=== PATIENT | female | born 1955 | race Caucasian/White ===

== ENCOUNTER 2022-10-04 09:54 | Outpatient (OUT) | payer MEDICARE, OTHER, SELFPAY ==
--- NOTE | 2022-10-04 10:06 | XR_ITS ---
The [address] [address] Patient Name: EVANGELIST SCRUGGS MRN: [id number] date: 1955 Sex: F Assigned Patient Location: US Current Patient Location: US Accession/Order Number: [id number] Exam Date: 10/04/2022 10:15 Report Date: 10/04/2022 11:41 At the request of: LAZARO CHARLES Procedure: XR knee RT 4V EXAM: XR knee RT 4V HISTORY: Pain In Right Knee M25.561 COMPARISON: None. TECHNIQUE: 4 views FINDINGS: No acute fracture or dislocation. No significant degenerative changes. Unremarkable soft tissues. XR/XR knee RT 4V IMPRESSION: Unremarkable exam. Electronically authenticated by: ELIZ HUTCHINS Date: 10/04/2022 11:41
--- NOTE | 2022-10-04 10:06 | US_ITS ---
The [address] [address] Patient Name: EVANGELIST SCRUGGS MRN: [id number] date: 1955 Sex: F Assigned Patient Location: US Current Patient Location: US Accession/Order Number: [id number] Exam Date: 10/04/2022 10:15 Report Date: 10/04/2022 12:46 At the request of: LAZARO CHARLES Procedure: US venous doppler LE RT EXAMINATION: US venous doppler LE RT HISTORY: Soft Tissue Disorder M79.89 ; right knee pain COMPARISON: No relevant comparison available. FINDINGS: REGION: Right lower extremity THROMBI: None. COMPRESSIBILITY: Normal compressibility. FLOW: Normal waveform and antegrade flow between 5 and 20 cm/s. OTHER: None. US/US venous doppler LE RT IMPRESSION: 1. No deep vein thrombus within the right lower extremity. Electronically authenticated by: IGGY NUNES Date: 10/04/2022 12:46
== END 2022-10-04 09:55 | disposition home or self-care (01) ==
LOC: US 09:57
PROVIDERS: PCP Family Medicine; Visit Provider Family Medicine
DX: M25.561 Pain in right knee (principal); M79.89 Other specified soft tissue disorders
CPT/HCPCS: 73564; 93971

== ENCOUNTER 2023-02-05 10:08 | Outpatient (OUT) | payer MEDICARE, OTHER, SELFPAY ==
[2023-02-05 10:33] LABS: Basophils Percent Auto 0.6 % (0.2-2.0); Eosinophils Absolute Auto 0.1 10^3/uL (0.0-0.7); Hematocrit 39.3 % (36.0-48.0); Hemoglobin 12.8 g/dL (12.0-16.0); Immature Granulocytes Abs Auto 0.01 10^3/uL (0.00-0.03); Immature Granulocytes Pct Auto 0.2 % (0.0-0.5); Lymphocytes Percent Auto 58.6 % (20.5-60.0); Mean Corpuscular HGB Conc 32.6 g/dL (29.9-35.2); Mean Corpuscular Hemoglobin 29.7 pg (26.7-34.0); Mean Corpuscular Volume 91.2 fL (81.0-99.0); Mean Platelet Volume 9.9 fL (9.5-13.5); Monocytes Absolute Auto 0.5 10^3/uL (0.3-0.8); Monocytes Percent Auto 9.7 % (1.7-12.0); Neutrophils Absolute Auto 1.6 10^3/uL (1.4-6.5); Neutrophils Percent Auto 29.9 % (43.0-75.0); Platelet Count 351 10^3/uL (150-450); Red Blood Count 4.31 10^6/uL (4.20-5.40); Red Cell Distribution Width 13.1 % (11.0-15.0); White Blood Count 5.2 10^3/uL (4.0-11.0)
[2023-02-05 12:06] LABS: Alanine Aminotransferase 29 U/L (14-59); Albumin Globulin Ratio 1.1; Albumin Level 3.6 g/dL (3.4-5.0); Alkaline Phosphatase 80 U/L (46-116); Anion Gap 11.9; Aspartate Amino Transferase 20 U/L (15-37); BUN Creatinine Ratio 19.5; Bilirubin Total 0.6 mg/dL (0.2-1.0); Calcium 8.9 mg/dL (8.5-10.1); Carbon Dioxide 28.4 mmol/L (21.0-32.0); Chloride 105 mmol/L (98-107); Estimated GFR (African America >60 (>=60); Estimated GFR (Non-African Ame >60 (>=60); Globulin 3.2 g/dL; Glucose 101 mg/dL (74-106); Potassium 4.3 mmol/L (3.5-5.1); Sodium 141 mmol/L (136-145); Thyroid Stimulating Hormone 1.028 uIU/mL (0.358-3.740); Total Protein 6.8 g/dL (6.4-8.2)
== END 2023-02-05 10:09 | disposition home or self-care (01) ==
LOC: LAB 10:13
PROVIDERS: PCP Family Medicine; Visit Provider Family Medicine
DX: R41.89 Other symptoms and signs involving cognitive functions and awareness (principal); N95.1 Menopausal and female climacteric states; R19.7 Diarrhea, unspecified
CPT/HCPCS: 36415; 80053; 84443; 85025

== ENCOUNTER 2023-02-27 08:51 | Outpatient (OUT) | payer MEDICARE, OTHER, SELFPAY ==
--- OUTSIDE RECORDS SUMMARY | 2023-02-27 08:56 | XMS_ITS | CCD ---
Author Name Unknown Address [address] [place] [address] Organization [facility] Care Team Providers Care Laborer/Grade Check Name Role Phone Marguerite Santiago Unavailable JACK, DR MARGUERITE De Souza Attending Unavailable SANTIAGO, DR MARGUERITE De Souza Admitting Unavailable SANTIAGO, DR MARGUERITE De Souza Primary Care Unavailable MANJU, DR ALEX Epstein Consulting Unavailable SANTIAGO, DR MARGUERITE De Souza Consulting Unavailable SANTIAGO, DR MARGUERITE De Souza Attending Unavailable SANTIAGO, DR MARGUERITE De Souza Admitting Unavailable MANJU, DR ALEX Epstein Consulting Unavailable SANTIAGO, DR MARGUERITE De Souza Primary Care Unavailable SANTIAGO, DR MARGUERITE De Souza Consulting Unavailable SANTIAGO, DR MARGUERITE De Souza Primary Care Unavailable SANTIAGO, DR MARGUERITE De Souza Referring Unavailable MISC, DR RANKIN Admitting Unavailable MISC, DR RANKIN Consulting Unavailable MISC, DR RANKIN Attending Unavailable Allergies Allergy Classification Reported Allergen(s) Allergy Type Date of Onset Reaction(s) Facility (11 sources) NITROFURANTOIN, MACROCRYSTALS / Nitrofurantoin, Monohydrate Drug Allergy delusions [facility] Other (11 sources) Sulfamethoxazole / Trimethoprim Drug Allergy stomach upset [facility] Other (1 source) Nitrofurantoin Drug Allergy [facility] (1 source) Sulfonamides (Antibiotic) Drug allergy (disorder) [facility] Medications Current Medications Medication Drug Class(es) Dates Sig (Normalized) Sig (Original) atropine sulfate 0.025 mg / diphenoxylate hydrochloride 2.5 mg oral tablet (2 sources) Anticholinergic, Cholinergic Muscarinic Antagonist, Antidiarrheal Start: 02-20-2023 take 1 tablet by mouth three times daily as needed Lomotil 2.5-0.025 MG 1 tablet as needed Orally tid prn for 10 days Jan, Active cyclobenzaprine hydrochloride 5 mg oral tablet (4 sources) Muscle Relaxant Start: 02-05-2023 take 1 tablet by mouth every twenty-four hours Cyclobenzaprine HCl 5 MG 1 tablet at bedtime as needed Orally Once a day for 30 day(s) Jan, Active 24 hr oxybutynin chloride 10 mg extended release oral tablet (6 sources) Cholinergic Muscarinic Antagonist Start: 11-08-2022 take 1 tablet by mouth once daily oxyBUTYnin Chloride ER 10 MG 1 tablet Orally Once a day for 30 day(s) Oct, Active Start: 10-11-2022 take 1 tablet by mouth once da sedrick Ditropan XL 5 MG 1 tablet Orally Once a day for 30 days Sep, Active Start: 10-11-2022 take 1 tablet by filomena th every twenty-four hours Ditropan XL 5 MG 1 tablet Orally Once a day for 30 days Sep, Active predniSONE 20 mg oral tablet (2 sources) Start: 07-04-2022 take 2 tablets by mouth every twenty-four hours predniSONE 20 MG 2 tablets Orally Once a day for 5 days June, Active Probiotic (7 sources) Probiotic Orally Active rifAXIMin 550 mg oral tablet (2 sources) Rifamycin Antibacterial take 1 tablet by mouth every twelve hours Xifaxan 550 MG 1 tablet Orally Twice a day for 10 days Active 24 hr tolterodine tartrate 2 mg extended release oral capsule (1 source) Cholinergic Muscarinic Antagonist Start: 10-04-2022 take 1 capsule by mouth every twenty-four hours Detrol LA 2 MG 1 capsule Orally Once a day for 30 day(s) Sep, Active veozah 45 mg tablet (4 sources) take 1 tablet by mouth every twenty-four hours Veozah 45 MG 1 tablet Orally Once a day for 30 days Active zolpidem tartrate 5 mg oral tablet (5 sources) gamma-Aminobutyric Acid-ergic Agonist Start: 10-04-2022 take 1 tablet by mouth every twenty-four hours Zolpidem Tartrate 5 MG 1 tablet at bedtime as needed Orally Once a day for 30 days Sep, Active Completed/Discontinued Medications Medication Drug Class(es) Dates Sig (Normalized) Sig (Original) Ketorolac (11 sources) Nonsteroidal Anti-inflammatory Drug, Cyclooxygenase Inhibitor Start: 12-04-2016 Toradol per 15 mg Nov, 60 mg methylPREDNISolone (11 sources) Corticosteroid Start: 12-04-2016 Depo-Medrol 40 mg Nov, 1 mL Multivitamin preparation (2 sources) Multivitamin Orally Not-Taking omeprazole 20 mg delayed release oral capsule (2 sources) Proton Pump Inhibitor take 1 capsule by mouth once daily PriLOSEC 20 MG 1 capsule Orally Once a day Not-Taking Problems Problem Classification Problem Date Documented Da te Episodic/Chronic Abdominal pain (3 sources) Abdominal pain; Translations: [Unspecified abdominal pain] Episodic Esophageal disorders (3 sources) Gastroesophageal reflux disease without esophagitis; Translations: [Gastro-esophageal reflux disease without esophagitis] Chronic Inflammatory diseases of female pelvic organs (3 sources) Acute vaginitis; Translations: [Acute vaginitis] Episodic Intestinal infection (3 sources) Viral infection of the digestive tract; Translations: [Viral intestinal infection, unspecified] Episodic Menopausal disorders (5 sources) Menopausal flushing; Translations: [Menopausal and female climacteric states] Chronic Miscellaneous mental health disorders (9 sources) Primary insomnia; Translations: [Primary insomnia] Chronic Mycoses (7 sources) Tinea unguium; Translations: [Onychomycosis due to dermatophyte ] Onset: 2 Episodic Other circulatory disease (3 sources) Elevated blood-pressure reading without diagnosis of hypertension; Translations: [Elevated blood-pressure reading, without diagnosis of hypertension] Episodic Other connective tissue disease (1 source) Other muscle spasm Episodic Other diseases of bladder and urethra (9 sources) Overactive bladder; Translations: [Overactive bladder] Chronic Other diseases of bladder and urethra (2 sources) Overactive bladder Chronic Other gastrointestinal disorders (2 sources) Diarrhea, unspecified Episodic Other injuries and conditions due to external causes (3 sources) Motion sickness; Translations: [Motion sickness, initial encounter] Episodic Other nervous system disorders (1 source) Other symptoms and signs involving cognitive functions and awareness Episodic Other non-epithelial cancer of skin (3 sources) History of malignant neoplasm of skin; Translations: [Personal history of other malignant neoplasm of skin] Episodic Other non-traumatic joint disorders (5 sources) Pain in left knee; Translations: [PAIN IN LEFT KNEE] Onset: 3 Episodic Other nutritional; endocrine; and metabolic disorders (3 sources) Body mass index 30+ - obesity; Translations: [Body mass index (BMI) 30.0-30.9, adult] Chronic Other nutritional; endocrine; and metabolic disorders (3 sources) Body mass index 25-29 - overweight; Translations: [Body mass index (BMI) 29.0-29.9, adult] Episodic Other screening for suspected conditions (not mental disorders or infectious disease) (4 sources) Encounter for screening mammogram for malignant neoplasm of breast; Translations: [ENC SCR MAMMO MALIG NEOPLASM BREAST] Onset: 3 Episodic Spondylosis; intervertebral disc disorders; other back problems (6 sources) Neck pain; Translations: [Cervicalgia] Episodic Results Test Name Value Interpretation Reference Range Facil ity MG MAMM SCREEN 3D BLUE CADon 07-18-2022 MG MAMM SCREEN 3D BLUE CAD Patient: EVANGELIST SCRUGGS Exam Date: 07/18/2022 : 1955 Gender:F Ordering : DR MARGUERITE SANTIAGO M.D. Admission #: [id number] Family : Order #: [id number] CLICK HERE TO VIEW EXAM RADIOLOGY REPORT PROCEDURE: MAMMOGRAM SCREENING 3D BILATERAL CAD COMPARISON: MG MAMM SCREEN 3D BLUE CAD, 07/12/2021. MG MAMM SCREEN 3D BLUE CAD, 07/06/2020. MG MAMM SCREEN BLUE W CAD, 10/09/2016. DIGITIZED_MAMMO, 08/10/2008. INDICATIONS: Screening mammography Calculator Name NCI Breast Cancer Risk Assessment Tool 5 Year Breast Cancer Risk 1.90% Lifetime Breast Cancer Risk 6.70% Personal Breast Cancer No Personal Ovarian Cancer No Treatments None Family Cancers None LOCATION: [facility] BREAST COMPOSITION: Heterogeneously dense,which may obscure small masses. FINDINGS: DIAGNOSTIC CATEGORY 2--BENIGN FINDING: RIGHT BREAST: No significant suspicious finding. No significant change has occurred. LEFT BREAST: No significant suspicious finding. Stable, chronic mass or asymmetric fibroglandular tissue within posterior lower-outer quadrant. No significant change has occurred. RECOMMENDATIONS: ROUTINE MAMMOGRAM AND CLINICAL EVALUATION IN 12 MONTHS. PLEASE NOTE: A NORMAL MAMMOGRAM DOES NOT EXCLUDE THE POSSIBILITY OF BREAST CANCER. A CLINICALLY SUSPICIOUS PALPABLE LUMP SHOULD BE BIOPSIED. Dictated by: Alex Durand M.D. on 07/19/2022 at 11:06 Approved by: Alex Durand M.D. on 07/19/2022 at 11:12 Normal [facility] CREATININEon 08-22-2021 Creatinine [Mass/Vol] 0.86 mg/dL Normal 0.55-1.02 [facility] Comment on above: Performed By: #### A ST, ALT, CREA #### [facility] [address] [place] [address] Dr. Uma Kennedy EGFR-AF INDONESIAN >=60 Normal >=[address] [facility] Comment on above: Performed By: #### A ST, ALT, CREA #### [facility] [address] [address] [address] Uma Kennedy EGFR-NON AF INDONESIAN >=60 Normal >=[address] [facility] Comment on above: Performed By: #### A ST, ALT, CREA #### [facility] [address] [place] [address] Dr. Uma Kennedy SGOTon 08-22-2021 AST [Catalytic activity/Vol] 13 U/L Critically low 15-37 [facility] Comment on above: Performed By: #### A ST, ALT, CREA #### [facility] [address] [place] [address] Dr. Uma Kennedy SGPTon 08-22-2021 ALT [Catalytic activity/Vol] 28 U/L Normal 14-59 [facility] Comment on above: Performed By: #### A ST, ALT, CREA #### [facility] [address] [place] [address] Dr. Uma Kennedy Vital Signs Date Time Vital Sign Value Performing Clinician Facility 02-05-2023 09:30-0500 Body height 157.48 cm Marguerite Santiago Other [facility] Other 02-05-2023 09:30-0500 Body mass index (BMI) [Ratio] 26.41 kg/m2 Marguerite Santiago Other [facility] Other 02-05-2023 09:30-0500 Body weight 65.5 kg Marguerite Santiago Other [facility] Other 02-05-2023 09:30-0500 Diastolic blood pressure 72 mm[Hg] Marguerite Santiago Other [facility] Other 02-05-2023 09:30-0500 SaO2% (BldA) [Mass fraction] 97 % Marguerite Santiago Other [facility] Other 02-05-2023 09:30-0500 Systolic blood pressure 128 mm[Hg] Marguerite Santiago Other [facility] Other 11-08-2022 09:45-0400 Body height 157.48 cm Marguerite Santiago Other [facility] Other 11-08-2022 09:45-0400 Body mass index (BMI) [Ratio] 27.83 kg/m2 Marguerite Santiago Other [facility] Other 11-08-2022 09:45-0400 Body weight 69.04 kg Marguerite Santiago Other [facility] Other 11-08-2022 09:45-0400 Diastolic blood pressure 85 mm[Hg] Marguerite Santiago Other [facility] Other 11-08-2022 09:45-0400 Respiratory rate 12 /min Marguerite Santiago Other [facility] Other 11-08-2022 09:45-0400 Systolic blood pressure 151 mm[Hg] Marguerite Santiago Other [facility] Other 07-04-2022 10:00-0400 Body height 157.48 cm Marguerite Santiago Other [facility] Other 07-04-2022 10:00-0400 Body mass index (BMI) [Ratio] 29.63 kg/m2 Marguerite Santiago Other [facility] Other 07-04-2022 10:00-0400 Body weight 73.48 kg Marguerite Jack Other [facility] Other 07-04-2022 10:00-0400 Diastolic blood pressure 80 mm[Hg] Margueriteterrell Santiago Other [facility] Other 07-04-2022 10:00-0400 SaO2% (BldA) [Mass fraction] 97 % Margueriteterrell Santiago Other [facility] Other 07-04-2022 10:00-0400 Systolic blood pressure 142 mm[Hg] Marguerite Jack Other [facility] Other Encounters Encounter Date Encounter Type Care Provider Facility Start: 02-20-2023 End: 02-20-2023 ambulatory Marguerite Santiago Other [facility] Other Start: 02-20-2023 Telephone encounter Marguerite Santiago [facility] Start: 02-13-2023 End: 02-13-2023 ambulatory Marguerite Santiago Other [facility] Other Start: 02-13-2023 Telephone encounter Marguerite Santiago [facility] Start: 2023 End: 2023 ambulatory Marguerite Santiago Other [facility] Other Start: 2023 Telephone encounter Marguerite Santiago [facility] Start: 02-05-2023 End: 02-05-2023 ambulatory Marguerite Santiago Other [facility] Other Start: 02-05-2023 Office outpatient vi sit 25 minutes Marguerite Santiago [facility] Start: 11-27-2022 End: 11-27-2022 ambulatory Marguerite Santiago Other [facility] Other Start: 11-27-2022 Telephone encounter Marguerite Santiago [facility] Start: 11-08-2022 End: 11-08-2022 ambulatory Marguerite Santiago Other [facility] Other Start: 11-08-2022 Office outpatient vi sit 15 minutes Marguerite Santiago [facility] Start: 10-19-2022 End: 10-19-2022 ambulatory Marguerite Santiago Other [facility] Other Start: 10-19-2022 Telephone encounter Mraguerite Santiago [facility] Start: 10-11-2022 End: 10-11-2022 ambulatory Marguerite Santiago Other [facility] Other Start: 10-11-2022 Telephone encounter Marguerite Santiago [facility] Start: 10-05-2022 End: 10-05-2022 ambulatory Marguerite Santiago Other [facility] Other Start: 10-05-2022 Telephone encounter Marguerite Santiago [facility] Start: 07-18-2022 End: 07-19-[address] MARGUERITE SANTIAGO Facility:[facility] Start: 07-07-2022 End: 07-07-2022 ambulatory Marguerite Santiago Other [facility] Other Start: 07-07-2022 Telephone encounter Marguerite Santiago [facility] Start: 07-04-2022 Office outpatient vi sit 15 minutes Marguerite Santiago [facility] Start: 07-04-2022 End: 07-05-[address] MARGUERITE SANTIAGO [employer] Other Start: 08-22-2021 End: 08-23-[address] MARGUERITE SANTIAGO Facility:[facility] Procedures Date Procedure Procedure Detail Performing Clinician Screening for malign ant neoplasm of cervix Marguerite Santiago Other Payers Date Payer Category Payer Medicare [id number] 2.1 [id number] 1958 Unknown [id number] 1955 Unknown [id number] [id number] 1955 Unknown [id number] [id number] [id number] 1955 Unknown [id number] [id number] [id number] Social History Date Type Detail Facility Unknown if ever smoked [facility] Other Sex Assigned At Sex Assigned At Bir th [facility] Other Evaluation note 02-20-2023 Note Date & Type Note Facility 02-20-2023 Evaluation note Encounter Date Diagnosis Assessment Notes Jan, Acute diarrhea (ICD-10 - R19.7) [facility] Other Evaluation note 02-05-2023 Note Date & Type Note Facility 02-05-2023 Evaluation note Encounter Date Diagnosis Assessment Notes Jan, Brain fog (ICD-10 - R41.89) Pt agrees to Neurology referral if labs are wnl. Jan, Hot flashes due to menopause (ICD-10 - N95.1) check lab first then trial of veozah Jan, Acute diarrhea (ICD-10 - R19.7) Consider GI referral, trial of med first Jan, Muscle spasm (ICD-10 - M62.838) Pt requests refill. [facility] Other History general Narrative - Reported 12-27-2022 Note Date & Type Note Facility 12-27-2022 History general N arrative - Reported Type Medical History Acid reflux Medical History OAB (overactive bladder) Medical History Primary insomnia Surgical History cervical fusion 2006 Surgical History Right knee surgery 12/27/2022 Hospitalization History see above surgical histo ry [facility] Other Evaluation note 11-08-2022 Note Date & Type Note Facility 11-08-2022 Evaluation note Encounter Date Diagnosis Assessment Notes Oct, OAB (overact yung bladder) (ICD-10 - N32.81) Will increase dose. Pt will notify us if medication is not helpful. Consider urology referral if not successful, but presently waiting for orthopedics for her R knee. [facility] Other Evaluation note 10-11-2022 Note Date & Type Note Facility 10-11-2022 Evaluation note Encounter Date Diagnosis Assessment Notes Sep, OAB (overact yung bladder) (ICD-10 - N32.81) [facility] Other Evaluation note 07-04-2022 Note Date & Type Note Facility 07-04-2022 Evaluation note Encounter Date Diagnosis Assessment Notes June, Left medial knee pain (ICD-10 - M25.562) Samples of Voltaren given. Order for XR printed. If PT Or Ortho indicated, would go toward [facility]. [facility] Other Clinical Note 07-04-2022 Note Date & Type Note Facility 07-04-2022 Note PROCEDURE: XR KNEE L T 4V or > HISTORY: Pain of left knee joint ; medial knee pain for 2 weeks which increases with activity COMPARISON: None. FINDINGS: BONES:No fracture, acute abnormality, or significant arthropathy. SOFT TISSUES:No visible soft tissue swelling. EFFUSION:None visible. OTHER: Negative. IMPRESSION: 1. No acute bone abnormality. 2. Minimal degenerative changes. Electronically authenticated by: ALEX DURAND Date: 2022-07-04 10:[address] [facility] Evaluation note Note Date & Type Note Facility Evaluation note No Information [facility] Other History general Narrative - Reported Note Date & Type Note Facility History general Narrative - Reported Type Medical History Acid reflux Surgical History cervical fusion 2006 Hospitalization History see above surgical [email or web address] Other History general Narrative - Reported Note Date & Type Note Facility History general Narrative - Reported Type Medical History Acid reflux Medical History OAB (overactive bladder) Medical History Primary insomnia Surgical History cervical fusion 2006 Hospitalization History see above surgical histo [email or web address] Other Summary Purpose Family History No Family History Records Found Advance Directives No Advanced Directives Records Found Reason for Referral Reason [facility] Office - br ain fog Diagnosis 1 Brain fog (R41.89) Referral Organization [facility]annan Referring Provider First Name Marguerite Referring Provider Last Name Jack Referring Provider Specialty Family Medi cine Referred Organization [facility] Referred Provider Jorge L Sears Referred Address [address] [place], [place],[address] Referred Provider Specialty Neurology Referral Priority Routine Additional Source Comments REASON FOR VISIT (unrecogniz ed section and content) Kneeknee xraytestsmessageref erralbladder medication not workingmessagemessagemultiple issuesmessagemedication INFORMATION SOURCE (unrecogn ized section and content) DATE CREATED AUTHOR 08/04/2022 [facility] pital FOR RECORDS PERTAINING TO PATIENTS WHO ARE OR HAVE BEEN ENROLLED IN A CHEMICAL DEPENDENCY/SUBSTANCEABUSE PROGRAM, SOME INFORMATION MAY BE OMITTED. This clinical summary was aggregated from multiple sources. Caution should be exercised in using it in the provision of clinical care. This summary normalizes information from multiple sources, and as a consequence, information in this document may materially change the coding, format and clinical context of patient data. In addition, data may be omitted in some cases. CLINICAL DECISIONS SHOULD BE BASED ON THE PRIMARY CLINICAL RECORDS. [facility] [employer] provides no warranty or guarantee of the accuracy or completeness of information in this document.
--- NOTE | 2023-02-27 09:07 | MR_ITS ---
The [address] [address] Patient Name: EVANGELIST SCRUGGS MRN: [id number] date: 1955 Sex: F Assigned Patient Location: MRI Current Patient Location: MRI Accession/Order Number: [id number] Exam Date: 02/27/2023 09:25 Report Date: 02/27/2023 10:16 At the request of: IGGY GAVIN Procedure: MR head/brain wo con EXAM: MR head/brain wo con HISTORY: Brain fog F48.8, Hyper-reflexia R29.2 COMPARISON: None. TECHNIQUE: Multiplanar multisequence MR imaging of the brain was performed without intravenous contrast. FINDINGS: Calvarium/skull base: No focal marrow replacing lesion suggestive of neoplasm. Orbits: Grossly unremarkable. Paranasal sinuses: Mild diffuse mucosal thickening of paranasal sinuses. Large inferior left maxillary sinus mucosal retention cyst versus polyp. No air-fluid level. Brain: No restricted diffusion. Minimal supratentorial white matter change which is considered within normal limits for patient's age and most commonly relates to sequela small vessel disease. Parenchymal volume is grossly appropriate. No mass effect, hemorrhage, or hydrocephalus. Grossly normal flow-related signal in the major intracranial arteries and dural sinuses. MR/MR head/brain wo con IMPRESSION: No acute intracranial process. Electronically authenticated by: MIN GALVEZ Date: 02/27/2023 10:16
[2023-03-02 17:10] LABS: Methylmalonic Acid, Serum 63 nmol/L (0-378)
== END 2023-02-27 08:52 | disposition home or self-care (01) ==
LOC: MRI 08:51
PROVIDERS: PCP Family Medicine; Visit Provider Psychiatry & Neurology Neurology
DX: F48.8 Other specified nonpsychotic mental disorders (principal); R29.2 Abnormal reflex
CPT/HCPCS: 36415; 70551; 82607; 82746; 83921

== ENCOUNTER 2023-03-27 11:17 | Outpatient (OUT) | payer MEDICARE, OTHER, SELFPAY ==
--- OUTSIDE RECORDS SUMMARY | 2023-03-27 11:22 | XMS_ITS | CCD ---
Author Name Unknown Address [address] [place] [address] Organization [facility] Care Team Providers Care Kettle Worker Name Role Phone Marguerite Santiago Unavailable JACK, [...] MACROCRYSTALS / Nitrofurantoin, Monohydrate Drug Allergy delusions [facility] [employer] Other (11 sources) Sulfamethoxazole / Trimethoprim Drug Allergy stomach upset [facility] [employer] Other (1 source) Nitrofurantoin Drug Allergy [facility] (1 source) Sulfonamides (Antibiotic) Drug allergy (disorder) [facility] Medications Current Medications Medication Drug [...] : DR MARGUERITE SANTIAGO M.D. Admission #: [id number] Family : Order #: [id number] CLICK HERE TO VIEW EXAM RADIOLOGY REPORT [...] No Treatments None Family Cancers None LOCATION: [facility] BREAST COMPOSITION: Heterogeneously dense,which may obscure small [...] Durand M.D. on 07/19/2022 at 11:12 Normal [facility] CREATININEon 08-22-2021 Creatinine [Mass/Vol] 0.86 mg/dL Normal 0.55-1.02 [facility] Comment on above: Performed By: #### A ST, ALT, CREA #### [facility] [address] [place] [address] Dr. Uma Kennedy EGFR-AF BURUNDIAN >=60 Normal >=60 [facility] Comment on above: Performed By: #### A ST, ALT, CREA #### [facility] [address] [address] [address] Uma Kennedy EGFR-NON AF BURUNDIAN >=60 Normal >=60 [facility] Comment on above: Performed By: #### A ST, ALT, CREA #### [facility] [address] [place] [address] Dr. Uma Kennedy SGOTon 08-22-2021 AST [Catalytic activity/Vol] 13 U/L Critically low 15-37 [facility] Comment on above: Performed By: #### A ST, ALT, CREA #### [facility] [address] [place] [address] Dr. Uma Kennedy SGPTon 08-22-2021 ALT [Catalytic activity/Vol] 28 U/L Normal 14-59 [facility] Comment on above: Performed By: #### A ST, ALT, CREA #### [facility] [address] [place] [address] Dr. Uma Kennedy Vital Signs Date Time Vital Sign Value Performing Clinician Facility 02-05-2023 09:30-0500 Body height 157.48 cm Marguerite Santiago Other [facility] Other 02-05-2023 09:30-0500 Body mass index (BMI) [Ratio] 26.41 kg/m2 Marguerite Santiago Other [facility] Other 02-05-2023 09:30-0500 Body weight 65.5 kg Marguerite Santiago Other [facility] Other 02-05-2023 09:30-0500 Diastolic blood pressure 72 mm[Hg] Marguerite Santiago Other [facility] Other 02-05-2023 09:30-0500 SaO2% (BldA) [Mass fraction] 97 % Marguerite Santiago Other [facility] Other 02-05-2023 09:30-0500 Systolic blood pressure 128 mm[Hg] Marguerite Santiago Other [facility] Other 11-08-2022 09:45-0400 Body height 157.48 cm Marguerite Santiago Other [facility] Other 11-08-2022 09:45-0400 Body mass index (BMI) [Ratio] 27.83 kg/m2 Marguerite Santiago Other [facility] Other 11-08-2022 09:45-0400 Body weight 69.04 kg Marguerite Santiago Other [facility] Other 11-08-2022 09:45-0400 Diastolic blood pressure 85 mm[Hg] Marguerite Santiago Other [facility] Other 11-08-2022 09:45-0400 Respiratory rate 12 /min Marguerite Santiago Other [facility] Other 11-08-2022 09:45-0400 Systolic blood pressure 151 mm[Hg] Marguerite Santiago Other [facility] Other 07-04-2022 10:00-0400 Body height 157.48 cm Marguerite Santiago Other [facility] Other 07-04-2022 10:00-0400 Body mass index (BMI) [Ratio] 29.63 kg/m2 Marguerite Santiago Other [facility] Other 07-04-2022 10:00-0400 Body weight 73.48 kg Marguerite Jack Other [facility] Other 07-04-2022 10:00-0400 Diastolic blood pressure 80 mm[Hg] Margueriteterrell Santiago Other [facility] Other 07-04-2022 10:00-0400 SaO2% (BldA) [Mass fraction] 97 % Margueriteterrell Santiago Other [facility] Other 07-04-2022 10:00-0400 Systolic blood pressure 142 mm[Hg] Marguerite Jack Other [facility] Other Encounters Encounter Date Encounter Type Care Provider Facility Start: 02-20-2023 End: 02-20-2023 ambulatory Marguerite Santiago Other [facility] Other Start: 02-20-2023 Telephone encounter Marguerite Santiago [facility] Start: 02-13-2023 End: 02-13-2023 ambulatory Marguerite Santiago Other [facility] Other Start: 02-13-2023 Telephone encounter Marguerite Santiago [facility] Start: 2023 End: 2023 ambulatory Marguerite Santiago Other [facility] Other Start: 2023 Telephone encounter Marguerite Santiago [facility] Start: 02-05-2023 End: 02-05-2023 ambulatory Marguerite Santiago Other [facility] Other Start: 02-05-2023 Office outpatient vi sit 25 minutes Marguerite Santiago [facility] Start: 11-27-2022 End: 11-27-2022 ambulatory Marguerite Santiago Other [facility] Other Start: 11-27-2022 Telephone encounter Marguerite Santiago [facility] Start: 11-08-2022 End: 11-08-2022 ambulatory Marguerite Santiago Other [facility] Other Start: 11-08-2022 Office outpatient vi sit 15 minutes Marguerite Santiago [facility] Start: 10-19-2022 End: 10-19-2022 ambulatory Marguerite Santiago Other [facility] Other Start: 10-19-2022 Telephone encounter Marguerite Santiago [facility] Start: 10-11-2022 End: 10-11-2022 ambulatory Marguerite Santiago Other [facility] Other Start: 10-11-2022 Telephone encounter Marguerite Santiago [facility] Start: 10-05-2022 End: 10-05-2022 ambulatory Marguerite Santiago Other [facility] Other Start: 10-05-2022 Telephone encounter Marguerite Santiago [facility] Start: 07-18-2022 End: 07-19-[address] MARGUERITE SANTIAGO Facility:[facility] Start: 07-07-2022 End: 07-07-2022 ambulatory Marguerite Santiago Other [facility] Other Start: 07-07-2022 Telephone encounter Marguerite Santiago [facility] Start: 07-04-2022 Office outpatient vi sit 15 minutes Marguerite Santiago [facility] Start: 07-04-2022 End: 07-05-[address] MARGUERITE SANTIAGO [place] [employer] Other Start: 08-22-2021 End: 08-23-[address] MARGUERITE SANTIAOG Facility:[facility] Procedures Date Procedure Procedure Detail Performing Clinician Screening for malign ant neoplasm of cervix Marguerite Santiago Other Payers Date Payer Category Payer Medicare [id number] 2.1 [id number] 1958 Unknown [id number] 2. [id number] 1955 Unknown [id number] 1955 Unknown [id number] [id number] [id number] 1955 Unknown [id number] Social History Date Type Detail Facility Unknown if ever smoked [facility] Other Sex Assigned At Sex Assigned At Bir th [facility] Other Evaluation note 02-20-2023 Note Date & Type Note Facility 02-20-2023 Evaluation note Encounter Date Diagnosis Assessment Notes Jan, Acute diarrhea (ICD-10 - R19.7) [facility] Other Evaluation note 02-05-2023 Note Date & [...] spasm (ICD-10 - M62.838) Pt requests refill. [facility] Other History general Narrative - Reported 12-27-2022 Note Date & Type Note Facility 12-27-2022 History general N arrative - Reported Type Medical History Acid reflux Medical History OAB (overactive bladder) Medical History Primary insomnia Surgical History cervical fusion 2006 Surgical History Right knee surgery 12/27/2022 Hospitalization History see above surgical histo ry [facility] Other Evaluation note 11-08-2022 Note Date & Type Note Facility 11-08-2022 Evaluation note Encounter Date Diagnosis Assessment Notes Oct, OAB (overact yung bladder) (ICD-10 - N32.81) Will increase dose. Pt will notify us if medication is not helpful. Consider urology referral if not successful, but presently waiting for orthopedics for her R knee. [facility] Other Evaluation note 10-11-2022 Note Date & Type Note Facility 10-11-2022 Evaluation note Encounter Date Diagnosis Assessment Notes Sep, OAB (overact yung bladder) (ICD-10 - N32.81) [facility] Other Evaluation note 07-04-2022 Note Date & Type Note Facility 07-04-2022 Evaluation note Encounter Date Diagnosis Assessment Notes June, Left medial knee pain (ICD-10 - M25.562) Samples of Voltaren given. Order for XR printed. If PT Or Ortho indicated, would go toward [facility]. [facility] Other Clinical Note 07-04-2022 Note Date & [...] by: ALEX DURAND Date: 2022-07-04 10:35 [facility] Evaluation note Note Date & Type Note Facility Evaluation note No Information [employer] Other History general Narrative - Reported Note Date & Type Note Facility History general Narrative - Reported Type Medical History Acid reflux Surgical History cervical fusion 2006 Hospitalization History see above surgical [place] [place] [employer] [facility] Other History general Narrative - Reported Note Date & Type Note Facility History general Narrative - Reported Type Medical History Acid reflux Medical History OAB (overactive bladder) Medical History Primary insomnia Surgical History cervical fusion 2006 Hospitalization History see above surgical histo [facility] Other Summary Purpose Family History No Family History Records Found Advance Directives No Advanced Directives Records Found Reason for Referral Reason [facility] Office - br ain fog Diagnosis 1 Brain fog (R41.89) Referral Organization [facility]annan Referring Provider First Name Marguerite Referring Provider Last Name Jack Referring Provider Specialty Family Medi cine Referred Organization [facility] Referred Provider Jorge L Sears Referred Address [address] [place], [place],[address] Referred Provider Specialty Neurology Referral Priority Routine Additional Source Comments REASON FOR VISIT (unrecogniz ed section and content) Kneeknee xraytestsmessageref erralbladder medication not workingmessagemessagemultiple issuesmessagemedication INFORMATION SOURCE (unrecogn ized section and content) DATE CREATED AUTHOR 08/04/2022 The [facility] pital FOR RECORDS PERTAINING TO PATIENTS WHO [...] BE BASED ON THE PRIMARY CLINICAL RECORDS. [facility] [employer] provides no warranty or guarantee of the accuracy or completeness of information in this document.
--- NOTE | 2023-03-27 11:24 | XR_ITS ---
The [address] [address] Patient Name: EVANGELIST SCRUGGS MRN: [id number] date: 1955 Sex: F Assigned Patient Location: LAB Current Patient Location: LAB Accession/Order Number: [id number] Exam Date: 03/27/2023 11:30 Report Date: 03/27/2023 12:06 At the request of: LAZARO CHARLES Procedure: XR lumbar spine 2-3V EXAMINATION: XR lumbar spine 2-3V HISTORY: Low Back Pain COMPARISON: No relevant comparison available. FINDINGS: BONES: Dextrocurvature centered at L2-L3. Anterior wedge compression fracture T10, T11 and T12 vertebral bodies, endplate sclerosis suggests chronic change. 4 mm anterolisthesis of L3 on L4. Mild spondylosis. Moderate facet osteoarthropathy DISC SPACES: Normal. No significant disc height narrowing, subluxation, or endplate abnormality. PARASPINOUS: Negative. No paraspinous abnormality is seen. OTHER: Negative. XR/XR lumbar spine 2-3V IMPRESSION: 4 mm anterolisthesis of L3 on L4 Electronically authenticated by: ABRAHAN KENNEDY Date: 03/27/2023 12:06
== END 2023-03-27 11:18 | disposition home or self-care (01) ==
LOC: LAB 11:20
PROVIDERS: PCP Family Medicine; Visit Provider Family Medicine
DX: M54.50 Low back pain, unspecified (principal)
CPT/HCPCS: 72100

== ENCOUNTER 2023-05-14 09:39 | Outpatient (OUT) | payer MEDICARE, OTHER, SELFPAY ==
--- NOTE | 2023-05-14 09:41 | MR_ITS ---
[address] [address] Patient Name: EVANGELIST SCRUGGS MRN: [facility]:[id number] date: 1955 Sex: F Assigned Patient Location: MRI Current Patient Location: MRI Accession/Order Number: [id number] Exam Date: 05/14/2023 09:50 Report Date: 05/14/2023 11:28 At the request of: DENNY LAYTON Procedure: MR cervical spine wo con EXAMINATION: MR cervical spine wo con HISTORY: Hyper reflexia R29.2 COMPARISON: No relevant comparison available. TECHNIQUE: A variety of imaging planes and parameters were utilized for visualization of suspected pathology. FINDINGS: CRANIOCERVICAL AREA: Normal foramen magnum with no Chiari malformation. PARASPINAL AREA: Normal with no visible mass. BONES: 3 mm retrolisthesis of C4 on C5. Signal dropout consistent with anterior fusion C5-C6. 3 mm anterolisthesis of C7 on T1 Moderate degenerative spondylosis. CORD: Normal caliber, contour, and signal intensity. CERVICAL DISC LEVELS: C2-C3: Early degenerative disc disease is present without focal protrusion or neural impingement. C3-C4: Early degenerative disc disease is present without focal protrusion or neural impingement. C4-C5: Disc collapse. 3 mm retrolisthesis of C4 on C5. Moderate diffuse disc/osteophyte complex narrowing the central canal to 7.3 mm in AP dimension. Mild to moderate bilateral foraminal stenosis C5-C6: Anterior fusion. No central or foraminal stenosis C6-C7: Severe disc space narrowing. Mild diffuse disc/osteophyte complex. No central or foraminal stenosis C7-T1: 3 mm anterolisthesis of C7 on T1. No disc bulge or herniation. Degenerative facet osteoarthropathy with bilateral foraminal stenosis. No central canal stenosis. MR/MR cervical spine wo con IMPRESSION: Degenerative changes Central and lateral foraminal stenosis C4-C5 Bilateral foraminal stenosis C7-T1 Electronically authenticated by: ABRAHAN KENNEDY Date: 05/14/2023 11:28
--- OUTSIDE RECORDS SUMMARY | 2023-05-14 09:49 | XMS_ITS | CCD ---
Author Name Unknown Address [address] [facility] [address] [place] [address] Organization [facility] Care Team Providers Care Combination Welder Name Role Phone Marguerite Santiago Unavailable MELVIN, DR MARGUERITE De Souza Attending Unavailable SANTIAGO, DR MARGUERITE De Souza Admitting Unavailable SANTIAGO, DR MARGUERITE De Souza Primary Care Unavailable ZIEBER, DR ALEX Epstein Consulting Unavailable SANTIAGO, DR MARGUERITE De Souza Consulting Unavailable SANTIAGO, DR MARGUERITE De Souza Attending Unavailable SANTIAGO, DR MARGUERITE De Souza Admitting Unavailable ZIEBER, DR ALEX Epstein Consulting Unavailable SANTIAGO, DR MARGUERITE De Souza Primary Care Unavailable SANTIAGO, DR MARGUERITE De Souza Consulting Unavailable SANTIAGO, DR MARGUERITE De Souza Primary Care Unavailable SANTIAGO, DR MARGUERITE De Souza Referring Unavailable MISC, DR RANKIN Admitting Unavailable MISC, DR RANKIN Consulting Unavailable MISC, DR RANKIN Attending Unavailable Isle WATCH TRAIN ASSEMBLER-FERTILIZER LOADER, Alba Fan Attending U navailable Provider, None Primary Care Unavailable Isle, Alba Nesbitt Attending Unavailable Isle, Alba Nesbitt Admitting Unavailable Isle, Alba Nesbitt Attending Unavailable Isle, Alba Nesbitt Admitting Unavailable Provider, None Primary Care Unavailable Allergies Allergy Classification Reported Allergen(s) Allergy Type Date of Onset Reaction(s) Facility (15 sources) NITROFURANTOIN, MACROCRYSTALS / Nitrofurantoin, Monohydrate Drug Allergy [facility] Other (15 sources) Sulfamethoxazole / Trimethoprim Drug Allergy stomach upset [facility] Other (1 source) Nitrofurantoin Drug Allergy [facility] (1 source) Sulfonamides (Antibiotic) Drug allergy (disorder) [facility] (1 source) Nitrofurantoin Drug Allergy 04-17-19 [facility] (1 source) Sulfamethoxazole Drug Allergy 02-20-20 24 stomach upset [facility] (1 source) Trimethoprim Drug Allergy 04-17-19 24 stomach upset [facility] Medications Current Medications Medication Drug Class(es) Dates Sig (Normalized) Sig (Original) atropine sulfate 0.025 mg / diphenoxylate hydrochloride 2.5 mg oral tablet (2 sources) Anticholinergic, Cholinergic Muscarinic Antagonist, Antidiarrheal Start: 02-20-2023 take 1 tablet by mouth three times daily as needed Lomotil 2.5-0.025 MG 1 tablet as needed Orally tid prn for 10 days Jan, Active cyclobenzaprine hydrochloride 5 mg oral tablet (9 sources) Muscle Relaxant Start: 04-16-2023 take 1 tablet by mouth once daily at bedtime Cyclobenzaprine Active 1 TAB PO Daily at bedtime April 16, 2023 12:00am [employer] tablet at bedtime as needed Orally Once a day; Note: Source Status: Refill; Provider: Melvin De Souza Start: 02-05-2023 take 1 tablet by filomena th every twenty-four hours Cyclobenzaprine HCl 5 MG 1 tablet at bedtime as needed Orally Once a day for 30 day(s) Jan, Active estrogens, conjugated (long term) 0.3 mg / medroxyPROGESTERone acetate 1.5 mg oral tablet (5 sources) Progestin, Estrogen Start: 04-16-2023 take 1 tablet by mouth once daily Conj Estrog-Medroxyprogest Cosme Active 1 TAB PO Daily April 16, 2023 12:00am [employer] tablet Orally Once a day; Note: Source Status: Start; Provider: Melvin De Souza Start: 03-27-2023 take 1 tablet by filomena th every twenty-four hours Prempro 0.3-1.5 MG 1 tablet Orally Once a day for 30 day(s) Feb, Active ibuprofen 800 mg oral tablet (1 source) Nonsteroidal Anti-inflammatory Drug Start: 04-04-2023 take 1 tablet by mouth three times daily as needed Ibuprofen 800 MG 1 tablet Orally Three times a day, as needed for 90 days Mar, Active 24 hr oxybutynin chloride 10 mg [...] Class(es) Dates Sig (Normalized) Sig (Original) Ketorolac (15 sources) Nonsteroidal Anti-inflammatory Drug, Cyclooxygenase Inhibitor Start: 12-04-2016 Toradol per 15 mg Nov, 60 mg methylPREDNISolone (15 sources) Corticosteroid Start: 12-04-2016 Depo-Medrol 40 mg Nov, 1 mL Multivitamin preparation (2 sources) Multivitamin Orally Not-Taking omeprazole 20 mg delayed release oral capsule (2 sources) Proton Pump Inhibitor take 1 capsule by mouth once daily PriLOSEC 20 MG 1 capsule Orally Once a day Not-Taking Problems Active Problems Problem Classification Problem Date Documented Da [...] [Viral intestinal infection, unspecified] Episodic Menopausal disorders (10 sources) Menopausal flushing; Translations: [Menopausal and female climacteric states] Chronic Miscellaneous mental health disorders (13 sources) Primary insomnia; Translations: [Primary insomnia] Chronic Mycoses (7 sources) Tinea unguium; Translations: [Onychomycosis due to dermatophyte ] Onset: 2 Episodic Other circulatory disease (3 sources) Elevated blood-pressure reading without diagnosis of hypertension; Translations: [Elevated blood-pressure reading, without diagnosis of hypertension] Episodic Other connective tissue disease (1 source) Other muscle spasm Episodic Other diseases of bladder and urethra (13 sources) Overactive bladder; Translations: [Overactive bladder] Chronic Other diseases of bladder and urethra (2 sources) Overactive bladder Chronic Other fractures (1 source) Wedge compression fracture of T11-T12 vertebra, sequela Episodic Other gastrointestinal disorders (2 sources) Diarrhea, unspecified [...] Spondylosis; intervertebral disc disorders; other back problems (4 sources) Arthropathy of lumbar facet joint; Translations: [Spondylosis without myelopathy or radiculopathy, lumbar region] Chronic Spondylosis; intervertebral disc disorders; other back problems (6 sources) Neck pain; Translations: [Cervicalgia] Episodic Thyroid disorders (5 sources) Subclinical hyperthyroidism; Translations: [Thyrotoxicosis, unspecified without thyrotoxic crisis or storm] Chronic Past or Other Problems Problem Classification Problem Date Documented Da te Episodic/Chronic Unclassified (1 source) Lumbar pain M54.50 Results Test Name Value Interpretation Reference Range Facil ity Coding Summaryon 04-12-2023 Coding Summary HTMLBase 64 WbsfbpiwKXl6rGi+PGhlYW Q+CG3DUZYkC74hnNPqnC3s P3FDCIeTHxpaZQNSUQmCWu LtbfIjYQ9diMWzCXRi IC8+ZL5hUZYzTuolhILqj3 Y9zSX1Q30wle5tDTtdpDX1 CTFrFoXgxxuht9vquWj8PZ cuNmluOyBt UJBkyW87ADJ9kY39Ut67xI VdvYOtt9tgyJe3UpSfNVKl AEW5lDxnPBcpa5PmNGUnQ1 0bvTRif5Z7 WPJmxJzbkJBwArMelQM6gZ 9lLTyeskumy9znmiveOoz1 qk03nVZcz4U5lWD2B7Zkcr S6IGKklEGh TdhpyBDEpC3wtgfpr3ffaa omXmLyPIXfBSj8MZv4DIUx aHqjJmYrYT61VIT3BIVhyz ApU1UrWGIp wNxjZpI3e5Q8Jx5XM6ICAt dbL7PHBSGIMLhmoAT+PC90 vl50A7PqOhwfHck6PKRmVA V9mSC5jZ8x YBMkBNrjt0W4pRA3Y4Wlly Htgy6yw7wsKYFjZIukO07n tCBxb8S9TBOssWP8LTXspJ nsSaBstN77 Oyc+EOHyiBgln5ApRdpdn7 dec1bkpBk9WxwpPPRwkfGs rVibYXW7a6LyVz9jSZTpwN M1yFB9kU8x GnNqUzH1SLrzY281RzUjxY XkRdulN62dX7WcbCM+PHRy Ctj3JVScjTgpRX8vT2DsAF RpbmctbGVm eQlgOF2yONJlzxsmNRVhcJ 3cRGDwG4s7XlAaUtP5XEro F7DhRUGsefgpQb58tQ0sUy RgWuX5IDjf S1TuoqR9FTEypDDgAElbYW C6P84rw2Q3MMCrQHAtSNQ4 mIN3kW8hpQntrkazcKDgkW sgdmVydGlj HEheIQwwH034ZWUxeMnpJt NvZGluZyBEYXRlOiAgMDIv MTUvMjAyNDwvdGQ+PHRkIH O6oCabUZNj iVLmTKxwBa0iiTytaDrsQO 1uSGAnpgjsLQTifT1bQJIu iLMobZboZO0fNVXhokdhc3 38AgBsHFB1 ZHCnlETkB1YlfF1wTlNrGH YdLJWbC4JqtYOcLNzaL287 ITrlLeS6BNKxnlFoL5WaRN FsaWduOiB0 n4D9Fy0Uu9NwdypsK9GxkI SgNxWxEizpAJz4X1IgIoat dHI+DX96GFQiTC80FXt5EK N1tHbfFYwk NNQlE0GsaS1oHhLpORHwKK RkOyc+PHRhYmxlIHdpZHRo VAuwPYWsEnWabBeiZD5wXu 9yZGVyLWNv xAairBWfOlRtk3rgUVGpZC txRN4fhSfbM2NfuAN4IKEu m2e3Mv29O54zM4ZpdZK+PG JwfIX7pXO0 pA2zEbCpBeV9YBftL231Ll WotPEsPevay2lum0nghBf4 KgE2AWOraaEhoPgjLGR9q8 DfLq75H84h IHdpZHRoPSIxNSUiIHZhbG cjho2xzN4hQq5+PGNvbCB3 eIL7yC3wNtHzXqZ3SLhjO9 49InRvcCIv Slsdw3zdw0uhzPu1XdRyUG OekvAwiHdmBZC0r3LdHq10 R9RowWvek2OkZrp7ta24bA Hjw5Q5bTV3 Z5CwXBVhxehjsLXxsRfqCC 5vXYVgahsmPFGudU7uYUSt Z8c0KmJzWpV2UCwfZ9Bdwa R3BTTioTDf WCJpuUCUcK2usflhy4stax weHzDrCPSzQXi6GMu6TPOq hJssJhJySBP7IsP8CMO5qT HabG1efGnu zltbzA9xOuf+DZQ6bYHdwG OHRX8wXpgshCY+PHRkIHN0 qCpvPSkwDDUreD8yYXRfW5 m3OmQxAlH8 APhcC1BzhtM3JTVibTLjBI CdhAAKcP5jhblxw3sgjnxo BlGaIORuNYe9NYc3UPKtfE duOiBsZWZ0 GfK2BJS1sAEcsW9cjEwsag zeqA1jNkt+QmlydGggRGF0 AJl6L0QqDld4XIBniCdjWT 0ncGFkZGlu Nn4krXpcaMryZI2gWEChgx rdf656OcSyt5ftPQYcnGWj HAuvPBI1K26tc2H2UNSuIS IiCDY8dQF5 aW1gbXbhgfgayEBmrRydom JhtQzzYMmcXXzxP459HDHt bSjjXcPjZCj4B4IeTwn8ZU TicYycNX7g nALsIHzbLr5gzYrbfHkhFG 7iPRAfbpyuw861TsExy5jq RHJtbYJyUWyeNZB1X50hn7 X9OLRyHUYh RVT0tLG4cP5qpZalbkzdmC VmdDsgdmVydGljYWwtYWxp G757YDXoiOksAiOdrUb6O4 SpNla1JFEx aUzeXW9xgIFpNJznGv5idY xqoWdbAX0uMSQcdgpdo733 AhNmq3djAJLvsJZtAZdsYI T4C32as9T4 TMTyYQHmTJC7eXB7mO2nzR lnbjogbGVmdDsgdmVydGlj XIdzRItlU304QTOwrGjbYf BhdGllbnQg DDcaDAj9H7QbHnvljHT+PC 31PUAyDD74nIEghAXcg5tf iPh0PaLjVUYiJWE4pNzgJW hic4DbZHWo F60hoVXtn8K1LRNumJtwcU OoZyAftGP2dE2jBBnftapu b0elgxfqJnejj3ffiv31vP 27Q07tRIga ZHRoPSIzMCUiIHZhbGlnbj 7uqC7oPw1+ZRWxwCB7aBR3 hB9pZVAjNbZ1XAyiC244Zj RvcCIvPjxj y6uys3cfmVq4LaE7SVWxsg AyyPxfSTK3e1WzKk93C21v IHdpZHRoPSIyMCUiIHZhbG cczw9ynD4p Ii8+ICGebPU1tSX8lY2yMw UlKfD3BJurZ570YcLpxLUp MqfyJ59eM7TuoTY+PHRyPj r7ZZKvwOub TF1ukESeXTyqHp5sKBU6Qu MvRsPhARceM7YrXRKzdyjo kqfapMH4CADpUBYrtV67Bq 9udDogMTBw nSCWzN9fkvhwj2dvxkmtYg QqCQUyIDk1IFf8RLOtlVqg YkKxLJR8BpZ7FCQ7aVVaiK 1hbGlnbjog sY8pF7QoGPEbnnspEl45pR 4rCpJkZuU0ZJvjSyt+Uk9T RN6iXNlRNqmABM88FY79mF Fiz1P3tCX7 V1VcKNQqcthveidgwXS1IN LpEVGujT13xCLsQEdnDu9m u6L0p142GGJlYEOxiT64Jc 9udDogMTBw tIGHgI1xawpbw0dpugtqTl PzGZDgPBt7NAk0SCSraMrs RyLhNEI6NgH2RYU9gYAcuH 1hbGlnbjog lI6pHjq+YRQyVFYeQSj2Yc wvdGQ+UIKtWCJ8zRzeJJoo EPQemY7bIVLhL6p4VnLtXe M6YKdnU8Bk ROQqqekwRg98bQ3hEySbNu K1QFpyZ9OhigI1LUMsvBVk XVkhONY2G81hf1E6HEIqUO DgHER2fAI2 pF2fxXohndsinKGplNpqpn DnnSjaNCkkPAvwK868VLRq wLviOpK0VItiGNOxYL53PE 96dCZue7K8 yEM9T7KaSVGjqapbjhkjrW F2ACHzGQUzhY79zPEuHBrr Wl3mj7L7k055WATbBTBaxL 66Oi2wxJcq KJIunXPTvZ9rkdgew4lixy ccDfKjIEAmULp7RYw8FVIq dPsuYeSdGJZ6VcI2KKT9rL VusG1xrYwg tllcwO8qYyu+RkVNQUxFPC 33PH41hKAsm2Q4pDC3S8Vb ECFaxyezhtgtbHR6JDXdDR SwvS05iBBh VJfmMt6vq8R6u335FLUiKU VqzQ21Dd0kzUvuOFLovHHQ yV3jiyxfb1lccqvcGnFcET FbMUk3PWt6 ZJHnjDppVfGuRAD0KqZ9UY Y7jTBoiX3puMezqlakhC2j Oyc+H6L2D1KrSiwmlDH+PC 20VKYlVI25 mNQstZEkc4unyQi9CjUiNV MfJTQ3eHeqGRpsm2DjTFCm S70coVFsi6T7VOSpwRgssT NlOyBlbXB0 cI9gEEqsdqicw5kaurqrDn zwp2wrxl03lE55X90qKHul ZHRoPSIzMCUiIHZhbGlnbj 8haU7nJu5+ XOXvpOJ2hSN0iX1sNmEuFg W7MTpiM259IwOqpOHyXpmf u1qvb5iklBx1TnZbPNYmdh FsaWduPSJ0 p8AfVv54K82uSZguBZNkBS BhVWEzQLUieYansx5tbL7d Ii8+DS3jq7wvzi76gG61vU I+PHRkIHN0 cEbxGLosYNJysP0hIMbqKr V1FJZdGyLtwQ98oDQrUHeb Gx9ozAkecSwvKR6dNETkjd gbc305NuSx f0bnGGBczAVuPZyePIT0W4 6sk2Y3ZZFzGQFxVXC6rVJ3 oV7ykUazmkafgBHrtDytgm VydGljYWwt IWpuV166EQLhgCwzDcUzoX BhF2ybjvVIOG7eNbabcSM+ KBRdCOK5uHexCFcwPOBfaJ 5gFZClD4k0 QzQcKyO2KDqlP9RrdhW9VH TipLMxUJTifRDWtC8aydmw e4kogjkcArStNSPuOCm5PU d4GQNhiCor CfLxYMA8UnQ1RAD4hKQdvW 6gnUmrzkjtyN7hMfm+RklO OjwvdGQ+UAXxKOU1fQdrOE rxUIGddB4x AMJxV0i8SpMyAcV0HXouP3 MqbfT3ZUOjgHSwFMQgmDQA rO4dioedb3abveueIeTnBK PeRIz0ISz1 ORJihPobFaYnBMF1NqN6RT R1jOGahK2llZdlzrfbkU1u Oyc+TVJOOjwvdGQ+PHRkIH F6nNgqTIqi ABJqyP3dBLOgN5k3OoCpMs J2RWcwD9GgdqP1DFZjkXCp VOAztSDJdL6chnmsw6gniz ogIzAwMDAw SBv1QIe7TRIdyNfbAnHaQK D7HnC6WVA7zFCazW8bpUod dqjghW9jIyk+WCM9PSY6RL 56ES44F7Uc PjwvdGFibGU+PHRhYmxlIH dpZHRoPScxMDAlJyBzdHls QK0vIs1uNSCbTBQlgOlriT LsBsVsg6ut YXB (more content not included)... [facility] Consent Formson 04-09-2023 Consent Forms [id number]#[address] [place] [address] Controlled Substances Agreem entson 04-09-2023 Controlled Substances Agreements [id number]#1.[address] [place] [address] Progress Note - Provideron 0 04-09-2023 Progress Note - Provider [id number]#1.[address] [place] [address] MAMM SCREEN 3D BLUE CADon 07-18-2022 MG MAMM SCREEN 3D BLUE CAD Patient: KANWAL SCRUGGS Exam Date: 07/18/2022 : 1955 Gender:F Ordering : DR MARGUERITE SANTIAGO M.D. Admission #: [id number] Family : Order #: [id number] CLICK HERE TO VIEW EXAM RADIOLOGY REPORT [...] No Treatments None Family Cancers None LOCATION: [facility] BREAST COMPOSITION: Heterogeneously dense,which may obscure [...] Durand M.D. on 07/19/2022 at 11:12 Normal [facility] CREATININEon 08-22-2021 Creatinine [Mass/Vol] 0.86 mg/dL Normal 0.55-1.02 [facility] Comment on above: Performed By: #### A ST, ALT, CREA #### [facility] [address] [place] [address] Dr. Uma Kennedy EGFR-AF LEBANESE >=60 Normal >=60 [facility] Comment on above: Performed By: #### A ST, ALT, CREA #### [facility] [address] [address] [address] Uma Kennedy EGFR-NON AF LEBANESE >=60 Normal >=60 [facility] Comment on above: Performed By: #### A ST, ALT, CREA #### [facility] [address] [address] [address] Uma Kennedy SGOTon 08-22-2021 AST [Catalytic activity/Vol] 13 U/L Critically low 15-37 [facility] Comment on above: Performed By: #### A ST, ALT, CREA #### [facility] [address], [place] [address] Dr. Uma Kennedy [facility] 08-22-2021 ALT [Catalytic activity/Vol] 28 U/L Normal 14-59 [facility] Comment on above: Performed By: #### A ST, ALT, CREA #### [facility] [address] [place], [place] [address] Dr. Uma Kennedy Vital Signs Date Time Vital Sign Value Performing Clinician Facility 04-17-2023 10:51-0500 Body height 157.48 cm [facility] 04-17-2023 10:51-0500 Body mass index (BMI) [Ratio] 25.2 kg/m2 [facility] 04-17-2023 10:51-0500 Body weight 62.59 kg [facility] 04-17-2023 10:51-0500 Diastolic blood pressure 93 mm[Hg] [facility] 04-17-2023 10:51-0500 Heart rate 85 /min [facility] 04-17-2023 10:51-0500 Systolic blood pressure 163 mm[Hg] [facility] 03-27-2023 10:00-0500 Body height 157.48 cm Marguerite Santiago Other [facility] 03-27-2023 10:00-0500 Body mass index (BMI) [Ratio] 25.38 kg/m2 Marguerite Santiago Other [facility] Other 03-27-2023 10:00-0500 Body weight 62.96 kg Marguerite Santiago Other [facility] Other 03-27-2023 10:00-0500 Body weight 62.95 kg [facility] 03-27-2023 10:00-0500 Diastolic blood pressure 88 mm[Hg] Marguerite Santiago Other [facility] 03-27-2023 10:00-0500 Systolic blood pressure 144 mm[Hg] Marguerite Santiago Other [facility] 02-05-2023 09:30-0500 Body height 157.48 cm Marguerite Santiago Other [facility] 02-05-2023 09:30-0500 Body mass index (BMI) [Ratio] 26.41 kg/m2 Marguerite Santiago Other [facility] Other 02-05-2023 09:30-0500 Body weight 65.5 kg Marguerite Santiago Other [facility] Other 02-05-2023 09:30-0500 Body weight 65.49 kg [facility] 02-05-2023 09:30-0500 Diastolic blood pressure 72 mm[Hg] Marguerite Santiago Other [facility] 02-05-2023 09:30-0500 SaO2% (BldA) [Mass fraction] 97 % Marguerite Santiago Other [facility] Other 02-05-2023 09:30-0500 Systolic blood pressure 128 mm[Hg] Marguerite Santiago Other [facility] 11-08-2022 09:45-0400 Body height 157.48 cm Marguerite Santiago Other [facility] Other 11-08-2022 09:45-0400 Body mass index (BMI) [Ratio] 27.83 kg/m2 Marguerite Santiago Other [facility] Other 11-08-2022 09:45-0400 Body weight 69.04 kg Marguerite Santiago Other [facility] Other 11-08-2022 09:45-0400 Diastolic blood pressure 85 mm[Hg] Marguerite Santiago Other [facility] Other 11-08-2022 09:45-0400 Respiratory rate 12 /min Marguerite Santiago Other [facility] Other 11-08-2022 09:45-0400 Systolic blood pressure 151 mm[Hg] Marguerite Santiago Other [facility] Other 07-04-2022 10:00-0400 Body height 157.48 cm Marguerite Santiago Other [facility] Other 07-04-2022 10:00-0400 Body mass index (BMI) [Ratio] 29.63 kg/m2 Marguerite Santiago Other [facility] Other 07-04-2022 10:00-0400 Body weight 73.48 kg Marguerite Santiago Other [facility] Other 07-04-2022 10:00-0400 Diastolic blood pressure 80 mm[Hg] Marguerite Santiago Other [facility] Other 07-04-2022 10:00-0400 SaO2% (BldA) [Mass fraction] 97 % Marguerite Santiago Other [facility] Other 07-04-2022 10:00-0400 Systolic blood pressure 142 mm[Hg] Marguerite Santiago Other [facility] Other Encounters Encounter Date Encounter Type Care Provider Facility Start: 04-17-2023 End: 04-17-2023 ambulatory [facility] Work Phone: Start: 04-17-2023 End: 04-17-2023 Patient encounter procedure [facility] Work Phone: Start: 04-06-2023 ambulatory None Provider Facility: [facility] Start: 04-05-2023 End: 04-06-2023 ambulatory Alba Sharpe APRN-[facility] Facility:[facility] Start: 04-04-2023 End: 04-04-2023 ambulatory Marguerite Santiago Other [facility] Other Start: 04-04-2023 Telephone encounter Marguerite Santiago [facility] [place] [facility] Start: 03-28-2023 End: 03-28-2023 ambulatory Marguerite Santiago Other [facility] Other Start: 03-28-2023 Telephone encounter Marguerite Santiago [facility] [place] [facility] Start: 03-27-2023 End: 03-27-2023 ambulatory Marguerite Santiago Other [facility] Other Start: 03-27-2023 Office outpatient vi sit 15 minutes Marguerite Santiago [facility] [place] [facility] Start: 03-27-2023 End: 03-27-2023 Patient encounter procedure [facility]- Start: 03-05-2023 End: 03-05-2023 ambulatory Marguerite Santiago Other [facility] Other Start: 03-05-2023 Telephone encounter Marguerite Santiago [facility] [place] [facility] Start: 02-20-2023 End: 02-20-2023 ambulatory Marguerite Santiago Other [facility] Other Start: 02-20-2023 Telephone encounter Marguerite Santiago [facility] [place] [facility] Start: 02-13-2023 End: 02-13-2023 ambulatory Marguerite Santiago Other [facility] Other Start: 02-13-2023 Telephone encounter Marguerite Santiago [facility] [place] [facility] Start: 2023 End: 2023 ambulatory Marguerite Santiago Other [facility] Other Start: 2023 Telephone encounter Marguerite Santiago [facility] [place] [facility] Start: 02-05-2023 End: 02-05-2023 ambulatory Marguerite Santiago Other [facility] Other Start: 02-05-2023 Office outpatient vi sit 25 minutes Marguerite Santiago [facility] [place] [facility] Start: 02-05-2023 End: 02-05-2023 Patient encounter procedure [facility] [place] [facility] Work Phone: Start: 11-27-2022 End: 11-27-2022 ambulatory Marguerite Santiago Other [facility] Other Start: 11-27-2022 Telephone encounter Marguerite Santiago [facility] [place] [facility] Start: 11-08-2022 End: 11-08-2022 ambulatory Marguerite Santiago Other [facility] Other Start: 11-08-2022 Office outpatient vi sit 15 minutes Marguerite Santiago [facility] [place] [facility] Start: 10-19-2022 End: 10-19-2022 ambulatory Marguerite Santiago Other [facility] Other Start: 10-19-2022 Telephone encounter Marguerite Santiago [facility] [place] [facility] Start: 10-11-2022 End: 10-11-2022 ambulatory Marguerite Santiago Other [facility] Other Start: 10-11-2022 Telephone encounter Marguerite Santiago [facility] [place] [facility] Start: 10-05-2022 End: 10-05-2022 ambulatory Marguerite Santiago Other [facility] Other Start: 10-05-2022 Telephone encounter Marguerite Santiago [facility] [place] [facility] Start: 07-18-2022 End: 07-19-[address] MARGUERITE SANTIAGO Facility: Start: 07-07-2022 End: 07-07-2022 ambulatory Marguerite Santiago Other [facility] Other Start: 07-07-2022 Telephone encounter Marguerite Santiago [facility] [place] [facility] Start: 07-04-2022 Office outpatient vi sit 15 minutes Marguerite Santiago [facility] [place] [facility] Start: 07-04-2022 End: 07-05-[address] MARGUERITE SANTIAGO [facility] Other Start: 08-22-2021 End: 08-23-[address] MARGUERITE SANTIAGO Facility:[facility] Procedures Date Procedure Procedure Detail Performing Clinician Screening for malign ant neoplasm of cervix Marguerite Santiago Other Payers Date Payer Category Payer Medicare 1958 Medicare [id number] 2.1 [id number] 1958 Unknown [id number] 2. [id number] 1955 Unknown [id number] 2.16.84 [id number] 1955 Unknown [id number] 2.16.84 [id number] 1955 Unknown [id number] 2.16.84 [id number] 1955 Unknown [id number] 2.16. [id number] 1955 Unknown [id number] 2.16.8 [id number] 1955 Unknown [id number] 2.16.8 [id number] Unknown [facility] [id number] Social History Date Type Detail Facility Unknown if ever smoked [facility] Other Sex Assigned At Sex Assigned At Bir th [facility] Start: 04-11-2023 Tobacco smoking status NHIS Never smoked tobacco (finding) [facility] Start: 1955 Sex Assigned At Female F [facility] Clinical Notes 07-04-2022 to 03-28-2023 Note Date & Type Note Facility 03-28-2023 Evaluation note Encounter Date Diagnosis Assessment Notes Feb, Compression fracture of T12 vertebra, sequela (ICD-10 - S22.080S) Feb, Lumbar facet arthropathy (ICD-10 - M47.816) [facility] Other 01-30-2024 Evaluation note* Encounter Date Diagnosis Assessment Notes Treatment Notes Treatment Clinical Notes Feb, Lumbar pain (ICD-10 - M54.50) Assess xray. Agrees to continue flexeril prn Feb, Subclinical hyperthyroidism (ICD-10 - E05.90) Pt requests referral to Dr Rodgers Feb, Menopausal symptoms (ICD-10 - N95.1) as above. HRT started at lowest dose. [facility] Other 12-26-2023 Evaluation note* Encounter Date Diagnosis Assessment Notes Treatment Notes Treatment Clinical Notes Jan, Acute diarrhea (ICD-10 - R19.7) [facility] Other 12-11-2023 Evaluation note* Encounter Date Diagnosis Assessment Notes Treatment Notes Treatment Clinical Notes Jan, Brain fog (ICD-10 - R41.89) Pt agrees to Neurology referral if labs are wnl. Jan, Hot flashes due to menopause (ICD-10 - N95.1) check lab first then trial of [facility] Jan, Acute diarrhea (ICD-10 - R19.7) Consider GI referral, trial of med first Jan, Muscle spasm (ICD-10 - M62.838) Pt requests refill. [facility] Other 11-01-2023 History general Narrative - Reported* Type Description Date Medical History Acid reflux Medical History OAB (overactive bladder) Medical History Primary insomnia Surgical History cervical fusion 2006 Surgical History Right knee surgery 12/27/2022 Hospitalization History see above surgical histo ry [facility] Other 09-13-2023 Evaluation note* Encounter Date Diagnosis Assessment Notes Treatment Notes Treatment Clinical Notes Oct, OAB (overactive bladder) (ICD-10 - N32.81) Will increase dose. Pt will notify us if medication is not helpful. Consider urology referral if not successful, but presently waiting for orthopedics for her R knee. [facility] Other 08-16-2023 Evaluation note* Encounter Date Diagnosis Assessment Notes Treatment Notes Treatment Clinical Notes Sep, OAB (overactive bladder) (ICD-10 - N32.81) [facility] Other 05-09-2023 Evaluation note* Encounter Date Diagnosis Assessment Notes Treatment Notes Treatment Clinical Notes June, Left medial knee pain (ICD-10 - M25.562) Samples of Voltaren given. Order for XR printed. If PT Or Ortho indicated, would go toward [facility]. [facility] Other 05-09-2023 NotePROCEDURE: XR KNEE LT 4V or > HISTORY: Pain of left knee joint ; medial knee pain for 2 weeks which increases with activity COMPARISON: None. FINDINGS: BONES:No fracture, acute abnormality, or significant arthropathy. SOFT TISSUES:No visible soft tissue swelling. EFFUSION:None visible. OTHER: Negative. IMPRESSION: 1. No acute bone abnormality. 2. Minimal degenerative changes. Electronically authenticated by: ALEX DURAND Date: 2022-07-04 10:35[facility] Hospital[facility] noteNo InformationNort Conferensum Other Evaluation noteNo assessment information available [facility] Work Phone: Hisxknq general Narrative - Reported* Type Description Date Medical History Acid reflux Surgical History cervical fusion 2006 Hospitalization History see above surgical histo Verafin Other History general Narrative - Reported* Type Description Date Medical History Acid reflux Medical History OAB (overactive bladder) Medical History Primary insomnia Surgical History cervical fusion 2006 Hospitalization History see above surgical histo Verafin Other Summary Purpose Family History Relationship Condition Age at Onset Recorded Date/T ji daughter Rheumatoid arthritis Unknown father Unknown Advance Directives Advance Directive Response Recorded Date/ Time Advance Directives No March 11:05am Reason for Referral Reason *FU 04/09 Last OV note and xray from last week. Diagnosis 1 Compression fracture of T12 vertebra, sequela (S22.080S) Referral Organization [facility] Candie campbell Referring Provider First Name Marguerite Referring Provider Last Name Melvin Referring Provider Specialty Family Medi cine Referred Organization [facility] Referred Address [address],[place], [place],[address] Referred Provider Specialty Pain Medicin e Referral Priority Routine General Notes Richa Reina 08:44:36 AM >received today, notes locked, attachments made, referral faxed Richa Reina 04/03/2023 04:29:40 PM >this was sent to [facility] and then forwarded to since its closer for patient Clinical Notes f: [id number] Reason *FU 04/06 Symptoms of hyperthyroidism, menopausal hot flashes and insomnia Diagnosis 1 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) Referral Organization [facility] [employer]annan Referring Provider First Name Marguerite Referring Provider Last Name Melvin Referring Provider Specialty [facility] [employer] Referred Organization [facility] Referred Provider Edith Rodgers Referred Address ,[place], [place],[address] Referred Provider Specialty Family Medic ine Referral Priority Routine General Notes Richa Reina 09:55:33 AM >received today, notes locked, ins attached, referral faxed Reason [place] [facility] - br ain fog Diagnosis 1 Brain fog (R41.89) Referral Organization [facility] [employer]annan Referring Provider First Name Marguerite Referring Provider Last Name Melvin Referring Provider Specialty [facility] [employer] Referred Organization [facility] Referred Provider Jorge L Sears Referred Address [address],[place], [place],[address] Referred Provider Specialty Neurology Referral Priority Routine Chief Complaint and Reason for Visit Chief Complaint Multiple Issues Check Up medication issues Additional Source Comments REASON FOR VISIT (unrecogniz ed section and content) [place] xraytestsmessageref erralbladder medication not workingmessagemessagemultiple issuesmessagemedicationmessageCheck Upmessagerefill INFORMATION SOURCE (unrecogn ized section and content) DATE CREATED AUTHOR 08/04/2022 [facility] DATE CREATED AUTHOR AUTHOR'S ORGANIZ ATION 04/10/2023 [facility] DATE CREATED AUTHOR AUTHOR'S ORGANIZ ATION 04/14/2023 [facility] Care Teams (unrecognized sec tion and content) Team Status: Active Member Role Status Dates Marguerite Santiago MD Primary Care Provider Active Team Status: Inactive Member Role Status Dates Marguerite Santiago MD Attending Provider Active St art: February 05, 2023 End: February 05, 2023 Team Status: Inactive Member Role Status Dates Marguerite Santiago MD Attending Provider Active St art: March 27, 2023 End: March 27, 2023 Team Status: Inactive Member Role Status Dates Marguerite Santiago MD Primary Care Provide r, Attending Provider Active Start: April 17, 2023 End: April 17, 2023 Goals (unrecognized section and content) Goals may be documented in a n alternate section FOR RECORDS PERTAINING TO PATIENTS WHO ARE [...] BE BASED ON THE PRIMARY CLINICAL RECORDS. [facility] [employer] provides no warranty or guarantee of the accuracy or completeness of information in this document.
== END 2023-05-14 09:40 | disposition home or self-care (01) ==
LOC: MRI 09:39
PROVIDERS: Visit Provider Physician Assistant Medical
DX: R29.2 Abnormal reflex (principal); M50.30 Other cervical disc degeneration, unspecified cervical region; M50.33 Other cervical disc degeneration, cervicothoracic region; M48.03 Spinal stenosis, cervicothoracic region
CPT/HCPCS: 72141

== ENCOUNTER 2023-07-24 10:34 | Outpatient (OUT) | payer MEDICARE, OTHER, SELFPAY ==
--- NOTE | 2023-07-24 10:36 | MM_ITS ---
Patient Name: EVANGELIST SCRUGGS MR#: [id number] : 1955 Exam Date: 07/24/2023 Ordering Doctor: DR Marguerite Santiago M.D. RADIOLOGY REPORT PROCEDURE: MM TOMOSYNTHESIS SCREENING BI COMPARISON: MG MAMM SCREEN 3D BLUE CAD, 07/18/2022. MG MAMM SCREEN 3D BLUE CAD, 07/12/2021. MG MAMM SCREEN 3D BLUE CAD, 07/06/2020. MG MAMM BLUE SCRN W CAD DIG, 09/16/2012. INDICATIONS: Screening Calculator Name NCI Breast Cancer Risk Assessment Tool 5 Year Breast Cancer Risk 1.90% Lifetime Breast Cancer Risk 6.40% Personal Breast Cancer No Personal Ovarian Cancer No Treatments None Family Cancers None LOCATION: [facility] BREAST COMPOSITION: The breasts are heterogeneously dense,which may obscure small masses. FINDINGS: DIAGNOSTIC CATEGORY 2--BENIGN FINDING: RIGHT BREAST: No significant suspicious finding. No significant change has occurred. LEFT BREAST: No significant suspicious finding. Stable, chronic mass versus asymmetric fibroglandular tissue within the posterior lower-outer quadrant. No significant change has occurred. RECOMMENDATIONS: ROUTINE MAMMOGRAM AND CLINICAL EVALUATION IN 12 MONTHS. PLEASE NOTE: A NORMAL MAMMOGRAM DOES NOT EXCLUDE THE POSSIBILITY OF BREAST CANCER. A CLINICALLY SUSPICIOUS PALPABLE LUMP SHOULD BE BIOPSIED. Dictated by: Alex Durand M.D. on 07/24/2023 at 12:14 Approved by: Alex Durand M.D. on 07/24/2023 at 12:18
== END 2023-07-24 10:35 | disposition home or self-care (01) ==
LOC: MAMMO 10:34
PROVIDERS: PCP Family Medicine; Visit Provider Family Medicine
DX: Z12.31 Encounter for screening mammogram for malignant neoplasm of breast (principal)
CPT/HCPCS: 77063; 77067

== ENCOUNTER 2023-08-07 09:22 | Outpatient (OUT) | payer MEDICARE, OTHER, SELFPAY ==
--- NOTE | 2023-08-07 09:25 | XR_ITS ---
[address] [address] Patient Name: EVANGELIST SCRUGGS MRN: [id number] date: 1955 Sex: F Assigned Patient Location: [facility] Current Patient Location: [facility] Accession/Order Number: [id number] Exam Date: 08/07/2023 09:36 Report Date: 08/07/2023 10:48 At the request of: DANA BAKER Procedure: XR DEXA axial skeleton EXAMINATION: XR DEXA axial skeleton, 08/07/2023 9:36 AM EDT HISTORY: Osteoporosis M81.0 COMPARISON: None. TECHNIQUE: Dual-energy X-ray absorptiometry (DEXA) bone density study performed for the axial skeleton. HISTORY: Osteoporosis M81.0 FINDINGS: Bone mineral density AP spine L1-L4 measures 1.052 g/sq cm. T score -1.1. WHO classification: Osteopenia. Lowest bone mineral density right femoral neck measuring 0.788 g/sq cm. T score -1.8. WHO classification: Osteopenia XR/XR DEXA axial skeleton IMPRESSION: Osteopenia. Moderate fracture risk Electronically authenticated by: ABRAHAN KENNEDY Date: 08/07/2023 10:48
--- OUTSIDE RECORDS SUMMARY | 2023-08-07 09:37 | XMS_ITS | CCD ---
Author Organization [facility] Care Team Providers Care Payroll Assistant Name Role Phone Marguerite Charles Unavailable MELVIN, DR MARGUERITE De Souza Attending Unavailable CHARLES, DR MARGUERITE De Souza Admitting Unavailable CHARLES, DR MARGUERITE De Souza Primary Care Unavailable ZIEBER, DR ALEX Epstein Consulting Unavailable CHARLES, DR MARGUERITE De Souza Consulting Unavailable CHARLES, DR MARGUERITE De Souza Attending Unavailable CHARLES, DR MARGUERITE De Souza Admitting Unavailable ZIEBER, DR ALEX Epstein Consulting Unavailable CHARLES, DR MARGUERITE De Souza Primary Care Unavailable CHARLES, DR MARGUERITE De Souza Consulting Unavailable CHARLES, DR MARGUERITE De Souza Primary Care Unavailable CHARLES, DR MARGUERITE De Souza Referring Unavailable MISC, DR RANKIN Admitting Unavailable MISC, DR RANKIN Consulting Unavailable MISC, DR RANKIN Attending Unavailable [place] LENS INSPECTOR-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Alba Attending U DANA Joe Attending Unavailable DANA BAKER Attending Unavailable DANA BAKER Referring Unavailable OmahaAlba Attending Unavailable Provider, None Primary Care Unavailable Alba Sharpe Admitting Unavailable [place], Alba Nesbitt Admitting Unavailable OmahaAlba hyde Attending Unavailable Provider, None Primary Care Unavailable Allergies Allergy Classification Reported Allergen(s) Allergy Type Date of Onset Reaction(s) Facility (15 sources) NITROFURANTOIN, MACROCRYSTALS / Nitrofurantoin, Monohydrate Drug Allergy [facility] Other (15 sources) Sulfamethoxazole / Trimethoprim Drug Allergy stomach upset [facility] Other (1 source) Nitrofurantoin Drug Allergy [facility] (1 source) Sulfonamides (Antibiotic) Drug allergy (disorder) [facility] (2 sources) Nitrofurantoin Drug Allergy 04-17-[address] [facility] (2 sources) Sulfamethoxazole Drug Allergy 04-17-19 24 stomach upset [facility] (1 source) Trimethoprim Drug Allergy 04-17-19 24 stomach upset [facility] Medications Current Medications Medication Drug Class(es) Dates Sig (Normalized) Sig (Original) atropine sulfate 0.025 mg / diphenoxylate hydrochloride 2.5 mg oral tablet (2 sources) Anticholinergic, Cholinergic Muscarinic Antagonist, Antidiarrheal Start: 02-20-2023 take 1 tablet by mouth three times daily as needed Lomotil 2.5-0.025 MG 1 tablet as needed Orally tid prn for 10 days Jan, Active diclofenac sodium 75 mg delayed release oral tablet (1 source) Nonsteroidal Anti-inflammatory Drug Start: 05-07-2023 take 75 mg by mouth twice daily Diclofenac Sodium Active 75 MG PO Twice daily 60 May 07, 2023 12:00am ibuprofen 800 mg oral tablet (2 sources) Nonsteroidal Anti-inflammatory Drug Start: 05-07-2023 take 800 mg by mouth every eight hours Ibuprofen Active 800 MG PO Every 8 hours May 07, 2023 12:00am Start: 04-04-2023 take 1 tablet by filomena th three times daily as needed Ibuprofen 800 MG 1 tablet Orally Three times a day, as needed for 90 days Mar, Active lidocaine 0.05 mg/mg medicated patch (3 sources) Antiarrhythmic, Amide Local Anesthetic Start: 04-17-2023 End: 04-19-2023 apply 1 dose topically once daily Lidocaine Active 1 PATCH TOPICAL Daily April 19, 2023 9:49am leave on most painful area for up to 12 hrs 24 hr oxybutynin chloride 10 mg extended [...] Drug Class(es) Dates Sig (Normalized) Sig (Original) cyclobenzaprine hydrochloride 5 mg oral tablet (10 sources) Muscle Relaxant Start: 04-16-2023 End: 05-07-2023 take 1 tablet by mouth once daily at bedtime Cyclobenzaprine Discontinued 1 TAB PO Daily at bedtime April 16, 2023 1:00am May 07, 2023 8:52am [facility] tablet at bedtime as needed Orally Once a day; Note: Source Status: Refill; Provider: Melvin De Souza Start: 02-05-2023 take 1 tablet by filomena th every twenty-four hours Cyclobenzaprine HCl 5 MG 1 tablet at bedtime as needed Orally Once a day for 30 day(s) Jan, Active estrogens, conjugated (longterm) 0.3 mg / medroxyPROGESTERone acetate 1.5 mg oral tablet (6 sources) Progestin, Estrogen Start: 04-16-2023 End: 04-17-2023 take 1 tablet by mouth once daily Conj Estrog-Medroxyprogest Cosme Discontinued 1 TAB PO Daily April 16, 2023 1:00am April 17, 2023 5:41pm [employer] tablet Orally Once a day; Note: Source Status: Start; Provider: Melvin De Souza Start: 03-27-2023 take 1 tablet by filomena th every twenty-four hours Prempro 0.3-1.5 MG 1 tablet Orally Once a day for 30 day(s) Feb, Active Ketorolac (15 sources) Nonsteroidal Anti-inflammatory Drug, Cyclooxygenase [...] [Viral intestinal infection, unspecified] Episodic Menopausal disorders (12 sources) Menopausal flushing; Translations: [Menopausal and female [...] fracture of T11-T12 vertebra, sequela Episodic Other fractures (1 source) Compression fracture of thoracic spine; Translations: [Wedge compression fracture of T11-T12 vertebra, initial encounter for closed fracture] 04-17-2023 Episodic Other fractures (3 sources) Wedge compression fracture of T11-T12 vertebra, initial encounter for closed fracture; Translations: [Closed fracture of dorsal [thoracic] vertebra without mention of spinal cord injury] 04-17-2023 Episodic Other gastrointestinal disorders (2 sources) Diarrhea, unspecified Episodic Other injuries and conditions due to external causes (3 sources) Motion sickness; Translations: [Motion sickness, initial encounter] Episodic Other nervous system disorders (1 source) Chronic pain; Translations: [Other chronic pain] 05-07-2023 Chronic Other nervous system disorders (2 sources) Other chronic pain; Translations: [Other chronic pain] 05-07-2023 Chronic Other nervous system disorders (1 source) Other [...] Spondylosis; intervertebral disc disorders; other back problems (7 sources) Arthropathy of lumbar facet joint; Translations: [Spondylosis without myelopathy or radiculopathy, lumbar region] Chronic Spondylosis; intervertebral disc disorders; other back problems (11 sources) Neck pain; Translations: [Cervicalgia] 04-17-2023 Episodic Thyroid disorders (5 sources) Subclinical hyperthyroidism; Translations: [Thyrotoxicosis, unspecified without thyrotoxic crisis or storm] Chronic Past or Other Problems Problem Classification Problem Date Documented Da te Episodic/Chronic Unclassified (1 source) Lumbar pain M54.50 Results Test Name Value Interpretation Reference Range Facil ity US RENAL COMPLETEon 06-29-19 US RENAL COMPLETE FINDINGS: Right Kidney 10.6 x 5.6 x 4.2 cm Left Kidney 11.5 x 4.6 x 4.6 cm Full bladder volume: 367 Post-void bladder volume: Normal renal size, cortical volume and echotexture is present for this age. No collecting system dilatation. Subcentimeter right renal simple peripelvic cyst. Mildly echogenic foci bilaterally, no significant shadowing stone aggregate. No echogenic foci or suspicious mass lesions, or wall thickening is present within the bladder. Bilateral ureteral jets are identified. IMPRESSION: 1. No significant shadowing stone formation or evidence of obstruction. 2. No bladder stone. TRANSCRIBED BY: ELECTRONICALLY SIGNED BY: Álvaro Smith MD Normal Not Available Glucose mean value [Mass/vol ume] in Blood Estimated from glycated hemoglobinon 04-17-2023 Average glucose Estimated from glycated hemoglobin (Bld) [Mass/Vol] 120 mg/dL [facility] - Hematology and Cell countson 04-17-2023 HbA1c (Bld) [Mass fraction] 5.8 % 4.5-6.2 [facility] Comment on above: ADA RECOMMENDED LIMI T 4.0 - 6.0ADA THERAPEUTIC TARGET < 7.0ACTION SUGGESTED> 7.0 Coding Summaryon 04-12-2023 Coding Summary [employer]Base 64 KtzmhbffHZx7pVi+PGhlY WQ+JY3ASMDxN11gtZBxeR 1wL1NQBPdIMdiwSSBUSHq UFrYmtrEtZG6nwJKpBIMm IC8+LH6zPHXkCfrebPQvt 7Q0pPV7C09ecd9rEBtsqJ D5ITDvSgSliavpo7jspAa 6IDcuNmluOyBt NAVadR81VZW7wA62Ti62m PUfqGIvh3efxQh2YdEbEP CtCNT8cJtyDNgtc1CwREG uZ61soLNjk3T0 IWLtnKfyqMHbUsOhjAO2c B6cNOorxpwdi5laribbMg t1yl24rJOhn6C0uSP7W6N fzxX1VHRxnNMt SlbvaCCKfK2dbhpbq0fmo sosRvKiKBTxRWs4WCt8RH ZhmZltMpFjRP55KNK0DXG hedRnT5GkZYBh oCicMcF7l5C7Gw6WV5KYT iugQ8ZGNRMWEQitwKM+PC 80rb78E6BpLtduDnk3BRC uXQE9nCT3fT6q SLGjPXqhj0Z9cAH7L3Few oNaxm1gk9wrMKNfRDgcJ7 1qdEEhk4P4FJQjjLT4UEL skEidKaAguK41 Oyc+MKEmfStvc3XtHclxy 6ykr6tkyGt3KvkqQJOpfo DvpAwhMIF3d3CgNm7zLUS idNR6jJS2sL3z UhDrCpX9ZWfbG544VcEim EEnUbffI89sK9HpnHD+PH VvEdw3PCAiiSqmGK2mV3M hZGRpbmctbGVm rZohNG0nEYFokxlqMNAyo V9hDWFoO2k6QdHpFhD7XF tsH4CuCAUvtrgwQj43aZ4 vVyJeIuG8MLhl B1WetqY5CBGysCFkZBulC AT9Z00pu2S9QSIqCNOiFY O3qYH1nN3ooLaiomvkcPO mdDsgdmVydGlj LYvkIQgsV394YBFugDxcA kNvZGluZyBEYXRlOiAgMD IvMTUvMjAyNDwvdGQ+PHR kOCE6oSxkUHUu aTXoQEjbNh4srWxhiTcgC O2kPCLdgyyyYCFczY6zRU EyzZHagOvbRW1qSFQlrnw kv266OeGlDSR4 AKXskMOuR4KdgA9eAfZfA LScWGOaI6MmkZVtOJccY1 08WCyqWwT8ZGCrruVmR8A sLWFsaWduOiB0 x1E8Tf9Cx9NealdxX8Onq AEoOuJbWoheONq0A7VrVa wvdHI+AM70DFUcSU47SNc 4HBK8fLscSKjf TZEvS3SpgT3mQeBwPIBwH GRkOyc+PHRhYmxlIHdpZH RoPScxMDAlJyBzdHlsZT0 fOq8mWOGrGMKl cUhitRPaQlIdq6wiUKArB IrhQH5ngRrmG2BecFW0BH Qlw5z0At36P57oP6FkeWF +VHFuyBM7mBR3 oQ4qEfLtQdL3LIhzK720E tRzkNMdAampi4jgv5svgO e3BmT3YSUswuEnfVxyRFP 0l9JkFq89S89w IHdpZHRoPSIxNSUiIHZhb Kfsit6npB5wFn9+PGNvbC F2rPI7xT6lMfYuAwZ5YNj oP360UjDslCSh Taibj7hna9auaVh4WpYeH DXzrlThcEjeVNL0v9MgLv 87D1XalHtqw5SzQgw3kj4 4oIUcn3B4gSO0 O8CqTRHwwzegwVNjqNtnV M6iKKLzmjxgUIPtkY2dXQ MaU6f4KwOtXdJ7VDfyP0E eemQ5VVKyfBTj DHVtfHUXtQ7mutfff2rgy hnzCcZoTVCnGHz5HAw3LI DovKlfQuFhSOV5DhT6KZG 4rBJqlT9kqKsq xmmwgF5cKmi+WYJ7nSUts FGVEO6kZybzlRF+PHRkIH H3kSsxPMsbPFPtsR6xXOU bP4b6CnSjNkJ2 TGavW4LwocW1JUWktPUfG AYopUXYgP7fcaaez0qgqa kuPrUtSZDlUFy9DXw8WZD saWduOiBsZWZ0 QaI4NXW5mKJcwG3jfQnpi tviaF2rYrc+QmlydGggRG K2TNo4R2UrNok2MOGwqBc xRL7bfNAnQBgo Ks9kpRlahTolBV4fDJXlo ywgx233DnKlk3zsNOKfdD XvRLssNZO5S52np8V4SQY jYEXrMDP5zDU4 cV2flRpnqmwpcYGavGnuf nIduKarSEtsMXekS360SU WxqDdwYpMjORv4Y5ZqQqy 1VKFkhJwbTC9a gATjMJrkIc9ukHykhMaoF Z5oZRDjukxre913BkPid3 oqNCNybLRaTAicASV0Q58 au4Y6RPSgDRCz PQF8jLD5wQ5khBovvcmzp GVmdDsgdmVydGljYWwtYW okE326FCAedZryJrRwkCe 6S5YsXvh3QGRt jZliDO0qeVSbDQkzYr9kv PrggMdiSF3nOXBkamijm0 37XwVff2hcCOHbeIUfOXc oNBD8P24mf1L5 CKOwWCAvXOO1hIY3lA9qj GlnbjogbGVmdDsgdmVydG okEZffKGsnQ278LDKviKp nPlBhdGllbnQg DJinJMj9V4KfNrmiiNA+P J54XVLcXN73bVZacHIgu6 gzvIy1CsFwDVVkZCB1zDx sQLfyr1WcTNVr D15yeXBkg4K5YVVweYwjf EQlSbCdeHW8qV0nNDpifd gey2mqyjmkDfpyz1puas3 3gQ10T30zBBsl ZHRoPSIzMCUiIHZhbGlnb v4kkZ2fAb8+LWXxpIB9vA B2jA5wAQDhJrB7MTqdQ64 9InRvcCIvPjxj f3fzk8fzjGi1AgR7PYQhu oAedXkkSPI8d3YeNs27Q5 9sIHdpZHRoPSIyMCUiIHZ fnQxshn2ucE2f Ii8+SNJgaNJ6lNK6jS6kH bSqRdN2EKslL372UvVvjV FhIgsvP07nR9SngQT+PHR rUke4SBMjnCha CG4ioSGxQJlvFh4bVLV6A fTmQlFiPZteE7SrPKFktm qwaednwEY0FRYfBWIcpQ3 9Jk0gkQrxEXUb xJXGvO2qytmlt8kserljG oYlTVEkHPh7CQv1VXKufR pyJeXbDLX5PcX7WVF1hED paH5xkBwptmpo mE5zY0VpSIEdztlsYx69d N1eEmGwQdZ4USuwMzf+Uk 3KCQ9bEUiZIdwPAM22GZ0 1dZSpr3D4xCB4 A4IvVWVzulzxssudbND9X WQbHLJgvX81jOYfDBbqDe 0ty0I5n243FUBaYKEkcT5 3Go2lxStoMBNx bYBFlG7fhvwyg3xsxzwoM lNtKKFnPVb6LWe5VPYyqJ weAbWhQXE0QnW4ATY6rBA uyT1grXuiemjw yK0vMyg+YLXeZRPnMJi1Y jwvdGQ+KBJoIMX7lRpeCP gmQMPunN1qAJLpO1i2EgZ gMhC5MRvrB9He IMNhicyrOv87cI5wDmOlU cT9IPgdA6VpghT1PVBrhE FcJMmgZZB3B29by5G4TXO xOVCbLVI5gLH1 mH4jnWqiwdbsiOGtnMank kEadVjvBZutPGjkX772KJ CtxZgkFiA5VQvfSAOpQW7 6UA50dRWsa4C2 gBW7F6VtHCIcmpbkunovj NB0RVNqMDScvF05iDGsAS nmTc3ys4C0r985ZQLpDFJ ppF33Gg6mhLed TSHisBBQdG2dstfhg1aoi txwEcFaWGAwJWl2YWp9MM WitDdcIlKpCJZ8VrO6BEI 4dBCybZ8gwGly ofuptD6sYwt+RkVNQUxFP Z35IH38sEAqc2X8uVN7D8 LyWYWwqcshekfyuNW5MXD uENOegW45hOYr VOwjSf1rd1D0t967LPPqZ SXdcQ05En5fgDqgATLroR XGuF2kveqgw4wbzkwwQxQ gHIIaXMt4WDy5 WFLlzIhyVrGsDPB5QxH4S ZP6lBNpnC1gxUfyzkmofU 9wOyc+N3Q3M2TzSyqneEW +IG86CRFrSZ26 iBNgjIWnm2qauFe5CcGyA ZEgKVU1mQaiIJxor5YiEO VlM23qnFVzm4C5ODMbnXi hcHNlOyBlbXB0 fF5jRDjxpzjsi7fdecafU jirg7opim81nF27V72eNU dpZHRoPSIzMCUiIHZhbGl anq3ntY4fZk5+ XOMxeYC0oLS7rD6wNsXcK mM0INklW664SzMdgUMeMq tqr7ene8ujqDs7EaUcHUK gdmFsaWduPSJ0 t3CsWk74T35dTWngBVTcX EQwKRQsANCujMsxgn7miE 9wIi8+LH1zw8vyvg21oJ8 8dHI+PHRkIHN0 lEvxAVswFLCwxY0yWAxvI oP8SMEdZpEfrK41cIWjTL zbOj3hyJljaImaCY6uBAA kiuyeo421RvSm k1xhXSTpgYWtDMkwTJU9R 18nq9L0JGOtLADoZQS3mL O4eY1ooVmkwbndoMBxeOg gdmVydGljYWwt XIkiT448KUVyxOuuDwDsy CAoG5ermnQWGI6gOiwddH Q+GVUkLWV9gVnxIPxfWUE coO0uKWReC0j9 HiLzItW4ROhiK5LqnfH7K AFyfWZiSPAdrZFXtN6vfo fnj6iemdmtIlUyNYVcCZt 4TIg7AYQznUyf AfQjIRW4DnZ1WHC9vIWwv W0suUtawwfgkW4yYza+Rk lOOjwvdGQ+UWAgAOG5fHy xOAazUDOifB7a OPRcV4u4ScKeEqY9JUqyK 3XyrzY0UPYpbZWlSBLwjQ XOuH3umjjzh2pfnbilDfM wFMHdWUg0NBu7 BDNibGcpVnBiBZY6SpY3C MV8rREynR1pwBggdzzweJ 9wOyc+TVJOOjwvdGQ+PHR oFVA5wMnuVNlg RTFisG9qJIVzD5w9KjOaS vG6DBvaU2IccyI3UHOodF GaSJGnpGTDxV4xlxwnl9j vcjogIzAwMDAw WRd6NKb6NZFbeNutSuZoM NV6YeH0WLL4mUFuvB5jqX clunzugA9qEka+IVB9HQT 0PN80EN39A1Dk PjwvdGFibGU+PHRhYmxlI HdpZHRoPScxMDAlJyBzdH gmZP8wYo6iIHWjJSAhwHj zfKJxPiSzn8if YXB (more content not included)... [facility] Consent Formson 04-09-2023 Consent Forms [id number] .00OTGTIFF [facility] Controlled Substances Agreem entson 04-09-2023 Controlled Substances Agreements [id number] .00OTGTIFF [facility] Progress Note - Provideron 0 04-09-2023 Progress Note - Provider [id number]#1 .00OTGTIFF Normal [facility] MG MAMM SCREEN 3D BLUE CADon 07-18-2022 MG MAMM SCREEN 3D BLUE CAD Patient: EVANGELIST SCRUGGS Exam Date: 07/18/2022 : 1955 Gender:F Ordering : DR MARGUERITE CHARLES M.D. Admission #: [id number] Family : Order #: [id number] CLICK HERE TO VIEW EXAM RADIOLOGY REPORT [...] Treatments None Family Cancers None LOCATION: [facility] BREAST COMPOSITION: Heterogeneously dense,which may obscure small [...] M.D. on 07/19/2022 at 11:12 Normal [facility] CREATININEon 08-22-2021 Creatinine [Mass/Vol] 0.86 mg/dL Normal 0.55-1.02 [facility] Comment on above: Performed By: #### A ANDERS JARAMILLO CREA #### [facility] [address] [address] [address] Uma Kennedy EGFR-AF PARAGUAYAN >=60 Normal >=60 [facility] Comment on above: Performed By: #### A ST, ALT, CREA #### [facility] [address] [place], [place] [address] Dr. Uma Kennedy EGFR-NON AF PARAGUAYAN >=60 Normal >=60 [facility] Comment on above: Performed By: #### A ST, ALT, CREA #### [facility] [address] [place], [place] [address] Dr. Uma Kennedy SGOTon 08-22-2021 AST [Catalytic activity/Vol] 13 U/L Critically low 15-37 [facility] Comment on above: Performed By: #### A ST, ALT, CREA #### [facility] [address] [address] [address] Uma Kennedy [facility] 08-22-2021 ALT [Catalytic activity/Vol] 28 U/L Normal 14-59 [facility] Comment on above: Performed By: #### A ST, ALT, CREA #### [facility] [address] [address] [address] Uma Kennedy Vital Signs Date Time Vital Sign Value Performing Clinician Facility 06-20-2023 09:29-0400 Body height 157.48 cm [facility] 06-20-2023 09:29-0400 Body mass index (BMI) [Ratio] 26.2 kg/m2 [facility] 06-20-2023 09:29-0400 Body weight 64.86 kg [facility] 04-17-2023 10:51-0500 Body height 157.48 cm [facility] 04-17-2023 10:51-0500 Body mass index (BMI) [Ratio] 25.2 kg/m2 [facility] 04-17-2023 10:51-0500 Body weight 62.59 kg [facility] 04-17-2023 10:51-0500 Diastolic blood pressure 93 mm[Hg] [facility] 04-17-2023 10:51-0500 Heart rate 85 /min [facility] 04-17-2023 10:51-0500 Systolic blood pressure 163 mm[Hg] [facility] 03-27-2023 10:00-0500 Body height 157.48 cm Marguerite Charles Other [facility] 03-27-2023 10:00-0500 Body mass index (BMI) [Ratio] 25.38 kg/m2 Marguerite Charles Other [facility] Other 03-27-2023 10:00-0500 Body weight 62.96 kg Marguerite Charles Other [facility] Other 03-27-2023 10:00-0500 Body weight 62.95 kg [facility] 03-27-2023 10:00-0500 Diastolic blood pressure 88 mm[Hg] Marguerite Charles Other [facility] 03-27-2023 10:00-0500 Systolic blood pressure 144 mm[Hg] Marguerite Charles Other [facility] 02-05-2023 09:30-0500 Body height 157.48 cm Marguerite Charles Other [facility] 02-05-2023 09:30-0500 Body mass index (BMI) [Ratio] 26.41 kg/m2 Marguerite Charles Other [facility] Other 02-05-2023 09:30-0500 Body weight 65.5 kg Marguerite Charles Other [facility] Other 02-05-2023 09:30-0500 Body weight 65.49 kg [facility] 02-05-2023 09:30-0500 Diastolic blood pressure 72 mm[Hg] Marguerite Charles Other [facility] 02-05-2023 09:30-0500 SaO2% (BldA) [Mass fraction] 97 % Marguerite Charles Other [facility] Other 02-05-2023 09:30-0500 Systolic blood pressure 128 mm[Hg] Marguerite Charles Other [facility] 11-08-2022 09:45-0400 Body height 157.48 cm Marguerite Charles Other [facility] Other 11-08-2022 09:45-0400 Body mass index (BMI) [Ratio] 27.83 kg/m2 Marguerite Charles Other [facility] Other 11-08-2022 09:45-0400 Body weight 69.04 kg Marguerite Charles Other [facility] Other 11-08-2022 09:45-0400 Diastolic blood pressure 85 mm[Hg] Marguerite Charles Other [facility] Other 11-08-2022 09:45-0400 Respiratory rate 12 /min Marguerite Charles Other [facility] Other 11-08-2022 09:45-0400 Systolic blood pressure 151 mm[Hg] Marguerite Charles Other [facility] Other 07-04-2022 10:00-0400 Body height 157.48 cm Marguerite Charles Other [facility] Other 07-04-2022 10:00-0400 Body mass index (BMI) [Ratio] 29.63 kg/m2 Marguerite Charles Other [facility] Other 07-04-2022 10:00-0400 Body weight 73.48 kg Marguerite Charles Other [facility] Other 07-04-2022 10:00-0400 Diastolic blood pressure 80 mm[Hg] Marugerite Charles Other [facility] Other 07-04-2022 10:00-0400 SaO2% (BldA) [Mass fraction] 97 % Marguerite Charles Other [facility] Other 07-04-2022 10:00-0400 Systolic blood pressure 142 mm[Hg] Marguerite Charles Other [facility] Other Encounters Encounter Date Encounter Type Care Provider Facility Start: 07-06-2023 End: 07-06-2023 ambulatory Alba M [place] Facility:[facility] Start: 06-29-2023 End: 06-30-2023 ambulatory PENOLA P BAKER Not Available Start: 06-26-2023 End: 06-26-2023 ambulatory PENOLA P BAKER Not Available Start: 06-20-2023 End: 06-20-2023 ambulatory [facility] Work Phone: Start: 06-20-2023 End: 06-20-2023 Patient encounter procedure [facility] Physician [facility] Work Phone: Start: 06-05-2023 End: 06-05-2023 ambulatory PENOLA P BAKER Not Available Start: 05-07-2023 End: 05-07-2023 Patient encounter procedure [facility] Physician [facility] Work Phone: Start: 04-17-2023 End: 04-17-2023 ambulatory [facility] Work Phone: Start: 04-17-2023 End: 04-17-2023 Patient encounter procedure [facility] Physician [facility] Work Phone: Start: 04-05-2023 End: 04-06-2023 ambulatory Alba Sharpe LENS INSPECTOR-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 Facility:[facility] Start: 04-04-2023 End: 04-04-2023 ambulatory Marguerite Charles Other [facility] Other Start: 04-04-2023 Telephone encounter Marguerite Charles [facility] Start: 03-28-2023 End: 03-28-2023 ambulatory Marguerite Charles Other [facility] Other Start: 03-28-2023 Telephone encounter Marguerite Charles [facility] Start: 03-27-2023 End: 03-27-2023 ambulatory Marguerite Melvin Other [facility] Other Start: 03-27-2023 Office outpatient vi sit 15 minutes Marguerite Charles [facility] Start: 03-27-2023 End: 03-27-2023 Patient encounter procedure [facility]- Start: 03-05-2023 End: 03-05-2023 ambulatory Marguerite Charles Other [facility] Other Start: 03-05-2023 Telephone encounter Marguerite Charles [facility] Start: 02-20-2023 End: 02-20-2023 ambulatory Marguerite Charles Other [facility] Other Start: 02-20-2023 Telephone encounter Marguerite Charles [facility] Start: 02-13-2023 End: 02-13-2023 ambulatory Marguerite Charles Other [facility] Other Start: 02-13-2023 Telephone encounter Marguerite Charles [facility] Start: 2023 End: 2023 ambulatory Marguerite Charles Other [facility] Other Start: 2023 Telephone encounter Marguerite Charles [facility] Start: 02-05-2023 End: 02-05-2023 ambulatory Marguerite Charles Other [facility] Other Start: 02-05-2023 Office outpatient vi sit 25 minutes Marguerite Charles [facility] Start: 02-05-2023 End: 02-05-2023 Patient encounter procedure [facility] Physician [facility] Work Phone: Start: 11-27-2022 End: 11-27-2022 ambulatory Marguerite Charles Other [facility] Other Start: 11-27-2022 Telephone encounter Marguerite Charles [facility] Start: 11-08-2022 End: 11-08-2022 ambulatory Marguerite Charles Other [employer] Other Start: 11-08-2022 Office outpatient vi sit 15 minutes Marguerite Charles [facility] Start: 10-19-2022 End: 10-19-2022 ambulatory Marguerite Charles Other [employer] Other Start: 10-19-2022 Telephone encounter Marguerite Charles [facility] Start: 10-11-2022 End: 10-11-2022 ambulatory Marguerite Charles Other [employer] Other Start: 10-11-2022 Telephone encounter Marguerite Charles [facility] Start: 10-05-2022 End: 10-05-2022 ambulatory Marguerite Charles Other [employer] Other Start: 10-05-2022 Telephone encounter Marguerite Charles [facility] Start: 07-18-2022 End: 07-19-[address] MARGUERITE CHARLES Facility:[facility] Start: 07-07-2022 End: 07-07-2022 ambulatory Marguerite Charles Other [employer] Other Start: 07-07-2022 Telephone encounter Marguerite Charles [facility] Start: 07-04-2022 Office outpatient vi sit 15 minutes Marguerite Charles [facility] Start: 07-04-2022 End: 07-05-[address] MARGUERITE CHARLES [facility] [employer] Other Start: 08-22-2021 End: 08-23-[address] MARGUERITE CHARLES Facility:[facility] Procedures Date Procedure Procedure Detail Performing Clinician Screening for malign ant neoplasm of cervix Marguerite Charles Other Payers Date Payer Category Payer Medicare 1958 Medicare [id number] 2.1 [id number] 1958 Unknown [id number] 2. [id number] 1956 Unknown [id number] 2.16.84 0.1.142874.3.579.2.593 1955 Unknown [id number] 2.16.84 0.1.390590.3.579.2.593 1956 Unknown [id number] 2.16.84 0.1.637911.3.579.2.593 1956 Unknown [id number] 2.16. 840.1.417622.3.579.2.196 1956 Unknown [id number] 2.16.84 0.1.494818.3.579.2.1259 1956 Unknown [id number] 2.16.84 0.1.661446.3.579.2.1259 1956 Unknown [id number] 2.16.84 0.1.556751.3.579.2.1259 1956 Unknown [id number] 2.16.84 0.1.160796.3.579.2.1259 1956 Unknown [id number] 2.16.8 40.1.727117.3.579.2.718 1956 Unknown [id number] 2.16.8 40.1.377338.3.579.2.718 Unknown [facility] [id number] Social History Date Type Detail Facility Unknown if ever smoked [employer] Other Sex Assigned At Sex Assigned At Bir th [employer] Other Start: 04-11-2023 End: 04-11-2023 Tobacco smoking status NHIS Never smoked tobacco (finding) [facility] Start: 1955 Sex Assigned At Female F [facility] Clinical Notes 07-04-2022 to 03-28-2023 Note Date & Type Note Facility 03-28-2023 Evaluation note Encounter Date Diagnosis Assessment Notes Feb, Compression fracture of T12 vertebra, sequela (ICD-10 - S22.080S) Feb, Lumbar facet arthropathy (ICD-10 - M47.816) [employer] [facility] [employer] Other 01-30-2024 Evaluation note* Encounter Date Diagnosis Assessment Notes Treatment Notes Treatment Clinical Notes Feb, Lumbar pain (ICD-10 - M54.50) Assess xray. Agrees to continue flexeril prn Feb, Subclinical hyperthyroidism (ICD-10 - E05.90) Pt requests referral to Dr Rodgers Feb, Menopausal symptoms (ICD-10 - N95.1) as above. HRT started at lowest dose. [facility] Other 12-26-2023 Evaluation note* Encounter Date Diagnosis Assessment Notes Treatment Notes Treatment Clinical Notes Jan, Acute diarrhea (ICD-10 - R19.7) [facility] Other 12-11-2023 Evaluation note* Encounter Date Diagnosis [...] spasm (ICD-10 - M62.838) Pt requests refill. [facility] Other 11-01-2023 History general Narrative - Reported* Type Description Date Medical History Acid reflux Medical History OAB (overactive bladder) Medical History Primary insomnia Surgical History cervical fusion 2006 Surgical History Right knee surgery 12/27/2022 Hospitalization History see above surgical histo ry [facility] Other 09-13-2023 Evaluation note* Encounter Date Diagnosis Assessment Notes Treatment Notes Treatment Clinical Notes Oct, OAB (overactive bladder) (ICD-10 - N32.81) Will increase dose. Pt will notify us if medication is not helpful. Consider urology referral if not successful, but presently waiting for orthopedics for her R knee. [facility] Other 08-16-2023 Evaluation note* Encounter Date Diagnosis Assessment Notes Treatment Notes Treatment Clinical Notes Sep, OAB (overactive bladder) (ICD-10 - N32.81) [facility] Other 05-09-2023 Evaluation note* Encounter Date Diagnosis Assessment Notes Treatment Notes Treatment Clinical Notes June, Left medial knee pain (ICD-10 - M25.562) Samples of Voltaren given. Order for XR printed. If PT Or Ortho indicated, would go toward [facility]. [facility] Other 05-09-2023 NotePROCEDURE: XR KNEE LT 4V or > HISTORY: Pain of left knee joint ; medial knee pain for 2 weeks which increases with activity COMPARISON: None. FINDINGS: BONES:No fracture, acute abnormality, or significant arthropathy. SOFT TISSUES:No visible soft tissue swelling. EFFUSION:None visible. OTHER: Negative. IMPRESSION: 1. No acute bone abnormality. 2. Minimal degenerative changes. Electronically authenticated by: ALEX DURAND Date: 2022-07-04 10:35[facility] note[facility] InformationNort [employer] Other Evaluation noteNo assessment information available [facility] Work Phone: Evaluation note* Diagnosis Onset Date Resolution Status Chronic thoracic back pain a cute Compression fracture of T11 vertebra acute Hot flash, menopausal acute Chronic pain acute Compression fracture of T11 vertebra acute Spondylosis without myelopat hy or radiculopathy, thoracic region acute Thoracic back pain acute Chronic pain acute Compression fracture of T11 vertebra acute Spondylosis without myelopat hy or radiculopathy, thoracic region acute Thoracic back pain acute [facility] Work Phone: History general Narrative - Reported* Type Description Date Medical History Acid reflux Surgical History cervical fusion 2006 Hospitalization History see above surgical histo ry [facility] Other History general Narrative - Reported* Type Description Date Medical History Acid reflux Medical History OAB (overactive bladder) Medical History Primary insomnia Surgical History cervical fusion 2006 Hospitalization History see above surgical histo ry [facility] Other Summary Purpose Family History No Family History Records Found Relationship Condition Age at Onset Recorded Date/T ji daughter Rheumatoid arthritis Unknown father Unknown Advance Directives No Advanced Directives Records Found Advance Directive Response Recorded Date/ Time Advance Directives No March 11:05am Advance Directive Response Recorded Date/ Time Advance Directives No March 12:05pm Reason for Referral Reason *04/09 Last OV note and xray from last week. Diagnosis 1 Compression fracture of T12 vertebra, sequela (S22.080S) Referral Organization [facility] [employer] [facility] Referring Provider First Name Marguerite Referring Provider Last Name Melvin Referring Provider Specialty [facility] [employer] Referred Organization [facility] Referred Address [address], [place],[address] Referred Provider Specialty Pain Medicin e Referral Priority Routine General Notes Richa Reina 08:44:36 AM >received today, notes locked, attachments made, referral faxed Richa Reina 04/03/2023 04:29:40 PM >this was sent to [facility] and then forwarded to since its closer for patient Clinical Notes f: [id number] Reason *04/06 Symptoms of hyperthyroidism, menopausal hot flashes and insomnia Diagnosis 1 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) Referral Organization [facility] [employer] [facility] Referring Provider First Name Marguerite Referring Provider Last Name Melvin Referring Provider Specialty [facility] [employer] Referred Organization [facility] Referred Provider Edith Rodgers Referred Address ,[place], [place],[address] Referred Provider Specialty Family Medic ine Referral Priority Routine General Notes Richa Reina 09:55:33 AM >received today, notes locked, ins attached, referral faxed Reason [facility] [place] fog Diagnosis 1 Brain fog (R41.89) Referral Organization [facility] [employer] Referring Provider First Name Marguerite Referring Provider Last Name Melvin Referring Provider Specialty [facility] Referred Organization [facility] Referred Provider Jorge L Sears Referred Address [address], [place],[address] Referred Provider Specialty Neurology Referral Priority Routine Chief Complaint and Reason for Visit Chief Complaint Multiple Issues Check Up medication issues Chief Complaint Check Up medication issues REFF BY MARGUERITE CHARLES 6 WEEKS Reason for Visit Chronic thoracic salina k pain Compression fracture of T11 vertebra Hot flash, menopausal Chronic pain Compression fracture of T11 vertebra Spondylosis without myelopathy or radiculopathy, thoracic region Thoracic back pain Chronic pain Compression fracture of T11 vertebra Spondylosis without myelopathy or radiculopathy, thoracic region Thoracic back pain Additional Source Comments REASON FOR VISIT (unrecogniz ed section and content) Kneeknee xraytestsmessageref erralbladder medication not workingmessagemessagemultiple issuesmessagemedicationmessageCheck Upmessagerefill INFORMATION SOURCE (unrecogn ized section and content) DATE CREATED AUTHOR 08/04/2022 [facility] DATE CREATED AUTHOR AUTHOR'S ORGANIZ ATION 04/10/2023 [facility] DATE CREATED AUTHOR AUTHOR'S ORGANIZ ATION 07/04/2023 [facility] DATE CREATED AUTHOR AUTHOR'S ORGANIZ ATION 07/06/2023 [facility] Teams (unrecognized sec tion and content) Team Status: Active Member Role Status Dates Marguerite Charles MD Primary Care Provider Active Team Status: Inactive Member Role Status Dates Marguerite Charles MD Attending Provider Active St art: February 05, 2023 End: February 05, 2023 Team Status: Inactive Member Role Status Dates Marguerite Charles MD Attending Provider Active St art: March 27, 2023 End: March 27, 2023 Team Status: Inactive Member Role Status Dates Marguerite Charles MD Primary Care Provide r, Attending Provider Active Start: April 17, 2023 End: April 17, 2023 Team Status: Inactive Member Role Status Dates Marguerite Charles MD Primary Care Provide r, Referring Provider Active Start: May 07, 2023 End: May 07, 2023 Chase Echavarria MD Attending Provider Active Sta rt: May 07, 2023 End: May 07, 2023 Team Status: Inactive Member Role Status Dates Marguerite Charles MD Primary Care Provider Active Start: June 20, 2023 End: June 20, 2023 Chase Echavarria MD Attending Provider Active Sta rt: June 20, 2023 End: June 20, 2023 Goals (unrecognized section and content) Goals [...] BE BASED ON THE PRIMARY CLINICAL RECORDS. [facility] [employer] [facility] provides no warranty or guarantee of the accuracy or completeness of information in this document.
== END 2023-08-07 09:23 | disposition home or self-care (01) ==
LOC: RAD 09:22
PROVIDERS: PCP Family Medicine; Visit Provider Specialist
DX: M81.0 Age-related osteoporosis without current pathological fracture (principal); M85.80 Other specified disorders of bone density and structure, unspecified site
CPT/HCPCS: 77080

== ENCOUNTER 2024-07-24 09:16 | Outpatient (OUT) | payer MEDICARE, OTHER, SELFPAY ==
--- NOTE | 2024-07-24 09:19 | MM_ITS ---
Patient Name: EVANGELIST SCRUGGS MR#: [id number] : 1955 Exam Date: 07/24/2024 Ordering Doctor: DR LAZARO CHARLES M.D. RADIOLOGY REPORT PROCEDURE: MM TOMOSYNTHESIS SCREENING BI COMPARISON: MM TOMOSYNTHESIS SCREENING BI, 07/24/2023. MG MAMM SCREEN 3D BLUE CAD, 07/18/2022. MG MAMM SCREEN 3D BLUE CAD, 07/12/2021. MG MAMM BLUE SCRN W CAD DIG, 09/16/2012. INDICATIONS: Screening Calculator Name NCI Breast Cancer Risk Assessment Tool 5 Year Breast Cancer Risk 1.90% Lifetime Breast Cancer Risk 6.20% Personal Breast Cancer No Personal Ovarian Cancer No Treatments None Family Cancers None LOCATION: [facility] BREAST COMPOSITION: The breasts are heterogeneously dense,which may obscure small masses. FINDINGS: RIGHT BREAST: No significant suspicious finding. LEFT BREAST: No significant suspicious finding. DIAGNOSTIC CATEGORY 1--NEGATIVE. RECOMMENDATIONS: ROUTINE MAMMOGRAM AND CLINICAL EVALUATION IN 12 MONTHS. PLEASE NOTE: A NORMAL MAMMOGRAM DOES NOT EXCLUDE THE POSSIBILITY OF BREAST CANCER. A CLINICALLY SUSPICIOUS PALPABLE LUMP SHOULD BE BIOPSIED. Dictated by: Alexandre Lopez DO on 07/24/2024 at 10:35 Approved by: Alexandre Lopez DO on 07/24/2024 at 10:44
--- OUTSIDE RECORDS SUMMARY | 2024-07-24 09:29 | XMS_ITS | CCD ---
Author Organization [facility] Care Team Providers Care Energy Conservation Representative Name Role Phone Lazaro Charles Unavailable MELVIN, DR LAZARO De Souza Attending Unavailable CHARLES, DR LAZARO De Souza Admitting Unavailable CHARLES, DR LAZARO De Souza Primary Care Unavailable ZIEBER, DR IGGY Epstein Consulting Unavailable CHARLES, DR LAZARO De Souza Consulting Unavailable CHARLES, DR LAZARO De Souza Attending Unavailable CHARLES, DR LAZARO De Souza Admitting Unavailable ZIEBER, DR IGGY Epstein Consulting Unavailable CHARLES, DR LAZARO De Souza Primary Care Unavailable CHARLES, DR LAZARO De Souza Consulting Unavailable CHARLES, DR LAZARO De Souza Primary Care Unavailable CHARLES, DR LAZARO De Souza Referring Unavailable MISC, DR RANKIN Admitting Unavailable MISC, DR RANKIN Consulting Unavailable MISC, DR RANKIN Attending Unavailable Rio DellAlba Attending Unavailable Provider, None Primary Care Unavailable Rio DellAlba hyde Admitting Unavailable Rio Dell, Alba Nesbitt Admitting Unavailable Rio DellAbla Attending Unavailable Provider, None Primary Care Unavailable Rio Dell RETAIL ADVISOR-Alba EDMOND Attending U Lazaro Craft MD Primary Care Provider Iggy Dangelo MD Unavailable Lazaro Charles MD Primary Care Provider LAZARO CHARLES Primary Care Physician Camden العراقي Referring Unavailable Camden العراقي Attending Unavailable Melanie, Camden Avila Admitting Unavailable Lazaro Charles MD Primary Care Provider Pippa Baker MD Attending Provider Camden العراقي Referring Unavailable العراقي, Camden T Admitting Unavailable العراقي, Camden T Attending Unavailable Melanie, Camden Avila Attending Unavailable Melanie, Camden T Referring Unavailable Melanie, Camden Avila Admitting Unavailable Lazaro Charles Primary Care Unavailable Pippa Baker Attending Unavailable Pippa Baker Admitting Unavailable Melanie, Camden Avila Admitting Unavailable Melanie, Camden T Attending Unavailable العراقي, Camden T Referring Unavailable العراقي, CAMDEN T Attending Unavailable العراقي, CAMDEN T Referring Unavailable ISAIAS TAPIA Attending Unavailable العارقي, CAMDEN T Referring Unavailable SAMUEL, PIPPA Irving Attending Unavailable SAMUEL, PIPPA P Referring Unavailable MING, VASILIY Avila Attending Unavailable LAI, VASILIY T Referring Unavailable LAURIE NASH Attending Unavailable SAMUEL, PIPPA Irving Attending Unavailable العراقي, CAMDEN T Referring Unavailable العراقي, CAMDEN T Attending Unavailable العراقي, CAMDEN T Referring Unavailable العراقي, CAMDEN T Attending Unavailable العراقي, CAMDEN T Referring Unavailable Allergies Allergy Classification Reported Allergen(s) Allergy Type Date of Onset Reaction(s) Facility (17 sources) NITROFURANTOIN, MACROCRYSTALS / Nitrofurantoin, Monohydrate; Translations: [nitrofurantoin] Drug Allergy delusions, Mental blocking [facility] (20 sources) Sulfamethoxazole / Trimethoprim; Translations: [sulfamethoxazole-tr imethoprim] Drug Allergy 05-31-19 18 Anxiety, Dizziness, Hallucinations , Hives, Itching, Nausea Only, Palpitations, Rash, Unknown (qualifier value) [employer] Other (1 source) Nitrofurantoin Drug Allergy [facility] (1 source) Sulfonamides (Antibiotic) Drug allergy (disorder) [facility] (20 sources) Nitrofurantoin; Translations: [nitrofurantoin] Drug Allergy 05-31-19 18 delusions [facility] (4 sources) Sulfamethoxazole; Translations: [sulfamethoxazole] Drug Allergy 04-17-19 24 stomach upset [facility] (1 source) Trimethoprim Drug Allergy 04-17-19 24 stomach upset [facility] (2 sources) Sulfamethoxazole / Trimethoprim; Translations: [Bactrim] Drug Allergy [facility] Repository Medications Current Medications Medication Drug Class(es) Dates Sig (Normalized) Sig (Original) acetaminophen 325 mg / oxyCODONE hydrochloride 5 mg oral tablet (1 source) Opioid Agonist Start: 04-21-2024 take 1-2 tablets by mouth every four hours as needed for pain Percocet 5 mg-325 mg oral tablet See Instructions, 50 tab(s), Refill(s) 0, Take one to two oral every 4 hours as needed for surgical pain., [id number], 155, cm, 04/04/24 12:36:00 EST, Height/Length Dosing, 67.1, kg, 04/04/24 12:36:00 EST, Weight Dosing Start Date: 04/21/24 Status: Ordered Acidophilus Probiotic Blend oral capsule (2 sources) Start: 04-04-2024 take 1 capsule by mouth once daily Acidophilus Probiotic Blend oral capsule 1 cap(s), Oral, Daily, Refill(s) 0, Prophylaxis Start Date: 04/04/24 Status: Ordered aspirin 325 mg oral tablet (1 source) Platelet Aggregation Inhibitor, Nonsteroidal Anti-inflammatory Drug Start: 04-21-2024 End: 05-21-2024 take 1 tablet by mouth once daily aspirin 325 mg Tab 325 mg = 1 tab(s), Oral, Daily, Start the day after surgery for blood clot prevention., X 30 day(s), # 30 tab(s), Refills(s) 0, Pharmacy: [id number], 155, cm, 04/04/24 12:36:00 EST, Height/Length Dosing, 67.1, kg, 04/04/24 12:36:00 EST, Weight Dosing Start Date: 04/21/24 Stop Date: 05/21/24 Status: Ordered atropine sulfate 0.025 mg / diphenoxylate hydrochloride 2.5 mg oral tablet (2 sources) Anticholinergic, Cholinergic Muscarinic Antagonist, Antidiarrheal Start: 02-20-2023 take 1 tablet by mouth three times daily as needed Lomotil 2.5-0.025 MG 1 tablet as needed Orally tid prn for 10 days Jan, Active black seed oil (2 sources) Start: 04-04-2024 black seed oil black seed oil, See Instructions, Prophylaxis Start Date: 04/04/24 Status: Ordered calcium citrate 950 mg oral tablet (2 sources) Start: 04-04-2024 calcium (as calcium citrate) 200 mg oral tablet 950 mg = 1 tab(s), Oral, BID, Prophylaxis Start Date: 04/04/24 Status: Ordered cloNIDine hydrochloride 0.1 mg oral tablet (12 sources) Central alpha-2 Adrenergic Agonist Start: 03-24-2024 cloNIDine (Catapres) 0.1 MG tablet 03/24/2024 Active Start: 03-24-2024 take 1 tablet by filomena th once daily at bedtime Clonidine Hcl 0.1 mg tablet Active 0.1 MG PO Daily at bedtime March 24, 2024 12:00am cyclobenzaprine hydrochloride 10 mg oral tablet (20 sources) Muscle Relaxant Start: 03-24-2024 cyclobenzaprin e (Flexeril) 10 MG tablet 03/24/2024 Active Start: 03-24-2024 take 1 tablet by filomena th once daily at bedtime as needed for muscle spasms Cyclobenzaprine 10 mg tablet Active 10 MG PO Daily at bedtime as needed for muscle spasm March 24, 2024 9:08am Start: 06-21-2023 End: 03-24-2024 take 1 tablet by mouth once daily at bedtime as needed for muscle spasms Cyclobenzaprine 5 mg tablet Discontinued 5 MG PO Daily at bedtime as needed for muscle spasm June 20, 2023 11:00pm March 24, 2024 9:09am Start: 04-16-2023 End: 05-07-2023 take 1 tablet by mouth once daily at bedtime Cyclobenzaprine 5 mg tablet Discontinued 1 TAB PO Daily at bedtime April 16, 2023 12:00am May 07, 2023 7:52am FreeTextSi tablet at bedtime as needed Orally Once a day; Note: Source Status: Refill; Provider: Melvin De Souza Start: 02-05-2023 take 1 tablet by filomena th every twenty-four hours Cyclobenzaprine HCl 5 MG 1 tablet at bedtime as needed Orally Once a day for 30 day(s) Jan, Active D3 50 mcg (2000 intl units) oral capsule (2 sources) Start: 04-04-2024 D3 50 mcg (200 0 intl units) oral capsule Refills(s) 0 Start Date: 04/04/24 Status: Ordered docusate sodium 100 mg oral capsule (1 source) Start: 04-21-2024 take 1 capsule by mouth twice daily Colace 100 mg Cap 100 mg = 1 cap(s), Oral, BID, # 20 cap(s), Refills(s) 0, Pharmacy: [id number], 155, cm, 04/04/24 12:36:00 EST, Height/Length Dosing, 67.1, kg, 04/04/24 12:36:00 EST, Weight Dosing Start Date: 04/21/24 Status: Ordered ibuprofen 800 mg oral tablet (5 sources) Nonsteroidal Anti-inflammatory Drug Start: 04-04-2024 take 1 tablet by mouth three times daily ibuprofen 800 mg Tab 800 mg = 1 tab(s), Oral, TID, Pain Start Date: 04/04/24 Status: Ordered Start: 05-07-2023 take 1 tablet by filomena th every eight hours Ibuprofen 800 mg tablet Active 800 MG PO Every 8 hours May 06, 2023 11:00pm Start: 04-04-2023 take 1 tablet by filomena th three times daily as needed Ibuprofen 800 MG 1 tablet Orally Three times a day, as needed for 90 days Mar, Active ICaps AREDS oral tablet (2 sources) Start: 04-04-2024 take 1 tablet by mouth once daily ICaps AREDS oral tablet 1 tab(s), Oral, Daily Prophylaxis Start Date: 04/04/24 Status: Ordered miSOPROStol 0.2 mg oral tablet (16 sources) Prostaglandin E1 Analog Start: 04-15-2024 miSOPROStol (Cytotec) 200 MCG tablet Indications: Thickened endometrium , Post-menopausal Take all 4 tablets at bedtime the night before procedure 4 tablet 04/15/2024 Active Start: 06-26-2023 End: 03-25-2024 miSOPROStol (Cytotec) 200 MC G tablet Indications: Thickened endometrium , Post-menopausal , Pelvic pain in female Take all 4 tablets at bedtime the night before procedure 4 tablet 01/01/2024 03/25/2024 Discontinued ondansetron 4 mg oral tablet (3 sources) Serotonin-3 Receptor Antagonist Start: 01-01-2024 End: 01-31-2024 take 1 tablet by mouth twice daily as needed for nausea ondansetron (Zofran) 4 MG tablet Indications: Post-menopausal Take 1 tablet (4 mg) by mouth 2 (two) times a day as needed for nausea 20 tablet 5 01/01/2024 01/31/2024 Active 24 hr oxybutynin chloride 10 mg [...] Active Probiotic (7 sources) Probiotic Orally Active promethazine hydrochloride 25 mg oral tablet (1 source) Phenothiazine Start: 04-25-2024 End: 05-02-2024 take 1 tablet by mouth every four hours as needed for nausea promethazine (Phenergan) 25 MG tablet Indications: Primary osteoarthritis of right knee 1 tab po every 4 h prn nausea 20 tablet 04/25/2024 05/02/2024 Active rifAXIMin 550 mg oral tablet (2 [...] a day for 30 day(s) Sep, Active traMADol hydrochloride 50 mg oral tablet (1 source) Opioid Agonist Start: 04-18-2024 take 1 tablet by mouth every six hours as needed for pain Tramadol 50 mg tablet Active 50 MG PO Every 6 hours as needed for pain 10 April 18, 2024 12:00am traZODone hydrochloride 50 mg oral tablet (12 sources) Serotonin Reuptake Inhibitor Start: 04-04-2024 traZODONE 50 mg Tab 25 mg = 0.5 tab(s), Oral, Once a day (at bedtime), Insomnia Start Date: 04/04/24 Status: Ordered Start: 03-24-2024 traZODone (Colin yrel) 50 MG tablet 03/24/2024 Active veozah 45 mg tablet (4 sources) take 1 tablet by mouth every twenty-four hours Veozah 45 MG 1 tablet Orally Once a day for 30 days Active zolpidem tartrate 5 mg oral tablet (5 sources) gamma-Aminobutyri c Acid-ergic Agonist Start: 10-04-2022 take 1 tablet by mouth every twenty-four hours Zolpidem Tartrate 5 MG 1 tablet at bedtime as needed Orally Once a day for 30 days Sep, Active Completed/Discontinued Medications Medication Drug Class(es) Dates Sig (Normalized) Sig (Original) diclofenac sodium 75 mg delayed release oral tablet (2 sources) Nonsteroidal Anti-inflammatory Drug Start: 05-07-2023 End: 03-24-2024 take 1 tablet by mouth twice daily Diclofenac Sodium 75 mg tablet,delayed release (DR/EC) Discontinued 75 MG PO Twice daily 60 May 06, 2023 11:00pm March 24, 2024 8:49am estrogens, conjugated (jail) 0.3 mg / medroxyPROGESTERone acetate 1.5 mg oral tablet (7 sources) Progestin, Estrogen Start: 04-16-2023 End: 04-17-2023 take 1 tablet by mouth once daily Conj Estrog-Medroxypro gest Cosme 0.3-1.5 mg tablet Discontinued 1 TAB PO Daily April 16, 2023 12:00am April 17, 2023 4:41pm FreeTextSi tablet Orally Once a day; Note: Source Status: Start; Provider: Melvin De Souza Start: 03-27-2023 take 1 tablet by filomena th every twenty-four hours Prempro 0.3-1.5 MG 1 tablet Orally Once a day for 30 day(s) Feb, Active 3 ml sodium hyaluronate 10 mg/ml prefilled syringe (4 sources) Start: 02-13-2024 End: 02-13-2024 cross-linked hyaluronate (Gel-One) injection 30 mg Start: 02-13-2024 End: 02-13-2024 30 mg, Intra-articular, Once PRN Procedure, Starting on Sun02/13/24 at 0840, For 1 dose Ketorolac (15 sources) Nonsteroidal Anti-inflammatory Drug, Cyclooxygenase Inhibitor Start: 12-04-2016 Toradol per 15 mg Nov, 60 mg lidocaine 0.05 mg/mg medicated patch (6 sources) Antiarrhythmic, Amide Local Anesthetic Start: 04-17-2023 End: 04-18-2024 apply 1 dose topically once daily Lidocaine 5 % adhesive patch,medicated Discontinued 1 PATCH TOPICAL Daily April 19, 2023 8:49am April 18, 2024 7:45am leave on most painful area for up to 12 hrs methylPREDNISolone (15 sources) Corticosteroid Start: 12-04-2016 Depo-Medrol 40 mg Nov, 1 mL Multivitamin preparation (2 sources) Multivitamin Orally Not-Taking omeprazole 20 mg delayed release oral capsule (2 sources) Proton Pump Inhibitor take 1 capsule by mouth once daily PriLOSEC 20 MG 1 capsule Orally Once a day Not-Taking tiZANidine 4 mg oral capsule (1 source) Central alpha-2 Adrenergic Agonist Start: 06-20-2023 End: 06-21-2023 take 1 capsule by mouth twice daily as needed Tizanidine 4 mg capsule Discontinued 4 MG PO Twice daily as needed for muscle spasticity 60 30 June 19, 2023 11:00pm June 21, 2023 9:20am Problems Active Problems Problem Classification Problem Date Documented Da te Episodic/Chronic Abdominal pain (5 sources) Abdominal pain; Translations: [Unspecified abdominal pain] 10-22-2023 Episodic Esophageal disorders (3 sources) Gastroesophageal reflux disease without esophagitis; Translations: [Gastro-esophageal reflux disease without esophagitis] Chronic Inflammatory diseases of female pelvic organs (3 sources) Acute vaginitis; Translations: [Acute vaginitis] Episodic Intestinal infection (3 sources) Viral infection of the digestive tract; Translations: [Viral intestinal infection, unspecified] Episodic Menopausal disorders (17 sources) Menopausal flushing; Translations: [Menopausal and female climacteric states] Onset: 5 Chronic Miscellaneous mental health disorders (13 sources) Primary insomnia; Translations: [Primary insomnia] Chronic Mycoses (7 sources) Tinea unguium; Translations: [Onychomycosis due to dermatophyte ] Onset: 2 Episodic Osteoarthritis (8 sources) Osteoarthritis of right knee joint; Translations: [Unilateral primary osteoarthritis, right knee] Onset: 5 04-01-2024 Chronic Other circulatory disease (3 sources) Elevated blood-pressure reading without diagnosis of hypertension; Translations: [Elevated blood-pressure reading, without diagnosis of hypertension] Episodic Other connective tissue disease (2 sources) History of total knee arthroplasty; Translations: [Presence of right artificial knee joint] 05-26-2024 Chronic Other connective tissue disease (1 source) Other muscle spasm Episodic Other diseases of bladder and urethra (13 sources) Overactive bladder; Translations: [Overactive bladder] Chronic Other diseases of bladder and urethra (2 sources) Overactive bladder Chronic Other fractures (1 source) Wedge compression fracture of T11-T12 vertebra, sequela Episodic Other fractures (2 sources) Compression fracture of thoracic spine; Translations: [Wedge [...] initial encounter] Episodic Other nervous system disorders (2 sources) Chronic pain; Translations: [Other chronic pain] 05-07-2023 Chronic Other nervous system disorders (2 sources) Other chronic pain; Translations: [Other chronic pain] 05-07-2023 Chronic Other nervous system disorders (1 source) Other symptoms and signs involving cognitive functions and awareness Episodic Other nervous system disorders (1 source) Postoperative pain ; Translations: [Other acute postprocedural pain] 04-18-2024 Episodic Other nervous system disorders (1 source) Other acute postprocedural pain; Translations: [Other acute postprocedural pain] Onset: 5 Episodic Other non-epithelial cancer of skin (3 sources) History of malignant neoplasm of skin; Translations: [Personal history of other malignant neoplasm of skin] Episodic Other non-traumatic joint disorders (5 sources) Pain in left knee; Translations: [PAIN IN LEFT KNEE] Onset: 3 Episodic Other non-traumatic joint disorders (9 sources) Pain in right knee; Translations: [Pain in joint, lower leg] 01-14-2024 Episodic Other nutritional; endocrine; and metabolic disorders (3 sources) Body mass index 30+ - obesity; Translations: [Body mass index (BMI) 30.0-30.9, adult] Chronic Other nutritional; endocrine; and metabolic disorders (3 sources) Body mass index 25-29 - overweight; Translations: [Body mass index (BMI) 29.0-29.9, adult] Episodic Other screening for suspected conditions (not mental disorders or infectious disease) (2 sources) Endometrium thickened; Translations: [Abnormal findings on diagnostic imaging of other specified body structures] 10-22-2023 Chronic Other screening for suspected conditions (not mental disorders or infectious disease) (4 sources) Encounter for screening mammogram for malignant neoplasm of breast; Translations: [ENC SCR MAMMO MALIG NEOPLASM BREAST] Onset: Episodic Residual codes; unclassified (2 sources) Postmenopausal state; Translations: [Asymptomatic menopausal state] 10-22-2023 Episodic Residual codes; unclassified (2 sources) Acute insomnia 04-04-2024 Episodic Residual codes; unclassified (2 sources) Menopause present 04-04-2024 Episodic Spondylosis; intervertebral disc disorders; other back problems (8 sources) Arthropathy of lumbar facet joint; Translations: [Spondylosis without myelopathy or radiculopathy, lumbar region] Chronic Spondylosis; intervertebral disc disorders; other back problems (14 sources) Neck pain; Translations: [Cervicalgia] 04-17-2023 Episodic Thyroid disorders (5 sources) Subclinical hyperthyroidism; Translations: [Thyrotoxicosis, unspecified without thyrotoxic crisis or storm] Chronic Unclassified (2 sources) Chronic pain of right knee 02-13-2024 Past or Other Problems Problem Classification Problem Date Documented Da te Episodic/Chronic Unclassified (1 source) Lumbar pain M54.50 Results Test Name Value Interpretation Reference Range Facility XR Knee - right 1 or 2 Views on 05-26-2024 Imaging Result: 05/26/2024: Standing AP and LAT of right knee showed surgical position and alignment of prosthetic components without evidence of loosening or wear to the femoral, tibial, or patellar components. The alignment appeared to be anatomic. There was no evidence of accelerated or asymmetric wear to the patellar button or tibial tray. There was no evidence of fracture and/or dislocation. Impression: Stable RT total knee replacement. Vasiliy Lai RETAIL ADVISOR-SLASHER [facility] Radiology Study observation (narrative) [facility] Surgical Pathology Reporton 05-01-2024 Surgical Pathology Report [address] [place] [address]- Surgical Pathology Report Collected Date/Time: 04/28/2024 10:20 EST Pathologist: Brent SPARKS PhD, Abimbolaronda Bhavana Received Date/Time: 04/28/2024 11:17 EST Camden العراقي DO, DO, Michael T Surgical Pathology Report - 05/01/2024 12:35 EST - Auth (Verified) Final Diagnosis RIGHT KNEE BONE AND SOFT TISSUE, ARTHROPLASTY: - BONE CARTILAGE WITH DEGENERATIVE REMODELING CHANGES, CONSISTENT WITH DEGENERATIVE OSTEOARTHRITIS. - BENIGN SYNOVIAL SOFT TISSUE. (Electronic Signature) Uma Kennedy MD PhD 05/01/2024 12:35 Clinical Information Right knee osteoarthritis Pre-Op Diagnosis: Right knee osteoarthritis Procedure: Right knee total arthroplasty Post-Op Diagnosis: Right knee endstage osteoarthritis with antalgic gait, failure of conservative injection care Specimen(s) Received Right knee bone and soft tissue Gross Description Received in formalin labeled with patient name, number, and right knee bone and soft tissue. The specimen consists of an assortment of fragments of yellowish-white fibrofatty tissue and osseous tissue which in aggregate measure 10.5 x 10.5 x 4 cm. Among the segments is a recognizable tibial plateau, and only a partial piece of meniscus is grossly identified. The osseous segments are in part covered by articular surface which is thin and rough with osteophyte formation present. Cement Crusher Operator portion is submitted in two cassettes: 1 - Soft tissue 2 - Bone after decalcification (DC) DC:MCA Microscopic Description Microscopic examination performed unless gross only specified. This report was transcribed using voice recognition technology and might contain unintended computerized director of materials errors. Normal [facility] Comment on above: Performed By: #### [id number] #### [facility] Laboratory [address] [place] [id number] Main OR Intraoperative Recor don 04-29-2024 Main OR Intraoperative Record Main OR Intraoperative Record IntraOp Document Type FT Summary Primary Physician: Camden العراقي DO Finalized Date/Time: 04/29/24 11:00:19 Pt. Name: KANWAL SCRUGGS/Sex: 1955 Female Med Rec #: [id number] Physician: Camden العراقي DO Financial #: [id number] Pt. Type: A Room/Bed: / Admit/Disch: 04/28/24 06:46:42 - 04/28/24 16:05:49 Institution: Case Times FT Entry 1 Patient Times In Room 04/28/24 09:40:00 Out Room 04/28/24 11:05:00 Procedure Times Start 04/28/24 10:10:00 Stop 04/28/24 10:58:00 Anesthesia Times Start 04/28/24 09:40:00 Stop 04/28/24 11:05:00 Block Timeout w04/28/24 09:00:00 Anesthesia Last Modified By: Bianca Nelson RN 04/28/24 11:05:46 General Comments: ULTRASOUND GUIDED NERVE BLOCK PERFORMED BY Anurag TORRES CRNA WITH YAS BROWN ASSISTING, HEART RATE 78BPM, SPO2 98% RA, PATIENT TOLERATED WELL. YAS NOBLE 04/29/24 Chart opened to review and send charges [facility] Case Attendance FT Entry 1 Entry 2 Entry 3 Case Attendee José LANDSCAPING CREW LEADER, Sarath العراقي DO, Camden Carrillo PALLIATIVE SENIOR NP, Kaycee De Souza Role Performed LANDSCAPING CREW LEADER Surgeon - Primary PALLIATIVE SENIOR NP/SA Time In 04/28/24 09:40:00 04/28/24 10:08:00 04/28/24 09:40:00 Time Out 04/28/24 11:05:00 04/28/24 10:52:00 04/28/24 11:05:00 Procedure KNEE TOTAL KNEE TOTAL KNEE TOTAL ARTHROPLASTY(Right) ARTHROPLASTY(Right) ARTHROPLASTY(Right) Comments DR. PALACIO SUPERVISING Last Modified By: Omar RNBianca RN, Bianca Arthur RN 04/28/24 11:05:47 04/28/24 11:05:47 04/28/24 11:05:47 Entry 4 Entry 5 Entry 6 Case Attendee Omar SORENSON, Bianca Roy PALLIATIVE SENIOR NP, Karolina Hoang Role Performed Cigar Head Piercer - Primary Scrub - Primary Staff - Other Time In 04/28/24 09:40:00 04/28/24 09:40:00 04/28/24 09:40:00 Time Out 04/28/24 11:05:00 04/28/24 11:05:00 04/28/24 10:53:00 Procedure KNEE TOTAL KNEE TOTAL KNEE TOTAL ARTHROPLASTY(Right) ARTHROPLASTY(Right) ARTHROPLASTY(Right) Comments 2ND SCRUB Last Modified By: Bianca Nelson RN, RN, Leann E Ott RN, Leann E 04/28/24 11:05:47 04/28/24 11:05:47 04/28/24 11:05:47 Entry 7 Case Attendee Miguelito SORENSON, CNOR, Prema Cruz Role Performed Cigar Head Piercer - Relief Time In 04/28/24 10:58:00 Time Out 04/28/24 11:05:00 Procedure KNEE TOTAL ARTHROPLASTY(Right) Comments Last Modified By: Bianca Nelson RN 04/28/24 11:05:47 General Comments: [facility]. YAS NOBLEtranscribing machine mechanic Protocols FT Pre-Care Text: Implements protective measures prior to operative or invasive procedure, confirms identity before the operative or invasive procedure, verifies operative procedure, surgical site, and laterality Entry 1 Procedure(s) KNEE TOTAL Patient Identity Birthday, Blood Band, ARTHROPLASTY(Right) Verified (select at ID Band Check, Patient least 2): Participation Consents / H and P Anesthesia Consent, Operative Site Present Verified H&P, Surgery/Procedure Marking Verified Consent, Transfusion Consent Surgical Site Yes Laterality Verified Yes Verified Procedure Verified Yes Correct Patient Yes Position Verified Availability Equipment, Implant, Prep Dry n/a Verified (If Medication Applicable) PreOp Antibiotic Yes Time Out Sarath Torres CRNA, Given Participants Camden العراقي DO, Gerardo SNOW, Omar Gibbons RN, Bianca De Souza, Kirill PALLIATIVE SENIOR NP, Rene Carrasquillo Laura C Time Out Complete 04/28/24 10:09:00 Outcomes Met? Yes Last Modified By: Bianca Nelson RN 04/28/24 10:16:39 Post-Care Text: The patient is free from signs and symptoms of injury caused by extraneous objects Allergy Information FT Pre-Care Text: Verifies allergies Entry 1 Allergies Reviewed? Yes Allergies Reviewed Self/Patient With Outcomes Met? Yes Last Modified By: Bianca Nelson RN 04/28/24 10:11:13 Post-Care Text: The patient received appropriate medication(s) safely administered during the perioperative period Surgical Procedures FT Entry 1 Procedure Description Procedure KNEE TOTAL ARTHROPLASTY Modifiers Right Surgeon Description RIGHT TOTAL KNEE ARTHROPLASTY Primary Procedure Yes Primary Surgeon Camden العراقي DO Start 04/28/24 10:10:00 Stop 04/28/24 10:58:00 Anesthesia Type General Surgical Service Orthopedics Wound Class 1 - Clean Last Modified By: Bianca Nelson RN 04/28/24 10:58:32 General Case Data FT Pre-Care Text: Classifies surgical wound, implements aseptic technique, initiates traffic control Entry 1 Case Information OR OR 7 FT Case Level Level 6 Wound Class 1 - Clean Specialty Orthopedics ASA Class 2 Preop Diagnosis RIGHT KNEE Postop Same As Preop Yes OSTEOARTHRITIS Postop Diagnosis RIGHT KNEE Outcomes Met? Yes OSTEOARTHRITIS Last Modified By: Bianca Nelson RN 04/28/24 10:16:54 Post-Care Text: The patient is free from signs and symptoms of infection Skin Assessment (Pre Procedure) FT Pre-Care Text: Implements protective measures to prevent skin/ tissue injury due to thermal or mechanical sources Ev (more content not included)... [facility] Operative Reporton Operative Report Operative Report SURGERY DATE: 04/28/2024 PREOPERATIVE DIAGNOSIS: Postoperative pain control requested by patient and surgeon POSTOPERATIVE DIAGNOSIS: Postoperative pain control requested by patient and surgeon OPERATION: Right adductor canal block utilizing ultrasound guidance ANESTHESIA: Local with monitored anesthesia care PROCEDURE: The patient was interviewed and examined. The anesthesia options were discussed including adductor canal block for postoperative analgesia. The discussion included the procedure, risks and benefits and alternatives to the procedure. The patient's questions were all answered and the patient elected to proceed with the adduction canal block for postoperative pain relief. The patient was placed on the monitors, electrocardiogram, noninvasive blood pressure machine and pulse oximetry. I.V. sedation was then administered with a total of 2 mg IV Versed. The mid thigh was prepped with ChloraPrep and sterilely draped. The anatomy was identified with ultrasound and then under ultrasound guidance, the femoral nerve was identified with a 21-gauge 100 mm needle. After attempted aspiration for blood, a solution of 20 mL 0.5% ropivacaine was slowly injected with frequent aspirations without signs or symptoms of intravascular injection. The patient tolerated the procedure well. There were signs and symptoms of a block within minutes after completion of the procedure. The patient then proceeded to undergo general anesthesia for the proposed procedure. GISEL Elmore Dictated: 04/28/2024 [id number] Transcribed: 04/28/2024 [facility] Comment on above: Result Comment: Elec tronically Signed By: Sarath Torres CRNA.br\Date and Time Signed: 04/29/24 10:43 EST Operative Report Operative Report SURGERY DATE: 04/28/2024 [employer] SORTER: Kaycee Carrillo C.F.A. PREOPERATIVE DIAGNOSIS: Right knee endstage osteoarthritis with antalgic gait, failure of conservative injection care POSTOPERATIVE DIAGNOSIS: Right knee endstage osteoarthritis with antalgic gait, failure of conservative injection care OPERATION: Right total knee arthroplasty ANESTHESIA: Spinal with sedation with block ESTIMATED BLOOD LOSS: Zero SPECIMEN: Bone IMPLANTS UTILIZED: The DePuy Attune knee system with a size 5 narrow cemented right femur, size 4 tibia, 6 mm polyethylene, 32 mm patellar button TOURNIQUET TIME: See nurse's record. HISTORY AND INDICATIONS: Kanwal is a 69-year-old female with progressive right knee pain that has been recalcitrant to conservative injection management. She has chxf-sn-rneb disease. She has activity of daily living and night disruption. The pros, cons, risks, benefits, and reasonable expectations of above procedure were discussed, consent form signed and charted, sites marked preoperatively, all questions answered preoperatively, antibiotics provided weight based per protocol, consent form signed and witnessed. PROCEDURE: Kanwal was taken to the Operating Room and placed in supine position. Anesthesia was provided. A well-padded tourniquet was placed on the right upper thigh. The leg was prepped and draped in a sterile fashion. A time-out procedure occurred consistent with the consent form, History and Physical, preoperative marked site. Landmarks were identified. Once time-out was confirmed, the leg was exsanguinated and an incision was made of approximately 6 to the anterior right knee. A medial parapatellar arthrotomy was performed, and the patella was everted. There were endstage tricompartmental degenerative changes that were noted that were grade 4 bone on bone. Patella was appropriately cut and retracted. The Irrisept was allowed to soak. Intramedullary drill and jig device was placed in the femur, and a 5-degree valgus cut taking off 11 mm was performed. This was sized at a 5 DePuy Attune. Anterior and posterior as well as chamfer cuts were performed, and posterior box cut was performed with anterior cruciate ligament and posterior cruciate ligament resection. Collateral ligaments were protected and balanced and meniscal remnants removed. Intramedullary drill and jig device was placed at the tibia, and tibia was cut. Gaps were symmetrical. Posterior gutters were clean and free. The tibia was prepared for a size 4. All trial components were placed with full extension and appropriate flexion. Patellofemoral tracking and height were appropriate with a 32 mm button. All trial components were removed. The capsule, gutters, and subcutaneous tissues were injected with 100 cc of Exparel. The Maynard Simplex cement was mixed. All components were cemented in place and allowed to harden for 16 minutes. All cement osteophytes removed. Knee was taken through an arc of motion and deemed stable. After copious irrigation 2 g of tranexamic acid was placed subfascially. The fascial layer was closed with #2 Quill suture in a running fashion, 2-0 Quill suture closed the subcutaneous tissues, and curt were applied. A 10 Mepilex dressing with soft roll wrap was provided. Tourniquet was deflated. The patient was awakened from anesthesia and transferred to the Recovery Room in stable and satisfactory condition. CASE: Clean and elective COUNTS: Sponge and needle count correct SPECIMEN: Bone PATIENT CONDITION: Satisfactory Anjelica Linares Dictated: 04/28/2024 [id number] Transcribed: 04/28/2024 cc:Lazaro Charles M.D. Normal [facility] Comment on above: Result Comment: Elec tronically Signed By: Camden العراقي DO\.br\Date and Time Signed: 04/29/24 06:56 EST ABO/Rhon 04-28-2024 ABO/Rh Positive Invalid Interpretation Code [facility] Comment on above: Performed By: #### [id number] #### [facility] [address] [place] [address] ABO/Rh History Checkon 04-28 ABO/Rh History Check Verified Hx Blood Type Normal [facility] Comment on above: Performed By: #### 1 [id number] #### [facility] [address] [place] [address] ABSCon 04-28-2024 ABSC Gel Interp Negative Normal [facility] Comment on above: Performed By: #### 1 [id number] ####[facility] [id number] [facility] [place] [address] BLOOD BANKOrdered By: Neville Morton on 04-28-2024 ABO/Rh Interp Positive Invalid Interpretation Code [facility] BB Subsection ABSC Gel Interp Negative (04/28/24 7:37 AM) Normal [facility] BB Subsection Blood Bank ID#on 04-28-2024 BBID# [id number] Invalid Interpretation Code [facility] Comment on above: Performed By: #### 1 [id number] #### [facility] [address] [place] [address] Discharge Instructionson Discharge Instructions Discharge Instructions KANWAL SCRUGGS :1955 Visit Date:04/28/2024 Inpatient Discharge Instructions Your Care Team Admitting Physician - Camden العراقي DO Referring Physician - Melanie ARZATE, Camden Avila Reason for Your Visit RIGHT KNEE OA Your Diagnosis Localized osteoarthritis of right knee Tests Performed XR Knee 1 or 2 Views Right -- Results Pending -- Please visit your patient portal for your results or contact your primary care physician. This Is Your Medications List Non-Formulary Medication (black seed oil) acetaminophen-oxyco done (Percocet 5 mg-325 mg oral tablet) aspirin (aspirin 325 mg Tab) calcium citrate (calcium (as calcium citrate) 200 mg oral tablet) cholecalciferol (D3 50 mcg (2000 intl units) oral capsule) clonidine (cloNIDine 0.1 mg tab) cyclobenzaprine (cyclobenzaprine 10 mg Tab) docusate (Colace 100 mg Cap) ibuprofen (ibuprofen 800 mg Tab) lactobacillus acidophilus (Acidophilus Probiotic Blend oral capsule) multivitamin with minerals (ICaps AREDS oral tablet) trazodone (traZODONE 50 mg Tab) Procedure History Cervical discectomy (2005), Arthroscopy of knee (1975). What to do next Instructions From Your Doctor Event Name Event Result Discharge Activity Ambulate as tolerated, Arrange for a responsible adult supervision for 24 hours, Expect mild pain, Expect minimal amount of drainage and/or bleeding, Do not lift more than 5 lbs Discharge Restrictions No driving, Do not operate machinery or tools, Do not make important decisions for 24 hours, Do not drink alcoholic beverages for 24 hours Discharge Diet(s) Regular, Drink liquids and eat a light meal Call Your Doctor For Persistent or heavy bleeding, Temperature above 101.5 degrees, Redness, swelling, or pus at operative site, Severe pain at the operative site, Persistent vomiting Wound Care Remove dressing as instructed Remove Dressing On 10 Discharge Instructions Discharge Instructions New Follow Up Appointments after Discharge Follow Up with KEYANNA Linares When: 05/26/2024 09:00 AM EDT Comments: Keep scheduled appointment Where: [address] [place] [id number] [facility] (1) Medications What How Much When Instructions Next Dose Unchanged acetaminophen-oxyco done (Percocet 5 mg-325 mg oral tablet) See instructions Take one to two oral every 4 hours as needed for surgical pain. Pickup at [facility] Unchanged aspirin (aspirin 325 mg Tab) 1 Tablets By Mouth Every day Duration: 30 Days Start the day after surgery for blood clot prevention. Pickup at [facility] Unchanged calcium citrate (calcium (as calcium citrate) 200 mg oral tablet) 1 Tablets By Mouth 2 times a day Unchanged cholecalciferol (D3 50 mcg (2000 intl units) oral capsule) Unchanged clonidine (cloNIDine 0.1 mg tab) 1 Tablets By Mouth 4 times a day PRN for Hot Flashes Unchanged cyclobenzaprine (cyclobenzaprine 10 mg Tab) 1 Tablets By Mouth 3 times a day as needed for for spasm Unchanged docusate (Colace 100 mg Cap) 1 Capsules By Mouth 2 times a day Pickup at [facility] Unchanged ibuprofen (ibuprofen 800 mg Tab) 1 Tablets By Mouth 3 times a day Unchanged lactobacillus acidophilus (Acidophilus Probiotic Blend oral capsule) 1 Capsules By Mouth Every day Unchanged multivitamin with minerals (ICaps AREDS oral tablet) 1 Tablets By Mouth Every day as needed for Prophylaxis Unchanged Non-Formulary Medication (black seed oil) See instructions Unchanged trazodone (traZODONE 50 mg Tab) 0.5 Tablets By Mouth Once a day (at bedtime) Pharmacy Information [id number]: [address], [place] [id number] [phone] Test Results No qualifying data available. Allergies Bactrim (Unknown) nitrofurantoin (Mental blocking) Devices Implanted/Removed This Visit Notice: You have devices implanted this visit that may not be MRI compatible. Implanted KNEE TOTAL ARTHROPLASTY Knee R ATTUNE FEMORAL POSTERIOR STABILIZED NARROW 04/28/2024 ATTUNE KNEE SYSTEM TIBIAL BASE FIXED BEARING 04/28/2024 ATTUNE PATELLA MEDIALIZED DOME 04/28/2024 ATTUNE TIBIAL INSERT FIXED BEARING POSTERIOR STABILIZED 04/28/2024 CEMENT SIMPLEX PLAIN VISCOSITY HIGH [6194-1-010] 04/28/2024, Unknown - JAVIER: {[id number] Education Materials How to Use an Incentive Spirometer An incentive spirometer is a tool that measures how well you are filling your lungs with each breath. Learning to take long, deep breaths using this tool can help you keep your lungs clear and active. This may help to reverse or lessen your chance of developing breathing (pulmonary) problems, especially infection. You may be asked to use a spirometer: ??? After a surgery. ??? If you have a lung problem or a history of smoking. ??? After a long period of time when you have been unable to move or be active. If the spirometer inc (more content not included)... Normal [facility] Comment on above: Result Comment: Elec tronically Signed By: Henrique SORENSON, Cata Nesbitt\.br\Date and Time Signed: 04/28/24 11:38 EST Main OR PACU I Recordon Main OR PACU I Record Main OR PACU I Record PACU Phase I Document Type FT Summary Primary Physician: Camden العراقي DO Finalized Date/Time: 04/28/24 12:20:28 Pt. Name: KANWAL SCRUGGS/Sex: 1955 Female Med Rec #: [id number] Physician: Camden العراقي DO Financial #: [id number] Pt. Type: A Room/Bed: AS06/ Admit/Disch: 04/28/24 06:46:42 - Institution: Case Times PACU I FT Pre-Care Text: Identifies barriers to communication and implements measures to provide psychological support Develops individualized plan of care, and ensures continuity of care Maintains patient's dignity and privacy, and maintains patient confidentiality Identifies and reports philosophical, cultural, and spiritual beliefs and values Identifies individual values and wishes concerning care Implements aseptic technique, and administers prescribed antibiotic therapy and immunizing agents as ordered Evaluates postoperative tissue perfusion Implements thermoregulation measures, and monitors body temperature Evaluates postoperative respiratory status Evaluates postoperative cardiac status Evaluates postoperative neurological status Assesses pain control, collaborated in initiating patient-controlled analgesia and implements alternative methods of pain control Verifies allergies, administers prescribed medications and solutions, evaluates response to medications Entry 1 In PACU I 04/28/24 11:08:00 Discharge from PACU 04/28/24 11:38:00 I Outcomes Met? Yes Last Modified By: Sammie Izquierdo RN 04/28/24 12:20:06 Post-Care Text: The patient demonstrates knowledge of the expected response to the operative or invasive procedure The patient's care is consistent with the individualized perioperative plan of care The patient's right to privacy is maintained The patient's value system, lifestyle, ethnicity, and culture are considered, respected, and incorporated into the perioperative plan of care The patient participates in decisions affecting his or her perioperative plan of care The patient is free from signs and symptoms of infection The patient has wound/tissue perfusion consistent with or improved from baseline levels established preoperatively The patient is at or returning to normothermia at the conclusion of the immediate postoperative period The patient's respiratory function is consistent with or improved from baseline levels established preoperatively The patient's cardiovascular status is consistent with or improved from baseline levels established preoperatively The patient's cardiovascular status is consistent with or improved from baseline levels established preoperatively The patient demonstrates and/or reports adequate pain control throughout the perioperative period The patient received appropriate medication(s), safely administered during the perioperative period Acuity Level PACU I FT Entry 1 Start Time 04/28/24 11:08:00 Stop Time 04/28/24 11:38:00 Acuity Level Acuity Level I Last Modified By: Sammie Izquierdo RN 04/28/24 12:20:21 Finalized By: Sammie Izquierdo RN Document Signatures Signed By: Sammie Izquierdo RN 04/28/24 12:20 Normal [facility] Main OR PACU II Recordon Main OR PACU II Record Main OR PACU II Record PACU Phase II Document Type FT Summary Primary Physician: Camden العراقي DO Finalized Date/Time: 04/28/24 16:05:22 Pt. Name: KANWAL SCRUGGS Ilsa/Sex: 1955 Female Med Rec #: [id number] Physician: Camden العراقي DO Financial #: [id number] Pt. Type: A Room/Bed: [facility] Admit/Disch: 04/28/24 06:46:42 - Institution: Case Times PACU II FT Pre-Care Text: Identifies barriers to communication and implements measures to provide psychological support and determines knowledge level Develops individualized plan of care, and ensures continuity of care Maintains patient's dignity and privacy, and maintains patient confidentiality Identifies and reports philosophical, cultural, and spiritual beliefs and values Identifies individual values and wishes concerning care administers prescribed antibiotic therapy and immunizing agents as ordered, Evaluates postoperative tissue perfusion Implements thermoregulation measures, and monitors body temperature Evaluates postoperative respiratory status Evaluates postoperative cardiac status Evaluates postoperative neurological status Assesses pain control, collaborated in initiating patient-controlled analgesia and implements alternative methods of pain control Verifies allergies, administers prescribed medications and solutions, evaluates response to medications Entry 1 In PACU II 04/28/24 11:40:00 Discharge from PACU 04/28/24 16:05:00 II Outcomes Met? Yes Last Modified By: Cata Duenas RN 04/28/24 16:05:20 Post-Care Text: The patient demonstrates knowledge of the expected response to the operative or invasive procedure The patient's care is consistent with the individualized perioperative plan of care The patient's right to privacy is maintained The patient's value system, lifestyle, ethnicity, and culture are considered, respected, and incorporated into the perioperative plan of care The patient participates in decisions affecting his or her perioperative plan of care. The patient is free from signs and symptoms of infection The patient has wound/tissue perfusion consistent with or improved from baseline levels established preoperatively The patient is at or returning to normothermia at the conclusion of the immediate postoperative period The patient's respiratory function is consistent with or improved from baseline levels established preoperatively The patient's cardiovascular status is consistent with or improved from baseline levels established preoperatively The patient's neurological status is consistent with or improved from baseline levels established preoperatively The patient demonstrates and/or reports adequate pain control throughout the perioperative period The patient received appropriate medication(s), safely administered during the perioperative period Finalized By: Cata Duenas RN Document Signatures Signed By: Cata Duenas RN 04/28/24 16:05 Normal [facility] Main OR Preoperative Recordo n 04-28-2024 Main OR Preoperative Record Main OR Preoperative Record PreOp Document Type FT Summary Primary Physician: Camden العراقي DO Finalized Date/Time: 04/28/24 10:19:46 Pt. Name: KANWAL SCRUGGS /Sex: 1955 Female Med Rec #: [id number] Physician: Camden العراقي DO Financial #: [id number] Pt. Type: A Room/Bed: 07/27 Admit/Disch: 04/28/24 06:46:42 - Institution: Case Times PreOp FT Pre-Care Text: Verifies consent for planned procedure, identifies individual values and wishes concerning care, includes family members in perioperative teaching Entry 1 Patient Times. In Pre Surgery 04/28/24 07:00:00 Out Pre Surgery 04/28/24 09:38:00 Outcomes Met? Yes Last Modified By: Bianca Nelson RN 04/28/24 10:19:45 Post-Care Text: The patient participates in decisions affecting his or her perioperative plan of care Finalized By: Bianca Nelson RN Document Signatures Signed By: Bianca Nelson RN 04/28/24 10:19 Normal [facility] Operative Reporton Operative Report Operative Report Patient: KANWAL SCRUGGS Age: 69 years Sex: Female : 1955 Associated Diagnoses: None Author: Camden العراقي DO Health Status Allergies: Allergic Reactions (Selected) Severity Not Documented Bactrim- Unknown. Nitrofurantoin- Mental blocking. Review / Management Results review: Lab results 04/28/2024 7:37 EST ABO/Rh Interp O POS ABSC Gel Interp Negative . Impression and Plan Diagnosis Pre-op dx-rt knee oa Post-op dx-same Procedure-rt tka Anesthesia-spinal c block EBL-0 TT-see nn To Recovery Room in stable and satisfactory condition.. Normal [facility] Comment on above: Result Comment: Elec tronically Signed By: Camden العراقي DO\.br\Date and Time Signed: 04/28/24 11:01 EST XR KNEE 1 OR 2 VIEWS RIGHTon 04-28-2024 Exam Date/Time: 04/28/2024 11:24 EST Reason for Exam: Post-op evaluation;Other (please specify) Report IMPRESSION: RIGHT TOTAL KNEE REPLACEMENT. CLINICAL INFORMATION: Postop. COMMENT: 2 views. There is a right total knee prosthesis, in good position and alignment. There is gas in the soft tissues from the surgery. There are metallic surgical curt along the anterior skin incision. Ordering Provider: Camden العراقي FINAL REPORT Dictated: 04/28/2024 11:34 am Reymundo Bob M.D. Signed (Electronic Signature): 04/28/2024 11:34 am Signed by: Reymundo Bob M.D. Transcribed by: CHARMAINE Technologist: CAESAR [facility] Radiology, Radiologist, MD - 04/28/2024 Exam Date/Time: 04/28/2024 11:24 EST Reason for Exam: Post-op evaluation;Other (please specify) Report IMPRESSION: RIGHT TOTAL KNEE REPLACEMENT. CLINICAL INFORMATION: Postop. COMMENT: 2 views. There is a right total knee prosthesis, in good position and alignment. There is gas in the soft tissues from the surgery. There are metallic surgical curt along the anterior skin incision. Ordering Provider: Camden العراقي FINAL REPORT Dictated: 04/28/2024 11:34 am Reymundo oBb M.D. Signed (Electronic Signature): 04/28/2024 11:34 am Signed by: Reymundo Bob M.D. Transcribed by: CHARMAINE Technologist: CAESAR [facility] Radiology Study observation (narrative) [facility] XR KNEE 1 OR 2 VIEWS RIGHTOr dered By: Radiologist Radiology on 04-28-2024 [facility] [employer] Work Phone: XR Knee 1 or 2 Views Righton 04-28-2024 XR Knee 1 or 2 Views Right Exam Date/Time: 04/28/2024 11:24 EST Reason for Exam: Post-op evaluation;Other (please specify) Report IMPRESSION: RIGHT TOTAL KNEE REPLACEMENT. CLINICAL INFORMATION: Postop. COMMENT: 2 views. There is a right total knee prosthesis, in good position and alignment. There is gas in the soft tissues from the surgery. There are metallic surgical curt along the anterior skin incision. Ordering Provider: Camden العراقي FINAL REPORT Dictated: 04/28/2024 11:34 am Reymundo Bob M.D. Signed (Electronic Signature): 04/28/2024 11:34 am Signed by: Reymundo Bob M.D. Transcribed by: CHARMAINE Technologist: CAESAR Normal [facility] Inpatient Patient Summaryon 04-21-2024 Inpatient Patient Summary Inpatient Patient Summary [facility] [address], [place] [address] [facility] Clinical Discharge Instructions PERSON INFORMATION Name: KANWAL SCRUGGS PHYSICIANS Admitting Physician: Camden العراقي DO Attending Physician: Camden العراقي DO PCP: LAZARO CHARLES MD Discharge Diagnosis: Localized osteoarthritis of right knee Comment: PATIENT EDUCATION INFORMATION Instructions: Melanie - Total Knee Arthroplasty (CUSTOM) Medication Leaflets: Follow up: With: Address: When: Camden العراقي [address] [place] [address] [employer] ([employer]) Comments: Keep scheduled appointment Type Location Start [facility] Surgery [facility] Surgical Services 04/28/2024 10:00 AM 04/28/2024 11:00 AM Confirmed MEDICATION LIST Medications to Continue with No Changes Other Medications calcium citrate (calcium (as calcium citrate) 200 mg oral tablet) 1 Tablets By Mouth 2 times a day. cholecalciferol (D3 50 mcg (2000 intl units) oral capsule) clonidine (cloNIDine 0.1 mg tab) 1 Tablets By Mouth 4 times a day. PRN for Hot Flashes. cyclobenzaprine (cyclobenzaprine 10 mg Tab) 1 Tablets By Mouth 3 times a day as needed for spasm. ibuprofen (ibuprofen 800 mg Tab) 1 Tablets By Mouth 3 times a day. lactobacillus acidophilus (Acidophilus Probiotic Blend oral capsule) 1 Capsules By Mouth every day. multivitamin with minerals (ICaps AREDS oral tablet) 1 Tablets By Mouth every day as needed Prophylaxis. Non-Formulary Medication (black seed oil) as needed Prophylaxis. trazodone (traZODONE 50 mg Tab) 0.5 Tablets By Mouth once a day (at bedtime). Comment: Normal [facility] Outpatient Surgery Discharge Instructionon 04-21-2024 Outpatient Surgery Discharge Instruction Outpatient Surgery Discharge Instruction [place] [id number] Patient Discharge Instructions PERSON INFORMATION Name: KANWAL SCRUGGS Date of : 1955 Current Date: 04/21/2024 13:00:30 PHYSICIANS Admitting Physician: Camden العراقي DO Discharge Diagnosis: Localized osteoarthritis of right knee SHEBAKANWAL has been given the following list of follow-up instructions, prescriptions, and patient education materials: PATIENT FOLLOW-UP INFORMATION Diet: Regular, Drink liquids and eat a light meal Discharge Activity: Ambulate as tolerated, Arrange for a responsible adult supervision for 24 hours, Expect mild pain, Expect minimal amount of drainage and/or bleeding, Do not lift more than 5 lbs Discharge Restrictions: No driving, Do not operate machinery or tools, Do not make important decisions for 24 hours, Do not drink alcoholic beverages for 24 hours Call Your Doctor For: Persistent or heavy bleeding, Temperature above 101.5 degrees, Redness, swelling, or pus at operative site, Severe pain at the operative site, Persistent vomiting Wound Care Instructions: Remove dressing as instructed Remove Your Dressing In 10 Days IF UNABLE TO CONTACT YOUR PHYSICIAN AND YOU FEEL IT IS AN EMERGENCY, GO TO THE NEAREST EMERGENCY ROOM OR CALL 911 SHEBA Amezcua JANIS, have received the attached patient education materials/instructi ons and have verbalized understanding: May we do a follow up call? Yes No I was present when discharge instructions were given Patient Signature Date Clinican/Nurse Signature Date Follow up: With: Address: When: Camden العراقي [address] [place] [id number] Business (1) Comments: Keep scheduled appointment Type Location Start [facility] Surgery [facility] Surgical Services 04/28/2024 10:00 AM 04/28/2024 11:00 AM Confirmed Pharmacy Information: You may receive a survey from Jose Antonio Aguirre asking you to rate your care experience. Your feedback is important and will help us understand what we do well and how we can improve the quality of care we provide to you, your loved ones and our community. It???s an honor to serve you. Thank you for choosing [facility] HERE ARE THE MEDICATION CHANGES THAT OCCURRED DURING YOUR HOSPITAL STAY Medications to Continue with No Changes Other Medications calcium citrate (calcium (as calcium citrate) 200 mg oral tablet) 1 Tablets By Mouth 2 times a day. cholecalciferol (D3 50 mcg (2000 intl units) oral capsule) clonidine (cloNIDine 0.1 mg tab) 1 Tablets By Mouth 4 times a day. PRN for Hot Flashes. cyclobenzaprine (cyclobenzaprine 10 mg Tab) 1 Tablets By Mouth 3 times a day as needed for spasm. ibuprofen (ibuprofen 800 mg Tab) 1 Tablets By Mouth 3 times a day. lactobacillus acidophilus (Acidophilus Probiotic Blend oral capsule) 1 Capsules By Mouth every day. multivitamin with minerals (ICaps AREDS oral tablet) 1 Tablets By Mouth every day as needed Prophylaxis. Non-Formulary Medication (black seed oil) as needed Prophylaxis. trazodone (traZODONE 50 mg Tab) 0.5 Tablets By Mouth once a day (at bedtime). PATIENT EDUCATION INFORMATION Instructions: [place] [place] [facility] DISCHARGE INSTRUCTIONS TOTAL KNEE ARTHROPLASTY INCISION CARE: Mepilex dressing can get wet with showers. Please remove 10 days after surgery per instruction sheet. Physical Therapy will monitor. If curt present, please coordinate removal 21 days after surgery with office staff. Please notify the office if any increase in redness, tenderness, drainage, fever, or wound separation is noted beyond this point. No dental work or cleaning for 3 months. MEDICATIONS: You may resume your home medications at the time of discharge. Blood thinners - continue the day after surgery. Aspirin 325 mg EC oral once a day for 4 weeks for blood clot prevention with meals. Please notify your doctor if you have a stomach sensitivity to Aspirin or history of previous stomach ulcers. Pain medication has been prescribed as well. You may continue to use the pain medication every four hours as needed. Any narcotic pain medication can cause side effects including stomach upset, constipation, or light-headedness. You should not drive or operate machinery, or use alcohol while using the narcotic pain medication. You should not use other pain medications with this prescription pain medication unless further directed by your physician. PHYSICAL THERAPY: Continue the range of motion and strengthening exercises initiated in Physical (more content not included)... Normal [facility] Amphetamine Screen Ql (U)Ord ered By: Roosevelt Torres on 04-18-2024 Amphetamines Ql (U) Amphetamines screen [facility] Barbiturates [Presence] in U rine by Screen methodOrdered By: Roosevelt Torres on 04-18-2024 Barbiturates Screen Ql (U) Barbiturates [Presence] in Urine by Screen method Negative [facility] Basic Metabolic Panelon 03-30 Anion gap [Moles/Vol] 13.6 mmol/L Normal 6.0-15.0 [facility] Comment on above: Performed By: #### C BC, BMP #### [facility] [address] [place] [id number] [place] Calcium [Mass/Vol] 10.0 mg/dL Normal 8.6-10.3 [facility] Comment on above: Performed By: #### C BC, BMP #### [facility] [address] [place] [address] [place] Chloride [Moles/Vol] 104 mmol/L Normal 98-107 [facility] Comment on above: Performed By: #### C BC, BMP #### [facility] [address] CO2 [Moles/Vol] 27.2 mmol/L Normal 21.0-31.0 [facility] Comment on above: Performed By: #### C BC, BMP #### [facility] [address] Creatinine [Mass/Vol] 0.96 mg/dL Normal 0.60-1.20 [facility] Comment on above: Performed By: #### C BC, BMP #### [facility] [address] [place] [address] [place] Creatinine Clr Calc Pharmacy 48.37 Normal [facility] Comment on above: Result Comment: PERF ORMED BY: [place] [address] PATHOLOGIST THRASHER FEEDER SOBIA GRACIA M.D. Performed By: #### C BC, BMP #### [place] [address] [place] GFR/1.73 sq M.predicted MDRD (S/P/Bld) [Vol rate/Area] mL/min/{1.73_m2} Normal [facility] Comment on above: Performed By: #### C BC, BMP #### [address] Glucose [Mass/Vol] 93 mg/dL Normal 70-100 [facility] Comment on above: Result Comment: [place] Glucose Reference Range is dependent on time and content of last meal. Glucose of more than 200 mg/dL in a nonstressed, ambulatory subject supports the diagnosis of Diabetes Mellitus. ADA recommended reference range Performed By: #### C BC, BMP #### [facility] [address] [place] [address] [place] Potassium [Moles/Vol] 3.8 mmol/L Normal 3.5-5.1 [facility] Comment on above: Performed By: #### C BC, BMP #### [place] [address] [place] Sodium [Moles/Vol] 141 mmol/L Normal 136-145 [facility] Comment on above: Performed By: #### C LO, QUENTIN #### [facility] [address] Urea nitrogen [Mass/Vol] 21 mg/dL Normal 7-25 [facility] Comment on above: Performed By: #### C LO, QUENTIN #### [facility] [address] Basophils Auto (Bld) [#/Vol] Ordered By: Roosevelt Torres on 04-18-2024 Basophils (Bld) [#/Vol] Automated basoph il count 0.0-0.2 [facility] Basophils/100 WBC Auto (Bld) Ordered By: Roosevelt Torres on 04-18-2024 Basophils/100 WBC (Bld) Automated basoph il % . [facility] Benzodiazepines Screen Ql (U )Ordered By: Roosevelt Torres on 04-18-2024 Benzodiazepines Ql (U) Benzodiazepines [Presence] in Urine by Screen method Negative [facility] Benzoylecgonine [Presence] i n Urine by Screen methodOrdered By: Roosevelt Torres on 04-18-2024 Benzoylecgonine Screen Ql (U) Benzoylecgonine [Presence] in Urine by Screen method Negative [facility] Calcium [Mass/volume] in Ser um or PlasmaOrdered By: Roosevelt Torres on 04-18-2024 Calcium [Mass/Vol] Calcium [Mass/volume] in Serum or Plasma 8.6-10.3 [facility] Cannabinoids [Presence] in U rine by Screen methodOrdered By: Roosevelt Torres on 04-18-2024 Cannabinoids Screen Ql (U) Cannabinoids [Presence] in Urine by Screen method High Negative [facility] Comment on above: These are unconfirme d results and should not be used for legal purposes. Drug Cut-Off Concentration: AMPH 1000 ng/mL LEOLA 200 ng/mL LUCIE 200 ng/mL COCM 300 ng/mL OP 300 ng/mL PCP 25 ng/mL THC 20 ng/mL Carbon dioxide, total [Moles /volume] in Serum or PlasmaOrdered By: Roosevelt Torres on 04-18-2024 CO2 [Moles/Vol] Carbon dioxide, total [Moles/volume] in Serum or Plasma 21.0-31.0 [facility] Chloride [Moles/volume] in S rahul or PlasmaOrdered By: Roosevelt Torres on 04-18-2024 Chloride [Moles/Vol] Chloride [Moles/volume] in Serum or Plasma 98-107 [facility] Complete Blood Count Auto Di ffon 04-18-2024 Basophils (Bld) [#/Vol] 0.1 10*3/uL Normal 0.0-0.2 [facility] Comment on above: Result Comment: PERF ORMED BY: [place] [address] PATHOLOGIST THRASHER FEEDER SOBIA GRACIA M.D. Performed By: #### C BC, BMP #### [address] Basophils/100 WBC (Bld) 1.5 % Normal . [facility] Comment on above: Performed By: #### C BC, BMP #### [place] [address] [place] Eosinophils (Bld) [#/Vol] 0.2 10*3/uL Normal 0.0-0.45 [facility] Comment on above: Performed By: #### C BC, BMP #### [address] Eosinophils/100 WBC (Bld) 2.8 % Normal . [facility] Comment on above: Performed By: #### C BC, BMP #### [address] Erythrocyte distribution width (RBC) [Ratio] 14.0 % Normal 11.9-15.3 [facility] Comment on above: Performed By: #### C BC, BMP #### [address] Hematocrit (Bld) [Volume fraction] 42.0 % Normal 34.0-46.4 [facility] Comment on above: Performed By: #### C BC, BMP #### [address] Hemoglobin (Bld) [Mass/Vol] 14.6 g/dL Normal 11.8-15.4 [facility] Comment on above: Performed By: #### C BC, BMP #### [address] Lymphocytes (Bld) [#/Vol] 3.3 10*3/uL Normal 1.00-4.8 [facility] Comment on above: Performed By: #### C BC, BMP #### [address] Lymphocytes/100 WBC (Bld) 37.8 % Normal . [facility] Comment on above: Performed By: #### C BC, BMP #### [address] MCH (RBC) [Entitic mass] 31.5 pg Normal 24.7-34.3 [facility] Comment on above: Performed By: #### C BC, BMP #### [address] MCV (RBC) [Entitic vol] 90.7 fL Normal 80-100 [facility] Comment on above: Performed By: #### C BC, BMP #### [address] Mean Corpuscular HGB Conc 34.7 g/dL Normal 32.0-35.0 [facility] Comment on above: Performed By: #### C BC, BMP #### [address] Monocytes (Bld) [#/Vol] 0.7 10*3/uL Normal 0.0-0.8 [facility] Comment on above: Performed By: #### C BC, BMP #### [address] Monocytes/100 WBC (Bld) 7.6 % Normal . [facility] Comment on above: Performed By: #### C BC, BMP #### [facility] [address] [place] [address] [place] Neutrophils (Bld) [#/Vol] 4.4 10*3/uL Normal 1.8-7.7 [facility] Comment on above: Performed By: #### C BC, BMP #### [facility] [address] [place] [id number] [place] Neutrophils/100 WBC (Bld) 50.3 % Normal . [facility] Comment on above: Performed By: #### C BC, BMP #### [facility] [address] [place] [address] [place] NRBC% 0.0 /100{WBC} Normal 0-0.5 [facility] Comment on above: Performed By: #### C BC, BMP #### [facility] [address] [place] [id number] [place] Platelet mean volume (Bld) [Entitic vol] 8.3 fL Normal 6.3-10.7 [facility] Comment on above: Performed By: #### C BC, BMP #### [facility] [address] [place] [id number] [place] Platelets (Bld) [#/Vol] 349 10*3/uL Normal 150-450 [facility] Comment on above: Performed By: #### C BC, BMP #### [facility] [address] [place] [id number] [place] RBC (Bld) [#/Vol] 4.63 10*6/uL Normal 3.60-5.[address] [facility] Comment on above: Performed By: #### C BC, BMP #### [facility] [address] [place] [address] [place] WBC (Bld) [#/Vol] 8.7 10*3/uL Normal 3.8-11.6 [facility] Comment on above: Performed By: #### C BC, BMP #### [facility] [address] [place] [address] [place] Creatinine [Mass/volume] in Serum or PlasmaOrdered By: Roosevelt Torres on 04-18-2024 Creatinine [Mass/Vol] Creatinine [Mass/volume] in Serum or Plasma 0.60-1.20 [facility] Drug Screen,Urineon 04-18-19 25 Amphetamine Screen,Urine Negative Normal Negative [facility] Comment on above: Performed By: #### U RDS #### [address] Barbiturate Screen,Urine Negative Normal Negative [facility] Comment on above: Performed By: #### U RDS #### [place] [address] [place] Benzodiazepines Screen,Urine Negative Normal Negative [facility] Comment on above: Performed By: #### U RDS #### [address] Cannabinoid Screen,Urine Positive High Negative [facility] Comment on above: Result Comment: Thes e are unconfirmed results and should not be used for legal purposes. Drug Cut-Off Concentration: AMPH 1000 ng/mL LEOLA 200 ng/mL LUCIE 200 ng/mL COCM 300 ng/mL OP 300 ng/mL PCP 25 ng/mL THC 20 ng/mL PERFORMED BY: [place] [address] PATHOLOGIST THRASHER FEEDER SOBIA GRACIA M.D. Performed By: #### U RDS #### [place] [address] [place] Cocaine Screen,Urine Negative Normal Negative [facility] Comment on above: Performed By: #### U RDS #### [place] [address] [place] Opiate Screen,Urine Negative Normal Negative [facility] Comment on above: Performed By: #### U RDS #### [place] [address] [place] Phencyclidine Screen,Urine Negative Normal Negative [facility] Comment on above: Performed By: #### U RDS #### [address] ECG 12 lead ECGon 04-18-2024 ECG 12 lead ECG [facility] [place] [address] [place] [address] Electrocardiograph Report Signed Patient: Kanwal Scruggs MR#: [id number] 1 : 1955 Acct:[id number] Age/Sex: 69 / F ADM Date: 04/18/24 Loc: [place] Room: Type: [facility] Attending Dr: Pippa Baker MD Ordering Provider: Roosevelt Torres DO Date of Service: 04/18/24 ECG/ECG 12 lead ECG: pre-op rm 3 Copies to: Test Reason : Blood Pressure : */* mmHG Vent. Rate : 79 BPM Atrial Rate : 79 BPM P-R Int : 148 ms QRS Dur : 86 ms QT Int : 390 ms P-R-T Axes : -4 23 2 degrees QTcB Int : 447 ms Normal sinus rhythm Normal ECG Confirmed by Maria Dolores Plummer ([id number]) on 04/18/2024 1:35:18 PM Referred By: Electronically Signed By: Maria Dolores Plummer Transcribed By: MUS Signed By Maria Dolores Plummer MD 5 1335 Normal [facility] Eosinophils Auto (Bld) [#/Vo l]Ordered By: Roosevelt Torres on 04-18-2024 Eosinophils (Bld) [#/Vol] Automated eosinophil count 0.0-0.45 [facility] Eosinophils/100 WBC Auto (Bl d)Ordered By: Roosevelt Torres on 04-18-2024 Eosinophils/100 WBC (Bld) Automated eosinophil % . [facility] Erythrocyte distribution wid th Auto (RBC) [Ratio]Ordered By: Roosevelt Torres on 04-18-2024 Erythrocyte distribution width (RBC) [Ratio] Erythrocyte distribution width [Ratio] by Automated count 11.9-15.3 [facility] Glucose [Mass/volume] in Ser um or PlasmaOrdered By: Roosevelt Torres on 04-18-2024 Glucose [Mass/Vol] Glucose [Mass/volume] in Serum or Plasma 70-100 [facility] Comment on above: ADA recommended refe rence rangeRandom Glucose Reference Range is dependent on time and content of last meal. Glucose of more than 200 mg/dL in a nonstressed, ambulatory subject supports the diagnosis of Diabetes Mellitus. Hematocrit Auto (Bld) [Volum e fraction]Ordered By: Roosevelt Torres on 04-18-2024 Hematocrit (Bld) [Volume fraction] Hematocrit [Volume Fraction] of Blood by Automated count 34.0-46.4 [facility] Hemoglobin [Mass/volume] in BloodOrdered By: Roosevelt Torres on 04-18-2024 Hemoglobin (Bld) [Mass/Vol] Hemoglobin [Mass/volume] in Blood 11.8-15.4 [facility] Kp 04-18-2024 L Specimen: [id number] Received: 04/18/24 Status: FRANKIE Del Rosario Num: [id number] Spec Type: Surgical Subm Dr: CHRISTIANA Cole Tissues: A Endocervix - Curettings (ECC) B Endometrium - Curettings (EMC) Procedures: Justina BURNETTE/Dina L4/2 Age/ Patient Sex Location Account Attending Physician Kanwal Scruggs 69/F [place] [id number] CHRISTIANA Cole SPEC NUM: [id number] RECD: 04/18/24 STATUS: FRANKIE DEL ROSARIO NUM: [id number] ESTEBAN: 04/18/[address] [facility] [address]: Pippa Baker MD-NOMS ENTERED: 04/18/[address] [facility] [address]: SPEC TYPE: Surgical DEPT: S ENTERED BY: [id number] RECV BY: [id number] ORDERED: HE/4, Gross/Micro L4/2 ORDERED: HE/4, Gross/Micro L4/2 Pathological Diagnosis A. Endocervix, curettings: Fragments of squamous mucosa exhibiting features of atrophy in the background of benign endocervical glands B. Endometrial curettings: Striped fragments of surface endometrium Negative for hyperplasia and malignancy. Background of benign endocervical tissue and squamous epithelium exhibiting features of atrophy. Comment: The features in the endometrial biopsy are consistent with endometrial atrophy. Clinical Information Thickening endometrium Gross Description Part A is received in formalin labeled with the patients name, date of , and endocervical curettings is a Telfa pad with an adherent pale terrazas mucoid material, admixed with feathery lea-pink tissue fragments, 1.5 x 1 x 0.2 cm in aggregate. The specimen is filtered and entirely submitted in a single cassette. (1, ns, [id number] A) Part B is received in formalin labeled with the patients name, date of , and Specimen: [id number] Received: 04/18/24 Status: FRANKIE Del Rosario Num: [id number] Spec Type: Surgical Subm Dr: CHRISTIANA Cole Tissues: A Endocervix - Curettings (ECC) B Endometrium - Curettings (EMC) Procedures: Justina BURNETTE/Dina L4/2 Patient: Kanwal Scruggs [id number] (Continued) Specimen: [id number] Received: 04/18/24 (Continued) Gross Description (Continued) Signed (signatur e on file) Sabiha Flores MD 04/21/24 0952 Specimen: [id number] Received: 04/18/24 Status: FRANKIE Del Rosario Num: [id number] Spec Type: Surgical Subm Dr: CHRISTIANA Cole Tissues: A Endocervix - Curettings (ECC) B Endometrium - Curettings (EMC) Procedures: Justina BURNETTE/Dina L4/2 Patient: Kanwal Scruggs [id number] (Continued) Specimen: [id number] Received: 04/18/24 (Continued) Gross Description (Continued) endometrial curettings is a Telfa pad with adherent lea-pink to red-brown, delicate tissue fragments, 1.7 x 0.7 x 0.2 cm in aggregate. The specimen is filtered and entirely submitted in a single cassette. (1, ns, [id number] B) JG Specimen: [id number] Received: 04/18/24 Status: FRANKIE Del Rosario Num: [id number] Spec Type: Surgical Subm Dr: Pippa Baker MD-NOMS Tissues: A Endocervix - Curettings (ECC) B Endometrium - Curettings (EMC) Procedures: HE/Kateryna, Justina/Dina L4/2 Patient: Kanwal Scruggs Emily [id number] (Continued) Signed (signatur e on file) Sabiha Flores MD 04/21/24 0952 Normal [facility] Leukocytes [#/volume] correc genna for nucleated erythrocytes in Blood by Automated counOrdered By: Roosevelt Torres on 04-18-2024 WBC corrected for nucl RBC Auto (Bld) [#/Vol] Leukocytes [#/volume] corrected for nucleated erythrocytes in Blood by Automated coun 3.8-11.6 [facility] Lymphocytes Auto (Bld) [#/Vo l]Ordered By: Roosevelt Torres on 04-18-2024 Lymphocytes (Bld) [#/Vol] Lymphocytes [#/volume] in Blood by Automated count 1.00-4.8 [facility] Lymphocytes/100 WBC Auto (Bl d)Ordered By: Roosevelt Torres on 04-18-2024 Lymphocytes/100 WBC (Bld) Lymphocytes/100 leukocytes in Blood by Automated count . [facility] MCH Auto (RBC) [Entitic mass ]Ordered By: Roosevelt Torres on 04-18-2024 MCH (RBC) [Entitic mass] MCH [Entitic ma ss] by Automated count 24.7-34.3 [facility] MCHC Auto (RBC) [Mass/Vol]Or dered By: Roosevelt Torres on 04-18-2024 MCHC (RBC) [Mass/Vol] MCHC [Mass/volume] by Automated count 32.0-35.0 [facility] MCV Auto (RBC) [Entitic vol] Ordered By: Roosevelt Torres on 04-18-2024 MCV (RBC) [Entitic vol] MCV [Entitic volume] by Automated count 80-100 [facility] Monocytes Auto (Bld) [#/Vol] Ordered By: Roosevelt Torres on 04-18-2024 Monocytes (Bld) [#/Vol] Automated blood monocyte count 0.0-0.8 [facility] Monocytes/100 WBC Auto (Bld) Ordered By: Roosevelt Torres on 04-18-2024 Monocytes/100 WBC (Bld) Automated monocy te % . [facility] Neutrophils Auto (Bld) [#/Vo l]Ordered By: Roosevelt Torres on 04-18-2024 Neutrophils (Bld) [#/Vol] Neutrophils [#/volume] in Blood by Automated count 1.8-7.7 [facility] Neutrophils/100 WBC Auto (Bl d)Ordered By: Roosevelt Torres on 04-18-2024 Neutrophils/100 WBC (Bld) Automated neutrophil % . [facility] No Panel InformationOrdered By: Roosevelt Torres on 04-18-2024 Estimated GFR (CKD-EPI) > 60.0 mL/Min [facility] Creatinine Clearance (Chem 48.37 [facility] Nucleated erythrocytes [Pres ence] in Blood by Automated countOrdered By: Roosevelt Torres on 04-18-2024 Nucleated RBC Auto Ql (Bld) Nucleated erythrocytes [Presence] in Blood by Automated count 0-0.5 [facility] Opiates [Presence] in Urine by Screen methodOrdered By: Roosevelt Torres on 04-18-2024 Opiates Screen Ql (U) Opiates [Presence] in Urine by Screen method Negative [facility] Phencyclidine Screen Ql (U)O rdered By: Roosevelt Torres on 04-18-2024 Phencyclidine Ql (U) Phencyclidine [Presence] in Urine by Screen method Negative [facility] Platelet mean volume Auto (B ld) [Entitic vol]Ordered By: Roosevelt Torres on 04-18-2024 Platelet mean volume (Bld) [Entitic vol] Platelet mean volume [Entitic volume] in Blood by Automated count 6.3-10.7 [facility] Platelets Auto (Bld) [#/Vol] Ordered By: Roosevelt Torres on 04-18-2024 Platelets (Bld) [#/Vol] Platelets [#/volume] in Blood by Automated count 150-450 [facility] Potassium [Moles/volume] in Serum or PlasmaOrdered By: Roosevelt Torres on 04-18-2024 Potassium [Moles/Vol] Potassium [Moles/volume] in Serum or Plasma 3.5-5.1 [facility] RBC Auto (Bld) [#/Vol]Ordere d By: Roosevelt Torres on 04-18-2024 RBC (Bld) [#/Vol] Erythrocytes [#/volume] in Blood by Automated count 3.60-5.00 [facility] Serum or plasma anion gap de terminationOrdered By: Roosevelt Torres on 04-18-2024 Anion gap [Moles/Vol] Serum or plasma anion gap determination 6.0-15.0 [facility] Sodium [Moles/volume] in Ser um or PlasmaOrdered By: Roosevelt Torres on 04-18-2024 Sodium [Moles/Vol] Sodium [Moles/volume] in Serum or Plasma 136-145 [facility] Urea nitrogen [Mass/volume] in Serum or PlasmaOrdered By: Roosevelt Torres on 04-18-2024 Urea nitrogen [Mass/Vol] Urea nitrogen [Mass/volume] in Serum or Plasma 7-25 [facility] WBC Auto (Bld) [#/Vol]Ordere d By: Roosevelt Torres on 04-18-2024 WBC (Bld) [#/Vol] Leukocytes [#/volume] in Blood by Automated count 3.8-11.6 [facility] ABO/Rh Retypeon 04-04-2024 ABO/Rh Retype Interp Positive Invalid Interpretation Code [facility] Comment on above: Performed By: #### 1 [id number] #### [facility] Laboratory [address] [place] [address] BLOOD BANKOrdered By: Emani Roberto on 04-04-2024 ABO/Rh Retype Interp Positive Invalid Interpretation Code [facility] BB Subsection BMPon 04-04-2024 Anion gap [Moles/Vol] 11 mmol/L Normal 6-16 [facility] Comment on above: Performed By: #### 2 [id number] #### [facility] Laboratory [address] [place] [address] Calcium [Mass/Vol] 9.9 mg/dL Normal 8.9-11.1 [facility] Comment on above: Performed By: #### 2 [id number] #### [facility] [address] [place] [address] Chloride [Moles/Vol] 104 mmol/L Normal 101-111 [facility] Comment on above: Performed By: #### 2 [id number] #### [facility] [address] [place] [address] CO2 [Moles/Vol] 29 mmol/L Normal 21-31 [facility] Comment on above: Performed By: #### 2 [id number] #### [facility] [address] [place] [address] Creatinine [Mass/Vol] 0.8 mg/dL Normal 0.5-1.3 [facility] Comment on above: Performed By: #### 2 [id number] #### [facility] [address] [place] [address] Glucose [Mass/Vol] 84 mg/dL Normal 55-199 [facility] Comment on above: Performed By: #### 2 [id number] #### [facility] [address] [place] [address] Potassium [Moles/Vol] 4.3 mmol/L Normal 3.5-5.3 [facility] Comment on above: Performed By: #### 2 [id number] #### [facility] [address] [place] [address] Sodium [Moles/Vol] 140 mmol/L Normal 135-145 [facility] Comment on above: Performed By: #### 2 [id number] #### [facility] [address] [place] [address] Urea nitrogen [Mass/Vol] 21 mg/dL Normal 5-21 [facility] Comment on above: Performed By: #### 2 [id number] #### [facility] [address] [place] [address] Urea nitrogen/Creatinine [Mass ratio] 26 No Units High 10-20 [facility] Comment on above: Performed By: #### 2 [id number] #### [facility] [address] [place] [address] CBC w/ Auto Diffon 5 Basophils/100 WBC (Bld) 0.5 % Normal 0.0-2.0 [facility] Comment on above: Performed By: #### 2 [id number] #### [facility] [address] [place] [address] Basophils/Leukocytes Auto (Bld) [Pure # fraction] 0.0 E9/L Normal 0.0-0.2 [facility] Comment on above: Performed By: #### 2 [id number] #### [facility] [address] [place] [address] Eosinophils (Bld) [#/Vol] 0.3 E9/L Normal 0.0-0.5 [facility] Comment on above: Performed By: #### 2 [id number] #### [facility] [address] [place] [address] Eosinophils/100 WBC (Bld) 4.1 % Normal 0.0-8.0 [facility] Comment on above: Performed By: #### 2 [id number] #### [facility] [address] [place] [address] Erythrocyte distribution width (RBC) [Ratio] 14.2 % Normal 10.9-14.2 [facility] Comment on above: Performed By: #### 2 [id number] #### [facility] [address] [place] [address] Hematocrit (Bld) [Volume fraction] 39.4 % Normal 34.0-46.0 [facility] Comment on above: Performed By: #### 2 [id number] #### [facility] [address] [place] [address] Hemoglobin (Bld) [Mass/Vol] 13.6 g/dL Normal 12.0-16.0 [facility] Comment on above: Performed By: #### 2 [id number] #### [facility] [address] [place] [address] Lymphocytes (Bld) [#/Vol] 3.4 E9/L Normal 1.0-4.0 [facility] Comment on above: Performed By: #### 2 [id number] #### [facility] [address] [place] [address] Lymphocytes/100 WBC (Bld) 47.7 % Normal 14.0-50.0 [facility] Comment on above: Performed By: #### 2 [id number] #### [facility] [address] [place] [address] MCH (RBC) [Entitic mass] 31.3 pg Normal 27.0-34.0 [facility] Comment on above: Performed By: #### 2 [id number] #### [facility] [address] [place] [address] MCHC (RBC) [Mass/Vol] 34.6 g/dL Normal 31.4-36.0 [facility] Comment on above: Performed By: #### 2 [id number] #### [facility] [address] [place] [address] MCV (RBC) [Entitic vol] 90.5 fL Normal 80.0-100.0 [facility] Comment on above: Performed By: #### 2 [id number] #### [facility] [address] [place] [address] Monocytes (Bld) [#/Vol] 0.5 E9/L Normal 0.2-1.0 [facility] Comment on above: Performed By: #### 2 [id number] #### [facility] [address] [place] [address] Neutrophils (Bld) [#/Vol] 2.9 E9/L Normal 2.0-7.5 [facility] Comment on above: Performed By: #### 2 [id number] #### [facility] [address] [place] [address] Neutrophils/100 WBC (Bld) 41.3 % Normal 36.0-75.0 [facility] Comment on above: Performed By: #### 2 [id number] #### [facility] Laboratory [address] [place] [address] Platelet mean volume (Bld) [Entitic vol] 8.5 fL Normal 6.4-10.8 [facility] Comment on above: Performed By: #### 2 [id number] #### [facility] Laboratory [address] [place] [address] Platelets (Bld) [#/Vol] 329.0 E9/L Normal 150.0-500.0 [facility] Comment on above: Performed By: #### 2 [id number] #### [facility] Laboratory [address] [place] [address] RBC (Bld) [#/Vol] 4.3 E12/L Normal 4.3-5.9 [facility] Comment on above: Performed By: #### 2 [id number] #### [facility] Laboratory [address] [place] [address] WBC corrected for nucl RBC Auto (Bld) [#/Vol] 7.1 E9/L Normal 4.0-11.0 [facility] Comment on above: Performed By: #### 2 [id number] #### [facility] Laboratory [address] [place] [address] CHEMISTRYOrdered By: SYSTEM SYSTEM on 04-04-2024 Anion gap [Moles/Vol] 11 mmol/L Normal 6 - 16 mEq/L [facility] Calcium [Mass/Vol] 9.9 mg/dL Normal 8.9 - 11. 1 mg/dL [facility] Chloride [Moles/Vol] 104 mmol/L Normal 101 - 1 11 mmol/L [facility] CO2 [Moles/Vol] 29 mmol/L Normal 21 - 31 mmol/L [facility] Creatinine [Mass/Vol] 0.8 mg/dL Normal 0.5 - 1.3 mg/dL [facility] eGFR 80 mL/min/1.73 m2 Normal >=59mL/min /1 .73 m2 [facility] Glucose [Mass/Vol] 84 mg/dL Normal 55 - 199 mg/dL [facility] Potassium [Moles/Vol] 4.3 mmol/L Normal 3.5 - 5.3 mmol/L [facility] Sodium [Moles/Vol] 140 mmol/L Normal 135 - 145 mmol/L [facility] Urea nitrogen [Mass/Vol] 21 mg/dL Normal 5 - 21 mg/d L [facility] Urea nitrogen/Creatinine [Mass ratio] 26 mg/mg High 10 - 20 [facility] HEMATOLOGYOrdered By: SYSTEM SYSTEM on 04-04-2024 Basophils/100 WBC (Bld) 0.5 % Normal 0.0 - 2.0 % [facility] Basophils/Leukocytes Auto (Bld) [Pure # fraction] 0.0 E9/L Normal 0.0 - 0.2 E9/L [facility] Eosinophils (Bld) [#/Vol] 0.3 E9/L Normal 0.0 - 0.5 E9/L [facility] Eosinophils/100 WBC (Bld) 4.1 % Normal 0.0 - 8.0 % [facility] Erythrocyte distribution width (RBC) [Ratio] 14.2 % Normal 10.9 - 14.2 % [facility] Hematocrit (Bld) [Volume fraction] 39.4 % Normal 34.0 - 46.0 % [facility] Hemoglobin (Bld) [Mass/Vol] 13.6 g/dL Normal 12.0 - 16.0 gm/dL [facility] Lymphocytes (Bld) [#/Vol] 3.4 E9/L Normal 1.0 - 4.0 E9/L [facility] Lymphocytes/100 WBC (Bld) 47.7 % Normal 14.0 - 50.0 % [facility] MCH (RBC) [Entitic mass] 31.3 pg Normal 27. 0 - 34.0 pg [facility] MCHC (RBC) [Mass/Vol] 34.6 g/dL Normal 31.4 - 36.0 gm/dL [facility] MCV (RBC) [Entitic vol] 90.5 fL Normal 80.0 - 100.0 fL [facility] Monocytes (Bld) [#/Vol] 0.5 E9/L Normal 0.2 - 1.0 E9/L [facility] Monocytes/100 WBC (Bld) 6.4 % Normal 4.0 - 14.0 % [facility] Neutrophils (Bld) [#/Vol] 2.9 E9/L Normal 2.0 - 7.5 E9/L [facility] Neutrophils/100 WBC (Bld) 41.3 % Normal 36.0 - 75.0 % [facility] Platelet mean volume (Bld) [Entitic vol] 8.5 fL Normal 6.4 - 10.8 fL [facility] Platelets (Bld) [#/Vol] 329.0 E9/L Normal 150. 0 - 500.0 E9/L [facility] RBC (Bld) [#/Vol] 4.3 E12/L Normal 4.3 - 5.9 E12/L [facility] WBC corrected for nucl RBC Auto (Bld) [#/Vol] 7.1 E9/L Normal 4.0 - 11.0 E9/L [facility] UA WITH CULT RFLXon 04-04-19 25 BILIRUBIN:PRTHR:PT:URINE :ORD:TEST STRIP.AUTOMATED Negative Negative mg/dL [facility] CLARITY:TYPE:PT:URINE:NO M: Clear Clear [facility] CLASS:TYPE:PT:URINE COLLECTION METHOD:NOM:* Clean Catch [facility] COLOR:TYPE:PT:URINE:NOM: AUTO Colorless Abnormal Yellow [facility] Comment on above: Microscopic readings are only performed on those samples that meet specific criteria set forth by [facility] Laboratory. [facility] PH:LSCNC:PT:URINE:QN:ERIK T STRIP 6.0 5.0 - 9.0 [facility] SPECIFIC GRAVITY:RDEN:PT:URINE:QN :TEST STRIP 1.014 1.005 - 1.030 [facility] GLUCOSE:PRTHR:PT:URINE:O RD:TEST STRIP Negative Negative mg/dL [facility] HEMOGLOBIN:MCNC:PT:URINE :SEMIQN:TEST STRIP.AUTOMATED Negative Negative mg/dL [facility] Interpretation and review of laboratory results Abnormal [facility] KETONES:PRTHR:PT:URINE:O RD:TEST STRIP.AUTOMATED Negative Negative mg/dL [facility] LEUKOCYTE ESTERASE:PRTHR:PT:URINE: ORD:TEST STRIP.AUTOMATED Negative Negative CD:[id number] [facility] NITRITE:PRTHR:PT:URINE:O RD:TEST STRIP.AUTOMATED Negative Negative mg/dL [facility] PROTEIN:PRTHR:PT:URINE:O RD:TEST STRIP Negative Negative mg/dL [facility] UROBILINOGEN:MCNC:PT:URI NE:SEMIQN:TEST STRIP Negative Negative mg/dL [facility] Original Ordering Provider: DO [facility] with Cult Rflxon 04-04-19 25 Bilirubin Ql (U) Negative Normal Negative [facility] Comment on above: Performed By: #### 4 [id number] #### [facility] Laboratory [address] [place] [address] Clarity (U) Clear Normal Clear [facility] Comment on above: Performed By: #### 4 [id number] #### [facility] Laboratory [address] [place] [address] Color (U) Colorless Abnormal Yellow [facility] Comment on above: Result Comment: Micr oscopic readings are only performed on those samples that meet specific criteria set forth by [facility] Laboratory. Performed By: #### 4 [id number] #### [facility] Laboratory [address] [place] [address] Glucose Ql (U) Negative Normal Negative [facility] Comment on above: Performed By: #### 4 [id number] #### [facility] Laboratory [address] [place] [address] Hemoglobin Auto test strip (U) [Mass/Vol] Negative Normal Negative [facility] Comment on above: Performed By: #### 4 [id number] #### [facility] Laboratory [address] [place] [address] Ketones Auto test strip Ql (U) Negative Normal Negative [facility] Comment on above: Performed By: #### 4 [id number] #### [facility] Laboratory [address] [place] [address] Leukocyte esterase Auto test strip Ql (U) Negative Normal Negative [facility] Comment on above: Performed By: #### 4 [id number] #### [facility] Laboratory [address] [place] [address] Nitrite Auto test strip Ql (U) Negative Normal Negative [facility] Comment on above: Performed By: #### 4 [id number] #### [facility] Laboratory [address] [place] [address] pH (U) 6.0 [pH] Invalid Interpretation Code 5.0-9.0 [facility] Comment on above: Performed By: #### 4 [id number] #### [facility] Laboratory [address] [place] [address] Protein Ql (U) Negative Normal Negative [facility] Comment on above: Performed By: #### 4 [id number] #### [facility] Laboratory [address] [place] [address] Specific gravity (U) [Rel density] 1.014 Invalid Interpretation Code 1.005-1.030 [facility] Comment on above: Performed By: #### 4 [id number] #### [facility] Laboratory [address] [place] [address] Urobilinogen (U) [Mass/Vol] Negative Normal Negative [facility] Comment on above: Performed By: #### 4 [id number] #### [facility] Laboratory [address] [place] [address] Type of Urine collection method Clean Catch Normal [facility] Comment on above: Performed By: #### 4 [id number] #### [facility] Laboratory [address] [place] [address] URINALYSISOrdered By: SYSTEM SYSTEM on 04-04-2024 Bilirubin Ql (U) Negative Normal Negativemg/ d L [facility] UA Auto SS Clarity (U) Clear (2/7/25 11:03 AM) Normal Clear [facility] UA Auto SS Color (U) Colorless 1 *ABN* (04/04/24 11:03 AM) Invalid Interpretation Code Yellow [facility] UA Auto SS Comment on above: Interpretive Data: M icroscopic readings are only performed on those samples that meet specific criteria set forth by [facility] Laboratory. Glucose Ql (U) Negative Normal Negativemg/d L [facility] UA Auto SS Hemoglobin Auto test strip (U) [Mass/Vol] Negative Normal Negativemg/d L [facility] UA Auto SS Ketones Auto test strip Ql (U) Negative Normal Negativemg/d L [facility] UA Auto SS Leukocyte esterase Auto test strip Ql (U) Negative Normal NegativeLeu/ uL [facility] UA Auto SS Nitrite Auto test strip Ql (U) Negative Normal Negativemg/d L [facility] UA Auto SS pH (U) 6.0 *NA* (04/04/24 11:03 AM) Invalid Interpretation Code 5.0 - 9.0 [facility] UA Auto SS Protein Ql (U) Negative Normal Negativemg/d L [facility] UA Auto SS Specific gravity (U) [Rel density] 1.014 *NA* (04/04/24 11:03 AM) Invalid Interpretation Code 1.005 - 1.030 [facility] UA Auto SS Urobilinogen (U) [Mass/Vol] Negative Normal Negativemg/d L [facility] UA Auto SS URINALYSISOrdered By: Rene Singletary on 04-04-2024 UA Spec Desc Clean Catch (04/04/24 11:03 AM) Normal [facility] UA Auto SS eGFRon 04-04-2024 eGFR 80 mL/min/1.73 m2 Normal >=59 [facility] Comment on above: Performed By: #### 1 [id number] #### [facility] Laboratory [address] [place] [address] No Panel Informationon 02-12 GURMEET Herrera 02/13/2024 8:53 AM L Inj/Asp: R knee on 02/13/2024 8:40 AM Indications: pain Details: 22 G needle Medications: 30 mg cross-linked hyaluronate 30 MG/3ML Consent was given by the patient. [facility] Pathology Reporton 4 Diagnosis ICD code [Identifier] Comment [facility] Comment on above: Pathologist provided ICD-10: R93.89 Pathologist name Comment [facility] Comment on above: Electronically micah d: . Tony Barnett MD, Pathologist Pathology report final diagnosis Narrative Comment [facility] Comment on above: Diagnosis: ENDOMETRIAL BIOPSY: - AGGREGATE OF MUCUS, ONE CYSTICALLY DILATED GLAND AND FEW FRAGMENTS OF METAPLASTIC SQUAMOUS EPITHELIUM. PLEASE SEE GROSS DESCRIPTION. TMZ 10/25/2023 1115 Local Pathology report gross observation Narrative Comment [facility] Comment on above: Gross description: . RECEIVED IN FORMALIN LABELED WITH THE PATIENT NAME AND ENDOMETRIAL BIOPSY IS A SCANT AMOUNT OF LEA TISSUE FRAGMENTS. THE SPECIMEN MAY NOT SURVIVE PROCESSING. SUBMITTED IN TOTO IN A1. PAV/BXS 10/24/2023 1215 Local Pathology report site of origin Narrative Comment [facility] Comment on above: Material submitted: . endometrium - ENDOMETRIAL BIOPSY Payment procedure Comment [facility] Comment on above: CPT . [id number] Performed at: - [address] [id number] Histopath Tech: Siva Floyd MD, Phone: [phone] [facility] Glucose mean value [Mass/vol ume] in Blood Estimated from glycated hemoglobinon 04-17-2023 Average glucose Estimated from glycated hemoglobin (Bld) [Mass/Vol] 120 mg/dL [facility] - Hematology and Cell countson 04-17-2023 HbA1c (Bld) [Mass fraction] 5.8 % 4.5-6.2 [facility] Comment on above: ADA RECOMMENDED LIMI T 4.0 - 6.0ADA THERAPEUTIC TARGET < 7.0ACTION SUGGESTED> 7.0 Coding Summaryon 04-12-2023 Coding Summary HTMLBase 64 FkwpiyjaMBd1nMx+PGh lYWQ+CF7WUCQbC33fcJ TazH5dC2NOCNoTBrdhC MCOFIpQStWvewVsVG9i aXNjZXJu IC8+SC5hCVIcTdehyDO yj9Z8yFV9X71djy4rWO mgiJS1PRTxAeKkmkiig 3aivOm7UEoaGervJeFp TROioN50BQX5aV25Ud4 0mCAklFXck5dklAi3Qp QlZYMoIZF6yOdfQQquk 1OhFKQtL60igZRvn2N2 IGNvbGxhcHNlOyBlbXB 3pR3qRNwophkzr8mwwd uhWrg4dg65vYLyh2T0b UB6R4ZnxpA2BYZnlYYs CjaamOAWnP1gfkkqo9i rhwjqSzBgISZqQRx8NH p0XGOdwEjkGbPrID94R HH6WHZuirOwK2FbYQLn cRexMeZ1y2F3Ex4AZ3C WZcvcD8LJYOJMUYeyxC Q+ZQ52mt38X9CdWzawI ut5WGZgYWD2yXP1hY4r CVDoVTupj2R7rYG0Q1T tfuZxsg8lq9cgHMHiUA cgX70isOIva3I5SZTth DM9WKRyaEviRxLimL71 Oyc+WFCwzStey3NtJsc hl5htq8hfoPt6IvvqPP EsncGtdLzuGUN8l0QzX j4hIWGxqDX6oPK1vK9d YxOdTkU2CSlcT361RvH sfUUlNajxB73kA4UucH A+ZTAkJiv6OYRwgTeoT H7yX8FjSMOfefcxtUFz dUfkGW3kWOXlywkiXOH ebF3vBLYdX6m2KyAeQv W4NSxbE2MnSUAmlwlnN y17zT1eTbCeVtS1NTyk R6ZjmjG3ZXChjWXeIPd vDWQ2F92eg7D1LHFdPY EjNRL8vEJ8mV9goIuru jogbGVmdDsgdmVydGlj HNxnNKzsH839TFWrjHd nPkNvZGluZyBEYXRlOi AgMDIvMTUvMjAyNDwvd GQ+YQNcENH4iQkqLYYc yOVxIJtjLo9ijOuyjVt sEC2tEXDcjemwGLNmjV 2uDGFhwBMzhPwjIH0iV QJjcgagr449VqQwRDB7 XEYatNJvD2BzgS7vSsL pFPZsUKQnS7UhzCYoXU asV633CUovQgJ8BIKvr aRdZ8VlUKFwtTvaFaC7 j4Q0Ws1Mx0KelsuqX5N byQWjNaBdMfldAFl4O0 RkPjwvdHI+QR62CZUqO Z61LFj3ZTK2zYwjSSxp CWBnP3IhaN3vHbByYVL kZGRkOyc+PHRhYmxlIH dpZHRoPScxMDAlJyBzd MfoRB5lWs5mECExQVNq rDkxnDXbHwIyg2oqVFQ sHEafNK9gmMbxH3OhwA R8OHIff7a5Zk38R12hS 3JvdXA+XQZaxTK9cIZ9 kW7lBmRbMlE1GPojJ03 7ViUhqWPpJbhya9pne7 fvvKe8WcI8OPZepmEqo RaeVNZ6q9VfQd23S92q IHdpZHRoPSIxNSUiIHZ njNacti6zlQ4xXl6+PG EbxEW4fYJ1nW2iYaUrD jG7KHivE170QqUidANk Gezue1zqh5irmDd0VtD ePGVxiuNnoSueOFG5c7 UbMm62U7WuvPmqr1HoU ga8nj41tGKvy5P9lMA1 E7PhAASbxeiqiWVnlOi nBU0lOMHivlauSEPlyC 1yBEFqQ0e0ZsJqQpG3A UcrB6AbsaA6PZAfuVHa WHMfxAGGkE9kzofvy3k qdarnBrAyXOPlINn5JS c8IDOtmOovTvRqODB4V mV9JDD7jPEeiK5kpYss hzghhC9hMpi+RDE6qUV deNCILG0eCdqihHE+PH XgIVZ3cRuoDQwtLCUjn I0qOZJqA2e5QuZoSwA7 WQhyJ4WtoiE9AHWlcYJ aXMXzfGCPqC3jpitmk1 ucklwwMdKjLSFkBNe2F Cp9XXKjgYlgNcLyYAD9 LvT2TWE7hBYhdI8guWb byxxpvO4aFmu+QmlydG iiKAM7DAf7I9EkGkd0U IPkgVbpQM9xvVZsJShk Ce1rnPnsrRjkUE9vXEW vzwlic631JfFcj5bxID WluCLbVUjiTKO4R07kx 1C5PHFmRJIpRXL8wQU5 gF5cjMrdgpsvlDMvgKb gdmVydGljYWwtYWxpZ2 78GCMnsSwxRqBcWMt5X 3GtHcx1UWXcqWjzEX4f gTNhYCltQg4igMleyQu zET9dBANeqcgpi976Dk Tli7qwRGIkiFSvDJxhR RS5P15gi9J7QOIeUSDx TQY0eTF6xW8ybPsmpcb gbGVmdDsgdmVydGljYW veKDglK417RTCtvPulU hVfnVl6X9AdIpt8GLCt sOcuST6jkXBxDJofLr1 oiFimxCqePE0qAPPrvb pnx759RlMzb9rmGJOvc XGrOXksFWR8I74yi9W4 UAHzASRxIKG3kLE4lY8 hbGlnbjogbGVmdDsgdm TjvHwrQGsaQAafM718I HRvcDsnPlBhdGllbnQg DEptAYz3Q9XfIltpkNO +EM94VRGtGA30tXMcoB Ejd1migXz6KtDoALTwJ CT7bFrlXWqdr3XsZMFz U91dtYOsx9K6KHEghFi rwEJkJhQwaXH7xX0kPE iszykar4msoycpElikm 2aoxa69qJ72L29vCPkn ZHRoPSIzMCUiIHZhbGl goe8haH1oPu1+PGNvbC R2xZU2fT3qVARjCeD7I AqdG279UhNtpVSfSmmb i6vyn0qdiQs1SdZ1SYE eteBuqTkpIDN6u8GvIn 92N33rWFlgYMSsBPJxS FRyXCTqrJgczl1nzO5l Ii8+PORmmDR3qBE8fX1 sIvUeIiV3POqxW787Fw WybMMtHaleI31yZ8Phs XA+WVDnKzt7WQSyeNhj NL4srFDwNDzqVa0lDCK 0CoXdJoShGZbeA4GtPU YmvlhfpeqjdNA0ZILdR QCebM58Hp6jkKjmNHZn sUKRhI8rnnkjx0piwpq mDzEdQMZfESr9TUu9ST PvbQouHiYfLBW0AtF8E VY9aSBtdV6luMahdfrr hT9zE4KfRFCgtnnwLn3 5aM6tTpExKfP9CAogHp c+Qz8VTM9zYVrGEbhPY Y80GR00lTAvb0S4mEO3 V5TuPMThvlnazuohxQU 5BXSlWBAbkI91rZQhNO efBq9yx4E0c898ZZXwG PTkcG94Iy7cwXahQOTg lCGSbC6heuaoc7junra pSmTlXFYxGJa4PEp0TO HmxQyyDxTsTHB7MwM6K FO0fUYjfM7qbEkshees jF5bMzv+MTIvMTIvMTk 1NjwvdGQ+BWBqXRF6nI rnWIilHCZuvV2wNHXaC 5r7HfYiIfL4TMrfD9Yk LFYdtkjyXh07jG1hCxW wFuN0UFylI5FmmvS2TM SgmREeCRlvPWW6K21qk 9U4CKTjCVYxHFS9bWO8 bJ5leSvksiglkCZwjBh gdmVydGljYWwtYWxpZ2 72DKIklMksMuP1VNpnK DYrCE80VC79aWUqz4E7 gWZ5V1VnOUPeskrgqfg nxJX8SJLyZYPyxD76gW KfGIdrYr7bv5J4u489X CYeZPWjrO08Rp1arRak XCMbxBSJcH1drkyhy1a nwxufGtZbYQJxGOh3NN u9WAJmcLmoIsNqBDX9N xW4KYC8qHUimX9jlFxu honoxO6vXdj+RkVNQUx CGX40WX17sYVwb3W4gJ Z7W1GuLCGzaocbwvnra YW3QUIzSBCgmU95sQDt FXjpVv5qo1J2i478UPX iFAZeiH57Zs3seEmnUT UtlKBBqT0qzaeok5lxi axsKdFaTSZoBHx0RAn3 QWTejEryOcIbAZC0WqD 3IWR7uDOvpH8ouJdniq gyyM3pLmo+A2C7N5SxQ jwvdHI+GN98TTMnHV88 rBRfeATul2aubRo1ZjB eAWOxZXQ3hTtwOOlwo7 TrHYGgN98nbUWsk7J5R GNvbGxhcHNlOyBlbXB0 lQ9tGLkpxgnvk2ubutw nQshif0unfs28qL60A0 9sIHdpZHRoPSIzMCUiI SNxvQhozs0mhW4kSn3+ JROpfCK1mSG3wJ1xMrG mLoN7DKrvB360CtUqcK ShTgtua4dyc9bcqMj0D jIwJSIgdmFsaWduPSJ0 h0DdBu18F31hPKxkSUN oPSIyMCUiIHZhbGlnbj 5hjR3vKe4+JJ3ft3tpt w22wK70bQH+PHRkIHN0 gGsaUVzrBLSquY5yBRd bCtV6HRUmJoHgeL31bI HoJGweYv5ffPgprGfuU P4uJWWkkdsgl857IcEl z7vvDFJspURuPEihNSA 7E40sb5Z9VTJdNFUcMW I0mYX6dT3ieFhxtsyzo GVmdDsgdmVydGljYWwt FRsmD632VTQtmGulJeW arFPkZ1vlrkTDYQ5rQg wvdGQ+MPXpVZW6pKyaO YxwPWGkeQ8pQPYyD5q8 GnLfPxE9IGyqE0FegdW 6IGJvbGQgMTBwdCBUaW 3fvogsl7wluftkWrTmU IQqWTm3CXm2SNSmoRos QaViMXK0FiB3FTJ2tUE onG9ilFvmkiolzI0aFc c+RklOOjwvdGQ+PHRkI VR3aVvfLTamIMShuD1f JHOkE0v6IdWgBqG9CPc gE8BsxrY4IPCbqYXaVC NymQVPiX4ygwyhy5uvm jubLnOiMPUnVKk2HOa6 SFEscDfeKaQmNDM8EjQ 8OSF3xCJvhJ6liGykpu akrQ3sLws+TVJOOjwvd GQ+KFNtMXS3xUxeTRhu VZJdlP2dDZNzJ3b3OcT iLzE6RLnrZ9LdjlM1AC HubEGsVGUjkRORpF3pl oauc3gicpcaCbFkAYKq AEf3YOy9ZRBnrBstPhJ vOIP7PtP3FLI8gXCboT 3fpRzcbtaogR8yFzy+U AL5FGS1WP27MX92W6Ve PjwvdGFibGU+PHRhYmx lIHdpZHRoPScxMDAlJy UovXpaJF2tCz9mDFXxA YBnyEnmeHVoTqAvk0qy YXB (more content not included)... [facility] Consent Formson 04-09-2023 Consent Forms [id number] [facility] Agreem entson 04-09-2023 Controlled Substances Agreements [id number] 87#1.[facility] Progress Note - Provideron 0 04-09-2023 Progress Note - Provider [id number] E5#1.[facility] MG MAMM SCREEN 3D BLUE CADon 07-18-2022 MG MAMM SCREEN 3D BLUE CAD Patient: KANWAL SCRUGGS Exam Date: 07/18/2022 : 1955 Gender:F Ordering : DR LAZARO CHARLES M.D. Admission #: [id number] Family : Order #: [id number] CLICK HERE TO VIEW EXAM RADIOLOGY REPORT [...] Treatments None Family Cancers None LOCATION: [facility] BREAST COMPOSITION: Heterogeneously dense,which may obscure [...] PALPABLE LUMP SHOULD BE BIOPSIED. Dictated by: Iggy Nunes M.D. on 07/19/2022 at 11:06 Approved by: Iggy Nunes M.D. on 07/19/2022 at 11:12 Normal [facility] CREATININEon 08-22-2021 Creatinine [Mass/Vol] 0.86 mg/dL Normal 0.55-1.02 [facility] Comment on above: Performed By: #### A ST, ALT, CREA #### [facility] [address] [place] [address] Dr. Uma Kennedy EGFR-AF STATELESS >=60 Normal >=60 [facility] Comment on above: Performed By: #### A ST, ALT, CREA #### [facility] [address] [place] [address] Dr. Uma Kennedy EGFR-NON AF STATELESS >=60 Normal >=60 [facility] Comment on above: Performed By: #### A ST, ALT, CREA #### [facility] [address] [place] [address] Dr. Uma Goetz 08-22-2021 AST [Catalytic activity/Vol] 13 U/L Critically low 15-37 [facility] Comment on above: Performed By: #### A ST, ALT, CREA #### [facility] [address] [place] [address] Dr. Uma Kennedy [facility] 08-22-2021 ALT [Catalytic activity/Vol] 28 U/L Normal 14-59 [facility] Comment on above: Performed By: #### A ST, ALT, CREA #### [facility] [address] [place] [address] Dr. Uma Kennedy Vital Signs Date Time Vital Sign Value Performing Clinician Facility 04-28-2024 15:56-0500 Heart rate 78 /min Camden العراقي [facility] 04-28-2024 15:56-0500 SaO2% (BldA) [Mass fraction] 95 % Camden Melanie [facility] 04-28-2024 15:55-0500 Respiratory rate 16 /min Camden Melanie [facility] 04-28-2024 15:55-0500 Diastolic blood pressure 74 mm[Hg] Camden Melanie [facility] 04-28-2024 15:55-0500 Mean blood pressure 100 mm[Hg] Camden Melanie [facility] 04-28-2024 15:55-0500 Systolic blood pressure 151 mm[Hg] Camden Melanie [facility] 04-28-2024 11:44-0500 Heart rate 71 /min Camden Melanie [facility] 04-28-2024 11:44-0500 SaO2% (BldA) [Mass fraction] 99 % Camden Melanie [facility] 04-28-2024 11:44-0500 Respiratory rate 16 /min Camden Melanie [facility] 04-28-2024 11:44-0500 Blood Pressure Location Camden Melanie [facility] 04-28-2024 11:44-0500 Body temperature 97.7 [degF] Camden العراقي [facility] 04-28-2024 11:44-0500 Diastolic blood pressure 81 mm[Hg] Camden العراقي [facility] 04-28-2024 11:44-0500 Mean blood pressure 108 mm[Hg] Camden العراقي [facility] 04-28-2024 11:44-0500 Systolic blood pressure 163 mm[Hg] Camden العراقي [facility] 04-28-2024 11:35-0500 Body temperature 97.16 [degF] Camden Melanie [facility] 04-28-2024 11:35-0500 Diastolic blood pressure 78 mm[Hg] Camden العراقي [facility] 04-28-2024 11:35-0500 Heart rate 69 /min Camden العراقي [facility] 04-28-2024 11:35-0500 Respiratory rate 12 /min Camden العراقي [facility] 04-28-2024 11:35-0500 SaO2% (BldA) [Mass fraction] 97 % Camden العراقي [facility] 04-28-2024 11:35-0500 Systolic blood pressure 152 mm[Hg] Camden العراقي [facility] 04-28-2024 11:20-0500 Respiratory rate 18 /min Camden العراقي [facility] 04-28-2024 11:15-0500 Respiratory rate 14 /min Camden العراقي [facility] 04-28-2024 11:08-0500 Body temperature 96.98 [degF] Camden Melanie [facility] 04-28-2024 10:55-0500 Respiratory rate 16 /min Camden Melanie [facility] 04-28-2024 07:25-0500 Blood Pressure Location Camden Melanie [facility] 04-28-2024 07:25-0500 Mean blood pressure 115 mm[Hg] Camden Melanie [facility] 04-28-2024 07:25-0500 Heart rate 88 /min Camden Melanie [facility] 04-28-2024 07:23-0500 Blood Pressure Location Camden العراقي [facility] 04-28-2024 07:23-0500 Body temperature 97.7 [degF] Camden العراقي [facility] 04-18-2024 10:45-0500 Diastolic blood pressure 88 mm[Hg] Lazaro Charles MD Work Phone: [facility] 04-18-2024 10:45-0500 Heart rate 66 /min Lazaro Charles MD Work Phone: [facility] 04-18-2024 10:45-0500 Respiratory rate 16 /min Lazaro Charles MD Work Phone: [facility] 04-18-2024 10:45-0500 SaO2% (BldA) [Mass fraction] 99 % Lazaro Charles MD Work Phone: [facility] 04-18-2024 10:45-0500 Systolic blood pressure 155 mm[Hg] Lazaro Charles MD Work Phone: [facility] 04-18-2024 07:49-0500 Body height 154.94 cm Lazaro Charles MD Work Phone: [facility] 04-18-2024 07:49-0500 Body temperature 98.5 [degF] Lazaro Charles MD Work Phone: [facility] 04-18-2024 07:49-0500 Body weight 64.86 kg Lazaro Charles MD Work Phone: [facility] 03-25-2024 13:11-0500 Body height 154.9 cm Camden العراقي DO Work Phone: [facility] 03-25-2024 13:11-0500 Body mass index (BMI) [Ratio] 26.26 kg/m2 Camden العراقي DO Work Phone: [facility] 03-25-2024 13:11-0500 Body weight 63.05 kg Camden العراقي DO Work Phone: [facility] 03-24-2024 08:37-0500 Body height 157.48 cm Lazaro Charles MD Work Phone: [facility] 03-24-2024 08:37-0500 Body mass index (BMI) [Ratio] 26.4 kg/m2 Lazaro Charles MD Work Phone: [facility] 03-24-2024 08:37-0500 Body weight 65.43 kg Lazaro Charles MD Work Phone: [facility] 03-24-2024 08:37-0500 Diastolic blood pressure 81 mm[Hg] Lazaro Charles MD Work Phone: [facility] 03-24-2024 08:37-0500 Heart rate 81 /min Lazaro Charles MD Work Phone: [facility] 03-24-2024 08:37-0500 Systolic blood pressure 161 mm[Hg] Lazaro Charles MD Work Phone: [facility] 02-13-2024 08:38-0500 Body height 154.9 cm Camden العراقي DO Work Phone: [facility] 02-13-2024 08:38-0500 Body mass index (BMI) [Ratio] 26.26 kg/m2 Camden العراقي DO Work Phone: [facility] 02-13-2024 08:38-0500 Body weight 63.05 kg Camden العراقي DO Work Phone: [facility] 01-16-2024 09:47-0500 Body temperature 97.11 [degF] Camden العراقي DO Work Phone: [facility] 01-16-2024 09:47-0500 Body weight 63.05 kg Camden العراقي DO Work Phone: [facility] 01-01-2024 08:16-0500 Body weight 63.05 kg Pippa Baker MD Work Phone: [facility] 01-01-2024 08:16-0500 Diastolic blood pressure 90 mm[Hg] Pippa Baker MD Work Phone: [facility] 01-01-2024 08:16-0500 Systolic blood pressure 146 mm[Hg] Pippa Baker MD Work Phone: [facility] 10-23-2023 12:44-0400 Body weight 64.86 kg Pippa Baker MD Work Phone: [facility] 10-23-2023 12:44-0400 Diastolic blood pressure 82 mm[Hg] Pippa Baker MD Work Phone: [facility] 10-23-2023 12:44-0400 Systolic blood pressure 120 mm[Hg] Pippa Baker MD Work Phone: [facility] 06-20-2023 09:29-0400 Body height 157.[address] [facility] 06-20-2023 09:29-0400 Body mass index (BMI) [Ratio] 26.2 kg/m2 [facility] 06-20-2023 09:29-0400 Body weight 64.[address] [facility] 04-17-2023 10:51-0500 Body height 157.[address] [facility] 04-17-2023 10:51-0500 Body mass index (BMI) [Ratio] 25.2 kg/m2 [facility] 04-17-2023 10:51-0500 Body weight 62.[address] [facility] 04-17-2023 10:51-0500 Diastolic blood pressure 93 mm[Hg] [facility] 04-17-2023 10:51-0500 Heart rate 85 /min [facility] 04-17-2023 10:51-0500 Systolic blood pressure 163 mm[Hg] [facility] 03-27-2023 10:00-0500 Body height 157.48 cm Lazaro Charles Other [facility] 03-27-2023 10:00-0500 Body mass index (BMI) [Ratio] 25.38 kg/m2 Lazaro Charles Other [facility] Other 03-27-2023 10:00-0500 Body weight 62.96 kg Lazaro Charles Other [facility] Other 03-27-2023 10:00-0500 Body weight 62.[address] [facility] 03-27-2023 10:00-0500 Diastolic blood pressure 88 mm[Hg] Lazaro Charles Other [facility] 03-27-2023 10:00-0500 Systolic blood pressure 144 mm[Hg] Lazaro Charles Other [facility] 02-05-2023 09:30-0500 Body height 157.48 cm Lazaro Charles Other [facility] 02-05-2023 09:30-0500 Body mass index (BMI) [Ratio] 26.41 kg/m2 Lazaro Charles Other [employer] Other 02-05-2023 09:30-0500 Body weight 65.5 kg Lazaro Charles Other [facility] Other 02-05-2023 09:30-0500 Body weight 65.[address] [facility] 02-05-2023 09:30-0500 Diastolic blood pressure 72 mm[Hg] Lazaro Charles Other [facility] 02-05-2023 09:30-0500 SaO2% (BldA) [Mass fraction] 97 % Lazaro Charles Other [employer] Other 02-05-2023 09:30-0500 Systolic blood pressure 128 mm[Hg] Lazaro Charles Other [facility] 11-08-2022 09:45-0400 Body height 157.48 cm Lazaro Charles Other [employer] Other 11-08-2022 09:45-0400 Body mass index (BMI) [Ratio] 27.83 kg/m2 Lazaro Charles Other [employer] Other 11-08-2022 09:45-0400 Body weight 69.04 kg Lazaro Charles Other [employer] Other 11-08-2022 09:45-0400 Diastolic blood pressure 85 mm[Hg] Lazaro Charles Other [employer] Other 11-08-2022 09:45-0400 Respiratory rate 12 /min Lazaro Charles Other [employer] Other 11-08-2022 09:45-0400 Systolic blood pressure 151 mm[Hg] Lazaro Charles Other [employer] Other 07-04-2022 10:00-0400 Body height 157.48 cm Lazaro Charles Other [employer] Other 07-04-2022 10:00-0400 Body mass index (BMI) [Ratio] 29.63 kg/m2 Lazaro Charles Other [employer] Other 07-04-2022 10:00-0400 Body weight 73.48 kg Lazaro Charles Other [employer] Other 07-04-2022 10:00-0400 Diastolic blood pressure 80 mm[Hg] Lazaro Charles Other [employer] Other 07-04-2022 10:00-0400 SaO2% (BldA) [Mass fraction] 97 % Lazaro Charles Other [employer] Other 07-04-2022 10:00-0400 Systolic blood pressure 142 mm[Hg] Lazaro Charles Other [employer] Other Encounters Encounter Date Encounter Type Care Provider Facility Start: 07-17-2024 End: 07-17-2024 ambulatory LAURIE NASH Not Available Start: 05-26-2024 End: 05-26-2024 Anthonybochristy flowscesar Lai NP Work Phone: [facility] Start: 05-26-2024 End: 05-26-2024 Bamboo flowsheet Vasiliy Lai MANAGER OF BUSINESS OPERATIONS Work Phone: [facility] Start: 05-26-2024 End: 05-26-2024 Postop follow up visit related to original px Vasiliy Lai MANAGER OF BUSINESS OPERATIONS Work Phone: [facility] Comment on above: Status post total ri ght knee replacement (Primary Dx); Acute pain of right knee Start: 05-26-2024 End: 05-26-2024 ambulatory VASILIY LAI Not Available Start: 04-28-2024 End: 04-28-2024 Clinisync Result Encounter Camden العراقي DO Work Phone: [facility] Unsolicited Start: 04-28-2024 End: 04-28-2024 Clinisync Result Encounter Camden العراقي DO Work Phone: [facility] Unsolicited Start: 04-28-2024 End: 04-28-2024 Admission to same day surgery center Camden العراقي [facility] Start: 04-28-2024 End: 04-28-2024 ambulatory Camden العراقي Facility:[facility] Start: 04-18-2024 End: 04-18-2024 Admission to same day surgery center Lazaro Charles MD Work Phone: [facility] Start: 04-18-2024 End: 04-18-2024 ambulatory Lazaro Charles MD Work Phone: [facility] Work Phone: Start: 04-04-2024 End: 04-04-2024 Clinisync Result Encounter Camden العراقي DO Work Phone: [facility] Unsolicited Start: 04-04-2024 End: 04-04-2024 Clinisync Result Encounter Camden العراقي DO Work Phone: [facility] Unsolicited Start: 04-04-2024 End: 04-04-2024 ambulatory Camden العراقي Facility:[facility] Start: 04-04-2024 End: 04-04-2024 Patient encounter procedure Camden العراقي [facility] Start: 04-01-2024 End: 04-01-2024 Bamboo flowsheet Isaias Tapia PT Work Phone: [facility] Start: 04-01-2024 End: 04-01-2024 Bamboo flowsheet Isaias Ball Janelle PT Work Phone: [facility] Start: 04-01-2024 End: 04-01-2024 ambulatory Isaias Tapia PT Work Phone: [facility] Comment on above: Primary osteoarthrit is of right knee (Primary Dx) Start: 03-25-2024 End: 03-25-2024 Bamboo flowsheet Camden العراقي DO Work Phone: [facility] Start: 03-25-2024 End: 03-25-2024 Bamboo flowsheet Camden العراقي DO Work Phone: [facility] Start: 03-25-2024 End: 03-25-2024 Patient encounter procedure Camden العراقي DO Work Phone: [facility] Comment on above: Pre-op testing (Prim tunde Dx); Chronic pain of right knee Start: 03-25-2024 End: 03-25-2024 Patient encounter status Camden العراقي DO Work Phone: [facility] Start: 03-25-2024 End: 03-25-2024 ambulatory CAMDEN العراقي Not Available Start: 03-24-2024 End: 03-24-2024 Patient encounter procedure Lazaro Charles MD Work Phone: [facility] Work Phone: Start: 02-13-2024 End: 02-13-2024 Bamboo flowsheet Camden العراقي DO Work Phone: [facility] Start: 02-13-2024 End: 02-13-2024 Bamboo flowsheet Camden العراقي DO Work Phone: [facility] Start: 02-13-2024 End: 02-13-2024 Patient encounter procedure Camden العراقي DO Work Phone: [facility] Comment on above: Chronic pain of righ t knee (Primary Dx) Start: 02-13-2024 End: 02-13-2024 ambulatory CAMDEN العراقي Not Available Start: 01-16-2024 End: 01-16-2024 Patient encounter procedure Camden العراقي DO Work Phone: [facility] Comment on above: Chronic pain of righ t knee (Primary Dx) Start: 01-16-2024 End: 01-16-2024 ambulatory CAMDEN العراقي Not Available Start: 01-01-2024 End: 01-01-2024 Office outpatient visit 15 minutes Pippa Baker MD Work Phone: [facility] Comment on above: Thickened endometriu m; Post-menopausal; Pelvic pain in female Start: 01-01-2024 End: 01-01-2024 ambulatory PIPPA BAKER Not Available Start: 10-23-2023 End: 10-27-2023 Orders Only Pippa Baker MD Work Phone: [facility] External Department Unsolicited Start: 10-23-2023 End: 10-23-2023 Patient encounter procedure Pippa Baker MD Work Phone: [facility] Comment on above: Pelvic pain in femal e; Thickened endometrium; Post-menopausal Start: 10-23-2023 End: 10-23-2023 ambulatory PIPPA BAKER Not Available Start: 07-06-2023 End: 07-06-2023 ambulatory [facility] Facility:[facility] Start: 06-20-2023 End: 06-20-2023 ambulatory [facility] Work Phone: Start: 06-20-2023 End: 06-20-2023 Patient encounter procedure [facility] Work Phone: Start: 05-07-2023 End: 05-07-2023 Patient encounter procedure [facility] Work Phone: Start: 04-17-2023 End: 04-17-2023 ambulatory [facility] Work Phone: Start: 04-17-2023 End: 04-17-2023 Patient encounter procedure [facility] Work Phone: Start: 04-05-2023 End: 04-06-2023 ambulatory Alba Sharpe Facility:[facility] Start: 04-04-2023 End: 04-05-2023 ambulatory Alba Fan [place] [facility] [facility] [employer] Other Start: 04-04-2023 Telephone encounter Lazaro Charles [facility] Start: 03-28-2023 End: 03-28-2023 ambulatory Lazaro Charles Other [employer] Other Start: 03-28-2023 Telephone encounter Lazaro Charles [facility] Start: 03-27-2023 End: 03-27-2023 ambulatory Lazaro Charles Other [employer] Other Start: 03-27-2023 Office outpatient vi sit 15 minutes Lazaro Charles [facility] Start: 03-27-2023 End: 03-27-2023 Patient encounter procedure [facility] Start: 03-05-2023 End: 03-05-2023 ambulatory Lazaro Charles Other [employer] Other Start: 03-05-2023 Telephone encounter Lazaro Charles [facility] Start: 02-20-2023 End: 02-20-2023 ambulatory Lazaro Charles Other [employer] Other Start: 02-20-2023 Telephone encounter Lazaro Melvin [facility] Start: 02-13-2023 End: 02-13-2023 ambulatory Lazaro Charles Other [employer] Other Start: 02-13-2023 Telephone encounter Lazaro Charles [facility] Start: 2023 End: 2023 ambulatory Lazaro Melvin Other [employer] Other Start: 2023 Telephone encounter Lazaro Charles [facility] Start: 02-05-2023 End: 02-05-2023 ambulatory Lazaro Melvin Other [employer] Other Start: 02-05-2023 Office outpatient vi sit 25 minutes Lazaro Charles [facility] Start: 02-05-2023 End: 02-05-2023 Patient encounter procedure [facility] Work Phone: Start: 11-27-2022 End: 11-27-2022 ambulatory Lazaro Melvin Other [employer] Other Start: 11-27-2022 Telephone encounter Lazaro Charles [facility] Start: 11-08-2022 End: 11-08-2022 ambulatory Lazaro Melvin Other [employer] Other Start: 11-08-2022 Office outpatient vi sit 15 minutes Lazaro Charles [facility] Start: 10-19-2022 End: 10-19-2022 ambulatory Lazaro Melvin Other [employer] Other Start: 10-19-2022 Telephone encounter Lazaro Charles [facility] Start: 10-11-2022 End: 10-11-2022 ambulatory Lazaro Melvin Other [employer] Other Start: 10-11-2022 Telephone encounter Lazaro Charles [facility] Start: 10-05-2022 End: 10-05-2022 ambulatory Lazaro Charles Other [employer] Other Start: 10-05-2022 Telephone encounter Lazaro Charles [facility] Start: 07-18-2022 End: 07-19-[address] LAZARO CHARLES Facility:[facility] Start: 07-07-2022 End: 07-07-2022 ambulatory Lazaro Charles Other [employer] Other Start: 07-07-2022 Telephone encounter Lazaro Charles [facility] Start: 07-04-2022 Office outpatient vi sit 15 minutes Lazaro Charles [facility] Start: 07-04-2022 End: 07-05-[address] LAZARO CHARLES [facility] Other Start: 08-22-2021 End: 08-23-[address] LAZARO CHARLES Facility:[facility] Procedures Date Procedure Procedure Detail Performing Clinician Start: 05-26-2024 Radiologic examinati on knee 1/2 views Vasiliy Lai NP Work Phone: Start: 04-28-2024 XR KNEE 1 OR 2 VIEWS RIGHT Camden العراقي DO Work Phone: Start: 04-28-2024 Total knee replacement Camden العراقي Start: 04-18-2024 Hysteroscopy Lazaro castellanos MD Work Phone: Start: 04-04-2024 UA WITH CULT RFLX Elijah mi العراقي DO Work Phone: Start: 02-13-2024 Arthrocentesis aspir &/inj major jt/bursa w/o us Camden العراقي DO Work Phone: Start: 01-16-2024 Radiologic examinati on knee 3 views Camden العراقي DO Work Phone: Start: 10-23-2023 PATHOLOGY REPORT Pippa Baker MD Work Phone: Start: 02-26-2005 Excision of cervical intervertebral disc Camden العراقي Start: 02-26-1975 Arthroscopy of knee Matt km العراقي Screening for malign ant neoplasm of cervix Lazaro Charles Other Plan of Treatment Date Care Activity Detail Author Start: 07-17-2024 End: 07-17-2024 Patient encounter procedure 07/17/2024 9:15 AM EDT Office Visit [facility] [address] [place] [phone] Laurie Nash, PA [address] [place] [address] [facility] Start: 05-26-2024 End: 05-26-2024 Patient encounter procedure [facility] Comment on above: Acute pain of right knee; Status post total right knee replacement Start: 05-07-2024 End: 05-07-2024 Patient encounter procedure 05/07/2024 8:00 AM EDT Office Visit [facility] [address] [place] [phone] Pippa Baker MD [address] [place] [address] [facility] Start: 04-18-2024 End: 04-18-2024 [facility] Start: 04-01-2024 End: 04-01-2024 ambulatory [facility] Comment on above: Primary osteoarthrit is of right knee Start: 03-25-2024 End: 03-25-2025 Urinalysis complete panel - Urine Urinalysis with reflex microscopic Lab Routine Pre-op testing Expected: 03/25/2024, Expires: 03/25/2025 [facility] Work Phone: Comment on above: Expected: 03/25/2024 , Expires: 03/25/2025 Start: 03-25-2024 End: 03-25-2024 Patient encounter procedure 03/25/2024 1:30 PM EST Office Visit [facility] [address] [place] [id number] Camden العراقي DO [address] [place] [address] Chronic pain of right knee (Primary Dx) [facility] Comment on above: Chronic pain of righ t knee (Primary Dx) Start: 02-13-2024 End: 02-13-2024 Patient encounter procedure [facility] Comment on above: Arrived Start: 01-16-2024 End: 01-16-2024 Patient encounter procedure 01/16/2024 9:45 AM EST Office Visit [facility] [address] [place] [address] Camden العراقي, DO [address] [place] [address] [facility] Patient Education Hysteroscopy K now your Meds [facility] Work Phone: Patient referral [facility] Work Phone: Tissue exam Tissue exam Path ology and Cytology Routine Pelvic pain in female Thickened endometrium Post-menopausal Ordered: 10/23/2023 [facility] Work Phone: Comment on above: Ordered: 10/23/2023 XR Knee - right 3 Views XR knee 3 views right Imaging Routine Chronic pain of right knee 01/16/2024 8:35 AM EST [facility] Work Phone: Payers Date Payer Category Payer Self-pay 2021 Medicare 2021 Private Health Insurance [employer] [id number]. [id number] 2021 Unknown 1958 Medicare [id number] 2..840.1.247602.19 1959 Unknown [id number] 2.16.840.1.183294.19 1956 Unknown [id number] 2.16.840.1.133043.3.579.2. 593 1956 Unknown [id number] 2.16.840.1.533699.3.579.2. 593 1956 Unknown [id number] 2.16.840.1.588756.3.579.2. 593 1956 Unknown [id number] 2.16.840.1.853152.3.579.2. 718 1956 Unknown [id number] 2.16.840.1.297760.3.579.2. 718 1956 Unknown [id number] 2.16.840.1.794284.3.579.2. 196 1956 Unknown [id number] 2.16.840.1.258553.3.579.2. 727 1956 Unknown [id number] 2.16.840.1.164340.3.579.2. 727 1956 Unknown [id number] 2.16.840.1.288886.3.579.2. 727 1956 Unknown [id number] 2.16.840.1.596451.3.579.2. 1259 1956 Unknown [id number] 2.16.840.1.402522.3.579.2. 1259 1956 Unknown [id number] 2.16.840.1.730822.3.579.2. 1259 1956 Unknown [id number] 2.16.840.1.287545.3.579.2. 1259 1956 Unknown [id number] 2.16.840.1.606615.3.579.2. 1259 1956 Unknown [id number] 2.16.840.1.666653.3.579.2. 1259 1956 Unknown [id number] 2.16.840.1.229298.3.579.2. 1259 1956 Unknown [id number] 2.16.840.1.954170.3.579.2. 1259 1956 Unknown [id number] 2.16.840.1.514956.3.579.2. 1259 1956 Unknown [id number] 2.16.840.1.326867.3.579.2. 1259 Unknown [facility] [id number] Unknown [id number] 2.16.840.1.823153.3.579.2. 531 Social History Date Type Detail Facility Unknown if ever smoked [employer] Other Start: 06-05-2023 End: 01-01-2024 Sex Assigned At [employer] Other Start: 04-11-2023 End: 06-05-2023 Tobacco smoking status MIIS Never smoked tobacco (finding) [facility] Start: 1955 Sex Assigned At Female F [facility] Start: 06-05-2023 Tobacco use and exposure Smokeless tobacco non-user [facility] Start: 10-23-2023 End: 05-26-2024 Alcoholic beverage intake Current drinker of alcohol (finding) [facility] Start: 10-23-2023 End: 01-01-2024 Alcoholic beverage intake [facility] How often to you hav e a drink containing alcohol? Monthly or less [facility] How many standard drinks containing alcohol do you have on a typical day? 1 or 2 [facility] How often do you hav e 6 or more drinks on 1 occasion? Less than monthly [facility] Start: 1955 Sex assigned at Not on file [facility] Start: 01-16-2024 Alcohol Comment social [facility] Tobacco smoking status No Smokin g Status Entered [facility] Start: 04-18-2024 Tobacco smoking stat us NHIS Ex-smoker (finding) [facility] Start: 04-18-2024 Sex Female (finding) [facility] Medical Equipment Procedure Code Equipment Code Equipment Origin al Text Equipment Identifier Dates KNEE TOTAL ARTHROPLASTY Camden العراقي DO [place] 04/28/24 Non Biological Knee R {[id number] FDA Start: 04-28-2024 Goals Date Patient Goal Desired Activity /State Functional Status Date Assessment Result Facility 04-04-2024 Functional Status No [facility] Clinical Notes 07-04-2022 to 05-26-2024 Vasiliy Lai, PATRICIO - 05/26/2024 9:00 AM EDT Note Date & Type Note Facility 05-26-2024 History of Present illness Narrative Images from the original note were not included. HISTORY OF PRESENT ILLNESS: POST OP PT Kanwal Scruggs is an 69 y.o. @ female. 1ST PO RT TKA 04/28/24 (4 WKS) @ [facility]-DR العراقي. XRAY TODAY EPIC 05/26/24 PHYSICAL THERAPY @ [place] WALKING WELL UNASSISTED. SORENESS DIFFUSE IN KNEE. TAKING 1/2 PERCOCET. DOING PT IN [place]. TAKING ASA UNTIL SUNDAY. NO GENNA HOSE. +ICE AND ELEVATING. DIFFICULTY SLEEPING, STILL ON COUCH. UNABLE TO GET COMFORTABLE IN BED. CURT REMOVED BY PT. DENIES ISSUES WITH INCISION. INCISION HEALING WELL. REVIEW OF SYSTEMS: General: Denies fever, fatigue or weight loss Lungs: Denies SOB Cardio: Denies chest pain GI: Denies indigestion or abdominal pain Neuro: Denies numbness or tingling, denies new onset paralysis Musculoskeletal: ( see note) PHYSICAL EXAM: Right Knee Exam Tenderness Right knee tenderness location: expected post op tenderness. Range of Motion Extension: 0 Flexion: 100 Tests Varus: negative Valgus: negative Other Erythema: absent Scars: present Sensation: decreased (numbness anterior knee) Pulse: present Swelling: mild Comments: -[facility]: XR knee 1 or 2 views right Imaging Result: 05/26/2024: Standing AP and LAT of right knee showed surgical position and alignment of prosthetic components without evidence of loosening or wear to the femoral, tibial, or patellar components. The alignment appeared to be anatomic. There was no evidence of accelerated or asymmetric wear to the patellar button or tibial tray. There was no evidence of fracture and/or dislocation. Impression: Stable RT total knee replacement. Vasiliy Lai RETAIL ADVISOR-SLASHER Procedures Orders Placed This Encounter Procedures XR knee 1 or 2 views right Order Specific Question: Reason for exam: Answer: total ASSESSMENT: ICD-10-CM 1. Status post total right knee replacement Z96.651 2. Acute pain of right knee M25.561 XR knee 1 or 2 views right PLAN: 4 weeks s/p RT Knee replacement. Plan: I reviewed surgical findings with patient and discussed plan of care. Encouraged patient to continue working on ROM and ambulation. She may start using vitamin E oil and lotion over incision as it is well healed. Reminded to hold off non-urgent dental appts for 6 months post op- and abx prophylaxis following. She will follow up in 6-8 weeks for RCK. Questions answered in laymen terms at the bedside. She will call with any signs of infection or increased pain. he diagnosis, home exercise plan and any ongoing restrictions/ recommendations reviewed. If unable to be reached in office, I recommend evaluation at nearest Emergency Room if any symptoms worsened or new symptoms develop for requiring urgent evaluation. Vasiliy Lai APRN-SLASHER documented in this encounter [facility] 05-01-2024 Note Progress Note-[place] Patient: KANWAL SCRUGGS Age: 69 years Sex: Female : 1955 Associated Diagnoses: None Author: Oscar SPARKS, Isidro Whitley Postoperative Information Postoperative disposition: Postoperative disposition: To PACU. Optimetrix number: Optimetrix number [id number]. Anesthetic utilized: Regional: Spinal, ACB. Health Status Allergies: Allergic Reactions (Selected) Severity Not Documented Bactrim- Unknown. Nitrofurantoin- Mental blocking. Physical Examination VS/Measurements Pain Assessment: Controlled. General: Awake, Appropriate. Respiratory: Adequate air exchange. Cardiovascular: Stable. Neurological Assessment Anesthetic outcome No anesthetic complications noted. Adequate pain relief. Review / Management Condition: Stable. Plan Transfer/Discharge: Transfer/Discharge Discharge when meets criteria ( To home ). [facility] Comment on above: Result Comment: Elec tronically Signed By: Oscar SPARKS, Isidro Whitley\.br\Date and Time Signed: 05/01/24 10:25 EST 04-28-2024 Note Interdisciplinary No te - OT Pt is seen for OT evaluation this date following R TKA with Dr. العراقي. [facility] score: . pt is CGA for functional transfers and mobility with FWW. pt is able to manage toileting and LB clothing with SUP/CGA, demonstrating overall good safety. pt to d/c home with services and spouse for support. [facility] 04-28-2024 Evaluation + Plan note Extrac genna from: Title:Op Note skeleton Author:Camden العراقي DO Date:04/28/24 Impression and Plan Diagnosis Pre-op dx-rt knee oa Post-op dx-same Procedure-rt tka Anesthesia-spinal c block EBL-0 TT-see nn To Recovery Room in stable and satisfactory condition.. Extracted from: Title:ANES Pre-operative Note 2022 Author:Isidro Salgado Date:04/28/24 Plan [place] [employer]esthesi[employer] (ASA) physical status classification: Class II. Anesthetic Preoperative Plan: Anesthesia General. [facility] 03-03-2025 Hospital Discharge instructions Patient Education 04/28/2024 11:36:58 How to Use an Incentive Spirometer How to Use an Incentive Spirometer An incentive spirometer is a tool that measures how well you are filling your lungs with each breath. Learning to take long, deep breaths using this tool can help you keep your lungs clear and active. This may help to reverse or lessen your chance of developing breathing (pulmonary) problems, especially infection. You may be asked to use a spirometer: After a surgery. If you have a lung problem or a history of smoking. After a long period of time when you have been unable to move or be active. If the spirometer includes an indicator to show the highest number that you have reached, your health care provider or respiratory therapist will help you set a goal. Keep a log of your progress as told by your health care provider. What are the risks? Breathing too quickly may cause dizziness or cause you to pass out. Take your time so you do not get dizzy or light-headed. If you are in pain, you may need to take pain medicine before doing incentive spirometry. It is harder to take a deep breath if you are having pain. How to use your incentive spirometer 1.Sit up on the edge of your bed or on a chair. 2.Hold the incentive spirometer so that it is in an upright position. 3.Before you use the spirometer, breathe out normally. 4.Place the mouthpiece in your mouth. Make sure your lips are closed tightly around it. 5.Breathe in slowly and as deeply as you can through your mouth, causing the piston or the ball to rise toward the top of the chamber. 6.Hold your breath for 3 5 seconds, or for as long as possible. If the spirometer includes a college football coach indicator, use this to guide you in breathing. Slow down your breathing if the indicator goes above the marked areas. 7.Remove the mouthpiece from your mouth and breathe out normally. The piston or ball will return tothe bottom of the chamber. 8.Rest for a few seconds, then repeat the steps 10 or more times. Take your time and take a few normal breaths between deep breaths so that you do not get dizzy or light-headed. Do this every 1 2 hours when you are awake. 9.If the spirometer includes a goal marker to show the highest number you have reached (best effort), use this as a goal to work toward during each repetition. 10.After each set of 10 deep breaths, cough a few times. This will help to make sure that your lungs are clear. If you have an incision on your chest or abdomen from surgery, place a pillow or a rolled-up towel firmly against the incision when you cough. This can help to reduce pain while taking deep breaths and coughing. General tips When you are able to get out of bed: ?Walk around often. ?Continue to take deep breaths and cough in order to clear your lungs. Keep using the incentive spirometer until your health care provider says it is okay to stop using it. If you have been in the hospital, you may be told to keep using the spirometer at home. Contact a health care provider if: You are having difficulty using the spirometer. You have trouble using the spirometer as often as instructed. Your pain medicine is not giving enough relief for you to use the spirometer as told. You have a fever. Get help right away if: You develop shortness of breath. You develop a cough with bloody mucus from the lungs. You have fluid or blood coming from an incision site after you cough. Summary An incentive spirometer is a tool that can help you learn to take long, deep breaths to keep your lungs clear and active. You may be asked to use a spirometer after a surgery, if you have a lung problem or a history of smoking, or if you have been inactive for a long period of time. Use your incentive spirometer as instructed every 1 2 hours while you are awake. If you have an incision on your chest or abdomen, place a pillow or a rolled-up towel firmly against your incision when you cough. This will help to reduce pain. Get help right away if you have shortness of breath, you cough up bloody mucus, or blood comes fromyour incision when you cough. This information is not intended to replace advice given to you by your health care provider. Make sure you discuss any questions you have with your health care provider. Document Revised: 05/03/2020 Document Reviewed: 05/03/[address] Patient Education 2023 [employer]. 04/28/2024 11:36:56 Knee Cryocuff Patient Instructions - FT (CUSTOM) 04/28/2024 11:36:55 Post Op Patient Instructions - FT (Custom) (CUSTOM) 04/21/2024 13:00:29 العراقي - Total Knee Arthroplasty (CUSTOM) [place], [place] [facility] DISCHARGE INSTRUCTIONS TOTAL KNEE ARTHROPLASTY INCISION CARE: Mepilex dressing can get wet with showers. Please remove 10 days after surgery per instruction sheet. Physical Therapy will monitor. If curt present, please coordinate removal 21 days after surgery with office staff. Please notify the office if any increase in redness, tenderness, drainage, fever, or wound separation is noted beyond this point. No dental work or cleaning for 3 months. MEDICATIONS: You may resume your home medications at the time of discharge. Blood thinners - continue the day after surgery. Aspirin 325 mg EC oral once a day for 4 weeks for blood clot prevention with meals. Please notify your doctor if you have a stomach sensitivity to Aspirin or history of previous stomach ulcers. Pain medication has been prescribed as well. You may continue to use the pain medication every fourhours as needed. Any narcotic pain medication can cause side effects including stomach upset, constipation, or light-headedness. You should not drive or operate machinery, or use alcohol while using the narcotic pain medication. You should not use other pain medications with this prescription pain medication unless further directed by your physician. PHYSICAL THERAPY: Continue the range of motion and strengthening exercises initiated in Physical Therapy in the hospital. [facility] Discharge Instructs for TKAPage 2 Physical Therapy Cont. Continue weight bearing, as ordered, to the operated knee for four to six weeks as directed in Physical Therapy, or until your strength is improved and Physical Therapy will then allow you to progress to full weight. This will be with the use of a walker or crutches initially. Assistive devices canbe weaned or modified with physical therapy Physical therapy as begun in the hospital will continue at home, possible with the trading assistant of Home Health Physical Therapy or in the hospital as an outpatient. When you have become independent withthe physical therapy program, this will then be discontinued as a supervised program and you will be instructed to continue the physical therapy exercises at home. Your exercises are baptiste to successful rehabilitation. You should gain full extension first, hopefully before hospital discharge, then continue to do the exercises to maintain this, and gain 90 degreesflexion by one month post-op. Do the exercises daily, twice if preferred. DRIVING: Please do not drive for 4-6 weeks pending therapy progress. 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 It is therefore advised not to drive until after yourfirst office visit following surgery FOLLOW-UP OFFICE VISIT: Camden العراقي, [facility] [address] [place] [id number] Reviewed: 03-22 Follow Up Care 03/25/2024 13:51:56 With:KEYANNA Linares Address: [address] [place] [phone]- Business (1) When:05/26/2024 09:00:00 Comments:Keep scheduled appointment [facility] 03-03-2025 NotePatient Education - Text Pulmonary Medicine How to Use an Incentive Spirometer An incentive spirometer is a tool that measures how well you are filling your lungs with each breath. Learning to take long, deep breaths using this tool can help you keep your lungs clear and active. This may help to reverse or lessen your chance of developing breathing (pulmonary) problems, especially infection. You may be asked to use a spirometer: ??? After a surgery. ??? If you have a lung problem or a history of smoking. ??? After a long period of time when you have been unable to move or be active. If the spirometer includes an indicator to show the highest number that you have reached, your health care provider or respiratory therapist will help you set a goal. Keep a log of your progress as told by your health care provider. What are the risks? Breathing too quickly may cause dizziness or cause you to pass out. Take your time so you do not get dizzy or light-headed. ??? If you are in pain, you may need to take pain medicine before doing incentive spirometry. It isharder to take a deep breath if you are having pain. How to use your incentive spirometer 1. Sit up on the edge of your bed or on a chair. 2. Hold the incentive spirometer so that it is in an upright position. 3. Before you use the spirometer, breathe out normally. 4. Place the mouthpiece in your mouth. Make sure your lips are closed tightly around it. 5. Breathe in slowly and as deeply as you can through your mouth, causing the piston or the ball torise toward the top of the chamber. 6. Hold your breath for 3?5 seconds, or for as long as possible. ??? If the spirometer includes a college football coach indicator, use this to guide you in breathing. Slow down your breathing if the indicator goes above the marked areas. 7. Remove the mouthpiece from your mouth and breathe out normally. The piston or ball will return to the bottom of the chamber. 8. Rest for a few seconds, then repeat the steps 10 or more times. ??? Take your time and take a few normal breaths between deep breaths so that you do not get dizzy or light-headed. ??? Do this every 1?2 hours when you are awake. 9. If the spirometer includes a goal marker to show the highest number you have reached (best effort), use this as a goal to work toward during each repetition. 10. After each set of 10 deep breaths, cough a few times. This will help to make sure that your lungs are clear. ??? If you have an incision on your chest or abdomen from surgery, place a pillow or a rolled-up towel firmly against the incision when you cough. This can help to reduce pain while taking deep breaths and coughing. General tips ??? When you are able to get out of bed: ? Walk around often. ? Continue to take deep breaths and cough in order to clear your lungs. ??? Keep using the incentive spirometer until your health care provider says it is okay to stop using it. If you have been in the hospital, you may be told to keep using the spirometer at home. Contact a health care provider if: ??? You are having difficulty using the spirometer. ??? You have trouble using the spirometer as often as instructed. ??? Your pain medicine is not giving enough relief for you to use the spirometer as told. ??? You have a fever. Get help right away if: ??? You develop shortness of breath. ??? You develop a cough with bloody mucus from the lungs. ??? You have fluid or blood coming from an incision site after you cough. Summary ??? An incentive spirometer is a tool that can help you learn to take long, deep breaths to keep your lungs clear and active. ??? You may be asked to use a spirometer after a surgery, if you have a lung problem or a history of smoking, or if you have been inactive for a long period of time. ??? Use your incentive spirometer as instructed every 1?2 hours while you are awake. ??? If you have an incision on your chest or abdomen, place a pillow or a rolled-up towel firmly against your incision when you cough. This will help to reduce pain. ??? Get help right away if you have shortness of breath, you cough up bloody mucus, or blood comes from your incision when you cough. This information is not intended to replace advice given to you by your health care provider. Make sure you discuss any questions you have with your health care provider. Document Revised: 05/03/2020 Document Reviewed: 05/03/2020 [employer] Patient Education ? 2023 [employer]. [place] [facility] DISCHARGE INSTRUCTIONS TOTAL KNEE ARTHROPLASTY INCISION CARE: Mepilex dressing can get wet with showers. Please remove 10 days after surgery per instruction sheet. Physical Therapy will monitor. If curt present, please coordinate removal 21 (more content notincluded)...[facility] 04-28-2024 NoteProgress Note-Physician Patient: KANWAL SCRUGGS Age: 69 years Sex: Female : 1955 Associated Diagnoses: None Author: Oscar SPARKS, Isidro Whitley Preoperative Information Anesthesia Preop Info: Time patient last ate or drank 04/28/2024 00:00:00. Anesthesia history: Patient history: N/V with anesthesia. Family history+: None. Informed consent: Signed by patient. Re-evaluation prior to induction: Initial evaluation reviewed: No significant change. Review of Systems Eye Ear/Nose/Mouth/Throat Respiratory: No shortness of breath, No cough. Cardiovascular: Negative, No chest pain. Gastrointestinal: No heartburn. Musculoskeletal Neurologic Health Status Allergies: Allergic Reactions (Selected) Severity Not Documented Bactrim- Unknown. Nitrofurantoin- Mental blocking., Allergies (2) Active Severity Reaction Bactrim Unknown nitrofurantoin Mental blocking Current medications: (Selected) Inpatient Medications Ordered Arixtra 2.5 mg/0.5 mL Injection: 2.5 mg = 0.5 mL, Injection, SubCutaneous, qAM for 10 day(s), Stop date 05/09/24 6:29:00 EDT, Routine, Start date 04/29/24 6:30:00 EST, Start AM postop day 1, :30:00 EST Colace 100 mg Cap: 100 mg = 1 cap(s), Cap, Oral, BID, Routine, Start date 04/28/24 21:00:00 EST Dulcolax 5 mg Tab-EC: 10 mg = 2 tab(s), Tab-EC, Oral, Daily PRN Constipation, Routine, Start date 04/30/24 10:00:00 EST HYDROmorphone 1 mg/mL injectable solution: 1 mg = 1 mL, Injection, IV Push, q2hr PRN Pain 8-10 for 5 day(s), Stop date 05/03/24 9:59:00 EST, Routine, Start date 04/28/24 10:00:00 EST, 04/28/24 10:00:00 EST Lactated Ringers IV Sabiha 1000 mL 1,000 mL: 1,000 mL, IV, 80 mL/hr, Routine, Start date 04/28/24 10:00:00 EST, 12.5 hour(s), Total volume (mL): 1,000, 67.1 kg, 1.7, m2 Milk of Magnesia 8% Susp-Oral: 30 mL, Susp-Oral, Oral, BID PRN Constipation, Routine, Start date 04/28/24 10:00:00 EST Pantoprazole [address] Tab: 40 mg = 1 tab(s), Tab-DR, Oral, Daily, Routine, Start date 04/29/24 9:00:00 EST Sodium Chloride 0.9% IV Sabiha 1000 mL 1,000 mL: 1,000 mL, IV, 150 mL/hr, Routine, Start date :00:00 EST, 6.7 hour(s), Total volume (mL): 1,000, 67.1 kg, 1.7, m2 Zofran 4 mg/2 mL Injection: 4 mg = 2 mL, Injection, IV Push, q6hr PRN Nausea/Vomiting, Routine, Start date 04/28/24 10:00:00 EST, 04/28/24 10:00:00 EST acetaminophen-oxycodone 325 mg-5 mg Tab: 1 tab(s), Tab, Oral, q4hr PRN Pain 4-7 for 5 day(s), Stop date 05/03/24 9:59:00 EST, Routine, Start date 04/28/24 10:00:00 EST acetaminophen-oxycodone 325 mg-5 mg Tab: 2 tab(s), Tab, Oral, q4hr PRN Pain 4-7 for 5 day(s), Stop date 05/03/24 9:59:00 EST, Routine, Start date 04/28/24 10:00:00 EST cefazolin additive + Sodium Chloride 0.9% intravenous solution 50 mL: 2 gm = 1 EA, IV Piggyback, q8hr for 2 dose(s), Stop date 04/29/24 1:59:00 EST, Routine, Start date 04/28/24 10:00:00 EST, 100 mL/hr, Infuse over 30 minute(s), 04/28/24 10:00:00 EST cefazolin additive + Sodium Chloride 0.9% intravenous solution 50 mL: 2 gm = 1 EA, Powder-Inj, IV Piggyback, PREOP, Routine, Start date 04/28/24 7:00:00 EST, 100 mL/hr, Infuse over 30 minute(s) morphine 2 mg/mL Inj: 2 mg = 1 mL, Injection, IV Push, q4hr PRN Pain 8-10 for 5 day(s), Stop date 05/03/24 9:59:00 EST, Routine, Start date 04/28/24 10:00:00 EST Prescriptions Prescribed Colace 100 mg Cap: 100 mg = 1 cap(s), Oral, BID, # 20 cap(s), Refills(s) 0, Pharmacy: [id number], 155, cm, 04/04/24 12:36:00 EST, Height/Length Dosing, 67.1, kg, 04/04/24 12:36:00 EST, Weight Dosing Percocet 5 mg-325 mg oral tablet: See Instructions, 50 tab(s), Refill(s) 0, Take one to two oral every 4 hours as needed for surgical pain., [id number], 155, cm, 04/04/24 12:36:00 EST, Height/Length Dosing, 67.1, kg, 04/04/24 12:36:00 EST, Weight Dosing aspirin 325 mg Tab: 325 mg = 1 tab(s), Oral, Daily, Start the day after surgery for blood clot prevention., X 30 day(s), # 30 tab(s), Refills(s) 0, Pharmacy: [id number], 155, cm, 04/04/24 12:36:00 EST, Height/Length Dosing, 67.1, kg, 04/04/24 12:36:00 EST, Bam... Documented Medications Documented Acidophilus Probiotic Blend oral capsule: 1 cap(s), Oral, Daily, Refill(s) 0, Prophylaxis D3 50 mcg (2000 intl units) oral capsule: Refills(s) 0 ICaps AREDS oral tablet: 1 tab(s), Oral, Daily Prophylaxis black seed oil: black seed oil, See Instructions, Prophylaxis calcium (as calcium citrate) 200 mg oral tablet: 950 mg = 1 tab(s), Oral, BID, Prophylaxis cloNIDine 0.1 mg tab: 0.1 mg = 1 tab(s), Oral, QID, PRN for Hot Flashes cyclobenzaprine 10 mg Tab: 10 mg = 1 tab(s), Oral, TID, PRN for spasm ibuprofen 800 mg Tab: 800 mg = 1 tab(s), Oral, TID, Pain traZODONE 50 mg Tab: 25 mg = 0.5 tab(s), Oral, Once a day (at bedtime), Insomnia, Home Medications (12) Active Acidophilus Probiotic Blend oral capsule 1 cap(s), Oral, Daily aspirin 325 mg Tab 325 mg = 1 tab(s), Oral, Daily black seed oil See Instructions, PRN sergio (more content not included)...[facility] ShawComment on above: Result Comment: Electronically Signed By: Oscar SPARKS, Isidro Whitley\.br\Date and Time Signed: 04/28/24 08:49 [id number] NotePatient Education - Text [place], [place] [facility] DISCHARGE INSTRUCTIONS TOTAL KNEE ARTHROPLASTY INCISION CARE: Mepilex dressing can get wet with showers. Please remove 10 days after surgery per instruction sheet. Physical Therapy will monitor. If curt present, please coordinate removal 21 days after surgery with office staff. Please notify the office if any increase in redness, tenderness, drainage, fever, or wound separation is noted beyond this point. No dental work or cleaning for 3 months. MEDICATIONS: You may resume your home medications at the time of discharge. Blood thinners - continue the day after surgery. Aspirin 325 mg EC oral once a day for 4 weeks for blood clot prevention with meals. Please notify your doctor if you have a stomach sensitivity to Aspirin or history of previous stomach ulcers. Pain medication has been prescribed as well. You may continue to use the pain medication every fourhours as needed. Any narcotic pain medication can cause side effects including stomach upset, constipation, or light-headedness. You should not drive or operate machinery, or use alcohol while using the narcotic pain medication. You should not use other pain medications with this prescription pain medication unless further directed by your physician. PHYSICAL THERAPY: Continue the range of motion and strengthening exercises initiated in Physical Therapy in the hospital. [facility] Discharge Instructs for TKA Page 2 Physical Therapy Cont. Continue weight bearing, as ordered, to the operated knee for four to six weeks as directed in Physical Therapy, or until your strength is improved and Physical Therapy will then allow you to progress to full weight. This will be with the use of a walker or crutches initially. Assistive devices canbe weaned or modified with physical therapy Physical therapy as begun in the hospital will continue at home, possible with the trading assistant of Home Health Physical Therapy or in the hospital as an outpatient. When you have become independent withthe physical therapy program, this will then be discontinued as a supervised program and you will be instructed to continue the physical therapy exercises at home. Your exercises are baptiste to successful rehabilitation. You should gain full extension first, hopefully before hospital discharge, then continue to do the exercises to maintain this, and gain 90 degreesflexion by one month post-op. Do the exercises daily, twice if preferred. DRIVING: Please do not drive for 4-6 weeks pending therapy progress. 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 It is therefore advised not to drive until after yourfirst office visit following surgery FOLLOW-UP OFFICE VISIT: Camden العراقي, DO [facility] [address] [place] [id number] Reviewed: 03-22[facility]02-[facility]25 History of Present illness Narrative* Isaias aTpia, PT - 04/01/2024 12:00 PM EST Images from the original note were not included. Physical Therapy Physical Therapy Evaluation Visit Patient Name: Kanwal Scruggs Today's Date: 04/01/2024 Encounter Diagnoses Name Primary? Primary osteoarthritis of right knee Yes Visit number: 1 Subjective Kanwal Scruggs 69 y.o. female presents to physical therapy w/ chief c/o R knee pain. 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 Mild swelling, TTP medial joint line. R knee AROM: 6-120 ERP with ext > flex R knee strength ext= 3+/5 pain limiting, flex=4+/5 MMT Treatment Interventions Education: Reviewed prehab TKA packet in total including additional HEP handout: precautions, gait/transfers with/without AD, not bolstering under knee. Prehab HEP and importance, s/s of DVT/infection. Importance of early/often ROM work and phase 1 exercises. Expectations post-op as far as PT, in the home vs SNF stay and transition to OP when ready. Pt had no further questions and has my contact info should anything come up between today and surgery date. X 15 min self care/home maintenance. PtDr to order walker and have it at hospital for her then home health PT via [facility] with likely transition to non-[facility] outpatient PT close to home when ready, advised to inform Dr where script needs sent as appropriate. Therapeutic Exercise: Reviewed prehab and phase 1 post-op exercises including QS/HS, LAQs AA prn, marches, hip abd and ext, HS curls standing, HR/TR x 10 reps over 10 min sup discussed static ext stretch as well. Gait Training: Dr enriquez order walker, discussed gait staying within walker and steps leading with L going up and R on way down initially. Assessment/Plan R knee pain, decreased ROM, weakness, impaired gait 2nd to OA scheduled for TKA One time visit only prehab for R TKA 04/28/24 I hereby deem this POC medically necessary. Please sign below. Date: documented in this encounterBoone Hospital [id number] History of Present illness Narrative* Aissatou Hahn - 03/25/2024 1:30 PM EST Images from the original note were not included. GENERAL HISTORY AND PHYSICAL: NAME: Kanwal Scruggs : 1955 CHIEF COMPLAINT: Right knee pain and swelling. HISTORY OF PRESENT ILLNESS: Kanwal is here still having pain. She has had cortisone injections. Visco supplementation in January provided no relief. She lives in the [place], [place] area. She has tried ice, Tylenol and bracing. She tried a home exercise program. She has no fever, chills or constitutional symptoms. She does have buckling and giving out, stiffness, night disruption. She does report crepitation. PAST MEDICAL HISTORY: Past Medical History: Diagnosis Date Arthritis Compression fracture of body of thoracic vertebra (CMS/HCC) Fracture lumbar vertebra-closed (CMS/HCC) Lumbosacral disc disease Skin cancer Thoracic disc disease Thoracic spine fracture (CMS/HCC) PAST SURGICAL HISTORY: Past Surgical History: Procedure Laterality Date CERVICAL BIOPSY W/ LOOP ELECTRODE EXCISION COLPOSCOPY KNEE ARTHROPLASTY Right NECK SURGERY 2006 SOCIAL HISTORY: Social History Occupational History Not on file Tobacco Use Smoking status: Never Smokeless tobacco: Never Vaping Use Vaping status: Never Used Substance and Sexual Activity Alcohol use: Yes Alcohol/week: 3.0 standard drinks of alcohol Types: 3 Standard drinks or equivalent per week Comment: social Drug use: Never Sexual activity: Yes Partners: Male control/protection: Post-menopausal ALLERGIES: Allergies Allergen Reactions Nitrofurantoin Other Reaction(s): Other (See Comments) Sulfamethoxazole-Trimethoprim Anxiety, Dizziness, Hallucinations, Hives, Itching, Nausea Only, Palpitations and Rash MEDICATIONS: Current Outpatient Medications Medication Instructions cloNIDine (Catapres) 0.1 MG tablet cyclobenzaprine (Flexeril) 10 MG tablet traZODone (Desyrel) 50 MG tablet REVIEW OF SYSTEMS: The review of systems, history and current medications list are all reviewed today. Vitals: Visit Vitals Ht 5' 1 Wt 139 lb LMP (LMP Unknown) BMI 26.26 kg/m OB Status Postmenopausal Smoking Status Never BSA 1.65 m PHYSICAL EXAM: On physical exam, the right knee has mild to moderate swelling. There is moderate tenderness to the medial and patellofemoral joint. Crepitance is present. Gait is stiff and antalgic. She gets near full extension. Flexion is to 110 degrees. X-rays and imaging permanently saved to the patient's record [facility] changes that are near bone on bone to the patellofemoral medial joint. There is no fracture, dislocation, tumor or infection seen. Surgical History and Physical: GENERAL AND PSYCHOLOGICAL: The patient is alert and oriented for age. HEAD AND E.E.N.T.: The skull is normocephalic. There is no mass or sign of trauma. NECK: The neck is supple. There is good range of motion. There is no mass or adenopathy appreciated. The thyroid is not enlarged. CARDIAC: The heart is regular. There is no murmur or ectopy appreciated. LUNGS: Inspiratory and expiratory excursions are symmetrical. The lung alcocer are clear in all quadrants. ABDOMEN: The texture is soft. Bowel sounds are heard well in all quadrants. There is no tenderness to palpation. There is no organomegaly appreciated. OSTEOPATHIC AND STRUCTURAL: There is no gross evidence of kyphosis, lordosis, scoliosis, or apparent leg length discrepancy, with no acute tissue texture changes in sitting or standing positions. ASSESSMENT: Right knee end stage osteoarthritis; antalgic gait; failure of conservative and injection management. PLAN: The nature of the findings were discussed at length. Ice, Tylenol and analgesia, cortisone and Visco supplementation has failed. She has activities of daily living and night disruption. We discussed the perioperative course, time, healing, commitment and expectations of total knee replacement. The nature of the findings were discussed at length. Total knee arthroplasty was reviewed at length. The patient has exhausted conservative management and has activities of daily living disruption as dictated above. The patient has attempted significant prolonged conservative care and is starting to have difficulty getting dressed, walking simple distances such as 20-30' and has significant night disruption the majority of the time. The patient has exhausted all conservative management as wellas corticosteroid and Visco supplementation injections on numerous occasions. We discussed total knee replacements with the implants utilized, hospital course, rehab time and commitment, as well as time off work were all reviewed. The risks, benefits, complications, and reasonable expectations of th is procedure were discussed. These include but are not limited to continued pain, dissatisfaction, antalgic gait, infection, infection requiring multiple surgeries with IV antibiotics with cement spacer, possible amputation, stiffness, stiffness requiring manipulation, bleeding, bleeding requiring t ransfusion, hematoma, wound dehiscence, nerve, vessel or tendon injury, foot drop, anesthesia complications, blood clot, pulmonary embolism, myocardial infarction, arrhythmia, stroke and were all reviewed. The potential for product recall or failure was discussed. The patient is aware that results cannot be guaranteed. assistant terminal manager antibiotic prophylaxis with dental or invasive surgical work was discussed. We had a very lengthy discussion regarding the pros, cons, risks and benefits and reasonable expectations. The patient voices verbal understanding of which I am personally involved with the informed consent process. Consent forms are signed and witnessed. Numerous questions were answered. Routine testing will be arranged and I will see the patient post operative for repeat x-ray and exam. Patient is discharged in stable condition. Consent forms are signed and witnessed for right total knee arthroplasty. She will move forward in the near future. We will send Phenergan postoperatively for nausea issues. This is scheduled for the hospital. Follow up will be x-ray and exam four weeks postoperative in the [place] office with Vasiliy Lai, nurse practitioner. Camden العراقي D.O. Cosigned by Camden العراقي DO at 03/28/2024 2:16 PM EST documented in this encounterBoone Hospital [id number] Evaluation note* Diagnosis Onset Date Resolution Status Admit Date Chronic thoracic back pain acute March 24, 2024 8:32am Hot flash, menopausal acute Dave abreu 2024 8:32am Insomnia associated with menopause acute March 24 8:32am [facility] Work Phone: [phone] History of Present illness Narrative* GURMETE Herrera - 02/13/2024 8:45 AM ESTAssociated Order(s): L Inj/Asp: R knee Post-Procedure Diagnose(s): Chronic pain of right knee L Inj/Asp: R knee on 02/13/2024 8:40 AM Indications: pain Details: 22 G needle Medications: 30 mg cross-linked hyaluronate 30 MG/3ML Consent was given by the patient. * Camden العراقي DO - 02/13/2024 8:45 AM EST Gel One Injection Right knee Patient is seen and evaluated today for right knee pain and stiffness. Continued swelling and stiffness despite conservative course with ice, Tylenol, NSAID's and compression. Occasional buckle sensation. Night disruption is present and increasing. Progression of pain. Occasional assistive device required. Here today to review non-operative conservative options and discuss indications and overview of knee arthroplasty. Physical Exam: The patient is examined in the office today. The right knee has mild aseptic swelling. Hypertrophicchanges are noted. AROM is decreased with pain. Crepitance is present in multiple compartments. Tenderness is moderate to severe thru multiple compartments. Collateral ligaments are intact to stress testing at 0 and 30 degrees. Positive grind test of the patella. Gait is stiff and antalgic with occasional assistive device reported. Hip exam is stable. Negative bench and straight leg raise testing. NVM intact distally without footdrop. Calves are supple without sign of infection, ulceration or DVT. Xrays: Multiple weightbearing views (AP, Lateral and sunrise) are reviewed for the permanent PACS record. Advanced grade 3-4 degenerative changes are present of the right knee. No fracture, dislocation, tumor or infection seen. Images are reviewed with the patient at length. Assessment: Right knee Osteoarthritis-M17.11 Right knee pain-M25.561 Antalgic gait-R26 Treatment/Plan: The nature of the findings were discussed at length. Xray imaging and severity discussed. Conservative management with ice, heat, exercise, strengthening, weight loss, compression wrap/bracing was reviewed. Anti-inflammatory medication , if stable with GI and kidney function, was reviewed. OTC and prescription options were discussed. Tylenol dosing parameters and daily limits for breakt thru painwas reviewed. Cortisone injections can be provided up to 3 per year and no closer than a month interval. Hyaluronic acid viscosupplementation options and expectations were discussed at length. Patient is aware results are not guaranteed. We discussed the role of knee replacement surgery, indications, approach, implants, and rehab process were all reviewed. After lengthy discussion, the patient elects to move forward with viscosupplementation injection with Gel One to the Right knee. Under sterile technique with the knee extended and supported, 3 ml of Gel One was injected to the right knee sup rapatellar pouch. Needle was removed and adequate hemostasis was achieved. The patient tolerated the injection well. Post injection restriction of 50% activity reduction the day of the injection withicing techniques 1-2 times per 10-15 minutes to the knee was reviewed. Patient was ambulatory and discharged in stable condition. Any reactions, concerns or continued pain will be reported via phone call or return visit. All questions were answered. documented in this encounterBoone Hospital [id number] History of Present illness Narrative* Pippa Baker MD - 01/01/2024 8:00 AM EST Images from the original note were not included. Pippa Baker MD Obstetrics and Gynecology Patient: Kanwal Scruggs : 1955 (68 y.o.) Exam Date: 01/01/2024 Reason for Visit - Chief Complaint Patient presents with Surgery consult Endosee procedure done in office on 10/23/23, D&C procedure discussed to be completed after biopsy results for thickened endometrium came back. Patient would like to move forward with surgery. ENDOMETRIAL BIOPSY: - AGGREGATE OF MUCUS, ONE CYSTICALLY DILATED GLAND AND FEW FRAGMENTS OF METAPLASTIC SQUAMOUS EPITHELIUM. Postop nausea-Needs immediate Zofran postop Cone Biopsy 1984 The patient presents with a history of precancerous lesions on her cervix, which were treated with a cone biopsy in the past. She is currently concerned about a recent finding of one dilated gland inher uterus, which may indicate a lesion where the lining of the womb gets thick. The patient is considering a dilation and curettage (D&C) procedure as recommended by the provider, but she has con cerns about anesthesia due to previous experiences of nausea and vomiting post-procedure. The patient mentions that she will likely schedule the procedure after the of the year due to personal circumstances involving her mother's health. Her last pap smear results were good, but she has a history of a cone biopsy around 1984 or 1985. Visit Vitals LMP (LMP Unknown) OB Status Postmenopausal Smoking Status Never History of Present Illness, Associated Treatments and Results - OB History Para Term AB Living 2 2 0 2 0 2 SAB IAB Ectopic Multiple Live Births 0 0 0 0 2 # Outcome Date GA Lbr Davian/2nd Weight Sex Type Anes PTL Lv 2 Vag-Spont BRIGITTE 1 Vag-Spont BRIGITTE Constitutional: Negative. HENT: Negative. Eyes: Negative. Respiratory: Negative. Cardiovascular: Negative. Gastrointestinal: Negative. Endocrine: Negative. Genitourinary: Negative. Musculoskeletal: Negative. Skin: Negative. Allergic/Immunologic: Negative. Neurological: Negative. Hematological: Negative. Psychiatric/Behavioral: Negative. Allergies Allergen Reactions Nitrofurantoin Other Reaction(s): Other (See Comments) Sulfamethoxazole-Trimethoprim Anxiety, Dizziness, Hallucinations, Hives, Itching, Nausea Only, Palpitations and Rash Current Outpatient Medications: miSOPROStol (Cytotec) 200 MCG tablet, Take 4 tablets orally the night before procedure, Disp: 4 tablet, Rfl: 0 Past Medical History: Diagnosis Date Compression fracture of body of thoracic vertebra (CMS/HCC) Skin cancer Past Surgical History: Procedure Laterality Date COLPOSCOPY KNEE ARTHROPLASTY Right NECK SURGERY 2006 Family History Problem Relation Name Age of Onset Migraines Mother Mom Breast cancer Paternal Grandmother Social History Tobacco Use Smoking Status Never Smokeless Tobacco Never Physical Exam - General appearance, mentation, extraocular movements, facial strength and movement, hearing, upper and lower extremity strength and tone, sensation to gross testing, coordination, and gait are normalor at baseline unless noted below. Physical Exam Constitutional: Appearance: Normal appearance. HENT: Head: Normocephalic and atraumatic. Neurological: Mental Status: She is alert and oriented to person, place, and time. Psychiatric: Mood and Affect: Mood normal. Behavior: Behavior normal. Assessment/Plan ICD-10-CM 1. Thickened endometrium R93.89 2. Post-menopausal Z78.0 3. Pelvic pain in female R10.2 Kanwal was seen today for surgery consult. Diagnoses and all orders for this visit: Thickened endometrium Post-menopausal - ondansetron (Zofran) 4 MG tablet; Take 1 tablet (4 mg) by mouth 2 (two) times a day as needed fornausea Pelvic pain in female 1. Dilation and Curettage (D&C) discussion: - Patient is considering D&C due to dilated gland and to rule out precancerous lesions - Procedure to be performed under light anesthesia - Patient aware of process and recovery time - Patient plans to schedule after of the year - Plan: a) Provide information on D&C procedure and ensure proper scheduling. b) Administer Zofran pre- and post-op to prevent nausea and vomiting. c) Provide prescription for mild sedative for ride home after procedure. 2. History of cone biopsy and precancerous cervical lesions: - Patient has history of precancerous cervical lesions - Underwent cone biopsy in the past - Recent Pap smear results were normal - Plan: a) Continue regular Pap smear screenings. b) Monitor for any changes or concerns during future visits. 3. Post-anesthesia nausea and vomiting: - Patient has history of nausea and vomiting after anesthesia - Concerned about this issue during D&C procedure - Plan: a) Administer Zofran pre- and post-op to prevent nausea and vomiting. b) Ensure anesthesia team is aware of patient's history. c) Provide prescription for mild sedative for ride home after procedure. 4. Follow-up and scheduling: - Patient will contact office to schedule D&C after of the year - Regular Pap smear screenings needed due to history - Plan: a) Ensure proper scheduling and follow-up appointments are made. b) Monitor patient's progress and address concerns during future visits. documented in this encounterBoone Hospital [id number] History of Present illness Narrative* Aleidabrian Collier MA - 10/23/2023 12:30 PM EDT Images from the original note were not included. Pippa Baker MD Obstetrics and Gynecology Patient: Kanwal Scruggs : 1955 (68 y.o.) Exam Date: 10/23/2023 Reason for Visit - Chief Complaint Patient presents with Endosee Endosee procedure to be completed in the office for postmenopausal thickened endometrium. Possible EMB to be completed with procedure. Visit Vitals LMP (LMP Unknown) OB Status Postmenopausal Smoking Status Never History of Present Illness, Associated Treatments and Results - OB History Para Term AB Living 2 2 0 2 0 2 SAB IAB Ectopic Multiple Live Births 0 0 0 0 2 # Outcome Date GA Lbr Davian/2nd Weight Sex Type Anes PTL Lv 2 Vag-Spont BRIGITTE 1 Vag-Spont BRIGITTE Constitutional: Negative. HENT: Negative. Eyes: Negative. Respiratory: Negative. Cardiovascular: Negative. Gastrointestinal: Negative. Endocrine: Negative. Genitourinary: Negative. Musculoskeletal: Negative. Skin: Negative. Allergic/Immunologic: Negative. Neurological: Negative. Hematological: Negative. Psychiatric/Behavioral: Negative. Allergies Allergen Reactions Nitrofurantoin Other Reaction(s): Other (See Comments) Sulfamethoxazole-Trimethoprim Anxiety, Dizziness, Hallucinations, Hives, Itching, Nausea Only, Palpitations and Rash Current Outpatient Medications: miSOPROStol (Cytotec) 200 MCG tablet, Take 4 tablets orally the night before procedure, Disp: 4 tablet, Rfl: 0 Past Medical History: Diagnosis Date Compression fracture of body of thoracic vertebra (CMS/HCC) Skin cancer Past Surgical History: Procedure Laterality Date COLPOSCOPY KNEE ARTHROPLASTY Right NECK SURGERY 2006 Family History Problem Relation Name Age of Onset Migraines Mother Mom Breast cancer Paternal Grandmother Social History Tobacco Use Smoking Status Never Smokeless Tobacco Never Physical Exam - General appearance, mentation, extraocular movements, facial strength and movement, hearing, upper and lower extremity strength and tone, sensation to gross testing, coordination, and gait are normalor at baseline unless noted below. OBGyn Exam Assessment/Plan ICD-10-CM 1. Pelvic pain in female R10.2 2. Thickened endometrium R93.89 3. Post-menopausal Z78.0 documented [facility] [id number] Evaluation note* Encounter Date Diagnosis Assessment Notes Treatment Notes Treatment Clinical Notes Feb, Compression fracture of T12 vertebra, sequela (ICD-10 - S22.080S) Feb, Lumbar facet arthropathy (ICD-10 - M47.816) [employer] Other 01-30-2024 Evaluation note* Encounter Date Diagnosis Assessment Notes Treatment Notes Treatment Clinical Notes Feb, Lumbar pain (ICD-10 - M54.50) Assess xray. Agrees to continue flexeril prn Feb, Subclinical hyperthyroidism (ICD-10 - E05.90) Pt requests referral to Dr Rodgers Feb, Menopausal symptoms (ICD-10 - N95.1) as above. HRT started at lowest dose. [employer] Other 12-26-2023 Evaluation note* Encounter Date Diagnosis Assessment Notes Treatment Notes Treatment Clinical Notes Jan, Acute diarrhea (ICD-10 - R19.7) [employer] Other 12-11-2023 Evaluation note* Encounter Date Diagnosis [...] spasm (ICD-10 - M62.838) Pt requests refill. [employer] Other 11-01-2023 History general Narrative - Reported* Type Description Date Medical History Acid reflux Medical History OAB (overactive bladder) Medical History Primary insomnia Surgical History cervical fusion 2006 Surgical History Right knee surgery 12/27/2022 Hospitalization History see above surgical histo ry [employer] Other 09-13-2023 Evaluation note* Encounter Date Diagnosis Assessment Notes Treatment Notes Treatment Clinical Notes Oct, OAB (overactive bladder) (ICD-10 - N32.81) Will increase dose. Pt will notify us if medication is not helpful. Consider urology referral if not successful, but presently waiting for orthopedics for her R knee. [employer] Other 08-16-2023 Evaluation note* Encounter Date Diagnosis Assessment Notes Treatment Notes Treatment Clinical Notes Sep, OAB (overactive bladder) (ICD-10 - N32.81) [employer] Other 05-09-2023 Evaluation note* Encounter Date Diagnosis Assessment Notes Treatment Notes Treatment Clinical Notes June, Left medial knee pain (ICD-10 - M25.562) Samples of Voltaren given. Order for XR printed. If PT Or Ortho indicated, would go toward [facility]. [employer] Other 05-09-2023 NotePROCEDURE: XR KNEE LT 4V or > HISTORY: Pain of left knee joint ; medial knee pain for 2 weeks which increases with activity COMPARISON: None. FINDINGS: BONES:No fracture, acute abnormality, or significant arthropathy. SOFT TISSUES:No visible soft tissue swelling. EFFUSION:None visible. OTHER: Negative. IMPRESSION: 1. No acute bone abnormality. 2. Minimal degenerative changes. Electronically authenticated by: IGGY NUNES Date: 2022-07-04 10:35[facility] Future Appointments Appointment Date:04/28/2024 10:00:00 AM Scheduled Provider: Location:[facility] Appointment Type:Surgery FT [facility] Evaluation noteNo InformationNort [employer] Other Evaluation noteNo assessment information available [facility] Work Phone: Evaluation note* Diagnosis Onset Date [...] thoracic region acute Thoracic back pain acute [facility] Work Phone: Evaluation note* Diagnosis Pelvic pain in female Unspecified symptom associated with female genital organs Thickened endometrium Nonspecific (abnormal) findings on radiological and other examination of genitourinary organs Post-menopausal Asymptomatic postmenopausal status (age-related) (natural) documented in this encounter [facility] HealthcareEvaluation note* Diagnosis Thickened endometrium Nonspecific (abnormal) findings on radiological and other examination of genitourinary organs Post-menopausal Asymptomatic postmenopausal status (age-related) (natural) Pelvic pain in female Unspecified symptom associated with female genital organs documented in this encounter [facility] HealthcareEvaluation note* Diagnosis Chronic pain of right knee- Primary documented in this encounter [facility] HealthcareEvaluation note* Diagnosis Chronic pain of right knee- Primary documented in this encounter [facility] HealthcareEvaluation note* Diagnosis Pre-op testing- Primary Unspecified pre-operative examination Chronic pain of right knee documented in this encounter [facility] HealthcareEvaluation note* Diagnosis Primary osteoarthritis of right knee- Primary documented in this encounter [facility] HealthcareEvaluation note* Diagnosis Status post total right knee replacement- Primary Acute pain of right knee documented in this encounter [facility] HealthcareHistory general Narrative - Reported* Type Description Date Medical History Acid reflux Surgical History cervical fusion 2006 Hospitalization History see above surgical [employer] Other History general Narrative - Reported* Type Description Date Medical History Acid reflux Medical History OAB (overactive bladder) Medical History Primary insomnia Surgical History cervical fusion 2006 Hospitalization History see above surgical histo [employer] Other Hospital course Narrative No data available for this section [facility] Hospital Discharge instructions No data available for this section [facility] Progress note No data available for this section [facility] Reason for visit Narrative* Consultation (Routine) - Authorized Specialty Diagnoses / Procedures Referred By Teo t Referred To Contact Physical Therapy Diagnoses Primary osteoarthritis of right knee Procedures ID OFFICE/OUTPATIENT NEW HIGH MDM 60 MINUTES Camden العراقي, DO [address] [place] [address] Phone: tel: fax: Dustin Tapiale Quinn, PT [address] [place] [address] Phone: tel: fax: Referral ID Status Reason Start Date Expiration Date Visits Requested Visits Authorized [id number] Authorized Specialty Services Required 03/27/2024 09/23/2024 20 20 [facility] Summary Purpose Family History No Family History Records Found Relationship Condition Age at Onset Recorded Date/T ji daughter Rheumatoid arthritis Unknown father Unknown Relationship Condition Age at Onset Recorded Date/T ji daughter Rheumatoid arthritis Unknown father Unknown Lupus Unknown Advance Directives No Advanced Directives Records Found Advance Directive Response Recorded Date/ Time Advance Directives No March 11:05am Advance Directive Response Recorded Date/ Time Advance Directives No March 12:05pm Reason for Referral Reason *FU 04/09 Last OV note and xray from last week. Diagnosis 1 Compression fracture of T12 vertebra, sequela (S22.080S) Referral Organization [facility] shannan Referring Provider First Name Lazaro Referring Provider Last Name Melvin Referring Provider Specialty [facility] cine Referred Organization [facility] Referred Address [address] [place], [place],[address] Referred Provider Specialty Pain Medicin e Referral Priority Routine General Notes Richa Reina 08:44:36 AM >received today, notes locked, attachments made, referral faxed Richa Reina 04/03/2023 04:29:40 PM >this was sent to [facility] and then forwarded to since its closer for patient Clinical Notes f: [id number] Reason *04/06 Symptoms of hyperthyroidism, menopausal hot flashes and insomnia Diagnosis 1 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) Referral Organization [facility] Referring Provider First Name Lazaro Referring Provider Last Name Melvin Referring Provider Specialty Family Medi cine Referred Organization [facility] Referred Provider Edith Rodgers Referred Address ,[place], [place],[address] Referred Provider Specialty Family Medic ine Referral Priority Routine General Notes Richa Reina 09:55:33 AM >received today, notes locked, ins attached, referral faxed Reason [place] [facility] - br ain fog Diagnosis 1 Brain fog (R41.89) Referral Organization [facility] Referring Provider First Name Lazaro Referring Provider Last Name Melvin Referring Provider Specialty Family Medi cine Referred Organization [facility] Referred Provider Jorge L Sears Referred Address [address] [place] [id number] Referred Provider Specialty Neurology Referral Priority Routine Chief Complaint and Reason for Visit Chief Complaint Multiple Issues Check Up medication issues Chief Complaint Check Up medication issues REFF BY LAZARO CHARLES 6 WEEKS Reason for Visit Chronic thoracic salina k pain Compression fracture of T11 vertebra Hot flash, menopausal Chronic pain Compression fracture of T11 vertebra Spondylosis without myelopathy or radiculopathy, thoracic region Thoracic back pain Chronic pain Compression fracture of T11 vertebra Spondylosis without myelopathy or radiculopathy, thoracic region Thoracic back pain Chief Complaint Admit Date Insonmia March 24, 2024 8 :32am Thickened Endomtrium April 18, 2024 7:12am Reason for Visit Admit Date Chronic thoracic back pain March 24, 2024 8:32am Hot flash, menopausal March 24, 2024 8:32am Insomnia associated with menopause Febua 2024 8:32am Additional Source Comments REASON FOR VISIT (unrecogniz ed section and content) Reason Comments Endosee Specialty Diagnoses / Procedures Referred By Teo t Referred To Contact Obstetrics and Gynecology Diagnoses Pelvic and perineal pain Generalized abdominal pain Abnormal findings on diagnostic imaging of other specified body structures Procedures ID HYSTEROSCOPY BX ENDOMETRIUM&/POLYPC W/WO D&C Pippa Baker MD [address] [place] [address] Pippa Baker MD [address] [place] [address] Referral ID Status Reason Start Date Expiration Date V isits Requested Visits Authorized [id number] Closed Perform Procedure 10/05/2023 04/02/2024 1 1 Reason Comments Surgery consult Reason Comments Pain Reason Comments Pain Reason Comments Follow-up Reason Comments Post-op INFORMATION SOURCE (unrecogn ized section and content) DATE CREATED AUTHOR 08/04/2022 [facility] [place] [facility] DATE CREATED AUTHOR AUTHOR'S ORGANIZ ATION 07/06/2023 [facility] DATE CREATED AUTHOR AUTHOR'S ORGANIZ ATION 08/23/2023 [facility] DATE CREATED AUTHOR AUTHOR'S ORGANIZ ATION 04/06/2024 [facility] DATE CREATED AUTHOR AUTHOR'S ORGANIZ ATION 04/28/2024 [facility] DATE CREATED AUTHOR AUTHOR'S ORGANIZ ATION 04/29/2024 [facility] DATE CREATED AUTHOR AUTHOR'S ORGANIZ ATION 05/03/2024 [facility] DATE CREATED AUTHOR AUTHOR'S ORGANIZ ATION 07/23/2024 [facility] EPIC Care Teams (unrecognized sec tion and content) Team Status: Active Member Role Status Dates Lazaro Charles MD Primary Care Provider Active Team Status: Inactive Member Role Status Dates Lazaro Charles MD Attending Provider Active St art: February 05, 2023 End: February 05, 2023 Team Status: Inactive Member Role Status Dates Lazaro Charles MD Attending Provider Active St art: March 27, 2023 End: March 27, 2023 Team Status: Inactive Member Role Status Dates Lazaro Charles MD Primary Care Provide r, Attending Provider Active Start: April 17, 2023 End: April 17, 2023 Team Status: Inactive Member Role Status Dates Lazaro Charles MD Primary Care Provide r, Referring Provider Active Start: May 07, 2023 End: May 07, 2023 Chase Echavarria MD Attending Provider Active Sta rt: May 07, 2023 End: May 07, 2023 Team Status: Inactive Member Role Status Dates Lazaro Charles MD Primary Care Provider Active Start: June 20, 2023 End: June 20, 2023 Chaes Echavarria MD Attending Provider Active Sta rt: June 20, 2023 End: June 20, 2023 Energy Conservation Representative Relationship Specialty Start Date End Date Lazaro Charles MD PCP - General Family Medicine 04/26/23 Iggy Dangelo MD [address] [place] [address] Referring Physician Neurology 04/26/23 Energy Conservation Representative Relationship Specialty Start Date End Date Lazaro Charles MD [address] [facility] [place] [phone] PCP - General Family Medicine 04/26/23 Iggy Dangelo MD [address] [place] [address] Referring Physician Neurology 04/26/23 Energy Conservation Representative Relationship Specialty Start Date End Date Lazaro Charles MD [address] [facility] [place] [phone] PCP - General Family Medicine 04/26/23 Iggy Dangelo MD [address] [place] [address] Referring Physician Neurology 04/26/23 Energy Conservation Representative Relationship Specialty Start Date End Date Lazaro Charles MD [address] [facility] [place] [phone] PCP - General Family Medicine 04/26/23 Iggy Dangelo MD [address] [place] [address] Referring Physician Neurology 04/26/23 Energy Conservation Representative Relationship Specialty Start Date End Date Lazaro Charles MD [address] [facility] [place] [phone] PCP - General Family Medicine 04/26/23 Iggy Dangelo MD [address] [place] [address] Referring Physician Neurology 04/26/23 Energy Conservation Representative Relationship Specialty Start Date End Date Lazaro Charles MD PCP - General Family Medicine 04/26/23 Iggy Dangelo MD [address] [place] [address] Referring Physician Neurology 04/26/23 Energy Conservation Representative Relationship Specialty Start Date End Date Lazaro Charles MD [address] [place] [phone] PCP - General Family Medicine 04/26/23 Iggy Dangelo MD [address] [place] [address] Referring Physician Neurology 04/26/23 Energy Conservation Representative Relationship Specialty Start Date End Date Lazaro Charles MD [address] [facility] [place] [phone] PCP - General Family Medicine 04/26/23 Iggy Dangelo MD [address] [place] [address] Referring Physician Neurology 04/26/23 Energy Conservation Representative Relationship Specialty Start Date End Date Lazaro Charles MD [address] [facility] [place] [phone] PCP - General Family Medicine 04/26/23 Iggy Dangelo MD [address] [place] [address] Referring Physician Neurology 04/26/23 Team Status: Inactive Member Role Status Dates Lazaro Charles MD Primary Care Provide r, Attending Provider Active Start: March 24, 2024 End: March 24, 2024 Team Status: Inactive Member Role Status Dates Lazaro Charles MD Primary Care Provider Active Start: April 18, 2024 End: April 18, 2024 Pippa Baker MD Attending Provider Active St art: April 18, 2024 End: April 18, 2024 Energy Conservation Representative Relationship Specialty Start Date End Date Lazaro Charles MD [address] [place] [address] PCP - General Family Medicine 04/26/23 Iggy Dangelo MD [address] [place] [address] Referring Physician Neurology 04/26/23 Energy Conservation Representative Relationship Specialty Start Date End Date Lazaro Charles MD [address] [place] [address] PCP - General Family Medicine 04/26/23 Iggy Dangelo MD [address] [place] [address] Referring Physician Neurology 04/26/23 Energy Conservation Representative Relationship Specialty Start Date End Date Lazaro Charles MD [address] [place] [address] PCP - General Family Medicine 04/26/23 Iggy Dangelo MD [address] [place] [address] Referring Physician Neurology 04/26/23 Goals (unrecognized section and content) Goals may [...] BE BASED ON THE PRIMARY CLINICAL RECORDS. [facility]. provides no warranty or guarantee of the accuracy or completeness of information in this document.
== END 2024-07-24 09:17 | disposition home or self-care (01) ==
LOC: MAMMO 09:16
PROVIDERS: PCP Family Medicine; Visit Provider Family Medicine
DX: Z12.31 Encounter for screening mammogram for malignant neoplasm of breast (principal)
CPT/HCPCS: 77063; 77067

== ENCOUNTER 2024-08-12 08:19 | Outpatient (OUT) | payer MEDICARE, OTHER, SELFPAY ==
--- OUTSIDE RECORDS SUMMARY | 2024-08-06 05:36 | XMS_ITS | Continuity of Care Document ---
Author Organization [facility] Address [address] [place] [address] Phone Support Name Relationship Address Phone Krystaclarisseindira Diony Emergency Contact [address] [place] [address] Diony Faith Caregiver [address] [place] [address] Marguerite Santiago MD Personal Relationship [address] [place] [address] Care Teams Patient Care Team Team Status: Active Member Role Status Dates Marguerite Santiago MD Primary Care Provider Active Patient Care Team Team Status: Inactive Member Role Status Dates Marguerite Santiago MD Primary Care Provide r, Attending Provider Active Start: August 06, 2024 End: August 06, 2024 Chief Complaint and Reason for Visit Chief Complaint Admit Date stomach concerns August 06, 2024 9:07 am Reason for Visit Admit Date RUQ abdominal pain August 06, 2024 9:07 am Allergies, Adverse Reactions, Alerts Allergen Type Severity Reaction Last Updated Verified Status nitrofurantoin Allergy Unknown delusions August 06, 2024 9:15am Yes Active sulfamethoxazole Allergy Unknown stomach upset August 06, 2024 9:15am Yes Active Social History Smoking Status Status Start Date End Date Date of Observa tion Ex-smoker (finding) April 18, 2024 7:49am Observation Status Observation Response Date of Response Patient Sex Female August 06, 2024 9:35am Assigned Sex Female January Family History Relationship Condition Age at Onset Recorded Date/T ji daughter Rheumatoid arthritis Unknown father Unknown Lupus Unknown Problems Active Problems Medical Problem Onset Date Status RUQ abdominal pain Active Chronic thoracic back pain Activ e Compression fracture of T11 vertebra Active Spondylosis without myelopathy or radiculopathy, thoracic region Active Chronic pain Active Post-op pain Active Insomnia associated with menopause Active Right knee pain Active Thoracic back pain Active Hot flash, menopausal Active Medications Medication Status Dose Units Route Directions Qty Days St art Date Stop Date End Date Instructions Lidocaine 5 % adhesive patch,medica genna Discont inued 1 PATCH TOPICA L Daily 2023 9:48am 2023 9:49a m leave on most painful area for up to 12 hrs Lidocaine 5 % adhesive patch,medica genna Discont inued 1 PATCH TOPICA L Daily 2023 9:49am 2024 8:45a m leave on most painful area for up to 12 hrs Ibuprofen 800 mg tablet Active 800 MG PO Every 8 hours July 07, 2024 8:32am Tramadol 50 mg tablet Discont inued 50 MG PO Every 6 hours as needed for pain 10 2024 1:00am August 06, 2024 9:17a m Cyclobenzapr ine 10 mg tablet Discont inued 10 MG PO Daily at bedtime as needed for muscle spasm 2024 10:08a m August 06, 2024 9:17a m Clonidine Hcl 0.1 mg tablet Discont inued 0.1 MG PO Daily at bedtime 2024 1:00am August 06, 2024 9:17a m Trazodone 50 mg tablet Discont inued 50 MG PO Daily at bedtime as needed for insomnia 2024 1:00am August 06, 2024 9:17a m Conj Estrog-Medro xyprogest Cosme 0.3-1.5 mg tablet Discont inued 1 TAB PO Daily 2023 1:00am 2023 5:41p m FreeTextSi tablet Orally Once a day; Note: Source Status: Start; Provider: Jack De Souza Cyclobenzapr ine 5 mg tablet Discont inued 1 TAB PO Daily at bedtime 2023 1:00am May 07, 2023 8:52a m FreeTextSi tablet at bedtime as needed Orally Once a day; Note: Source Status: Refill; Provider: Jack De Souza Lidocaine 5 % adhesive patch,medica genna Discont inued 1 PATCH TOPICA L Daily 2023 1:00am Febru utnde 2023 9:48a m leave on most painful area for up to 12 hrs Ibuprofen 800 mg tablet Discont inued 800 MG PO Every 8 hours May 07, 2023 12:00a m July 07, 2024 8:32a m Diclofenac Sodium 75 mg tablet,delay ed release (DR/EC) Discont inued 75 MG PO Twice daily 60 May 07, 2023 12:00a m Febua 2024 9:49a m Tizanidine 4 mg capsule Discont inued 4 MG PO Twice daily as needed for muscle spasticity June 20, 2023 12:00a m June 21, 2023 10:20 am Cyclobenzapr ine 5 mg tablet Discont inued 5 MG PO Daily at bedtime as needed for muscle spasm June 21, 2023 12:00a m 2024 10:09 am Vital Signs Vital Reading Result Reference Range Collection Date/Time Height 61 [in_i] August 06, 2024 9:13am Weight 65.43 kg August 06, 2024 9:13am Heart Rate 78 /min 60-100 August 06, 2024 9:13am BP Systolic 135 mm[Hg] 100-140 August 06, 2024 9:13am BP Diastolic 80 mm[Hg] 60-100 August 06, 2024 9:13am BMI (Body Mass Index) 27.2 kg/m2 July 272024 9:13am Advance Directives Advance Directive Response Recorded Date/ Time Advance Directives No March 12:05pm Insurance Providers Guarantor Kanwal Ocasio Address [address] [facility] [address] Contact Info. Home Phone: Payer Policy Id Coverage Id Subscriber's Name Subscriber Id Effective Date Expiration Date [facility] [id number] Kanwal Ocasio [id number] Medicare [id number] Kanwal Ocasio [id number] Encounters Encounter Location(s) Arrival/Admit Date Discharge/Depart Date Provider(s) Departed Physician/Prov ider Office Visit [facility] August 06, 2024 9:07am August 06, 2024 9:35am Marguerite Santiago MD Recent Diagnosis Onset Date Admit Date RUQ abdominal pain August 06 9:07am Assessments Diagnosis Onset Date Resolution Status Admit Date RUQ abdominal pain acute July 272024 9:07am Plan of Treatment Future Tests Future scheduled test information is unavailable Pending Tests Test Name Ordered Date Scheduled Date US gall bladder August 06, 2024 9:33am Future Visits Future appointment information is unavailable Referrals to Other Providers Referral information is unavailable Future Procedures Future procedure information is unavailable Future Medications Future medication information is unavailable Patient Instructions Patient instructions are unavailable
--- NOTE | 2024-08-12 08:21 | US_ITS ---
The [address] [address] Patient Name: EVANGELIST SCRUGGS MRN: [id number] date: 1955 Sex: F Assigned Patient Location: US Current Patient Location: US Accession/Order Number: [id number] Exam Date: 08/12/2024 09:05 Report Date: 08/12/2024 09:09 At the request of: LAZARO CHARLES MD Procedure: US right upper quadrant LIMITED RIGHT UPPER QUADRANT ABDOMINAL ULTRASOUND CLINICAL HISTORY: Right upper quadrant abdomen pain for the past month and nausea, R10.11 COMPARISON: CT 04/18/2021 The gallbladder is physiologically distended without shadowing calculi, wall thickening or pericholecystic fluid. There is a suspected tiny 4 mm polyp along the posterior gallbladder wall. No intrahepatic biliary dilatation is evident. The common duct is borderline in caliber measuring 5 - 6 mm. No filling defects are noted in the segment that is imaged. The liver is normal in echogenicity. There are cysts at the left hepatic lobe measuring 1.2 x 1.3 x 1.8 cm and 1.9 x 2.5 x 2.8 cm. There is also a cyst at the right lobe at the dome measuring 1.4 x 1.5 x 1.9 cm. There is appropriate hepatopetal flow within the main portal vein. The pancreas shows no significant sonographic abnormality. Cursory evaluation of the right kidney reveals no hydronephrosis or fluid within Ramos's pouch. US/US right upper quadrant IMPRESSION: SUSPECTED GALLBLADDER POLYP. HEPATIC CYSTS. BORDERLINE CALIBER COMMON DUCT. Impression dictated by: Zofia Navarrete M.D. 08/12/2024 9:09 AM Dictation Location: [place] [address] Electronically authenticated by: [id number] Y Date: 08/12/2024 09:09
--- OUTSIDE RECORDS SUMMARY | 2024-08-12 08:29 | XMS_ITS | Encounter Summary ---
Author Organization [facility] Address [address] [facility] [place] [address] Care Team Providers Care Business Center Manager Name Role Phone Marguerite Santiago MD Primary Care Provider [phone] Alex Dangelo MD Unavailable Unavailable Encounter Details Date Type Department Care Team (Late st Contact Info) Description 08/07/2023 Clinisync Result Encounter [facility] External Department Unsolicited Dana Baker MD [address] [facility] [address] [place] [address] Social History Tobacco Use Types Packs/Day Years Used Date Smoking Tobacco: Never Smokeless Tobacco: Never Alcohol Use Standard Drinks/Week Comments Yes 3 (1 standard drink = 0.6 oz pur e alcohol) AUDIT-C Answer Date Recorded Q1: How often do you have a drink containing alc ohol? Monthly or less 06/05/2023 Q2: How many drinks containi ng alcohol do you have on a typical day when you are drinking? 1 or 2 06/05/2023 Q3: How often do you have si x or more drinks on one occasion? Less than monthly 06/05/2023 PHQ-2 Answer Date Recorded Patient Health Questionnaire-2 Score 0 06/05/2023 Comments No Sex and Gender Information Value Date Recorded Sex Assigned at Not on file Legal Sex Female 11:14 AM EST Gender Identity Not on file Sexual Orientation Not on file documented as of this encounter Plan of Treatment Upcoming Encounters Date Type Department Care Team (Late st Contact Info) Description 01/12/2025 9:00 AM EST Office Visit [facility] [address] [place] [address] James Pendleton, RAILWAY SIGNAL OPERATOR [address] [place] [address] documented as of this encounter Procedures Procedure Name Priority Date/Time Associated Diagnosis Comments XR DEXA AXIAL SKELETON 08/07/2023 10:48 AM EDT documented in this encounter Results * XR DEXA AXIAL SKELETON (08/07/2023 10:48 AM EDT) Anatomical Region Laterality Modality Other 08/07/2023 10:4 8 AM EDT Narrative 08/07/2023 10:50 AM EDT [address] [address] XRay Report Signed Patient: KANWAL SCRUGGS MR#: [id number] : 1955 Acct:[id number] Age/Sex: 68 / F ADM Date: 08/07/23 Loc: [facility] Attending Dr: DANA BAKER Ordering Physician: DANA BAKER Date of Service: 08/07/23 Procedure(s): XR DEXA axial skeleton Accession Number(s): [id number] cc: Marguerite Santiago M.D.; DANA BAKER [address] [address] Patient Name: KANWAL SCRUGGS MRN: [id number] date: 1955 Sex: F Assigned Patient Location: [facility] Current Patient Location: [facility] Accession/Order Number: [id number] Exam Date: 08/07/2023 09:36 Report Date: 08/07/2023 10:48 At the request of: DANA BAKER Procedure: XR DEXA axial skeleton EXAMINATION: XR DEXA axial skeleton, 08/07/2023 9:36 AM EDT HISTORY: Osteoporosis M81.0 COMPARISON: None. TECHNIQUE: Dual-energy X-ray absorptiometry (DEXA) bone density study performed for the axial skeleton. HISTORY: Osteoporosis M81.0 FINDINGS: Bone mineral density AP spine L1-L4 measures 1.052 g/sq cm. T score -1.1. WHO classification: Osteopenia. Lowest bone mineral density right femoral neck measuring 0.788 g/sq cm. T score -1.8. WHO classification: Osteopenia XR/XR DEXA axial skeleton IMPRESSION: Osteopenia. Moderate fracture risk Electronically authenticated by: ABRAHAN KENNEDY Date: 08/07/2023 10:48 Dictated By: Abrahan Kennedy M.D. Signed By: 08/07/23 1050 DD/ 1048 TD/TT: Phone Screener: Procedure Note Radiology, Radiologist, MD - 08/07/2023 [place] [address] XRay Report Signed Patient: KANWAL SCRUGGS AMR#: [id number] : 1955cct:[id number] Age/Sex: 68 / FADM Date: 08/07/23 Loc: RAD Attending Dr: DANA BAKER Ordering Physician: DANA BAKER Date of Service: 08/07/23 Procedure(s): XR DEXA axial skeleton Accession Number(s): [id number] cc: Marguerite Santiago M.D.; DANA BAKER [place] [address] Patient Name: KANWAL SCRUGGS MRN: [facility]:[id number] date: 1955 Sex: F Assigned Patient Location: [facility] Current Patient Location: [facility] Accession/Order Number: [id number] Exam Date: 08/07/2023 09:36 Report Date: 08/07/2023 10:48 At the request of: DANA BAKER Procedure: XR DEXA axial skeleton EXAMINATION: XR DEXA axial skeleton, 08/07/2023 9:36 AM EDT HISTORY: Osteoporosis M81.0 COMPARISON: None. TECHNIQUE: Dual-energy X-ray absorptiometry (DEXA) bone density study performed for the axial skeleton. HISTORY: Osteoporosis M81.0 FINDINGS: Bone mineral density AP spine L1-L4 measures 1.052 g/sq cm. T score -1.1.WHO classification: Osteopenia. Lowest bone mineral density right femoral neck measuring 0.788 g/sq cm. T score -1.8. WHO classification: Osteopenia XR/XR DEXA axial skeleton IMPRESSION: Osteopenia. Moderate fracture risk Electronically authenticated by: ABRAHAN KENNEDY Date: 08/07/2023 10:48 Dictated By: Abrahan Kennedy M.D. Signed By:08/07/23 1050 DD/ 1048 TD/TT: Phone Screener: us Dana Baker MD [facility] Final Result documented in this encounter Visit Diagnoses Not on filedocumented in this encounter Care Teams Business Center Manager Relationship Specialty Start Date End Date Marguerite Santiago MD PCP - General Family Medicine 04/26/23 Alex Dangelo MD Referring Physician Neurology 04/26/23 documented as of this encounter
--- OUTSIDE RECORDS SUMMARY | 2024-08-12 08:29 | XMS_ITS | Clinical Summary ---
Author Organization [employer] Address [id number] [address] [place] [address] Care Team Providers Care Dough Sheeter Name Role Phone Marguerite Santiago MD Primary Care Provider [phone] Allergies Active Allergy Reactions Criticality Noted Date Comments Sulfamethoxazole-Trimethoprim Nausea 2017 Nitrofurantoin Other (See Comments) 05/30/2017 Medications ELDERBERRY FRUIT ORAL Take 1 tablet by mouth in the morning. Active acidophilus-pect in, citrus 25 million cell -100 mg tablet Take 1 tablet by mouth daily with breakfast. Active Active Problems Problem Noted Date Diagnosed Date Complex tear of medial menis cus of right knee as current injury 12/12/2022 Immunizations Immunization Administration Dates Next Due Tdap 05/30/2017 Zoster Live 06/06/2017 Zoster Vaccine Recombinant 09/14/2017 Family History Medical History Relation Name Comments Lupus Father No Known Problems Mother Relation Name Status Comments Father Mother Alive Social History Tobacco Use Types Packs/Day Years Used Date Smoking Tobacco: Former Cigarettes 1 5 1 - 11/27/1975 Smokeless Tobacco: Never Tobacco Cessation:Counseling Given: Not Answered Alcohol Use Standard Drinks/Week Comments Yes 0 (1 standard drink = 0.6 oz pur e alcohol) 2 drinks a month Childcare Answer Date Recorded Childcare Unknown 08/07/2018 Employment Answer Date Recorded Employment Unknown 08/07/2018 Comments No Sex and Gender Information Value Date Recorded Sex Assigned at Not on file Legal Sex Female 11:31 AM EDT Gender Identity Not on file Sexual Orientation Not on file Last Filed Vital Signs Vital Sign Reading Time Taken Comments Blood Pressure 160/70 12/27/2022 2:45 PM EDT Pulse 65 12/27/2022 2:45 PM EDT Temperature 37.1 C (98.8 F) 12/27/2022 1:04 PM EDT Respiratory Rate 11 12/27/2022 2:45 PM EDT Oxygen Saturation 97% 12/27/2022 2:45 PM EDT Inhaled Oxygen Concentration - - Weight 67.1 kg (148 lb) 01/11/2023 11:02 AM EST Height 157.5 cm (5' 2 ) 01/11/2023 11:02 AM EST Body Mass Index 27.07 01/11/2023 11:02 AM EST Plan of Treatment Health Maintenance Due Date Last Done Comments Depression Screening 1968 Mammogram 1996 Zoster (Shingles) Vaccine (3 of 3) 11/09/2017 09/14/2017, 06/06/2017, 07/09/2015 Fall Risk Screening 02/06/2021 Adult BMI Screening 01/12/2024 01/11/2023 Tobacco Screening 01/12/2024 01/11/2023 Influenza Vaccine 10/27/2024 12/18/2017, 11/22/2016 Colonoscopy 01/31/2027 01/31/2017 DTaP,Tdap and Td Vaccines (2 - Td or Tdap) 05/31/2027 05/30/2017 Medical Devices Not on file Procedures Procedure Name Priority Date/Time Associated Diagnosis Comments COLONOSCOPY Routine 01/31/2017 from Last 3 Months or Most Recently Relevant to Health Maintenance Results * Colonoscopy (01/31/2017) 01/31/2017 us Not In System Ref Prov GI PROCEDURE ORDERABLES E dited Result - Final MANUALLY TRANSCRIBED RESULTS from Last 3 Months or Most Recently Relevant to Health Maintenance Insurance [employer] Advance Directives Documents on File Type Date Recorded Patient Fisher Pot Expl anation Living Will 12/27/2022 10:39 AM [place]IV[place] [facility] Care Teams Dough Sheeter Relationship Specialty Start Date End Date Marguerite Santiago MD [facility] [place] [address] PCP - General Family Medicine 10/26/22
--- OUTSIDE RECORDS SUMMARY | 2024-08-12 08:29 | XMS_ITS | Encounter Summary ---
Author Organization [facility] Address [address] [place] [address] Care Team Providers Care Mobile Phone Salesperson Name Role Phone Marguerite Santiago MD Primary Care Provider [phone] Alex Dangelo MD Unavailable Unavailable Encounter Details Date Type Department Care Team (Late st Contact Info) Description 05/14/2023 Clinisync Result Encounter [facility] External Department Unsolicited Dedra Layton PA [address] [place] [address] Social History Tobacco Use Types Packs/Day Years Used Date Smoking Tobacco: Never Assessed Comments Unknown Sex and Gender Information Value Date Recorded Sex Assigned at Not on file Legal Sex Female 11:14 AM EST Gender Identity Not on file Sexual Orientation Not on file documented as of this encounter Plan of Treatment Upcoming Encounters Date Type Department Care Team (Late st Contact Info) Description 01/12/2025 9:00 AM EST Office Visit [facility] [address] [place] [address] James Pendleton NP [address] [place], [place] [id number] documented as of this encounter Procedures Procedure Name Priority Date/Time Associated Diagnosis Comments MR CERVICAL SPINE WO CONTRAST 05/14/2023 11:28 AM EDT documented in this encounter Results * MR cervical spine wo contrast (05/14/2023 11:28 AM EDT) Anatomical Region Laterality Modality Spine, C-spine Magnetic Resonan ce 05/14/2023 11:2 8 AM EDT Narrative 05/14/2023 11:31 AM EDT [address] [address] Magnetic Resonance Report Signed Patient: KANWAL SCRUGGS MR#: [id number] : 1955 Acct:[id number] Age/Sex: 68 / F ADM Date: 05/14/23 Loc: MRI Attending Dr: Dedra VINCENT Ordering Physician: Dedra Layton Date of Service: 05/14/23 Procedure(s): MR cervical spine wo con Accession Number(s): [id number] cc: Dedra Layton; Physician,Non-Staff M.D. [address] [address] Patient Name: KANWAL SCRUGGS MRN: [id number] date: 1955 Sex: F Assigned Patient Location: MRI Current Patient Location: MRI Accession/Order Number: [id number] Exam Date: 05/14/2023 09:50 Report Date: 05/14/2023 11:28 At the request of: DEDRA LAYTON Procedure: MR cervical spine wo con EXAMINATION: MR cervical spine wo con HISTORY: Hyper reflexia R29.2 COMPARISON: No relevant comparison available. TECHNIQUE: A variety of imaging planes and parameters were utilized for visualization of suspected pathology. FINDINGS: CRANIOCERVICAL AREA: Normal foramen magnum with no Chiari malformation. PARASPINAL AREA: Normal with no visible mass. BONES: 3 mm retrolisthesis of C4 on C5. Signal dropout consistent with anterior fusion C5-C6. 3 mm anterolisthesis of C7 on T1 Moderate degenerative spondylosis. CORD: Normal caliber, contour, and signal intensity. CERVICAL DISC LEVELS: C2-C3: Early degenerative disc disease is present without focal protrusion or neural impingement. C3-C4: Early degenerative disc disease is present without focal protrusion or neural impingement. C4-C5: Disc collapse. 3 mm retrolisthesis of C4 on C5. Moderate diffuse disc/osteophyte complex narrowing the central canal to 7.3 mm in AP dimension. Mild to moderate bilateral foraminal stenosis C5-C6: Anterior fusion. No central or foraminal stenosis C6-C7: Severe disc space narrowing. Mild diffuse disc/osteophyte complex. No central or foraminal stenosis C7-T1: 3 mm anterolisthesis of C7 on T1. No disc bulge or herniation. Degenerative facet osteoarthropathy with bilateral foraminal stenosis. No central canal stenosis. MR/MR cervical spine wo con IMPRESSION: Degenerative changes Central and lateral foraminal stenosis C4-C5 Bilateral foraminal stenosis C7-T1 Electronically authenticated by: ABRAHAN KENNEDY Date: 05/14/2023 11:28 Dictated By: Abrahan Kennedy M.D. Signed By: 05/14/23 1131 DD/ 1128 TD/TT: Umbrella Cutter: Procedure Note Radiology, Radiologist, MD - 05/14/2023 [place] [address] Magnetic Resonance Report Signed Patient: KANWAL SCRUGGS AMR#: [id number] : 1955cct:[id number] Age/Sex: 68 / FADM Date: 05/14/23 Loc: MRI Attending Dr: Dedra VINCENT Ordering Physician: Dedra Layton Date of Service: 05/14/23 Procedure(s): MR cervical spine wo con Accession Number(s): [id number] cc: Dedra Layton; Physician,Non-Staff Rad[address] [place] [address] Patient Name: KANWAL SCRUGGS MRN: [id number] date: 1955 Sex: F Assigned Patient Location: MRI Current Patient Location: MRI Accession/Order Number: [id number] Exam Date: 05/14/2023 09:50 Report Date: 05/14/2023 11:28 At the request of: DEDRA LAYTON Procedure: MR cervical spine wo con EXAMINATION: MR cervical spine wo con HISTORY: Hyper reflexia R29.2 COMPARISON: No relevant comparison available. TECHNIQUE: A variety of imaging planes and parameters were utilized for visualization of suspected pathology. FINDINGS: CRANIOCERVICAL AREA: Normal foramen magnum with no Chiari malformation. PARASPINAL AREA: Normal with no visible mass. BONES: 3 mm retrolisthesis of C4 on C5. Signal dropout consistent with anterior fusion C5-C6. 3 mm anterolisthesis of C7 on T1 Moderate degenerative spondylosis. CORD: Normal caliber, contour, and signal intensity. CERVICAL DISC LEVELS: C2-C3: Early degenerative disc disease is present without focal protrusionor neural impingement. C3-C4: Early degenerative disc disease is present without focal protrusionor neural impingement. C4-C5: Disc collapse. 3 mm retrolisthesis of C4 on C5. Moderate diffuse disc/osteophyte complex narrowing the central canal to 7.3 mm in APdimension. Mild to moderate bilateral foraminal stenosis C5-C6: Anterior fusion. No central or foraminal stenosis C6-C7: Severe disc space narrowing. Mild diffuse disc/osteophyte complex.No central or foraminal stenosis C7-T1: 3 mm anterolisthesis of C7 on T1. No disc bulge or herniation. Degenerative facet osteoarthropathy with bilateral foraminal stenosis. No central canal stenosis. MR/MR cervical spine wo con IMPRESSION: Degenerative changes Central and lateral foraminal stenosis C4-C5 Bilateral foraminal stenosis C7-T1 Electronically authenticated by: ABRAHAN KENNEDY Date: 05/14/2023 11:28 Dictated By: Abrahan Kennedy M.D. Signed By:05/14/23 1131 DD/ 1128 TD/TT: Umbrella Cutter: us Dedra VINCENT IMG MRI PROCEDURES Final Result documented in this encounter Visit Diagnoses Not on filedocumented in this encounter Care Teams Mobile Phone Salesperson Relationship Specialty Start Date End Date Marguerite Santiago MD PCP - General Family Medicine 04/26/23 Alex Dangelo MD Referring Physician Neurology 04/26/23 documented as of this encounter
--- OUTSIDE RECORDS SUMMARY | 2024-08-12 08:29 | XMS_ITS | Clinical Summary ---
Author Organization [facility] Address [address] [facility] [place] [address] Care Team Providers Care Media Traffic Manager Name Role Phone Marguerite Santiago MD Primary Care Provider [phone] Alex Dangelo MD Unavailable Unavailable Allergies Active Allergy Reactions Criticality Noted Date Comments Nitrofurantoin 05/30/2017 Other Reaction(s): Other (See Comments) Sulfamethoxazole-Trimetho prim Anxiety,Dizziness,H allucinations,Hives ,Itching,Nausea Only,Palpitations,R yesenia Low 05/30/2017 Medications cyclobenzaprine (Flexeril) 10 MG tablet 5 Active traZODone (Desyrel) 50 MG tablet 5 Active cloNIDine (Catapres) 0.1 MG tablet 5 Active miSOPROStol (Cytotec) 200 MCG tabletIndication s:Thickened endometrium,Post -menopausal Take all 4 tablets at bedtime the night before procedure 4 tablet 5 Active cephalexin (Keflex) 500 MG capsuleIndicatio ns:Status post total right knee replacement Take two caps evening prior to appointment, take two caps one hour prior to appointment 4 capsule 2 5 Active Active Problems Problem Noted Date Diagnosed Date Primary osteoarthritis of right knee 04/01/2024 Encounters Date Type Department Care Team Description 07/17/2024 9:15 AM EDT Office Visit [facility] [address] [place] [address] Geovanny Nash PA Status post total right knee replacement (Primary Dx) 07/17/2024 Bamboo flowsheet [facility] [address] [place] [address] Geovanny Nash PA 07/17/2024 Travel 06/30/2024 Telephone [facility] [address] [place] [address] Isaías Navarro, DO Dental Appt Abx Request 05/26/2024 9:15 AM EDT Ancillary Procedure [facility] [address] [facility] [address] [facility] [place] [address] 05/26/2024 9:00 AM EDT [facility] [address] [facility] [place] [address] James Pendleton, PATRICIO Status post total right knee replacement (Primary Dx); Acute pain of right knee 05/26/2024 Bamboo flowsheet [facility] [address] [address] [facility] [place] [address] James Pendleton, JUDICIAL CLERK 05/26/2024 Travel 05/21/2024 Telephone [facility] OB [address] [place] [address] Tierra Brown LPN 05/15/2024 Telephone [facility] [address] [place] [address] Isaías Navarro, DO Pain Med Refill Request from Last 3 Months Family History Medical History Relation Name Comments Anesthesia problems Mother Mom Migraines Mother Mom Breast cancer Paternal Grandmother Relation Name Status Comments Father Mother Mom Alive Paternal Grandmother Social History Tobacco Use Types Packs/Day Years Used Date Smoking Tobacco: Never Smokeless Tobacco: Never Tobacco Cessation:Counseling Given: Not Answered Alcohol Use Standard Drinks/Week Comments Yes 3 (1 standard drink = 0.6 oz pur e alcohol) social AUDIT-C Answer Date Recorded Q1: How often [...] Date Recorded Patient Health Questionnaire-2 Score 0 01/01/2024 Comments No Sex and Gender Information Value Date Recorded Sex Assigned at Not on file Legal Sex Female 11:14 AM EST Gender Identity Not on file Sexual Orientation Not on file Last Filed Vital Signs Vital Sign Reading Time Taken Comments Blood Pressure 146/90 01/01/2024 8:16 AM EST Pulse - - Temperature 36.2 C (97.1 F) 01/16/2024 9:47 AM EST Respiratory Rate - - Oxygen Saturation - - Inhaled Oxygen Concentration - - Weight 63 kg (139 lb) 03/25/2024 1:11 PM EST Height 154.9 cm (5' 1 ) 03/25/2024 1:11 PM EST Body Mass Index 26.26 03/25/2024 1:11 PM EST Plan of Treatment Upcoming Encounters Date Type Department Care Team (Late st Contact Info) Description 01/12/2025 9:00 AM EST Office Visit [facility] [address] [address] [facility] [place] [address] James Pendleton NP [address] [place] [address] Procedures Procedure Name Priority Date/Time Associated Diagnosis Comments XR KNEE 1-2 VIEWS RIGHT Routine 05/26/2024 9:10 AM EDT Acute pain of right knee from Last 3 Months Results * XR knee 1 or 2 views right (05/26/2024 9:10 AM EDT) Anatomical Region Laterality Modality Lower Extremities, Knee Right Radiogra [facility] Imaging Narrative 05/26/2024 12:16 PM EDT Imaging Result: 05/26/2024: Standing AP and LAT [...] dislocation. Impression: Stable RT total knee replacement. James Pendleton ROLLER OPERATOR-CHILD CARE GIVER us James T Pendleton JUDICIAL CLERK IMG XR PROCEDURES Final Result from Last 3 Months Insurance [employer] Care Teams Media Traffic Manager Relationship Specialty Start Date End Date Marguerite Santiago MD PCP - General Family Medicine 04/26/23 Alex Dangelo MD Referring Physician Neurology 04/26/23
== END 2024-08-12 08:20 | disposition home or self-care (01) ==
LOC: US 08:19
PROVIDERS: PCP Family Medicine; Visit Provider Family Medicine
DX: R10.11 Right upper quadrant pain (principal); K76.89 Other specified diseases of liver
CPT/HCPCS: 76705

== ENCOUNTER 2024-11-06 09:16 | Outpatient (OUT) | payer MEDICARE, OTHER, SELFPAY ==
--- OUTSIDE RECORDS SUMMARY | 2024-11-06 09:18 | XMS_ITS | Clinical Summary ---
Author Organization [facility] Address [address] [place] [address] Phone Care Team Providers Care Legal Technician Name Role Phone Unavailable Primary Care Provider Unavailabl e Social History Tobacco Use Types Packs/Day Years Used Date Smoking Tobacco: Never Assessed Comments Unknown Sex and Gender Information Value Date Recorded Sex Assigned at Not on file Legal Sex Female 6:18 PM EST Gender Identity Not on file Sexual Orientation Not on file Plan of Treatment Health Maintenance Due Date Last Done Comments CT Colonography 1955 Colonoscopy 1955 Colorectal Cancer Screening 1955 FIT-DNA (Cologuard) 1955 FIT 1955 Lipid Panel 1955 Medicare Annual Wellness Vis it (AWV) 1955 Sigmoidoscopy 1955 MMR Vaccines (1 of 1 - Stand ron series) 02/06/1957 Hepatitis C Screening 02/06/1974 DTaP/Tdap/Td Vaccines (1 - Tdap) 02/06/1978 Mammogram 1996 Pneumococcal Vaccine (1 of 1 - PCV) 02/06/2006 Zoster Vaccines (1 of 2) 02/06/2006 Bone Density Scan 02/06/2021 COVID-19 Vaccine (1 - 2023-2 5 season) 2024 Influenza Vaccine (#1) 2024 RSV High Risk: (Elderly (60+ ) or Population) (1 - 1-dose 75+ series) 02/06/2031 HIB Vaccines Aged Out No longer eligi ble based on patient's age to complete this topic HPV Vaccines Aged Out No longer eligi ble based on patient's age to complete this topic Hepatitis A Vaccines Aged Out No long er eligible based on patient's age to complete this topic Hepatitis B Vaccines Aged Out No long er eligible based on patient's age to complete this topic IPV Vaccines Aged Out No longer eligi ble based on patient's age to complete this topic Meningococcal Vaccine Aged Out No black marie eligible based on patient's age to complete this topic Rotavirus Vaccines Aged Out No longer eligible based on patient's age to complete this topic Insurance MEDICARE PART A AND B [facility] MEDICARE SUPPLEMENT
--- OUTSIDE RECORDS SUMMARY | 2024-11-06 09:18 | XMS_ITS | Clinical Summary ---
Author Organization [employer] Address [id number] [address] [place] [address] Care Team Providers Care Manager Continuous Improvement Name Role Phone Marguerite Santiago MD Primary Care Provider [phone] Allergies Active Allergy Reactions Criticality Noted Date [...] Documents on File Type Date Recorded Patient Gas Prover Expl anation Living Will 12/27/2022 10:39 AM [place]IV[place] [facility] Care Teams Manager Continuous Improvement Relationship Specialty Start Date End Date Marguerite Santiago MD [facility] [place] [address] PCP - General Family Medicine 10/26/22
--- OUTSIDE RECORDS SUMMARY | 2024-11-06 09:18 | XMS_ITS | Clinical Summary ---
Author Organization [facility] Address [address], [address] [place] [address] Care Team Providers Care Dough Puncher Name Role Phone Yuni Han MD Primary Care Provider [phone] Allergies Active Allergy Reactions Criticality Noted Date Comments Nitrofurantoin Other (See Comments) 05/30/2017 Sulfamethoxazole-Trimethoprim Nausea Only 05/30 Medications cyclobenzaprine (FLEXERIL) 5 MG tablet 1 tablet 04/05/2023 Active diphenoxylate-at ropine (LOMOTIL) 2.5-0.025 MG per tablet TAKE 1 TABLET BY MOUTH 3 TIMES A DAY NEEDED FOR 10 DAYS 02/20/2023 Active ibuprofen (ADVIL;MOTRIN) 800 MG tablet 0 Refill(s) 04/05/2023 Act yung zolpidem (AMBIEN) 5 MG tablet 1 tablet. 04/05/2023 Active escitalopram (LEXAPRO) 10 MG tabletIndication s:Hot flashes Take 1 tablet by mouth daily 30 tablet 2 04/13/2023 Active Active Problems No known active problems Immunizations Immunization Administration Dates Next Due Influenza, FLUARIX, FLULAVAL , FLUZONE (age 6 mo+) and AFLURIA, (age 3 y+), Quadv PF, 0.5mL 11/22/2016 Influenza, FLUCELVAX, (age 6 mo+), MDCK, Quadv PF, 0.5mL 12/18/2017 TDaP, ADACEL (age 10y-64y), BOOSTRIX (age 10y+), IM, 0.5mL 05/30/2017 Zoster Live (Zostavax) 07/09/2015 Zoster Recombinant (Shingrix) 09/14/2017, 018 Family History Medical History Relation Name Comments Breast Cancer Paternal Grandmother Relation Name Status Comments Paternal Grandmother Social History Tobacco Use Types Packs/Day Years Used Date Smoking Tobacco: Never Passive Smoke Exposure: Never Smokeless Tobacco: Never Tobacco Cessation:Counseling Given: Yes Alcohol Use Standard Drinks/Week Comments Yes 0 (1 standard drink = 0.6 oz pur e alcohol) social Comments No Sex and Gender Information Value Date Recorded Sex Assigned at Not on file Legal Sex Female 11:39 AM EST Gender Identity Not on file Sexual Orientation Not on file Last Filed Vital Signs Vital Sign Reading Time Taken Comments Blood Pressure 180/92 04/13/2023 10:05 AM EST Pulse - - Temperature - - Respiratory Rate - - Oxygen Saturation - - Inhaled Oxygen Concentration - - Weight 62.6 kg (138 lb) 04/13/2023 9:28 AM EST Height 157.5 cm (5' 2 ) 04/13/2023 9:28 AM EST Body Mass Index 25.24 04/13/2023 9:28 AM EST Plan of Treatment Health Maintenance Due Date Last Done Comments Depression Screen 1968 Hepatitis C screen 02/06/1974 Breast cancer screen 1996 Lipids 1996 Colonoscopy 02/06/2001 Colorectal Cancer Screen 02/06/2001 FIT/FOBT: Average risk 02/06/2001 Fecal-DNA (Cologuard): [place] ge risk 02/06/2001 Sigmoidoscopy/CT colonography 02/06/2001 Pneumococcal 50+ years Vacci ne (1 of 1 - PCV) 02/06/2006 DEXA (modify frequency per FRAX score) 02/06/2011 Flu vaccine (#1) 09/26/2024 12/18/2017, 11/22/2016 COVID-19 Vaccine (1 - 2023-2 5 season) 2024 DTaP/Tdap/Td vaccine (2 - Td or Tdap) 05/31/2027 05/30/2017 Respiratory Syncytial Virus (RSV) or age 60 yrs+ (1 - 1-dose 75+ series) 02/06/2031 Shingles vaccine Completed 09/14/2017, 06/06/2017, 07/09/2015 Hepatitis A vaccine Aged Out No longe r eligible based on patient's age to complete this topic Hepatitis B vaccine Aged Out No longe r eligible based on patient's age to complete this topic Hib vaccine Aged Out No longer eligi ble based on patient's age to complete this topic Meningococcal (ACWY) vaccine Aged Out No longer eligible based on patient's age to complete this topic Meningococcal B vaccine Aged Out No l onger eligible based on patient's age to complete this topic Polio vaccine Aged Out No longer elig ible based on patient's age to complete this topic Insurance [employer] [facility] Care Teams Dough Puncher Relationship Specialty Start Date End Date Yuni Han MD [address] [facility] [address] [place] [address] PCP - General Family Medicine 01/29/18
--- NOTE | 2024-11-06 09:22 | US_ITS ---
[address] [address] Patient Name: EVANGELIST SCRUGGS MRN: [id number] date: 1955 Sex: F Assigned Patient Location: US Current Patient Location: US Accession/Order Number: [id number] Exam Date: 11/06/2024 09:25 Report Date: 11/06/2024 10:22 At the request of: JOSE SEPULVEDA Procedure: US right upper quadrant LIMITED ABDOMINAL ULTRASOUND: CLINICAL HISTORY: Chronic Diarrhea, Gallbladder Polyp, Abnormal US COMPARISON: None TECHNIQUE: Grayscale and color Doppler images of the right upper quadrant organs were obtained. FINDINGS: Pancreas: Visualized pancreas appears unremarkable. Liver: Liver cyst. No mass. Gallbladder: 4 mm stone versus polyp. No wall thickening. CBD: 3.6 mm. RT KIDNEY: No Hydronephrosis US/US right upper quadrant IMPRESSION: NO ACUTE FINDINGS. 4 MM STONE VERSUS GALLBLADDER POLYP. NO SONOGRAPHIC EVIDENCE OF ACUTE CHOLECYSTITIS.. Impression dictated by: Álvaro Astorga Jr., D.O. 11/06/2024 10:22 AM Dictation Location: [place] [address] Electronically authenticated by: [id number] Y Date: 11/06/2024 10:22
--- OUTSIDE RECORDS SUMMARY | 2024-11-06 09:23 | XMS_ITS | CCD ---
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 SERVICE-Alba EDMOND Attending U Lazaro Craft MD Primary Care Provider [phone] Iggy Dangelo MD Unavailable [phone] Lazaro Charles MD Primary Care Provider LAZARO CHARLES Primary Care Physician [phone] Camden العراقي Referring Unavailable Camden العراقي Attending Unavailable Dulce Maria, Camden Cartwright Admitting Unavailable Lazaro Charles MD Primary Care Provider Pippa Baker MD Attending Provider [phone] Camden العراقي Referring Unavailable العراقي, Camden T Admitting Unavailable العراقي, Camden T Attending Unavailable Dulce Maria, Camden Cartwright Attending Unavailable Dulce Maria, Camden T Referring Unavailable Dulce Maria, Camden Cartwright Admitting Unavailable Lazaro Charles Primary Care Unavailable Pippa Baker Attending Unavailable Pippa Baker Admitting Unavailable Dulce Maria, Camden Cartwright Admitting Unavailable Dulce Maria, Camden Cartwright Attending Unavailable العراقي, Camden Cartwright Referring Unavailable Iggy Dangelo MD Unavailable [phone] Lazaro Charles MD Primary Care Provider CAMDEN العراقي Attending Unavailable DULCE MARIA, CAMDEN Cartwright Referring Unavailable ISAIAS TAPIA Attending Unavailable العراقي, CAMDEN Cartwright Referring Unavailable MING, VASILIY Cartwright Attending Unavailable MING, VASILIY Cartwright Referring Unavailable LAURIE NASH Attending Unavailable JOSE DUBOIS Attending Unavailable LAZARO CHARLES Referring Unavailable SAMUEL, PIPPA Irving Attending Unavailable SAMUEL, PIPPA P Referring Unavailable SAMUEL, PENJOSE MIGUEL P Attending Unavailable DULCE MARIA, CAMDEN Cartwright Referring Unavailable العراقي, CAMDEN Cartwright Attending Unavailable العراقي, CAMDEN T Referring Unavailable العراقي, CAMDEN Cartwright Attending Unavailable العراقي, CAMDEN Cartwright Referring Unavailable Allergies Allergy Classification Reported Allergen(s) Allergy Type Date of Onset Reaction(s) Facility (17 sources) NITROFURANTOIN, MACROCRYSTALS / Nitrofurantoin, Monohydrate; Translations: [nitrofurantoin] Drug Allergy delusions, Mental blocking [facility] (20 sources) Sulfamethoxazole / Trimethoprim; Translations: [sulfamethoxazole-tr imethoprim] Drug Allergy 05-31-19 18 Anxiety, Dizziness, Hallucinations , Hives, Itching, Nausea Only, Palpitations, Rash, Unknown (qualifier value) [employer] Other (1 source) Nitrofurantoin Drug Allergy [facility] (1 source) Sulfonamides (Antibiotic) Drug allergy (disorder) [facility] (20 sources) Nitrofurantoin; Translations: [nitrofurantoin] Drug Allergy 05-31-19 18 delusions [facility] (5 sources) Sulfamethoxazole; Translations: [sulfamethoxazole] Drug Allergy 04-17-19 24 stomach upset [facility] (1 source) Trimethoprim Drug Allergy 04-17-19 24 stomach upset [facility] (2 sources) Sulfamethoxazole / Trimethoprim; Translations: [Bactrim] Drug Allergy [facility] Medications Current Medications Medication Drug [...] 4 hours as needed for surgical pain., [facility], 155, cm, 04/04/24 12:36:00 [...] day(s), # 30 tab(s), Refills(s) 0, Pharmacy: [facility], 155, cm, 04/04/24 12:36:00 [...] Ordered calcium citrate 950 mg oral tablet (3 sources) Start: 04-04-2024 calcium citrate (Calcitrate) 950 (200 Ca) MG tablet Take 950 mg by mouth 04/04/2024 Active cephalexin 500 mg oral capsule (1 source) Cephalosporin Antibacterial Start: 06-30-2024 End: 09-10-2024 cephalexin (Keflex) 500 MG capsule Indications: Status post total right knee replacement Take two caps evening prior to appointment, take two caps one hour prior to appointment 4 capsule 2 06/30/2024 09/10/2024 Discontinued (Therapy completed) cholecalciferol 0.025 mg oral capsule (1 source) Vitamin D Start: 04-04-2024 cholecalciferol (D3) 25 MCG (1000 UT) capsule Refills(s) 0 04/04/2024 Active cloNIDine hydrochloride 0.1 mg oral tablet (14 sources) Central alpha-2 Adrenergic Agonist Start: 03-24-2024 End: 09-10-2024 cloNIDine (Catapres) 0.1 MG tablet 03/24/2024 09/10/2024 Discontinued (Therapy completed) Start: 03-24-2024 End: 08-06-2024 take 1 tablet by mouth once daily at bedtime Clonidine Hcl 0.1 mg tablet Discontinued 0.1 MG PO Daily at bedtime March 24, 2024 1:00am August 06, 2024 9:17am cyclobenzaprine hydrochloride 10 mg oral tablet (20 sources) Muscle Relaxant Start: 03-24-2024 End: 09-10-2024 cyclobenzaprine (Flexeril) 10 MG tablet 03/24/2024 09/10/2024 Discontinued (Therapy completed) Start: 03-24-2024 End: 08-06-2024 take 1 tablet by mouth once daily at bedtime as needed for muscle spasms Cyclobenzaprine 10 mg tablet Discontinued 10 MG PO Daily at bedtime as needed for muscle spasm March 24, 2024 10:08am August 06, 2024 9:17am Start: 06-21-2023 End: 03-24-2024 take 1 tablet by mouth once daily at bedtime as needed for muscle spasms Cyclobenzaprine 5 mg tablet Discontinued 5 MG PO Daily at bedtime as needed for muscle spasm June 21, 2023 12:00am March 24, 2024 10:09am Start: 04-16-2023 End: 05-07-2023 take 1 tablet [...] BID, # 20 cap(s), Refills(s) 0, Pharmacy: [facility], 155, cm, 04/04/24 12:36:00 EST, Height/Length Dosing, 67.1, kg, 04/04/24 12:36:00 EST, Weight Dosing Start Date: 04/21/24 Status: Ordered ibuprofen 800 mg oral tablet (8 sources) Nonsteroidal Anti-inflammatory Drug Start: 04-04-2024 take 1 tablet by mouth three times daily ibuprofen 800 mg Tab 800 mg = 1 tab(s), Oral, TID, Pain Start Date: 04/04/24 Status: Ordered Start: 05-07-2023 End: 07-07-2024 take 1 tablet by mouth every eight hours ibuprofen 800 MG tablet Take 800 mg by mouth every 8 (eight) hours 07/07/2024 Active Start: 04-04-2023 take 1 tablet by filomena [...] Status: Ordered miSOPROStol 0.2 mg oral tablet (17 sources) Prostaglandin E1 Analog Start: 04-15-2024 End: 07-16-2025 miSOPROStol (Cytotec) 200 MCG tablet Indications: Thickened endometrium , Post-menopausal Take all 4 tablets at bedtime the night before procedure 4 tablet 04/15/2024 09/10/2024 Discontinued (Therapy completed) Start: 06-26-2023 End: 03-25-2024 miSOPROStol (Cytotec) 200 [...] a day for 30 day(s) Sep, Active traZODone hydrochloride 50 mg oral tablet (14 sources) Serotonin Reuptake Inhibitor Start: 04-04-2024 traZODONE 50 mg Tab 25 mg = 0.5 tab(s), Oral, Once a day (at bedtime), Insomnia Start Date: 04/04/24 Status: Ordered Start: 03-24-2024 End: 09-10-2024 traZODone (Desyrel) 50 MG ta blet 03/24/2024 09/10/2024 Discontinued (Therapy completed) veozah 45 mg tablet (4 sources) take [...] sodium 75 mg delayed release oral tablet (3 sources) Nonsteroidal Anti-inflammatory Drug Start: 05-07-2023 End: 03-24-2024 take 1 tablet by mouth twice daily Diclofenac Sodium 75 mg tablet,delayed release (DR/EC) Discontinued 75 MG PO Twice daily 60 May 07, 2023 12:00am March 24, 2024 9:49am estrogens, conjugated (fdc) 0.3 mg / medroxyPROGESTERone acetate 1.5 mg oral tablet (8 sources) Progestin, Estrogen Start: 04-16-2023 End: 04-17-2023 [...] 60 mg lidocaine 0.05 mg/mg medicated patch (9 sources) Antiarrhythmic, Amide Local Anesthetic Start: 04-17-2023 End: 04-18-2024 apply 1 dose topically once daily Lidocaine 5 % adhesive patch,medicated Discontinued 1 PATCH TOPICAL Daily April 19, 2023 9:49am April 18, 2024 8:45am leave on most painful area for up to 12 hrs methylPREDNISolone (15 sources) Corticosteroid Start: 12-04-2016 Depo-Medrol 40 mg Nov, 1 mL Multivitamin preparation (2 sources) Multivitamin Orally Not-Taking omeprazole 20 mg delayed release oral capsule (2 sources) Proton Pump Inhibitor take 1 capsule by mouth once daily PriLOSEC 20 MG 1 capsule Orally Once a day Not-Taking tiZANidine 4 mg oral capsule (2 sources) Central alpha-2 Adrenergic Agonist Start: 06-20-2023 End: 06-21-2023 take 1 capsule by mouth twice daily as needed Tizanidine 4 mg capsule Discontinued 4 MG PO Twice daily as needed for muscle spasticity 60 June 20, 2023 12:00am June 21, 2023 10:20am traMADol hydrochloride 50 mg oral tablet (2 sources) Opioid Agonist Start: 04-18-2024 End: 08-06-2024 take 1 tablet by mouth every six hours as needed for pain Tramadol 50 mg tablet Discontinued 50 MG PO Every 6 hours as needed for pain 10 3 April 18, 2024 1:00am August 06, 2024 9:17am Problems Active Problems Problem Classification Problem Date Documented Da te Episodic/Chronic Abdominal pain (7 sources) Abdominal pain; Translations: [Unspecified abdominal pain] 10-22-2023 Episodic Biliary tract disease (2 sources) Polyp of gallbladder; Translations: [Cholesterolosis of gallbladder] Onset: 5 09-10-2024 Episodic Esophageal disorders (3 sources) Gastroesophageal reflux disease without esophagitis; Translations: [Gastro-esophageal reflux disease without esophagitis] Chronic Inflammatory diseases of female pelvic organs (3 sources) Acute vaginitis; Translations: [Acute vaginitis] Episodic Intestinal infection (3 sources) Viral infection of the digestive tract; Translations: [Viral intestinal infection, unspecified] Episodic Menopausal disorders (19 sources) Menopausal flushing; Translations: [Menopausal and female climacteric states] Onset: 5 Chronic Miscellaneous mental health disorders (13 sources) Primary insomnia; Translations: [Primary insomnia] Chronic Mycoses (7 sources) Tinea unguium; Translations: [Onychomycosis due to dermatophyte ] Onset: 2 Episodic Noninfectious gastroenteritis (2 sources) Chronic diarrhea; Translations: [Noninfective gastroenteritis and colitis, unspecified] Onset: 5 09-10-2024 Episodic Osteoarthritis (9 sources) Osteoarthritis of right knee joint; Translations: [...] of T11-T12 vertebra, sequela Episodic Other fractures (3 sources) Compression fracture of thoracic spine; Translations: [...] initial encounter] Episodic Other nervous system disorders (3 sources) Chronic pain; Translations: [Other chronic pain] 05-07-2023 Chronic Other nervous system disorders (2 sources) Other chronic pain; Translations: [Other chronic pain] 05-07-2023 Chronic Other nervous system disorders (1 source) Other symptoms and signs involving cognitive functions and awareness Episodic Other nervous system disorders (2 sources) Postoperative pain ; Translations: [Other acute postprocedural [...] Onset: 3 Episodic Other non-traumatic joint disorders (10 sources) Pain in right knee; Translations: [Pain [...] conditions (not mental disorders or infectious disease) (6 sources) Encounter for screening mammogram for malignant neoplasm of breast; Translations: [Ultrasonography of biliary tract abnormal] Onset: Episodic Residual codes; unclassified (2 sources) Postmenopausal state; Translations: [Asymptomatic menopausal state] 10-22-2023 Episodic Residual codes; unclassified (2 sources) Acute insomnia 04-04-2024 Episodic Residual codes; unclassified (2 sources) Menopause present 04-04-2024 Episodic Spondylosis; intervertebral disc disorders; other back problems (9 sources) Arthropathy of lumbar facet joint; Translations: [Spondylosis without myelopathy or radiculopathy, lumbar region] Chronic Spondylosis; intervertebral disc disorders; other back problems (16 sources) Neck pain; Translations: [Cervicalgia] 04-17-2023 Episodic [...] Stable RT total knee replacement. 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 Insulation Blower portion is submitted in two cassettes: 1 - Soft tissue 2 - Bone after decalcification (DC) DC:[facility] Microscopic Description Microscopic examination performed unless gross only specified. This report was transcribed using voice recognition technology and might contain unintended computerized flat cutter errors. Normal [facility] Comment on above: Performed By: #### [id number] #### [facility] [address] [place] [address] Main OR Intraoperative Recor don 04-29-2024 Main OR Intraoperative Record Main OR Intraoperative Record IntraOp Document Type FT Summary Primary Physician: Camden العراقي DO Finalized Date/Time: 04/29/24 11:00:19 Pt. Name: KANWAL SCRUGGS/Sex: 1955 Female Med Rec #: [id number] Physician: Camden العراقي DO Financial #: [id number] Pt. Type: A Room/Bed: Admit/Disch: 04/28/24 06:46:42 - 04/28/24 16:05:49 Institution: Case Times FT Entry 1 Patient Times In Room 04/28/24 09:40:00 Out Room 04/28/24 11:05:00 Procedure Times Start 04/28/24 10:10:00 Stop 04/28/24 10:58:00 Anesthesia Times Start 04/28/24 09:40:00 Stop 04/28/24 11:05:00 Block Timeout w/ 04/28/24 09:00:00 Anesthesia Last Modified By: Bianca Nelson RN 04/28/24 11:05:46 General Comments: ULTRASOUND GUIDED NERVE BLOCK PERFORMED BY Anurag TORRES CRNA WITH STEPHANIE,RN ASSISTING, HEART RATE 78BPM, SPO2 98% RA, PATIENT TOLERATED WELL. YAS NOBLE 04/29/24 Chart opened to review and send charges [facility] Case Attendance FT Entry 1 Entry 2 Entry 3 Case Attendee José FIELD AGRONOMIST, Sarath العراقي DO, Camden Carrillo ELECTRIC METER INSTALLER, Kaycee De Souza Role Performed FIELD AGRONOMIST Surgeon - Primary ELECTRIC METER INSTALLER/SA Time In 04/28/24 09:40:00 04/28/24 10:08:00 04/28/24 09:40:00 Time Out 04/28/24 11:05:00 04/28/24 10:52:00 04/28/24 11:05:00 Procedure KNEE TOTAL KNEE TOTAL KNEE TOTAL ARTHROPLASTY(Right) ARTHROPLASTY(Right) ARTHROPLASTY(Right) Comments DR. MOORE SUPERVISING Last Modified By: Omar RN, Bianca Nelson RN, Bianca Arthur RN 04/28/24 11:05:47 04/28/24 11:05:47 04/28/24 11:05:47 Entry 4 Entry 5 Entry 6 Case Attendee Bianca Nelson RN ELECTRIC METER INSTALLER, Karolina Hoang Role Performed Sales Engineering Manager - Primary Scrub - Primary Staff - Other Time In 04/28/24 09:40:00 04/28/24 09:40:00 04/28/24 09:40:00 Time Out 04/28/24 11:05:00 04/28/24 11:05:00 04/28/24 10:53:00 Procedure KNEE TOTAL KNEE TOTAL KNEE TOTAL ARTHROPLASTY(Right) ARTHROPLASTY(Right) ARTHROPLASTY(Right) Comments 2ND SCRUB Last Modified By: Omar RN, Bianca Nelson RN, Bianca Arthur RN 04/28/24 11:05:47 04/28/24 11:05:47 04/28/24 11:05:47 Entry 7 Case Attendee Miguelito RN, CNOR, Shahrzad Role Performed Sales Engineering Manager - Relief Time In 04/28/24 10:58:00 Time Out 04/28/24 11:05:00 Procedure KNEE TOTAL ARTHROPLASTY(Right) Comments Last Modified By: Bianca Nelson RN 04/28/24 11:05:47 General Comments: [facility]. YAS NOBLEsenior information security architect Protocols FT Pre-Care Text: Implements protective measures [...] العراقي DO, Gerardo SNOW, Omar Gibbons RN, Leann E, Kirill ELECTRIC METER INSTALLER, Rene Carrasquillo Laura C Time Out Complete [...] mechanical sources Ev (more content not included)... [facility] Operative Reporton Operative Report Operative Report [...] the proposed procedure. GISEL Elmore Dictated: 04/28/2024 [id number] Transcribed: 04/28/2024 [facility] Comment on above: Result Comment: Elec tronically Signed By: Sarath Torres CRNA.br\Date and Time Signed: 04/29/24 10:43 EST Operative Report Operative Report SURGERY DATE: 04/28/2024 NETWORK SUPPORT SPECIALIST: Kaycee Carrillo C.F.A. PREOPERATIVE DIAGNOSIS: Right knee [...] recalcitrant to conservative injection management. She has nqkc-tq-fuid disease. She has activity of daily living [...] injected with 100 cc of Exparel. The Eva Simplex cement was mixed. All components were [...] PATIENT CONDITION: Satisfactory Anjelica Linares Dictated: 04/28/2024 [id number] Transcribed: 04/28/2024 cc:Lazaro Charles M.D. Normal [facility] Comment on above: Result Comment: Elec tronically Signed By: Camden العراقي DO T\.br\Date and Time Signed: 04/29/24 06:56 EST ABO/Rhon 04-28-2024 ABO/Rh Positive Invalid Interpretation Code [facility] Comment on above: Performed By: #### [id number] #### [facility] [address] [place] [address] ABO/Rh History Checkon 04-28 ABO/Rh History Check Verified Hx Blood Type Normal [facility] Comment on above: Performed By: #### 1 [id number] #### [facility] [address] [place] [address] ABSCon 04-28-2024 ABSC Gel Interp Negative Normal [facility] Comment on above: Performed By: #### 1 [id number] ####[facility] [address] [place] [address] BLOOD BANKOrdered By: Neville Morton on 04-28-2024 ABO/Rh Interp Positive Invalid Interpretation Code [facility] BB Subsection ABSC Gel Interp Negative (04/28/24 7:37 AM) Normal [facility] BB Subsection Blood Bank ID#on 04-28-2024 BBID# [id number] Invalid Interpretation Code [facility] Comment on above: Performed By: #### 1 [id number] #### [facility] [address] [place] [address] Discharge Instructionson Discharge Instructions Discharge Instructions KANWAL SCRUGGS :1955 Visit Date:04/28/2024 Inpatient Discharge Instructions Your Care Team Admitting Physician - Camden العراقي DO Referring Physician - Camden العراقي DO Reason for Your Visit RIGHT KNEE OA [...] AM EDT Comments: Keep scheduled appointment Where: [address] [place] [phone] Business (1) Medications What How Much When Instructions Next Dose Unchanged acetaminophen-oxyco done (Percocet 5 mg-325 mg oral tablet) See instructions Take one to two oral every 4 hours as needed for surgical pain. Pickup at [facility] Unchanged aspirin (aspirin 325 mg Tab) 1 Tablets By Mouth Every day Duration: 30 Days Start the day after surgery for blood clot prevention. Pickup at [facility] Unchanged calcium citrate (calcium [...] Mouth 2 times a day Pickup at [facility] Unchanged ibuprofen (ibuprofen 800 [...] Once a day (at bedtime) Pharmacy Information [facility]: [address] [place], [place] [id number] [phone] Test Results No qualifying data available. Allergies [...] VISCOSITY HIGH [6194-1-010] 04/28/2024, Unknown - JAVIER: {[id number]{ [id number] Education Materials How to Use an Incentive [...] spirometer inc (more content not included)... Normal [facility] Comment on above: Result Comment: Elec tronically Signed By: Henrique SORENSON, Cata Nesbitt\.br\Date and Time Signed: 04/28/24 11:38 EST Main OR PACU I Recordon Main OR PACU I Record Main OR PACU I Record PACU Phase I Document Type FT Summary Primary Physician: Camden العراقي DO Finalized Date/Time: 04/28/24 12:20:28 Pt. Name: KANWAL SCRUGGS/Sex: 1955 Female Med Rec #: [id number] Physician: Camden العراقي DO Financial #: [id number] Pt. Type: A Room/Bed: [place] [address] Admit/Disch: 04/28/24 06:46:42 - Institution: Case Times [...] By: Sammie Izquierdo RN 04/28/24 12:20 Normal [facility] Main OR PACU II Recordon Main OR PACU II Record Main OR PACU II Record PACU Phase II Document Type FT Summary Primary Physician: Camden العراقي DO Finalized Date/Time: 04/28/24 16:05:22 Pt. Name: KANWAL SCRUGGS/Sex: 1955 Female Med Rec #: [id number] Physician: Camden العراقي DO Financial #: [id number] Pt. Type: A Room/Bed: Admit/Disch: 04/28/24 06:46:42 - Institution: Case Times [...] Signed By: Cata Duenas RN 04/28/24 16:05 [facility] Main OR Preoperative Recordo n 04-28-2024 Main OR Preoperative Record Main OR Preoperative Record PreOp Document Type FT Summary Primary Physician: Camden العراقي DO Finalized Date/Time: 04/28/24 10:19:46 Pt. Name: KANWAL SCRUGGS/Sex: 1955 Female Med Rec #: [id number] Physician: Camden العراقي DO Financial #: [id number] Pt. Type: A Room/Bed: AS06 Admit/Disch: 04/28/24 06:46:42 - Institution: Case Times [...] By: Bianca Nelson RN 04/28/24 10:19 Normal [facility] Operative Reporton Operative Report Operative Report Patient: [...] Room in stable and satisfactory condition.. Normal [facility] Comment on above: Result Comment: Elec [...] العراقي FINAL REPORT Dictated: 04/28/2024 11:34 am Reyumndo Bob M.D. Signed (Electronic Signature): 04/28/2024 11:34 am Signed by: Reymundo Bob M.D. Transcribed by: CHARMAINE Technologist: CAESAR [facility] Radiology, Radiologist, - 04/28/2024 Exam Date/Time: 04/28/2024 11:24 EST [...] Bob M.D. Transcribed by: CHARMAINE Technologist: CAESAR [facility] [employer] Radiology Study observation (narrative) [facility] [employer] XR KNEE 1 OR 2 VIEWS RIGHTOr dered By: Radiologist Radiology on 04-28-2024 [facility] [employer] Work Phone: XR Knee 1 or 2 [...] M.D. Transcribed by: CHARMAINE Technologist: CAESAR [facility] Inpatient Patient Summaryon 04-21-2024 Inpatient Patient Summary Inpatient Patient Summary [address] [address] [facility] Clinical Discharge Instructions PERSON INFORMATION Name: KANWAL SCRUGGS [facility]#:[id number] PHYSICIANS Admitting Physician: Camden العراقي DO Attending Physician: Camden العراقي DO PCP: LAZARO CHARLES MD Diagnosis: Localized osteoarthritis of right knee Comment: PATIENT EDUCATION INFORMATION Instructions: Dulce Maria - Total Knee Arthroplasty (CUSTOM) Medication Leaflets: Follow up: With: Address: When: Camden العراقي [address] [place], [place] [id number] EZ-Ticket (1) Comments: Keep scheduled appointment Type Location Start [facility] Surgery [facility] 04/28/2024 10:00 AM 04/28/2024 11:00 [...] once a day (at bedtime). Comment: Normal [facility] Outpatient Surgery Discharge Instructionon 04-21-2024 Outpatient Surgery Discharge Instruction Outpatient Surgery Discharge Instruction [address] [address] Patient Discharge Instructions PERSON INFORMATION Name: KANWAL SCRUGGS Date of : 1955 Current Date: 04/21/2024 13:00:30 PHYSICIANS Admitting Physician: Camden العراقي DO Discharge Diagnosis: Localized osteoarthritis of right knee KANWAL SCRUGGS has been given the following list of [...] Follow up: With: Address: When: Camden العراقي [address] [place], [place] [id number] Business (1) Comments: Keep scheduled appointment Type Location Start [facility] Surgery [facility] 04/28/2024 10:00 AM 04/28/2024 11:00 [...] to serve you. Thank you for choosing [facility] HERE ARE THE MEDICATION CHANGES THAT OCCURRED [...] day (at bedtime). PATIENT EDUCATION INFORMATION Instructions: [place], [place] [facility] DISCHARGE INSTRUCTIONS TOTAL KNEE [...] in Physical (more content not included)... Normal [facility] Amphetamine Screen Ql (U)Ord ered By: Roosevelt Torres on 04-18-2024 Amphetamines Ql (U) Amphetamines screen Negativ e [facility] Barbiturates [Presence] in U rine by Screen methodOrdered By: Roosevelt Torres on 04-18-2024 Barbiturates Screen Ql (U) Barbiturates [Presence] in Urine by Screen method Negative [facility] Basic Metabolic Panelon 03-30 Anion gap [Moles/Vol] 13.6 mmol/L Normal 6.0-15.0 Th e [facility] Comment on above: Performed By: #### C BC, BMP #### [facility] [address] [id number] [place] Calcium [Mass/Vol] 10.0 mg/dL Normal 8.6-10.3 The [facility] Comment on above: Performed By: #### C BC, BMP #### [facility] [address] [id number] [place] Chloride [Moles/Vol] 104 mmol/L Normal 98-107 The [facility] Comment on above: Performed By: #### C BC, BMP #### [facility] [address] [place] [address] [place] CO2 [Moles/Vol] 27.2 mmol/L Normal 21.0-31.0 The [facility] Comment on above: Performed By: #### C BC, BMP #### [facility] [address] [id number] [place] Creatinine [Mass/Vol] 0.96 mg/dL Normal 0.60-1.20 The [facility] Comment on above: Performed By: #### C BC, BMP #### [place] [address] [place] Creatinine Clr Calc Pharmacy 48.37 Normal The [facility] Comment on above: Result Comment: PERF ORMED BY: [place] [address] PATHOLOGIST H[employer]MING EQUIPMENT OPERATOR SOBIA GRACIA M.D. Performed By: #### C BC, BMP #### [place] [address] [place] GFR/1.73 sq M.predicted MDRD (S/P/Bld) [Vol rate/Area] mL/min/{1.73_m2} Normal The [facility] Comment on above: Performed By: #### C BC, BMP #### [address] Glucose [Mass/Vol] 93 mg/dL Normal 70-100 The [facility] Comment on above: Result Comment: [facility] Glucose Reference Range is dependent on time and content of last meal. Glucose of more than 200 mg/dL in a nonstressed, ambulatory subject supports the diagnosis of Diabetes Mellitus. ADA recommended reference range Performed By: #### C BC, BMP #### [address] Potassium [Moles/Vol] 3.8 mmol/L Normal 3.5-5.1 The [facility] Comment on above: Performed By: #### C BC, BMP #### [address] Sodium [Moles/Vol] 141 mmol/L Normal 136-145 The [facility] Comment on above: Performed By: #### C BC, BMP #### [address] Urea nitrogen [Mass/Vol] 21 mg/dL Normal 7-25 [facility] Comment on above: Performed By: #### C BC, BMP #### [place] [address] [place] Basophils Auto (Bld) [#/Vol] Ordered By: Roosevelt Torres on 04-18-2024 Basophils (Bld) [#/Vol] Automated basoph il count 0.0-0.2 [facility] Basophils/100 WBC Auto (Bld) Ordered By: Roosevelt Torres on 04-18-2024 Basophils/100 WBC (Bld) Automated basoph il % . [facility] Benzodiazepines Screen Ql (U )Ordered By: Roosevelt Torres on 04-18-2024 Benzodiazepines Ql (U) Benzodiazepines [Presence] in Urine by Screen method Negative [facility] Benzoylecgonine [Presence] i n Urine by Screen methodOrdered By: Roosevelt Torres on 04-18-2024 Benzoylecgonine Screen Ql (U) Benzoylecgonine [Presence] in Urine by Screen method Negative [facility] Calcium [Mass/volume] in Ser um or PlasmaOrdered By: Roosevelt Torres on 04-18-2024 Calcium [Mass/Vol] Calcium [Mass/volume] in Serum or Plasma 8.6-10.3 [facility] Cannabinoids [Presence] in U rine by Screen methodOrdered By: Roosevelt Torres on 04-18-2024 Cannabinoids Screen Ql (U) Cannabinoids [Presence] in Urine by Screen method High Negative [facility] Comment on above: These are unconfirme d [...] total [Moles/volume] in Serum or Plasma 21.0-31.0 [facility] Chloride [Moles/volume] in S rahul or PlasmaOrdered By: Roosevelt Torres on 04-18-2024 Chloride [Moles/Vol] Chloride [Moles/volume] in Serum or Plasma 98-107 [facility] Complete Blood Count Auto Di ffon 04-18-2024 Basophils (Bld) [#/Vol] 0.1 10*3/uL Normal 0.0-0.2 [facility] Comment on above: Result Comment: PERF ORMED BY: [place] [address] PATHOLOGIST H[employer]MING EQUIPMENT OPERATOR SOBIA GRACIA M.D. Performed By: #### C BC, BMP #### [place] [address] [place] Basophils/100 WBC (Bld) 1.5 % Normal . T [facility] Comment on above: Performed By: #### C BC, BMP #### [place] [address] [place] Eosinophils (Bld) [#/Vol] 0.2 10*3/uL Normal 0.0-0.45 [facility] Comment on above: Performed By: #### C BC, BMP #### [place] [address] [place] Eosinophils/100 WBC (Bld) 2.8 % Normal . [facility] Comment on above: Performed By: #### C BC, BMP #### [place] [address] [place] Erythrocyte distribution width (RBC) [Ratio] 14.0 % Normal 11.9-15.3 The [facility] Comment on above: Performed By: #### C BC, BMP #### [address] Hematocrit (Bld) [Volume fraction] 42.0 % Normal 34.0-46.4 [facility] Comment on above: Performed By: #### C BC, BMP #### [place] [address] [place] Hemoglobin (Bld) [Mass/Vol] 14.6 g/dL Normal 11.8-15.4 [facility] Comment on above: Performed By: #### C BC, BMP #### [place] [address] [place] Lymphocytes (Bld) [#/Vol] 3.3 10*3/uL Normal 1.00-4.8 [facility] Comment on above: Performed By: #### C BC, BMP #### [address] Lymphocytes/100 WBC (Bld) 37.8 % Normal . [facility] Comment on above: Performed By: #### C BC, BMP #### [address] MCH (RBC) [Entitic mass] 31.5 pg Normal 24.7-34.3 [facility] Comment on above: Performed By: #### C BC, BMP #### [address] MCV (RBC) [Entitic vol] 90.7 fL Normal 80-100 [facility] Comment on above: Performed By: #### C BC, BMP #### [address] Mean Corpuscular HGB Conc 34.7 g/dL Normal 32.0-35.0 [facility] Comment on above: Performed By: #### C BC, BMP #### [place] [address] [place] Monocytes (Bld) [#/Vol] 0.7 10*3/uL Normal 0.0-0.8 [facility] Comment on above: Performed By: #### C BC, BMP #### [address] Monocytes/100 WBC (Bld) 7.6 % Normal . [facility] Comment on above: Performed By: #### C BC, BMP #### [address] Neutrophils (Bld) [#/Vol] 4.4 10*3/uL Normal 1.8-7.7 [facility] Comment on above: Performed By: #### C BC, BMP #### [address] Neutrophils/100 WBC (Bld) 50.3 % Normal . [facility] Comment on above: Performed By: #### C BC, BMP #### [address] NRBC% 0.0 /100{WBC} Normal 0-0.5 [facility] Comment on above: Performed By: #### C BC, BMP #### [facility] [address] Platelet mean volume (Bld) [Entitic vol] 8.3 fL Normal 6.3-10.7 The [facility] Comment on above: Performed By: #### C BC, BMP #### [place] [address] [place] Platelets (Bld) [#/Vol] 349 10*3/uL Normal 150-450 [facility] Comment on above: Performed By: #### C BC, BMP #### [address] RBC (Bld) [#/Vol] 4.63 10*6/uL Normal 3.60-5.00 The [facility] Comment on above: Performed By: #### C BC, BMP #### [address] WBC (Bld) [#/Vol] 8.7 10*3/uL Normal 3.8-11.6 [facility] Comment on above: Performed By: #### C BC, BMP #### [place] [address] [place] Creatinine [Mass/volume] in Serum or PlasmaOrdered By: Roosevelt Torres on 04-18-2024 Creatinine [Mass/Vol] Creatinine [Mass/volume] in Serum or Plasma 0.60-1.20 [facility] Drug Screen,Urineon 04-18-19 25 Amphetamine Screen,Urine Negative Normal Negative [facility] Comment on above: Performed By: #### U RDS #### [address] Barbiturate Screen,Urine Negative Normal Negative [facility] Comment on above: Performed By: #### U RDS #### [address] Benzodiazepines Screen,Urine Negative Normal Negative [facility] Comment on above: Performed By: #### U RDS #### [address] Cannabinoid Screen,Urine Positive High Negative [facility] Comment on above: Result Comment: Thes e are unconfirmed results and should not be used for legal purposes. Drug Cut-Off Concentration: AMPH 1000 ng/mL LEOLA 200 ng/mL LUCIE 200 ng/mL COCM 300 ng/mL OP 300 ng/mL PCP 25 ng/mL THC 20 ng/mL PERFORMED BY: [place] [address] PATHOLOGIST H[employer]MING EQUIPMENT OPERATOR SOBIA GRACIA M.D. Performed By: #### U RDS #### [address] Cocaine Screen,Urine Negative Normal Negative [facility] Comment on above: Performed By: #### U RDS #### [place] [address] [place] Opiate Screen,Urine Negative Normal Negative The [facility] Comment on above: Performed By: #### U RDS #### [address] Phencyclidine Screen,Urine Negative Normal Negative [facility] Comment on above: Performed By: #### U RDS #### [address] ECG 12 lead ECGon 04-18-2024 ECG 12 lead ECG [facility] [place] [address] Electrocardiograph Report Signed Patient: Kanwal Scruggs MR#: [id number] 1 : 1955 Acct:[id number] Age/Sex: 69 / F ADM Date: 04/18/24 Loc: [place] Room: Type: [facility] Attending Dr: Pippa Baker MD Ordering Provider: [...] Normal ECG Confirmed by Maria Dolores Plummer ([id number]) on 04/18/2024 1:35:18 PM Referred By: Electronically Signed By: Maria Dolores Plummer Transcribed By: MUS Signed By Maria Dolores Plummer MD 5 1335 Normal [facility] Eosinophils Auto (Bld) [#/Vo l]Ordered By: Roosevelt Torres on 04-18-2024 Eosinophils (Bld) [#/Vol] Automated eosinophil count 0.0-0.45 [facility] Eosinophils/100 WBC Auto (Bl d)Ordered By: Roosevelt Torres on 04-18-2024 Eosinophils/100 WBC (Bld) Automated eosinophil % . [facility] Erythrocyte distribution wid th Auto (RBC) [Ratio]Ordered By: Roosevelt Torres on 04-18-2024 Erythrocyte distribution width (RBC) [Ratio] Erythrocyte distribution width [Ratio] by Automated count 11.9-15.3 [facility] Glucose [Mass/volume] in Ser um or PlasmaOrdered By: Roosevelt Torres on 04-18-2024 Glucose [Mass/Vol] Glucose [Mass/volume] in Serum or Plasma 70-100 [facility] Comment on above: ADA recommended refe rence rangeRandom Glucose Reference Range is dependent on time and content of last meal. Glucose of more than 200 mg/dL in a nonstressed, ambulatory subject supports the diagnosis of Diabetes Mellitus. Hematocrit Auto (Bld) [Volum e fraction]Ordered By: Roosevelt Torres on 04-18-2024 Hematocrit (Bld) [Volume fraction] Hematocrit [Volume Fraction] of Blood by Automated count 34.0-46.4 [facility] Hemoglobin [Mass/volume] in BloodOrdered By: Roosevelt Torres on 04-18-2024 Hemoglobin (Bld) [Mass/Vol] Hemoglobin [Mass/volume] in Blood 11.8-15.4 [facility] Kp 04-18-2024 L Specimen: [id number] Received: 04/18/24 Status: FRANKIE Del Rosario Num: [id number] Spec Type: Surgical Subm Dr: CHRISTIANA Cole Tissues: A Endocervix - Curettings (ECC) B Endometrium - Curettings (EMC) Procedures: DIVINE/Justina Avendaño/Dina L4/2 Age/ Patient Sex Location Account Attending Physician Kanwal Scruggs 69/F [place] [id number] CHRISTIANA Cole SPEC NUM: [id number] RECD: 04/18/24 STATUS: FRANKIE DLE ROSARIO NUM: [id number] ESTEBAN: 04/18/[address]: CHRISTIANA Cole ENTERED: 04/18/24-101[address] [facility] DR: SPEC TYPE: Surgical DEPT: S ENTERED BY: [id number] RECV BY: [id number] ORDERED: HE/4, Gross/Micro L4/2 ORDERED: HE/4, Gross/Micro [...] submitted in a single cassette. (1, ns, [id number]) Part B is received in formalin labeled with the patients name, date of , and Specimen: [id number] Received: 04/18/24 Status: FRANKIE Del Rosario Num: [id number] Spec Type: Surgical Subm Dr: CHRISTIANA Cole Tissues: A Endocervix - Curettings (ECC) B Endometrium - Curettings (EMC) Procedures: HE/4, Gross/Micro L4/2 Patient: Kanwal Scruggs [id number] (Continued) Specimen: [id number] Received: 04/18/24 (Continued) Gross Description (Continued) Signed (signatur e on file) Sabiha Flores MD 04/21/24 0952 Specimen: [id number] Received: 04/18/24 Status: FRANKIE Del Rosario Num: [id number] Spec Type: Surgical Subm Dr: Pippa Baker MD-NOMS Tissues: A Endocervix - Curettings (ECC) B Endometrium - Curettings (EMC) Procedures: Justina BURNETTE/Dina L4/2 Patient: Kanwal Scruggs [id number] (Continued) Specimen: [id number] Received: 04/18/24 (Continued) Gross Description (Continued) endometrial curettings is a Telfa pad with adherent lea-pink to red-brown, delicate tissue fragments, 1.7 x 0.7 x 0.2 cm in aggregate. The specimen is filtered and entirely submitted in a single cassette. (1, ns, [id number] B) JG Specimen: [id number] Received: 04/18/24 Status: FRANKIE Del Rosario Num: [id number] Spec Type: Surgical Subm Dr: Pippa Baker MD-KALIN Tissues: A Endocervix - Curettings (ECC) B Endometrium - Curettings (EMC) Procedures: HE/4, Gross/Micro L4/2 Patient: Kanwal Scruggs [id number] (Continued) Signed (signatur e on file) Sabiha Flores MD 04/21/24 0952 Normal [facility] Leukocytes [#/volume] correc genna for nucleated erythrocytes in Blood by Automated counOrdered By: Roosevelt Torres on 04-18-2024 WBC corrected for nucl RBC Auto (Bld) [#/Vol] Leukocytes [#/volume] corrected for nucleated erythrocytes in Blood by Automated coun 3.8-11.6 [facility] Lymphocytes Auto (Bld) [#/Vo l]Ordered By: Roosevelt Torres on 04-18-2024 Lymphocytes (Bld) [#/Vol] Lymphocytes [#/volume] in Blood by Automated count 1.00-4.8 [facility] Lymphocytes/100 WBC Auto (Bl d)Ordered By: Roosevelt Torres on 04-18-2024 Lymphocytes/100 WBC (Bld) Lymphocytes/100 leukocytes in Blood by Automated count . [facility] MCH Auto (RBC) [Entitic mass ]Ordered By: Roosevelt Torres on 04-18-2024 MCH (RBC) [Entitic mass] MCH [Entitic ma ss] by Automated count 24.7-34.3 [facility] MCHC Auto (RBC) [Mass/Vol]Or dered By: Roosevelt Torres on 04-18-2024 MCHC (RBC) [Mass/Vol] MCHC [Mass/volume] by Automated count 32.0-35.0 [facility] MCV Auto (RBC) [Entitic vol] Ordered By: Roosevelt Torres on 04-18-2024 MCV (RBC) [Entitic vol] MCV [Entitic volume] by Automated count 80-100 [facility] Monocytes Auto (Bld) [#/Vol] Ordered By: Roosevelt Torres on 04-18-2024 Monocytes (Bld) [#/Vol] Automated blood monocyte count 0.0-0.8 [facility] Monocytes/100 WBC Auto (Bld) Ordered By: Roosevelt Torres on 04-18-2024 Monocytes/100 WBC (Bld) Automated monocy te % . [facility] Neutrophils Auto (Bld) [#/Vo l]Ordered By: Roosevelt Torres on 04-18-2024 Neutrophils (Bld) [#/Vol] Neutrophils [#/volume] in Blood by Automated count 1.8-7.7 [facility] Neutrophils/100 WBC Auto (Bl d)Ordered By: Roosevelt Torres on 04-18-2024 Neutrophils/100 WBC (Bld) Automated neutrophil % . [facility] No Panel InformationOrdered By: Roosevelt Torres on 04-18-2024 Estimated GFR (CKD-EPI) > 60.0 mL/Min [facility] Pharmacy Creatinine Clearance (Chem 48.37 [facility] Nucleated erythrocytes [Pres ence] in Blood by Automated countOrdered By: Roosevelt Torres on 04-18-2024 Nucleated RBC Auto Ql (Bld) Nucleated erythrocytes [Presence] in Blood by Automated count 0-0.5 [facility] Opiates [Presence] in Urine by Screen methodOrdered By: Roosevelt Torres on 04-18-2024 Opiates Screen Ql (U) Opiates [Presence] in Urine by Screen method Negative [facility] Phencyclidine Screen Ql (U)O rdered By: Roosevelt Torres on 04-18-2024 Phencyclidine Ql (U) Phencyclidine [Presence] in Urine by Screen method Negative [facility] Platelet mean volume Auto (B ld) [Entitic vol]Ordered By: Roosevelt Torres on 04-18-2024 Platelet mean volume (Bld) [Entitic vol] Platelet mean volume [Entitic volume] in Blood by Automated count 6.3-10.7 [facility] Platelets Auto (Bld) [#/Vol] Ordered By: Roosevelt Torres on 04-18-2024 Platelets (Bld) [#/Vol] Platelets [#/volume] in Blood by Automated count 150-450 [facility] Potassium [Moles/volume] in Serum or PlasmaOrdered By: Roosevelt Torres on 04-18-2024 Potassium [Moles/Vol] Potassium [Moles/volume] in Serum or Plasma 3.5-5.1 [facility] RBC Auto (Bld) [#/Vol]Ordere d By: Roosevelt Torres on 04-18-2024 RBC (Bld) [#/Vol] Erythrocytes [#/volume] in Blood by Automated count 3.60-5.00 [facility] Serum or plasma anion gap de terminationOrdered By: Roosevelt Torres on 04-18-2024 Anion gap [Moles/Vol] Serum or plasma anion gap determination 6.0-15.0 [facility] Sodium [Moles/volume] in Ser um or PlasmaOrdered By: Roosevelt Torres on 04-18-2024 Sodium [Moles/Vol] Sodium [Moles/volume] in Serum or Plasma 136-145 [facility] Urea nitrogen [Mass/volume] in Serum or PlasmaOrdered By: Roosevelt Torres on 04-18-2024 Urea nitrogen [Mass/Vol] Urea nitrogen [Mass/volume] in Serum or Plasma 7-25 [facility] WBC Auto (Bld) [#/Vol]Ordere d By: Roosevelt Torres on 04-18-2024 WBC (Bld) [#/Vol] Leukocytes [#/volume] in Blood by Automated count 3.8-11.6 [facility] ABO/Rh Retypeon 04-04-2024 ABO/Rh Retype Interp Positive Invalid Interpretation Code [facility] Comment on above: Performed By: #### 1 [id number] #### [facility] [address] [place] [address] BLOOD BANKOrdered By: Emani Roberto on 04-04-2024 ABO/Rh Retype Interp Positive Invalid Interpretation Code [facility] BB Subsection BMPon 04-04-2024 Anion gap [Moles/Vol] 11 mmol/L Normal 6-16 [facility] Comment on above: Performed By: #### 2 [id number] #### [facility] [address] [place] [address] Calcium [Mass/Vol] 9.9 mg/dL Normal 8.9-11.1 [facility] Comment on above: Performed By: #### 2 [id number] #### [facility] [address] [place] [address] Chloride [Moles/Vol] 104 mmol/L Normal 101-111 [facility] Comment on above: Performed By: #### 2 [id number] #### [facility] [address] [place] [address] CO2 [Moles/Vol] 29 mmol/L Normal 21-31 [facility] Comment on above: Performed By: #### 2 [id number] #### [facility] [address] [place] [address] Creatinine [Mass/Vol] 0.8 mg/dL Normal 0.5-1.3 [facility] Comment on above: Performed By: #### 2 [id number] #### [facility] [address] [place] [address] Glucose [Mass/Vol] 84 mg/dL Normal 55-199 [facility] Comment on above: Performed By: #### 2 [id number] #### [facility] [address] [place] [address] Potassium [Moles/Vol] 4.3 mmol/L Normal 3.5-5.3 [facility] Comment on above: Performed By: #### 2 [id number] #### [facility] [address] [place] [address] Sodium [Moles/Vol] 140 mmol/L Normal 135-145 [facility] Comment on above: Performed By: #### 2 [id number] #### [facility] [address] [place] [address] Urea nitrogen [Mass/Vol] 21 mg/dL Normal 5-21 [facility] Comment on above: Performed By: #### 2 [id number] #### [facility] [address] [place] [address] Urea nitrogen/Creatinine [Mass ratio] 26 No Units High 10-20 [facility] Comment on above: Performed By: #### 2 [id number] #### [facility] [address] [place] [address] CBC w/ Auto Diffon 5 Basophils/100 WBC (Bld) 0.5 % Normal 0.0-2.0 [facility] Comment on above: Performed By: #### 2 [id number] #### [facility] [address] [place] [address] Basophils/Leukocytes Auto (Bld) [Pure # fraction] 0.0 E9/L Normal 0.0-0.2 [facility] Comment on above: Performed By: #### 2 [id number] #### [facility] [address] [place] [address] Eosinophils (Bld) [#/Vol] 0.3 E9/L Normal 0.0-0.5 [facility] Comment on above: Performed By: #### 2 [id number] #### [facility] [address] [place] [address] Eosinophils/100 WBC (Bld) 4.1 % Normal 0.0-8.0 [facility] Comment on above: Performed By: #### 2 [id number] #### [facility] [address] [place] [address] Erythrocyte distribution width (RBC) [Ratio] 14.2 % Normal 10.9-14.2 [facility] Comment on above: Performed By: #### 2 [id number] #### [facility] [address] [place] [address] Hematocrit (Bld) [Volume fraction] 39.4 % Normal 34.0-46.0 [facility] Comment on above: Performed By: #### 2 [id number] #### [facility] [address] [place] [address] Hemoglobin (Bld) [Mass/Vol] 13.6 g/dL Normal 12.0-16.0 [facility] Comment on above: Performed By: #### 2 [id number] #### [facility] [address] [place] [address] Lymphocytes (Bld) [#/Vol] 3.4 E9/L Normal 1.0-4.0 [facility] Comment on above: Performed By: #### 2 [id number] #### [facility] [address] [place] [address] Lymphocytes/100 WBC (Bld) 47.7 % Normal 14.0-50.0 [facility] Comment on above: Performed By: #### 2 [id number] #### [facility] [address] [place] [address] MCH (RBC) [Entitic mass] 31.3 pg Normal 27.0-34.0 [facility] Comment on above: Performed By: #### 2 [id number] #### [facility] [address] [place] [address] MCHC (RBC) [Mass/Vol] 34.6 g/dL Normal 31.4-36.0 [facility] Comment on above: Performed By: #### 2 [id number] #### [facility] [address] [place] [address] MCV (RBC) [Entitic vol] 90.5 fL Normal 80.0-100.0 [facility] Comment on above: Performed By: #### 2 [id number] #### [facility] [address] [place] [address] Monocytes (Bld) [#/Vol] 0.5 E9/L Normal 0.2-1.0 [facility] Comment on above: Performed By: #### 2 [id number] #### [facility] [address] [place] [address] Neutrophils (Bld) [#/Vol] 2.9 E9/L Normal 2.0-7.5 [facility] Comment on above: Performed By: #### 2 [id number] #### [facility] [address] [place] [address] Neutrophils/100 WBC (Bld) 41.3 % Normal 36.0-75.0 [facility] Comment on above: Performed By: #### 2 [id number] #### [facility] [address] [place] [address] Platelet mean volume (Bld) [Entitic vol] 8.5 fL Normal 6.4-10.8 [facility] Comment on above: Performed By: #### 2 [id number] #### [facility] [address] [place] [address] Platelets (Bld) [#/Vol] 329.0 E9/L Normal 150.0-500.0 [facility] Comment on above: Performed By: #### 2 [id number] #### [facility] [address] [place] [address] RBC (Bld) [#/Vol] 4.3 E12/L Normal 4.3-5.9 [facility] Comment on above: Performed By: #### 2 [id number] #### [facility] [address] [place] [address] WBC corrected for nucl RBC Auto (Bld) [#/Vol] 7.1 E9/L Normal 4.0-11.0 [facility] Comment on above: Performed By: #### 2 [id number] #### [facility] [address] [place] [id number] CHEMISTRYOrdered By: SYSTEM SYSTEM on 04-04-2024 Anion [...] 25 BILIRUBIN:PRTHR:PT:URINE :ORD:TEST STRIP.AUTOMATED Negative Negative mg/dL [facility] CLARITY:TYPE:PT:URINE:NO M: Clear Clear [facility] CLASS:TYPE:PT:URINE COLLECTION METHOD:NOM:* Clean Catch [facility] COLOR:TYPE:PT:URINE:NOM: AUTO Colorless Abnormal Yellow [facility] Comment on above: Microscopic readings are only performed on those samples that meet specific criteria set forth by [facility]. [facility] PH:LSCNC:PT:URINE:QN:ERIK T STRIP 6.0 5.0 - 9.0 [facility] SPECIFIC GRAVITY:RDEN:PT:URINE:QN :TEST STRIP 1.014 1.005 - 1.030 [facility] GLUCOSE:PRTHR:PT:URINE:O RD:TEST STRIP Negative Negative mg/dL [facility] HEMOGLOBIN:MCNC:PT:URINE :SEMIQN:TEST STRIP.AUTOMATED Negative Negative mg/dL [facility] Interpretation and review of laboratory results Abnormal [facility] KETONES:PRTHR:PT:URINE:O RD:TEST STRIP.AUTOMATED Negative Negative mg/dL [facility] LEUKOCYTE ESTERASE:PRTHR:PT:URINE: ORD:TEST STRIP.AUTOMATED Negative Negative CD:[id number] [facility] NITRITE:PRTHR:PT:URINE:O RD:TEST STRIP.AUTOMATED Negative Negative mg/dL [facility] PROTEIN:PRTHR:PT:URINE:O RD:TEST STRIP Negative Negative mg/dL [facility] UROBILINOGEN:MCNC:PT:URI NE:SEMIQN:TEST STRIP Negative Negative mg/dL [facility] Original Ordering Provider: DO [place] [facility] with Cult Rflxon 04-04-19 25 Bilirubin Ql (U) Negative Normal Negative [facility] Comment on above: Performed By: #### 4 [id number] #### [facility] [address] [place] [address] Clarity (U) Clear Normal Clear [facility] Comment on above: Performed By: #### 4 [id number] #### [facility] [address] [place] [address] Color (U) Colorless Abnormal Yellow [facility] Comment on above: Result Comment: Micr oscopic readings are only performed on those samples that meet specific criteria set forth by [facility]. Performed By: #### 4 [id number] #### [facility] [address] [place] [address] Glucose Ql (U) Negative Normal Negative [facility] Comment on above: Performed By: #### 4 [id number] #### [facility] [address] [place] [address] Hemoglobin Auto test strip (U) [Mass/Vol] Negative Normal Negative [facility] Comment on above: Performed By: #### 4 [id number] #### [facility] [address] [place] [address] Ketones Auto test strip Ql (U) Negative Normal Negative [facility] Comment on above: Performed By: #### 4 [id number] #### [facility] [address] [place] [address] Leukocyte esterase Auto test strip Ql (U) Negative Normal Negative [facility] Comment on above: Performed By: #### 4 [id number] #### [facility] [address] [place] [address] Nitrite Auto test strip Ql (U) Negative Normal Negative [facility] Comment on above: Performed By: #### 4 [id number] #### [facility] [address] [place] [address] pH (U) 6.0 [pH] Invalid Interpretation Code 5.0-9.0 [facility] Comment on above: Performed By: #### 4 [id number] #### [facility] [address] [place] [address] Protein Ql (U) Negative Normal Negative [facility] Comment on above: Performed By: #### 4 [id number] #### [facility] [address] [place] [address] Specific gravity (U) [Rel density] 1.014 Invalid Interpretation Code 1.005-1.030 [facility] Comment on above: Performed By: #### 4 [id number] #### [facility] [address] [place] [id number] Urobilinogen (U) [Mass/Vol] Negative Normal Negative [facility] Comment on above: Performed By: #### 4 [id number] #### [facility] [address] [place] [address] Type of Urine collection method Clean Catch Normal [facility] Comment on above: Performed By: #### 4 [id number] #### [facility] [address] [place] [address] URINALYSISOrdered By: SYSTEM SYSTEM on 04-04-2024 Bilirubin Ql (U) Negative Normal Negativemg/ d L [facility] UA Auto SS Clarity (U) Clear (04/04/24 11:03 AM) Normal Clear [facility] UA Auto SS Color (U) Colorless 1 *ABN* (04/04/24 11:03 AM) Invalid Interpretation Code Yellow [facility] UA Auto SS Comment on above: Interpretive Data: M icroscopic readings are only performed on those samples that meet specific criteria set forth by [facility]. Glucose Ql (U) Negative Normal Negativemg/d L [facility] UA Auto SS Hemoglobin Auto test strip (U) [Mass/Vol] Negative Normal Negativemg/d L [facility] UA Auto SS Ketones Auto test strip Ql (U) Negative Normal Negativemg/d L FT UA Auto SS Leukocyte esterase Auto test strip Ql (U) Negative Normal NegativeLeu/ uL [facility] UA Auto SS Nitrite Auto test strip Ql (U) Negative Normal Negativemg/d L [facility] UA Auto SS pH (U) 6.0 *NA* (04/04/24 11:03 AM) Invalid Interpretation Code 5.0 - 9.0 FT UA Auto SS Protein Ql (U) Negative Normal Negativemg/d L FT UA Auto SS Specific gravity (U) [Rel density] 1.014 *NA* (04/04/24 11:03 AM) Invalid Interpretation Code 1.005 - 1.030 [facility] UA Auto SS Urobilinogen (U) [Mass/Vol] Negative Normal Negativemg/d L [facility] UA Auto SS URINALYSISOrdered By: Rene Singletary on 04-04-2024 UA Spec Desc Clean Catch (04/04/24 11:03 AM) Normal [facility] UA Auto SS eGFRon 04-04-2024 eGFR 80 mL/min/1.73 m2 Normal >=59 [facility] Comment on above: Performed By: #### 1 [id number] #### [facility] [address] [place] [address] No Panel Informationon 02-12 GURMEET Herrera 02/13/2024 8:53 AM L Inj/Asp: R knee on 02/13/2024 8:40 AM Indications: pain Details: 22 G needle Medications: 30 mg cross-linked hyaluronate 30 MG/3ML Consent was given by the patient. [facility] Pathology Reporton 4 Diagnosis ICD code [Identifier] Comment [facility] Comment on above: Pathologist provided ICD-10: R93.89 Pathologist name Comment [facility] Comment on above: Electronically micah d: . Tony Barnett MD, Pathologist Pathology report final diagnosis Narrative Comment [facility] Comment on above: Diagnosis: ENDOMETRIAL BIOPSY: - AGGREGATE OF MUCUS, ONE CYSTICALLY DILATED GLAND AND FEW FRAGMENTS OF METAPLASTIC SQUAMOUS EPITHELIUM. PLEASE SEE GROSS DESCRIPTION. TMZ 10/25/2023 1115 Local Pathology report gross observation Narrative Comment [facility] Comment on above: Gross description: . RECEIVED IN FORMALIN LABELED WITH THE PATIENT NAME AND ENDOMETRIAL BIOPSY IS A SCANT AMOUNT OF LEA TISSUE FRAGMENTS. THE SPECIMEN MAY NOT SURVIVE PROCESSING. SUBMITTED IN TOTO IN A1. PAV/BXS 10/24/2023 1215 Local Pathology report site of origin Narrative Comment [facility] Comment on above: Material submitted: . endometrium - ENDOMETRIAL BIOPSY Payment procedure Comment [facility] Comment on above: CPT . 822300 Performed at: - [address] [id number] Cloth Packer: Siva Floyd MD, Phone: [phone] [facility] Glucose mean value [Mass/vol ume] in Blood Estimated from glycated hemoglobinon 04-17-2023 Average glucose Estimated from glycated hemoglobin (Bld) [Mass/Vol] 120 mg/dL [facility] Laboratory - Hematology and Cell countson 04-17-2023 HbA1c (Bld) [Mass fraction] 5.8 % 4.5-6.2 [facility] Comment on above: ADA RECOMMENDED LIMI T 4.0 - 6.0ADA THERAPEUTIC TARGET < 7.0ACTION SUGGESTED> 7.0 Coding Summaryon 04-12-2023 Coding Summary HTMLBase 64 HqpqsvysHOf7iTx+PGh lYWQ+UL6BZDEbO45viQ OhpK5eS9FQBQoRFfqzC NCAYBmWUyRtpsFbEW6e aXNjZXJu IC8+ZC3vHGGsBmvlfUQ da3Y6xCU5M85jer8sGC htiCJ7UIFnLqBcdxsum 0rabBm7HFikDmhoRoNy BSZzxU67RGY1tL55Xp1 6zRTtbLIzr2zrlIj2Ny RzKSYmQLV5aTnjAUgna 7ElBPFaV94kcWQzo4D1 IGNvbGxhcHNlOyBlbXB 0oV2bLXlguwcek3jwhq knByo6ov52tPMzx9R3m DR8P4OhrqJ0WGOhlTLc AveukNKRxR4zvtsfj5t vdtipOxFvXEBpUUt4ML i1IFBbyEpxOoJxZX57M QK7VQLqiwDwX1CtUAUn jEtiBsO8k8O8Vx5JY2I TVppuK6BIOFJLLRjcjG Q+VD57sm65M1LzZmowE hj6CARsVBJ6fNA3xP2k KOCgMCayp4K9yGX5E0D tbfMneb6cq9mhSLWyST aiO92tjOCta2Z8GBNcb FO5EDNirEtuRsGsmK88 Oyc+DARwtAyya6LwYpm ox4fuu3jrtMd3AemrJJ DgecMfxWkrFDP9m4HkJ d2tYNXrsMX4tML1jO2n BtQmAiC7XAsyE170RcC ilSAdOhbdC36vC8EpnM A+VYVvUeh0VWXqkCkwS G0mB5KzLEMopzkokGVp yEnpIK6cRLJrklglVZH yjC9gEAKaM1q4SvMoAu Q5JFbiZ4YmSOFiqrrnC q04aB3zVwChEiH0TQzg F3NizuX4CMWoxWSdLZg wSUR9B63df0A2EYDxBP BcDWH0qXU9dD4chLesy jogbGVmdDsgdmVydGlj YBdqADrdS329ATQudZl nPkNvZGluZyBEYXRlOi AgMDIvMTUvMjAyNDwvd GQ+MHEuLYX7oKymQYEj dIErNXwhNz0ayVvrhGv aUT1yKKWucgtcZRDylO 1zAYCpiOHdrCtgND4pC CRpmlbig209QzKaVDV0 IVHzgNFuX8BccO9pEzG eMVXtLJIqT2FkzNQeVZ ziG720QWmpMfS5MCYzx wKoS3PxXTQziIakDvQ4 n5R3We2Pm9ZxantyX9E xwKDnIrAwTidhLWu3W4 RkPjwvdHI+PI33BBVqF O69KNt3WBI6lNpgILcz UYKkD3XfbV6kHjJlAIK kZGRkOyc+PHRhYmxlIH dpZHRoPScxMDAlJyBzd LzjFH6oNf6wRYTxPVSl nMeknGVbBwMwt1ygVNT mYDbeVV9zkIvdJ3BnnC Q6BPLnw7t0Td13Y75oY 3JvdXA+XOLkeCV7oZH3 bH0bDvVmZxW2JAmgF93 3KoRwtVYpLoybu0uvj5 nxtBc2QdU8NKHjibUmn YcwPYH8n9LdHo86H47c IHdpZHRoPSIxNSUiIHZ xhUshws0cwO2yUp6+PG MzpDD9kXA5sI3aOkReB fH5IDufE517JsDyrQPt Lcwqk9ufl9omqNw0PpN fYXBswpVejKvyGDD5b0 SsSn76J6AutNwus2HfZ ph3wz55qPGkx9K7iOT8 T4SdDBZbfoyaoEWnjOn gNB9eQEKleqooATQrrA 2pHLIqX1y7ZiOvYnL2M IojV4CktqU5BAWdwOIp ZWOrxVMNlM1qhdjfs1k iplvvWiUqCEOdPYg2PR q9BHJrgVmdVpVcPOY9D kZ3DOM0gMRymJ7gbZin hqhbtI8vXlv+WKB7aVO egRVKDJ2mLubxvCD+PH FnNJE7nSgtCGwsMPBpy S7pPBKjK6c1HjFxKdG1 RHluX6WgnuD7ZALnqRD sKMZrbGHIlK2kwffdv4 njmuxpXrPyVVUbBMu4C Xu4GGZzpXkaIhNyKNR8 KiA4XWU4vTOwmU0dhLl ykboarE1qVlu+QmlydG riOYT2NRo5G7NvTkz8N CXrpPiuRE7boRPhKBcq Kb8kuHptuYutTB2fIQE htysie698YbZjh6ukZV XzuKVxHUtuDQF4I06di 3N3YJKdSGFeDPU3vJO2 tD1iuRxmymnueATkaSj gdmVydGljYWwtYWxpZ2 88AKEjzXcpEkYbZAc6T 6AkGrx7UAYcpGmnCP2v dPMjABrlUf3aoMpcjTe eRN1bVHFndowsj068Ru Pxl0gwTRAsbEOlIAjiV YM9M25gf7R9BQFqWKWp WZR7aMF8tU7ohJitelh gbGVmdDsgdmVydGljYW ulIFluI942HHBogWfmB rEhxUe2W5ZjPkv7XHTr aAjyYK6fvCNhZEwmGm6 mqKmxsLxnOJ7wKAKaav mvy005PcUci8smWICsr PHkVUxgEBO0A24ws9M6 OECjMYHhAZI4tLF1aH6 hbGlnbjogbGVmdDsgdm MeyIlwMVknHEuxA642W HRvcDsnPlBhdGllbnQg VUapOXw8Q1IhJuapfOX +WW78DQDbPV30eVHwxQ Gns5cgsFm7RjSgALRuH QU7uNdhMBqtv0VlJRRl H16imCNjg2G8SVXgiVg fkPBsYaJdwSL0qR8wPU zgrfktk9wtuxekWaafe 6tsio29nC44M92lFAck ZHRoPSIzMCUiIHZhbGl tzq6lcR5rPg9+PGNvbC U1sRO5gS9nCGRaXaE8N MocD280UdFowLGuBbbs a7sts7jrxXc7ZsF8JZI muvWarEajMOU6y3TvUh 64A08uFSglVOXvUFTxS ADaQETzbSgxsc5mwL8p Ii8+WGActQY2jGR1aD3 bTaRsGzB8EQdtE682Bu ZcoFIjVhqkI60xM7Toc XA+ISTwPjx8EEWoyXaa BV2afKZsKKmgNq8yHAV 1GeWwSvKsKYvhK1BaKZ AmzowpcopgtDE9HTFcZ YNuqX20Qk6pjMgaQMQh uMYXcE8ismazu4ccmae bPcFkROVvUEn0ICj6PI CwzPwgMyOrYTX7MbT6J BY6lUOueM1zbNfwfibz qC2tV2LpHFLjpsqyUf3 4fV4lNuImQiR3DDvsNg c+Dk1MFM9wXIfLInmSB O60CU41mGEnw6X6oNU2 J4RwQPBmzzbahgnjnGK 8NYQwVOTedW53sSDlWW xhVk7qi8A6h497QRNcB XEyfI32Nr7oxAjvLRKg aYSSmC3evgfna9ouvbe sXfRvAABgBWo4UUs2OL PilZdvLbMuBKN0FeZ2T QS6gVHzmX8omJbnhtph cF6cFov+MTIvMTIvMTk 1NjwvdGQ+QOMzYXF6cD vpBIlcFSQzfN3eFYMiM 7o9PqUsMvX2TJnfO7Qm WKWjbxikHm62nC7xRsN bMhB0RLtfY7IrrzC6PQ HelAMtDZiuLYY6I56ff 1W2OARoSEGeMYY4tKY0 cV8fkEsgudxqlMEidQa gdmVydGljYWwtYWxpZ2 54OGMpyQkyBbU9BItwA ZCoJR50VU45wJCgd7Y4 wED3R0UgPIUsznilfab uvLJ6ECXxOKXglW32fJ IlBUvjGp2lc5K7e232D FUbIZSijM94Hz1axBdv SZYxmIRWlP8eqzael3v azjphYvLkXIYwNQh8RO n8OISvyJxwOaCsPRK0U kO1PAX6cWFmxK2nlQmj giuayY0eXsf+RkVNQUx HYK26FR40qGHjk4O5bV C5Q0BgAONqcigpomrvp HE6EUJvMRFvuT29wUWe HHujTy5uh3F4y327ZOA hOHJtdW15Co4teNgbSU FzaWHSdG9jsyqni3tup ynkBoHuMEPxKTa4IVe4 TNDatLzoGwHzKFV5XyB 5GJA2cMMisW8pdIysds oseD8qBko+S2T6F1EkO jwvdHI+WX52HABwIU86 fSNqlWIpl3uxaHi4UdA rEHZjWUU4vVugRKhgi0 BcWKYsG37uqWLsz0K3L GNvbGxhcHNlOyBlbXB0 qY1oBZnnhvtlo8nynqa jNbavx6uelo32iK48A3 9sIHdpZHRoPSIzMCUiI ZDtfYxxzk9fpQ4tUe4+ GGZwvPV5oPV8iU1gPoI qAwS1XIfhC406BwPjbM AfKxzko2lvd2ahuKc1A jIwJSIgdmFsaWduPSJ0 u8BrOk65S23nSKqcBEL oPSIyMCUiIHZhbGlnbj 2xvK0wLt6+SP1og5vrg l70iQ84jBD+PHRkIHN0 jSbrEKoePTTizU2dYGp lTmN7JYObItBelH99mI LjFQqcVw8pgRxpmWquQ P8rPBCzgfcys438XzVc i9bdGLVtqGQdTGfiNEF 0Q00iu8Z3HIPwLNEzAN L6cMT9uG3huJmkcvgfo GVmdDsgdmVydGljYWwt QQpeW301LVNsqWozNwL csLFpQ6pmcpGVDN6qQw wvdGQ+YAAbSEC0rYyjI IseCYSqqG3qNFLoF7l4 XcCmTuA7IKqwM9JnlxT 6IGJvbGQgMTBwdCBUaW 2eetbod9jyfoqeFpGcB KKbFTa6SLl7JGAfmQya JuWyNUX1HjQ3GTW2gZG nbI2jvCohtbounW4eTl c+RklOOjwvdGQ+PHRkI AQ5pQcoVPvzJDByxM6o ULXtB1i6ZtNpLxM3SBc uI1ExwsQ4NDUrrZBjOF YtsVIXyW0bggacp3lrv wpoOxKkSETuLQc3WBb7 QKCgfGdaRqAmGXI5NkK 7JJY8mRPonK3amGknbv gywD1dUuf+TVJOOjwvd GQ+EZAbDPM5sZasFPfj SWDzcQ3fWLAbK6c7XxL lOqU0QOkjM1PvqpW5BT KxtXJjJOHvpAGAaB9nc alxm6qnmltoEoCxQJHt HYi6LUc4FSUdeUecVnI fFCB3TuN7HBX8cMTuxW 8lzNnujfolxX1lJoj+U CD2KGH5EP44LW73N6Pw PjwvdGFibGU+PHRhYmx lIHdpZHRoPScxMDAlJy DivKchYW6oLy2xSTExK ENvpGreeYPfNcYwd9hc YXB (more content not included)... [facility] Consent Formson 04-09-2023 Consent Forms [id number] [facility] Agreem entson 04-09-2023 Controlled Substances Agreements [id number] [facility] 0 04-09-2023 Progress Note - Provider [id number]. 2023 [id number] [facility] MAMM SCREEN 3D BLUE CADon 07-18-2022 MG MAMM SCREEN 3D BLUE CAD Patient: KANWAL SCRUGGS Exam Date: 07/18/2022 : 1955 Gender:F Ordering : DR LAZARO CHARLES M.D. Admission #: [id number] Family : Order #: [id number] CLICK HERE TO VIEW EXAM RADIOLOGY REPORT [...] No Treatments None Family Cancers None LOCATION: [facility] BREAST COMPOSITION: Heterogeneously dense,which may obscure [...] Nunes M.D. on 07/19/2022 at 11:12 Normal [facility] CREATININEon 08-22-2021 Creatinine [Mass/Vol] 0.86 mg/dL Normal 0.55-1.02 [facility] Comment on above: Performed By: #### A ST, ALT, CREA #### [facility] [address] [place] [address] Dr. Uma Kennedy EGFR-AF POLISH >=60 Normal >=60 [facility] Comment on above: Performed By: #### A ST, ALT, CREA #### [facility] [address] [place] [address] Dr. Uma Kennedy EGFR-NON AF POLISH >=60 Normal >=60 [facility] Comment on above: Performed By: #### A ST, ALT, CREA #### [facility] [address] [place] [address] Dr. Uma Goetz 08-22-2021 AST [Catalytic activity/Vol] 13 U/L Critically low 15-37 [facility] Comment on above: Performed By: #### A ST, ALT, CREA #### [facility] [address] [place] [address] Dr. Uma Kennedy [facility] 08-22-2021 ALT [Catalytic activity/Vol] 28 U/L Normal 14-59 [facility] Comment on above: Performed By: #### A ST, ALT, CREA #### [facility] [address] [place] [address] Dr. Uma Kennedy Vital Signs Date Time Vital Sign Value Performing Clinician Facility 09-10-2024 09:090400 Body height 154.9 cm Jose Hanson MD Work Phone: [facility] 09-10-2024 09:09-0400 Body mass index (BMI) [Ratio] 27.02 kg/m2 Jose Hanson MD Work Phone: [facility] 09-10-2024 09:09-0400 Body weight 64.86 kg Jose Hanson MD Work Phone: [facility] 09-10-2024 09:09-0400 Diastolic blood pressure 72 mm[Hg] Jose Hanson MD Work Phone: [facility] 09-10-2024 09:09-0400 Systolic blood pressure 120 mm[Hg] Jose Hanson MD Work Phone: [facility] 08-06-2024 09:13-0400 Body height 154.[address] [facility] 08-06-2024 09:13-0400 Body mass index (BMI) [Ratio] 27.2 kg/m2 [facility] 08-06-2024 09:130400 Body weight 65.[address] [facility] 08-06-2024 09:13-0400 Diastolic blood pressure 80 mm[Hg] [facility] 08-06-2024 09:13-0400 Heart rate 78 /min [facility] 08-06-2024 09:13-0400 Systolic blood pressure 135 mm[Hg] [facility] 04-28-2024 15:56-0500 Heart rate 78 /min Camden العراقي [facility] 04-28-2024 15:56-0500 SaO2% (BldA) [Mass fraction] 95 % Camden العراقي [facility] 04-28-2024 15:55-0500 Respiratory rate 16 /min Camden العراقي [facility] 04-28-2024 15:55-0500 Diastolic blood pressure 74 mm[Hg] Camden العراقي [facility] 04-28-2024 15:55-0500 Mean blood pressure 100 mm[Hg] Camden العراقي [facility] 04-28-2024 15:55-0500 Systolic blood pressure 151 mm[Hg] Camden العراقي [facility] 04-28-2024 11:44-0500 Heart rate 71 /min Camden العراقي [facility] 04-28-2024 11:44-0500 SaO2% (BldA) [Mass fraction] 99 % Camden العراقي [facility] 04-28-2024 11:44-0500 Respiratory rate 16 /min [place] Dulce Maria [facility] 04-28-2024 11:44-0500 Blood Pressure Location [place] Dulce Maria [facility] 04-28-2024 11:44-0500 Body temperature 97.7 [degF] [place] العراقي [facility] 04-28-2024 11:44-0500 Diastolic blood pressure 81 mm[Hg] Camden العراقي [facility] 04-28-2024 11:44-0500 Mean blood pressure 108 mm[Hg] Camden العراقي [facility] 04-28-2024 11:44-0500 Systolic blood pressure 163 mm[Hg] Camden العراقي [facility] 04-28-2024 11:35-0500 Body temperature 97.16 [degF] [place] Dulce Maria [facility] 04-28-2024 11:35-0500 Diastolic blood pressure 78 mm[Hg] Camden العراقي [facility] 04-28-2024 11:35-0500 Heart rate 69 /min [place] Dulce Maria [facility] 04-28-2024 11:35-0500 Respiratory rate 12 /min Camden العراقي [facility] 04-28-2024 11:35-0500 SaO2% (BldA) [Mass fraction] 97 % Camden العراقي [facility] 04-28-2024 11:35-0500 Systolic blood pressure 152 mm[Hg] Camden العراقي [facility] 04-28-2024 11:20-0500 Respiratory rate 18 /min Camden العراقي [facility] 04-28-2024 11:15-0500 Respiratory rate 14 /min Camden العراقي [facility] 04-28-2024 11:08-0500 Body temperature 96.98 [degF] Camden العراقي [facility] 04-28-2024 10:55-0500 Respiratory rate 16 /min Camden العراقي [facility] 04-28-2024 07:25-0500 Blood Pressure Location Camden العراقي [facility] 04-28-2024 07:25-0500 Mean blood pressure 115 mm[Hg] Camden العراقي [facility] 04-28-2024 07:25-0500 Heart rate 88 /min Camden العراقي [facility] 04-28-2024 07:23-0500 Blood Pressure Location [place] العراقي [facility] 04-28-2024 07:23-0500 Body temperature 97.7 [degF] [place] العراقي [facility] 04-18-2024 10:45-0500 Diastolic blood pressure 88 mm[Hg] Lazaro Charles MD Work Phone: [facility] [place] 04-18-2024 10:45-0500 Heart rate 66 /min Lazaro Charles MD Work Phone: [facility] [place] 04-18-2024 10:45-0500 Respiratory rate 16 /min Lazaro Charles MD Work Phone: [facility] [place] 04-18-2024 10:45-0500 SaO2% (BldA) [Mass fraction] 99 % Lazaro Charles MD Work Phone: [facility] [place] 04-18-2024 10:45-0500 Systolic blood pressure 155 mm[Hg] Lazaro Charles MD Work Phone: [facility] [place] 04-18-2024 07:49-0500 Body height 154.94 cm Lazaro Charles MD Work Phone: [facility] [place] 04-18-2024 07:49-0500 Body temperature 98.5 [degF] Lazaro Charles MD Work Phone: [facility] [place] 04-18-2024 07:49-0500 Body weight 64.86 kg Lazaro Charles MD Work Phone: [facility] [place] 03-25-2024 13:11-0500 Body height 154.9 cm Camden العراقي DO Work Phone: [facility] 03-25-2024 13:11-0500 Body mass index (BMI) [Ratio] 26.26 kg/m2 Camden العراقي DO Work Phone: [facility] 03-25-2024 13:11-0500 Body weight 63.05 kg Camden العراقي DO Work Phone: [facility] 03-24-2024 08:37-0500 Body height 157.48 cm Lazaro Charles MD Work Phone: [facility] [place] 03-24-2024 08:37-0500 Body mass index (BMI) [Ratio] 26.4 kg/m2 Lazaro Charles MD Work Phone: [facility] [place] 03-24-2024 08:37-0500 Body weight 65.43 kg Lazaro Charles MD Work Phone: [facility] [place] 03-24-2024 08:37-0500 Diastolic blood pressure 81 mm[Hg] Lazaro Charles MD Work Phone: [facility] [place] 03-24-2024 08:37-0500 Heart rate 81 /min Lazaro Charles MD Work Phone: [facility] [place] 03-24-2024 08:37-0500 Systolic blood pressure 161 mm[Hg] Lazaro Charles MD Work Phone: [facility] [place] 02-13-2024 08:38-0500 Body height 154.9 cm Camden العراقي DO Work Phone: [facility] 02-13-2024 08:38-0500 Body mass index (BMI) [Ratio] 26.26 kg/m2 Camden العراقي DO Work Phone: [facility] 02-13-2024 08:38-0500 Body weight 63.05 kg Camden العراقي DO Work Phone: [facility] 01-16-2024 09:47-0500 Body temperature 97.11 [degF] Camden العراقي DO Work Phone: [facility] 01-16-2024 09:47-0500 Body weight 63.05 kg Camden العراقي DO Work Phone: [facility] 01-01-2024 08:16-0500 Body weight 63.05 kg Pippa Baker MD Work Phone: [facility] 01-01-2024 08:16-0500 Diastolic blood pressure 90 mm[Hg] Pippa Baker MD Work Phone: [facility] 01-01-2024 08:16-0500 Systolic blood pressure 146 mm[Hg] Pippa Baker MD Work Phone: [facility] 10-23-2023 12:44-0400 Body weight 64.86 kg Pippa Baker MD Work Phone: [facility] 10-23-2023 12:44-0400 Diastolic blood pressure 82 mm[Hg] Pippa Baker MD Work Phone: [facility] 10-23-2023 12:44-0400 Systolic blood pressure 120 mm[Hg] Pippa Baker MD Work Phone: [facility] 06-20-2023 09:29-0400 Body height 157.[address] [facility] 06-20-2023 09:29-0400 Body mass index (BMI) [Ratio] 26.2 kg/m2 [facility] 06-20-2023 09:29-0400 Body weight 64.[address] [facility] 04-17-2023 10:51-0500 Body height 157.[address] [facility] 04-17-2023 10:51-0500 Body mass index (BMI) [Ratio] 25.2 kg/m2 [facility] 04-17-2023 10:51-0500 Body weight 62.[address] [facility] 04-17-2023 10:51-0500 Diastolic blood pressure 93 mm[Hg] [facility] 04-17-2023 10:51-0500 Heart rate 85 /min [facility] 04-17-2023 10:51-0500 Systolic blood pressure 163 mm[Hg] [facility] 03-27-2023 10:00-0500 Body height 157.48 cm Lazaro Charles Other [facility] 03-27-2023 10:00-0500 Body mass index (BMI) [Ratio] 25.38 kg/m2 Lazaro Charles Other [employer] Other 03-27-2023 10:00-0500 Body weight 62.96 kg Lazaro Charles Other [employer] Other 03-27-2023 10:00-0500 Body weight 62.[address] [facility] 03-27-2023 10:00-0500 Diastolic blood pressure 88 mm[Hg] Lazaro Charles Other [facility] 03-27-2023 10:00-0500 Systolic blood pressure 144 mm[Hg] Lazaro Charles Other [facility] 02-05-2023 09:30-0500 Body height 157.48 cm Lazaro Charles Other [facility] 02-05-2023 09:30-0500 Body mass index (BMI) [Ratio] 26.41 kg/m2 Lazaro Charles Other [employer] Other 02-05-2023 09:30-0500 Body weight 65.5 kg Lazaro Charles Other [employer] Other 02-05-2023 09:30-0500 Body weight 65.[address] [facility] 02-05-2023 09:30-0500 Diastolic blood pressure 72 mm[Hg] Lazaro Charles Other [facility] 02-05-2023 09:30-0500 SaO2% (BldA) [Mass fraction] 97 % Lazaro Charles Other [employer] Other 02-05-2023 09:30-0500 Systolic blood pressure 128 mm[Hg] Lazaro Charles Other [facility] 11-08-2022 09:45-0400 Body height 157.48 cm Lazaro Charles Other [facility] [employer] Other 11-08-2022 09:45-0400 Body mass index (BMI) [Ratio] 27.83 kg/m2 Lazaro Charles Other [employer] Other 11-08-2022 09:45-0400 Body weight 69.04 kg Lazaro Charles Other [employer] Other 11-08-2022 09:45-0400 Diastolic blood pressure 85 mm[Hg] Lazaro Charles Other [employer] Other 11-08-2022 09:45-0400 Respiratory rate 12 /min Lazaro Charles Other [employer] Other 11-08-2022 09:45-0400 Systolic blood pressure 151 mm[Hg] Lazaro Charles Other [employer] Other 07-04-2022 10:00-0400 Body height 157.48 cm Lazaro Charles Other [employer] Other 07-04-2022 10:00-0400 Body mass index (BMI) [Ratio] 29.63 kg/m2 Lazaro Charles Other [employer] Other 07-04-2022 10:00-0400 Body weight 73.48 kg Lazaro Charles Other [employer] Other 07-04-2022 10:00-0400 Diastolic blood pressure 80 mm[Hg] Lazaro Charles Other [employer] Other 07-04-2022 10:00-0400 SaO2% (BldA) [Mass fraction] 97 % Lazaro Charles Other [employer] Other 07-04-2022 10:00-0400 Systolic blood pressure 142 mm[Hg] Lazaro Charles Other [employer] Other Encounters Encounter Date Encounter Type Care Provider Facility Start: 09-10-2024 End: 09-10-2024 Office outpatient new 45 minutes Jose Matt MD Work Phone: [facility] Comment on above: Chronic diarrhea (Pr imary Dx); Gallbladder polyp; Abnormal ultrasound of gallbladder Start: 09-10-2024 End: 09-10-2024 ambulatory JOSE MATT V Not Available Start: 08-06-2024 End: 08-06-2024 ambulatory [facility] Work Phone: Start: 08-06-2024 End: 08-06-2024 Patient encounter procedure [facility] Work Phone: Start: 07-17-2024 End: 07-17-2024 ambulatory LAURIE NSAH Not Available Start: 05-26-2024 End: 05-26-2024 Bamboo flowsheet Vasiliy Lai CLOCK MECHANIC Work Phone: [facility] Start: 05-26-2024 End: 05-26-2024 Bamboo flowsheet Vasiliy Lai CLOCK MECHANIC Work Phone: [facility] Start: 05-26-2024 End: 05-26-2024 Postop follow up visit related to original px Vasiliy Lai CLOCK MECHANIC Work Phone: [facility] Comment on above: Status post total ri ght knee replacement (Primary Dx); Acute pain of right knee Start: 05-26-2024 End: 05-26-2024 ambulatory VASILIY Chay GUERRAEN Not Available Start: 04-28-2024 End: 04-28-2024 Clinisync Result Encounter Camden العراقي DO Work Phone: [facility] Unsolicited Start: 04-28-2024 End: 04-28-2024 Clinisync Result Encounter Camden العراقي DO Work Phone: [facility] Unsolicited Start: 04-28-2024 End: 04-28-2024 Admission to same day surgery center Camden العراقي [facility] Start: 04-28-2024 End: 04-28-2024 ambulatory Camden العراقي Facility:[facility] Start: 04-18-2024 End: 04-18-2024 Admission to same day surgery center Lazaro Charles MD Work Phone: [facility] [place] Start: 04-18-2024 End: 04-18-2024 ambulatory Lazaro Charles MD Work Phone: [facility] Work Phone: Start: 04-04-2024 End: 04-04-2024 Clinisync Result Encounter Camden العراقي DO Work Phone: [facility] Unsolicited Start: 04-04-2024 End: 04-04-2024 Clinisync Result Encounter Camden العراقي DO Work Phone: [facility] Unsolicited Start: 04-04-2024 End: 04-04-2024 ambulatory Camden العراقي Facility:[facility] Start: 04-04-2024 End: 04-04-2024 Patient encounter procedure Camden العراقي [facility] Start: 04-01-2024 End: 04-01-2024 Bamboo flowsheet sIaias Tapia PT Work Phone: [facility] [...] encounter procedure Lazaro Charles MD Work Phone: [facility] Work Phone: Start: 02-13-2024 End: 02-13-2024 Bamboo [...] 15 minutes Pippa Baker MD Work Phone: [facility] Comment on above: Thickened endometriu m; Post-menopausal; Pelvic pain in female Start: 01-01-2024 End: 01-01-2024 ambulatory PIPPA BAKER Not Available Start: 10-23-2023 End: 10-27-2023 Orders Only Pippa Baker MD Work Phone: [facility] Unsolicited Start: 10-23-2023 End: 10-23-2023 Patient encounter procedure Pippa Baker MD Work Phone: [facility] Comment on above: Pelvic pain in femal e; Thickened endometrium; Post-menopausal Start: 10-23-2023 End: 10-23-2023 ambulatory PIPPA BAKER Not Available Start: 07-06-2023 End: 07-06-2023 ambulatory [facility] Facility:[facility] Start: 06-20-2023 End: 06-20-2023 ambulatory [facility] Work Phone: Start: 06-20-2023 End: 06-20-2023 Patient encounter procedure [facility] Work Phone: Start: 05-07-2023 End: 05-07-2023 Patient encounter procedure [facility] Work Phone: Start: 04-17-2023 End: 04-17-2023 ambulatory [facility] Work Phone: Start: 04-17-2023 End: 04-17-2023 Patient encounter procedure [facility] Work Phone: Start: 04-05-2023 End: 04-06-2023 ambulatory Alba Sharpe Facility:[facility] Start: 04-04-2023 End: 04-05-2023 ambulatory Alba Sharpe [employer]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 [employer] Other Start: 04-04-2023 Telephone encounter Lazaro Melvin [facility] Start: 03-28-2023 End: 03-28-2023 ambulatory Lazaro Charles Other [employer] Other Start: 03-28-2023 Telephone encounter Lazaro Melvin [facility] Start: 03-27-2023 End: 03-27-2023 ambulatory Lazaro Charles Other [employer] Other Start: 03-27-2023 Office outpatient vi sit 15 minutes Lazaro Charles [facility] Start: 03-27-2023 End: 03-27-2023 Patient encounter procedure [facility]- Start: 03-05-2023 End: 03-05-2023 ambulatory Lazaro Melvin Other [employer] Other Start: 03-05-2023 Telephone encounter Lazaro Melvin [facility] Start: 02-20-2023 End: 02-20-2023 ambulatory Lazaro Melvin Other [employer] Other Start: 02-20-2023 Telephone encounter Lazaro Melvin [facility] Start: 02-13-2023 End: 02-13-2023 ambulatory Lazaro Melvin Other [employer] Other Start: 02-13-2023 Telephone encounter Lazaro Melvin [facility] Start: 2023 End: 2023 ambulatory Lazaro Melvin Other [employer] Other Start: 2023 Telephone encounter Lazaro Melvin [facility] Start: 02-05-2023 End: 02-05-2023 ambulatory Lazaro Charles Other [employer] Other Start: 02-05-2023 Office outpatient vi sit 25 minutes Lazaro Charles [facility] Start: 02-05-2023 End: 02-05-2023 Patient encounter procedure [facility] Work Phone: Start: 11-27-2022 End: 11-27-2022 ambulatory Lazaro Charles Other [employer] Other Start: 11-27-2022 Telephone encounter Lazaro Charles [facility] Start: 11-08-2022 End: 11-08-2022 ambulatory Lazaro Charles Other [employer] Other Start: 11-08-2022 Office outpatient vi sit 15 minutes Lazaro Charles [facility] Start: 10-19-2022 End: 10-19-2022 ambulatory Lazaro Charles Other [employer] Other Start: 10-19-2022 Telephone encounter Lazaro Charles [facility] Start: 10-11-2022 End: 10-11-2022 ambulatory Lazaro Charles Other [employer] Other Start: 10-11-2022 Telephone encounter Lazaro Charles [facility] Start: 10-05-2022 End: 10-05-2022 ambulatory Lazaro Charles Other [employer] Other Start: 10-05-2022 Telephone encounter Lazaro Charles [facility] Start: 07-18-2022 End: 07-19-[address] LAZARO CHARLES Facility: Start: 07-07-2022 End: 07-07-2022 ambulatory Lazaro Charles Other [employer] Other Start: 07-07-2022 Telephone encounter Lazaro Charles [facility] Start: 07-04-2022 Office outpatient vi sit 15 minutes Lazaro Charles [facility] Start: 07-04-2022 End: 07-05-[address] LAZARO CHARLES [facility] [employer] Other Start: 08-22-2021 End: 08-23-[address] [...] العراقي Start: 02-26-1975 Arthroscopy of knee Matt hami العراقي Screening for malign ant neoplasm of cervix Lazaro Charles Other Plan of Treatment Date Care Activity Detail Author Start: 03-13-2025 End: 09-10-2025 US Gallbladder US gallbladder Imaging Routine Abnormal ultrasound of gallbladder Gallbladder polyp Expected: 03/13/2025, Expires: 09/10/2025 [facility] Work Phone: Comment on above: Expected: 03/13/2025 , Expires: 09/10/2025 Start: 01-12-2025 End: 01-12-2025 Patient encounter procedure 01/12/2025 9:00 AM EST Office Visit [facility] [address] [facility] [place] [address] Vasiliy Lai, CLOCK MECHANIC [address] [place], [place] [phone] [facility] Start: 07-17-2024 End: 07-17-2024 Patient encounter procedure 07/17/2024 9:15 AM EDT Office Visit [facility] [address] [place] [phone] Laurie Nash PA [address] [facility] [address] [place], [place] [id number] [facility] Start: 05-26-2024 End: 05-26-2024 Patient encounter procedure [facility] Comment on above: Acute pain of right knee; Status post total right knee replacement Start: 05-07-2024 End: 05-07-2024 Patient encounter procedure 05/07/2024 8:00 AM EDT Office Visit [facility] [address] [place] [phone] Pippa Baker MD [address] [place], [place] [phone] [facility] Start: 04-18-2024 End: 04-18-2024 [facility] Start: 04-01-2024 End: 04-01-2024 ambulatory [facility] Comment on above: Primary osteoarthrit is of right knee Start: 03-25-2024 End: 03-25-2025 Urinalysis complete panel - Urine Urinalysis with reflex microscopic Lab Routine Pre-op testing Expected: 03/25/2024, Expires: 03/25/2025 [facility] Work Phone: Comment on above: Expected: 03/25/2024 , Expires: 03/25/2025 Start: 03-25-2024 End: 03-25-2024 Patient encounter procedure 03/25/2024 1:30 PM EST Office Visit [facility] [address] [place] [phone] Camden العراقي, DO [address] [place] [address] Chronic pain of right knee (Primary Dx) [facility] Comment on above: Chronic pain of righ t knee (Primary Dx) Start: 02-13-2024 End: 02-13-2024 Patient encounter procedure [facility] Comment on above: Arrived Start: 01-16-2024 End: 01-16-2024 Patient encounter procedure 01/16/2024 9:45 AM EST Office Visit [facility] [address] [place] [phone] Camden العراقي, DO [address] [place] [address] [facility] Patient Education [facility] Work Phone: Patient referral [facility] Work Phone: Tissue exam Tissue exam Path ology and Cytology Routine Pelvic pain in female Thickened endometrium Post-menopausal Ordered: 10/23/2023 [facility] Work Phone: Comment on above: Ordered: 10/23/2023 [facility] XR Knee - right 3 Views XR knee 3 views right Imaging Routine Chronic pain of right knee 01/16/2024 8:35 AM EST [facility] Work Phone: Payers Date Payer Category Payer Self-pay 2021 Medicare 2021 Private Health Insurance [employer] [id number] 2021 Unknown 1959 Medicare [id number] [id number] 1959 Unknown [id number] 2.16.840.1.539076.19 1956 Unknown [id number] 2.16.840.1.786327.3.579.2. 593 1956 Unknown [id number] 2.16.840.1.725092.3.579.2. 593 1956 Unknown [id number] 2.16.840.1.171150.3.579.2. 593 1956 Unknown [id number] 2.16.840.1.657047.3.579.2. 718 1956 Unknown [id number] 2.16.840.1.093114.3.579.2. 718 1956 Unknown [id number] 2.16.840.1.537725.3.579.2. 196 1956 Unknown [id number] 2.16.840.1.392917.3.579.2. 727 1956 Unknown [id number] 2.16.840.1.113663.3.579.2. 727 1956 Unknown [id number] 2.16.840.1.440324.3.579.2. 727 1956 Unknown [id number] 2.16.840.1.124043.3.579.2. 1259 1956 Unknown [id number] 2.16.840.1.869787.3.579.2. 1259 1956 Unknown [id number] 2.16.840.1.983331.3.579.2. 1259 1956 Unknown [id number] 2.16.840.1.253603.3.579.2. 1259 1956 Unknown [id number] 2.16.840.1.894151.3.579.2. 9 1956 Unknown [id number] 2.16.840.1.287703.3.579.2. 1259 1956 Unknown [id number] 2.16.840.1.161722.3.579.2. 9 1956 Unknown [id number] 2.16.840.1.255451.3.579.2. 1258 1956 Unknown [id number] 2.16.840.1.730214.3.579.2. 9 1956 Unknown [id number] 2.16.840.1.172218.3.579.2. 1258 1956 Unknown [id number] 2.16.840.1.420047.3.579.2. 1259 Unknown [employer] [id number] Unknown [id number] 2.16.840.1.188672.3.579.2. 531 Social History Date Type Detail Facility Unknown if ever smoked [employer] Other Start: 06-05-2023 End: 01-01-2024 Sex Assigned At [facility] [employer] Other Start: 04-11-2023 End: 06-05-2023 Tobacco smoking status NHIS Never smoked tobacco (finding) [facility] Start: 1955 Sex Assigned At Female F [facility] Start: 06-05-2023 Tobacco use and exposure Smokeless tobacco non-user [facility] Start: 10-23-2023 End: 09-10-2024 Alcoholic beverage intake Current drinker of alcohol [...] No Smokin g Status Entered [facility] Start: 04-18-2024 End: 04-18-2024 Tobacco smoking status NHIS Ex-smoker (finding) [facility] Start: 04-18-2024 End: 08-06-2024 Sex Female (finding) [facility] Medical Equipment Procedure Code Equipment Code Equipment Origin al Text Equipment Identifier Dates KNEE TOTAL ARTHROPLASTY Dulce Maria Camden 04/28/24 Non Biological Knee R [id number] FDA Start: 04-28-2024 Goals Date Patient Goal Desired Activity /State Functional Status Date Assessment Result Facility 04-04-2024 Functional Status No [facility] Clinical Notes 07-04-2022 to 09-10-2024 Jose Hanson MD - 09/10/2024 9:00 AM EDTGranchay Lai NP - 05/26/2024 9:00 AM EDT Note Date & Type Note Facility 09-10-2024 History of Present illness Narrative Images from the original note were not included. Kanwal Scruggs 1955 Kanwal Scruggs is a 69 y.o. female presents with chief complaint of Consult (Gallbladder- pt was told she had a polyp on gallbladder. Denies any pain currently. She was having pain about 2 months ago.) HPI: The patient is a 69-year-old female who is found to have a gallbladder polyp on ultrasound. About a month or so ago, she had had some epigastric pain and that is why she had the ultrasound performed. She has not had that pain since then. She has been eating. Denies vomiting. Patient also has had chronic diarrhea. This has been going on for about 2 years. She had at least 2-3 bowel movements a day. She has had a colonoscopy in the past which she states was normal but that was before she developed the diarrhea. She denies family history for colon cancer. She denies blood in his stool. SUBJECTIVE: MEDICATIONS: ALLERGIES Current Outpatient Medications Medication Instructions calcium citrate (CALCITRATE) 950 mg cholecalciferol (D3) 25 MCG (1000 UT) capsule Refills(s) 0 ibuprofen 800 mg, Every 8 hours Allergies Allergen Reactions Nitrofurantoin Other Reaction(s): Other (See Comments) Sulfamethoxazole-Trimethoprim Anxiety, Dizziness, Hallucinations, Hives, Itching, Nausea Only, Palpitations and Rash PAST MEDICAL HISTORY: SOCIAL HISTORY SURGICAL HISTORY: Past Medical History: Diagnosis Date Arthritis Compression fracture of body of thoracic vertebra (HCC) Fracture lumbar vertebra-closed (HCC) Lumbosacral disc disease Skin cancer Thoracic disc disease Thoracic spine fracture (HCC) Social History Tobacco Use Smoking status: Never Smokeless tobacco: Never Vaping Use Vaping status: Never Used Substance Use Topics Alcohol use: Yes Alcohol/week: 3.0 standard drinks of alcohol Types: 3 Standard drinks or equivalent per week Comment: social Drug use: Never Past Surgical History: Procedure Laterality Date CERVICAL BIOPSY W/ LOOP ELECTRODE EXCISION COLPOSCOPY KNEE ARTHROPLASTY Right NECK SURGERY 2005 REVIEW OF SYMPTOMS: Review of Systems Constitutional: Negative for fever. Respiratory: Negative for shortness of breath. Cardiovascular: Negative for chest pain. Gastrointestinal: Positive for diarrhea. Negative for abdominal pain, blood in stool and vomiting. Genitourinary: Negative for difficulty urinating. Neurological: Negative for syncope. OBJECTIVE: Visit Vitals BP 120/72 Ht 5' 1 Wt 143 lb LMP (LMP Unknown) BMI 27.02 kg/m OB Status Postmenopausal Smoking Status Never BSA 1.67 m Physical Exam Constitutional: General: She is not in acute distress. HENT: Head: Atraumatic. Eyes: General: No scleral icterus. Cardiovascular: Rate and Rhythm: Normal rate and regular rhythm. Pulmonary: Breath sounds: Normal breath sounds. Abdominal: General: There is no distension. Palpations: Abdomen is soft. Tenderness: There is no abdominal tenderness. Skin: General: Skin is warm and dry. Neurological: General: No focal deficit present. Mental Status: She is alert. ASSESSMENT AND PLAN: Assessment/Plan Diagnoses and all orders for this visit: Chronic diarrhea Gallbladder polyp - US gallbladder; Future Abnormal ultrasound of gallbladder - Ambulatory referral to General Surgery - US gallbladder; Future For the chronic diarrhea, we did discuss colonoscopy. The procedure, benefits, risks including risks of bleeding, perforation, incomplete colonoscopy were discussed. We did discuss random biopsies to rule out microscopic colitis. The patient is not sure if she will have the colonoscopy done. She is concerned that she lives 45 minutes away and had problems with the last colonoscopy with making it to the facility before having a bowel movement. For this, we can start the bowel prep earlier in the day. For the gallbladder polyp, no indication for cholecystectomy at this time. The patient is to call if she does develop recurrent upper abdominal pain. Otherwise, plan will be for a follow-up gallbladder ultrasound in about 2 months. documented in this encounter [facility] 05-26-2024 History of Present illness Narrative Images from the original note were not included. HISTORY OF PRESENT ILLNESS: POST OP PT Kanwal Scruggs is an 69 y.o. @ female. 1ST PO RT TKA 04/28/24 (4 WKS) @ [facility]-DR العراقي. XRAY TODAY EPIC 05/26/24 PHYSICAL THERAPY @ [place] [facility] UNASSISTED. SORENESS DIFFUSE IN KNEE. TAKING 1/2 PERCOCET. DOING PT IN [place]. TAKING ASA UNTIL SUNDAY. NO GENNA HOSE. [...] anterior knee) Pulse: present Swelling: mild Comments: -HOMANS IMAGING: XR knee 1 or 2 views [...] Stable RT total knee replacement. Vasiliy Lai APRN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 Procedures Orders Placed This Encounter Procedures XR [...] develop for requiring urgent evaluation. Vasiliy Lai APRN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 documented in this encounter [facility] 05-01-2024 Note Progress Note-Physic xavier Patient: KANWAL SCRUGGS Age: 69 years Sex: Female : 1955 Associated Diagnoses: None Author: Isidro Moore MD Postoperative Information Postoperative disposition: Postoperative disposition: To PACU. Optimetrix number: Optimetrix number [id number]. Anesthetic utilized: Regional: Spinal, ACB. Health Status Allergies: Allergic Reactions (Selected) Severity Not Documented Bactrim- Unknown. Nitrofurantoin- Mental blocking. Physical Examination VS/Measurements Pain Assessment: Controlled. General: Awake, Appropriate. Respiratory: Adequate air exchange. Cardiovascular: Stable. Neurological Assessment Anesthetic outcome No anesthetic complications noted. Adequate pain relief. Review / Management Condition: Stable. Plan Transfer/Discharge: Transfer/Discharge Discharge when meets criteria ( To home ). [facility] Comment on above: Result Comment: Elec tronically Signed By: Oscar SPARKS, Isidro Whitley\.br\Date and Time Signed: 05/01/24 10:25 EST 04-28-2024 Note Interdisciplinary No te - OT Pt is seen for OT evaluation this date following R TKA with Dr. العراقي. [facility] score: 21/24. pt is CGA for functional transfers and mobility with FWW. pt is able to manage toileting and LB clothing with SUP/CGA, demonstrating overall good safety. pt to d/c home with HH services and spouse for support. [facility] 04-28-2024 Evaluation + Plan note Extrac genna from: Title:Op Note skeleton Author:Camden العراقي DO Date:04/28/24 Impression and Plan Diagnosis Pre-op dx-rt knee oa Post-op dx-same Procedure-rt tka Anesthesia-spinal c block EBL-0 TT-see nn To Recovery Room in stable and satisfactory condition.. Extracted from: Title:ANES Pre-operative Note 2022 Author:Isidro Salgado Date:04/28/24 Plan [employer]hesi[employer] (ASA) physical status classification: Class II. Anesthetic Preoperative Plan: Anesthesia General. [facility] 03-03-2025 Hospital Discharge instructions Patient Education [...] possible. If the spirometer includes a college coach indicator, use this to guide you [...] provider. Document Revised: 05/03/2020 Document Reviewed: 05/03/2020 [employer] Patient Education 2023 [employer]. 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 It is therefore advised not to drive until after yourfirst office visit following surgery FOLLOW-UP OFFICE VISIT: Camden العراقي DO [facility] [address] [place] [id number] Reviewed: 03-22 Follow Up Care 03/25/2024 13:51:56 With:KEYANNA Linares Address: [address] [place] [phone]- Business (1) When:05/26/2024 09:00:00 Comments:Keep scheduled appointment [facility] 03-03-2025 NotePatient Education - Text Pulmonary [...] ??? If the spirometer includes a college coach indicator, use this to guide you [...] provider. Document Revised: 05/03/2020 Document Reviewed: 05/03/2020 [employer] Patient Education ? 2023 [employer]. [place], [place] [facility] DISCHARGE INSTRUCTIONS TOTAL KNEE ARTHROPLASTY INCISION CARE: Mepilex dressing can get wet with showers. Please remove 10 days after surgery per instruction sheet. Physical Therapy will monitor. If curt present, please coordinate removal 21 (more content notincluded)...[facility] 04-28-2024 NoteProgress Note-Physician Patient: KANWAL SCRUGGS Age: [...] 6:30:00 EST, Start AM postop day 1, 256:30:00 EST Colace 100 mg Cap: 100 mg [...] BID, # 20 cap(s), Refills(s) 0, Pharmacy: [facility], 155, cm, 04/04/24 12:36:00 EST, Height/Length Dosing, 67.1, kg, 04/04/24 12:36:00 EST, Weight Dosing Percocet 5 mg-325 mg oral tablet: See Instructions, 50 tab(s), Refill(s) 0, Take one to two oral every 4 hours as needed for surgical pain., [facility], 155, cm, 04/04/24 12:36:00 EST, Height/Length Dosing, 67.1, kg, 04/04/24 12:36:00 EST, Weight Dosing aspirin 325 mg Tab: 325 mg = 1 tab(s), Oral, Daily, Start the day after surgery for blood clot prevention., X 30 day(s), # 30 tab(s), Refills(s) 0, Pharmacy: [facility], 155, cm, 04/04/24 12:36:00 EST, Height/Length Dosing, 67.1, kg, 04/04/24 12:36:00 EST, Weig... 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 Date: documented in this encounterSaint Francis Medical [id number] History of Present illness Narrative* Aissatou Hahn - 03/25/2024 1:30 PM EST Images from the original note were not included. GENERAL HISTORY AND PHYSICAL: NAME: Kanwal Scruggs : 1955 CHIEF COMPLAINT: Right knee pain and swelling. HISTORY OF PRESENT ILLNESS: Kanwal is here still having pain. She has had cortisone injections. Visco supplementation in January provided no relief. She lives in the [place], [place] area. She has tried ice, Tylenol [...] [facility] that are [...] is aware that results cannot be guaranteed. marketing communications manager antibiotic prophylaxis with dental or invasive [...] and exam four weeks postoperative in the [place] office with Vasiliy Lai, nurse practitioner. Camden العراقي D.O. Cosigned by Camden العراقي DO at 03/28/2024 2:16 PM EST documented in this encounterSaint Francis Medical [id number] Evaluation note* Diagnosis Onset Date Resolution Status Admit Date Chronic thoracic back pain acute March 24, 2024 8:32am Hot flash, menopausal acute Dave abreu 2024 8:32am Insomnia associated with menopause acute March 24 8:32am [facility] Work Phone: [phone]) 718-668312-18-2024 History of Present illness Narrative* GURMEET Herrera - 02/13/2024 8:45 AM ESTAssociated Order(s): [...] All questions were answered. documented in this encounterSaint Francis Medical [id number] History of Present illness Narrative* Pippa Baker MD - 01/01/2024 8:00 AM EST Images from the original note were not included. Pippa Baker MD Obstetrics and Gynecology Patient: Kanwal cSruggs : 1955 (68 y.o.) Exam Date: 01/01/2024 [...] concerns during future visits. documented in this encounterSaint Francis Medical [id number] History of Present illness Narrative* Aleida Collier MA - 10/23/2023 12:30 PM EDT [...] Date COLPOSCOPY KNEE ARTHROPLASTY Right NECK SURGERY 2005 Family History Problem Relation Name Age of [...] R93.89 3. Post-menopausal Z78.0 documented in this encounterSaint Francis Medical [id number] Evaluation note* Encounter Date Diagnosis Assessment Notes Treatment Notes Treatment Clinical Notes Feb, Compression fracture of T12 vertebra, sequela (ICD-10 - S22.080S) Feb, Lumbar facet arthropathy (ICD-10 - M47.816) [employer] Other 01-30-2024 Evaluation note* Encounter Date Diagnosis Assessment Notes Treatment Notes Treatment Clinical Notes Feb, Lumbar pain (ICD-10 - M54.50) Assess xray. Agrees to continue flexeril prn Feb, Subclinical hyperthyroidism (ICD-10 - E05.90) Pt requests referral to Dr Rodgers Feb, Menopausal symptoms (ICD-10 - N95.1) as above. HRT started at lowest dose. [employer] Other 12-26-2023 Evaluation note* Encounter Date Diagnosis Assessment Notes Treatment Notes Treatment Clinical Notes Jan, Acute diarrhea (ICD-10 - R19.7) [employer] Other 12-11-2023 Evaluation note* Encounter Date Diagnosis [...] spasm (ICD-10 - M62.838) Pt requests refill. [employer] Other 11-01-2023 History general Narrative - Reported* Type Description Date Medical History Acid reflux Medical History OAB (overactive bladder) Medical History Primary insomnia Surgical History cervical fusion 2006 Surgical History Right knee surgery 12/27/2022 Hospitalization History see above surgical histo ry [employer] Other 09-13-2023 Evaluation note* Encounter Date Diagnosis Assessment Notes Treatment Notes Treatment Clinical Notes Oct, OAB (overactive bladder) (ICD-10 - N32.81) Will increase dose. Pt will notify us if medication is not helpful. Consider urology referral if not successful, but presently waiting for orthopedics for her R knee. [employer] Other 08-16-2023 Evaluation note* Encounter Date Diagnosis Assessment Notes Treatment Notes Treatment Clinical Notes Sep, OAB (overactive bladder) (ICD-10 - N32.81) [employer] Other 05-09-2023 Evaluation note* Encounter Date Diagnosis Assessment Notes Treatment Notes Treatment Clinical Notes June, Left medial knee pain (ICD-10 - M25.562) Samples of Voltaren given. Order for XR printed. If PT Or Ortho indicated, would [facility] toward [facility]. [employer] Other 05-09-2023 NotePROCEDURE: XR KNEE LT 4V or > HISTORY: Pain of left knee joint ; medial knee pain for 2 weeks which increases with activity COMPARISON: None. FINDINGS: BONES:No fracture, acute abnormality, or significant arthropathy. SOFT TISSUES:No visible soft tissue swelling. EFFUSION:None visible. OTHER: Negative. IMPRESSION: 1. No acute bone abnormality. 2. Minimal degenerative changes. Electronically authenticated by: IGGY NUNES Date: 2022-07-04 10:35[facility] Future Appointments Appointment Date:04/28/2024 10:00:00 AM Scheduled Provider: Location:[facility] Appointment Type:Surgery FT [facility] Evaluation noteNo InformationNort [email or web address] Other evaluation noteNo assessment information available [facility] Work Phone: Evaluation note* Diagnosis Onset Date [...] thoracic region acute Thoracic back pain acute [facility] Work Phone: Evaluation note* Diagnosis Pelvic pain in female Unspecified symptom associated with female genital organs Thickened endometrium Nonspecific (abnormal) findings on radiological and other examination of genitourinary organs Post-menopausal Asymptomatic postmenopausal status (age-related) (natural) documented in this encounter [facility] Diagnosis Thickened endometrium Nonspecific (abnormal) findings on radiological and other examination of genitourinary organs Post-menopausal Asymptomatic postmenopausal status (age-related) (natural) Pelvic pain in female Unspecified symptom associated with female genital organs documented in this encounter [facility] HealthcareEvaluation note* Diagnosis Chronic pain of right knee- Primary documented in this encounter [facility]* Diagnosis Chronic pain of right knee- Primary documented in this encounter [facility]* Diagnosis Pre-op testing- Primary Unspecified pre-operative examination Chronic pain of right knee documented in this encounter [facility]* Diagnosis Primary osteoarthritis of right knee- Primary documented in this encounter [facility] note* Diagnosis Status post total right knee replacement- Primary Acute pain of right knee documented in this encounter [facility]* Diagnosis Onset Date Resolution Status Admit Date RUQ abdominal pain acute July 272024 9:07am [facility] Work Phone: Evaluation note* Diagnosis Chronic diarrhea- Primary Diarrhea Gallbladder polyp Cholesterolosis of gallbladder Abnormal ultrasound of gallbladder documented in this encounter [facility] HealthcareHistory general Narrative - Reported* Type Description Date Medical History Acid reflux Surgical History cervical fusion 2006 Hospitalization History see above surgical histo [employer] Other History general Narrative - Reported* Type Description Date Medical History Acid reflux Medical History OAB (overactive bladder) Medical History Primary insomnia Surgical History cervical fusion 2006 Hospitalization History see above surgical histo [employer] Other Hospital course Narrative No data available for this section [facility] Hospital Discharge instructions No data available for this section [facility] Progress note No data available for this section [facility] Reason for visit Narrative* Consultation (Routine) - Authorized Specialty Diagnoses / Procedures Referred By Teo cartwright Referred To Contact Physical Therapy Diagnoses Primary osteoarthritis of right knee Procedures [place] OFFICE/OUTPATIENT NEW HIGH MDM 60 MINUTES Camden العراقي, DO [address] [place] [address] Phone: tel: fax: Isaias Tapia, PT [address] [place] [address] Phone: tel: fax: Referral ID Status Reason Start Date Expiration Date Visits Requested Visits Authorized [id number] Authorized Specialty Services Required 03/27/2024 09/23/2024 20 [...] of T12 vertebra, sequela (S22.080S) Referral Organization [facility] Referring Provider First Name Lazaro Referring Provider Last Name Melvin Referring Provider Specialty Family [facility] Referred Organization [facility] Referred Address [address] [place], [place],[address] Referred Provider Specialty Pain Medicin e Referral Priority Routine General Notes Richa Reina 08:44:36 AM >received today, notes locked, attachments made, referral faxed Richa Reina 04/03/2023 04:29:40 PM >this was sent to [facility] and then forwarded to since its closer for patient Clinical Notes f: [id number] Reason *FU 04/06 Symptoms of hyperthyroidism, menopausal hot flashes and insomnia Diagnosis 1 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) Referral Organization [facility] [employer] shannan Referring Provider First Name Lazaro Referring Provider Last Name Melvin Referring Provider Specialty [employer] Referred Organization [facility] Referred Provider Edith Rodgers Referred Address ,[place], [place],[address] Referred Provider Specialty Family [facility] ine Referral Priority Routine General Notes Richa Reina 09:55:33 AM >received today, notes locked, ins attached, referral faxed Reason [place] [facility] - br ain fog Diagnosis 1 Brain fog (R41.89) Referral Organization [facility] [employer] Referring Provider First Name Lazaro Referring Provider Last Name Melvin Referring Provider Specialty [facility] Kamida Referred Organization [facility] Referred Provider Jorge L Sears Referred Address [address] [facility], [place],[address] Referred Provider Specialty Neurology Referral Priority Routine [...] 24, 2024 8:32am Insomnia associated with menopause Janua ry 2024 8:32am Chief Complaint Admit Date stomach concerns August 06, 2024 9:07 am Reason for Visit Admit Date RUQ abdominal pain August 06, 2024 9:07 am Additional Source Comments REASON FOR VISIT (unrecogniz ed section and content) Reason Comments Endosee Specialty Diagnoses / Procedures Referred By Teo cartwright Referred To Contact Obstetrics and Gynecology Diagnoses Pelvic and perineal pain Generalized abdominal pain Abnormal findings on diagnostic imaging of other specified body structures Procedures TN HYSTEROSCOPY BX ENDOMETRIUM&/POLYPC W/WO D&C Pippa Baker MD [address] [facility] [address] [place] [address] Pippa Baker MD [address] [facility] [address] [place] [address] Referral ID Status Reason Start Date Expiration Date V isits Requested Visits Authorized [id number] Closed Perform Procedure 10/05/2023 04/02/2024 1 1 Reason Comments Surgery consult Reason Comments Pain Reason Comments Pain Reason Comments Follow-up Reason Comments Post-op Reason Comments Consult Gallbladder- pt was told she had a polyp on gallbladder. Denies any pain currently. She was having pain about 2 months ago. Specialty Diagnoses / Procedures Referred By Teo cartwright Referred To Contact General Surgery Diagnoses Cholesterolosis of gallbladder Right upper quadrant pain Procedures [place] OFFICE/OUTPATIENT NEW HIGH MDM 60 MINUTES Lazaro Charles MD [address] [place] [address] Phone: tel: fax: [facility] [address] [facility] [address] [place] [address] Phone: tel: fax: Referral ID Status Reason Start Date Expiration Date V isits Requested Visits Authorized [id number] Closed Specialty Services Required 08/13/2024 02/09/2025 1 1 INFORMATION SOURCE (unrecogn ized section and content) DATE CREATED AUTHOR 08/04/2022 [facility] DATE CREATED AUTHOR AUTHOR'S ORGANIZ ATION 07/06/2023 [facility] DATE CREATED AUTHOR AUTHOR'S ORGANIZ ATION 08/23/2023 [facility] DATE CREATED AUTHOR AUTHOR'S ORGANIZ ATION 04/06/2024 [facility] DATE CREATED AUTHOR AUTHOR'S ORGANIZ ATION 04/28/2024 [facility] [place] [facility] DATE CREATED AUTHOR AUTHOR'S ORGANIZ ATION 04/29/2024 [facility] DATE CREATED AUTHOR AUTHOR'S ORGANIZ ATION 05/03/2024 [facility] DATE CREATED AUTHOR AUTHOR'S ORGANIZ ATION 09/14/2024 [facility] dical Specialists EPIC Care Teams [...] June 20, 2023 End: June 20, 2023 Membership Counselor Relationship Specialty Start Date End Date Lazaro Charles MD PCP - General Family Medicine 04/26/23 Iggy Dangelo MD [address] [place] [address] Referring Physician Neurology 04/26/23 Membership Counselor Relationship Specialty Start Date End Date Lazaro Charles MD [address] [facility] [place] [address] PCP - General Family Medicine 04/26/23 Iggy Dangelo MD [address] [place] [address] Referring Physician Neurology 04/26/23 Membership Counselor Relationship Specialty Start Date End Date Lazaro Charles MD [address] [place] [facility] [address] PCP - General Family Medicine 04/26/23 Iggy Dangelo MD [address] [place] [address] Referring Physician Neurology 04/26/23 Membership Counselor Relationship Specialty Start Date End Date Lazaro Charles MD [address] [place] [facility] [place] [phone] PCP - General Family Medicine 04/26/23 Iggy Dangelo MD [address] [place] [address] Referring Physician Neurology 04/26/23 Membership Counselor Relationship Specialty Start Date End Date Lazaro Charles MD [address] [place] [facility] [phone] PCP - General Family Medicine 04/26/23 Iggy Dangelo MD [address] [place] [address] Referring Physician Neurology 04/26/23 Membership Counselor Relationship Specialty Start Date End Date Lazaro Charles MD PCP - General Family Medicine 04/26/23 Iggy Dangelo MD [address] [place] [address] Referring Physician Neurology 04/26/23 Membership Counselor Relationship Specialty Start Date End Date Lazaro Charles MD [address] [place] [facility] [address] PCP - General Family Medicine 04/26/23 Iggy Dangelo MD [address] [place] [address] Referring Physician Neurology 04/26/23 Membership Counselor Relationship Specialty Start Date End Date Lazaro Charles MD [address] [place] [facility] [place] [address] PCP - General Family Medicine 04/26/23 Iggy Dangelo MD [address] [place] [address] Referring Physician Neurology 04/26/23 Membership Counselor Relationship Specialty Start Date End Date Lazaro Charles MD [address] [place] [facility] [place] [phone] PCP - General Family Medicine 04/26/23 Iggy Dangelo MD [address] [place] [address] Referring Physician Neurology 04/26/23 Team Status: Inactive [...] April 18, 2024 End: April 18, 2024 Membership Counselor Relationship Specialty Start Date End Date Lazaro Charles MD [address] [place] [facility] [place] [phone] PCP - General Family Medicine 04/26/23 Iggy Dangelo MD [address] [place] [address] Referring Physician Neurology 04/26/23 Membership Counselor Relationship Specialty Start Date End Date Lazaro Charles MD [address] [place] [phone] PCP - General Family Medicine 04/26/23 Iggy Dangelo MD [address] [place] [address] Referring Physician Neurology 04/26/23 Membership Counselor Relationship Specialty Start Date End Date Lazaro Charles MD [address] [place] [phone] PCP - General Family Medicine 04/26/23 Iggy Dangelo MD [address] [place] [address] Referring Physician Neurology 04/26/23 Team Status: Inactive Member Role Status Dates Lazaro Charles MD Primary Care Provide r, Attending Provider Active Start: August 06, 2024 End: August 06, 2024 Membership Counselor Relationship Specialty Start Date End Date Lazaro Charles MD [address] [place] [phone] PCP - General Family Medicine 08/25/24 Iggy Dangelo MD Referring Physician Neurology 04/26/23 Goals (unrecognized section [...] BE BASED ON THE PRIMARY CLINICAL RECORDS. [employer] [facility]. provides no warranty or guarantee of the accuracy or completeness of information in this document.
== END 2024-11-06 09:17 | disposition home or self-care (01) ==
LOC: US 09:16
PROVIDERS: PCP Family Medicine; Visit Provider Internal Medicine Hematology & Oncology
DX: K52.9 Noninfective gastroenteritis and colitis, unspecified (principal); K82.4 Cholesterolosis of gallbladder
CPT/HCPCS: 76705